=== PATIENT | female | born 1945 | race Caucasian/White ===

== ENCOUNTER 2020-02-24 09:44 | Outpatient (CLI) | payer OTHER, MEDICARE, SELFPAY ==
--- NOTE | ~2020-02-24 | MR_ITS ---
EXAMINATION: MR ankle RT wo con DATE: 02/24/2020 10:34 INDICATION: Right ankle pain. TECHNIQUE: Magnetic resonance imaging (MRI) of the right ankle was performed without intravenous cont rast. Sequences included sagittal, coronal, and axial proton-density weighted fast spin echo without and with fat saturation. COMPARISON: CT dated 10/16/2017 FINDINGS: Medial ankle ligaments: Deep and superficial deltoid ligaments as well as the spring ligament are normal. Lateral ankle ligaments: The anterior and posterior inferior tibiofibular ligaments are normal. The anterior talofibular, calc aneofibular and posterior talofibular ligaments are normal. Tendons: Achilles tendon is normal. The peroneus longus and brevis tendons are normal. The tibialis anterior a nd extensor hallucis longus and extensor digitorum longus tendons are normal. The tibialis posterior, flexor digitorum longus and flexor hallucis longus tendons are normal. Plantar fascia: Plantar aponeurosis is normal. Bones/other: Again seen is prominent pes cavus. Subtle shallow cleft along the articular surface of the tibial iain fond and the site of an old healed nondisplaced fracture of the tibial plafond as is seen on prior CT . Prominent marrow edema surrounding linear low signal intensity subarticular stress fracture lines a t the calcaneus underlying the posterior facet of the subtalar joint and in the talus underlying the anterior margin of the posterior facet of the subtalar joint. Marrow signal is otherwise normal with no other fracture or pathologic marrow replacing process. There is prominent fatty atrophy of the muc h of the musculature of the distal calf and intrinsic musculature of the foot. There is atrophy of th e plantar calcaneal fat pad. Fluid: Small likely reactive subtalar and tibiotalar joint effusions. Subcutaneous edema about the ankle and extending distally along the dorsum of the forefoot. IMPRESSION: 1. Subarticular stress fractures at either side of the posterior facet of the subtalar joint. 2. Prominent pes cavus which may be related to chronic neuromuscular disease given the extensive fatt y muscular atrophy in the forefoot and distal calf. Reviewed, dictated and finalized at location A. IMPRESSION: 1. Subarticular stress fractures at either side of the posterior facet of the s ubtalar joint. 2. Prominent pes cavus which may be related to chronic neuromuscular disease gi katie the extensive fatty muscular atrophy in the forefoot and distal calf.
== END 2020-02-24 09:45 ==
LOC: MICIMG 09:44
PROVIDERS: Visit Provider Orthopaedic Surgery
DX: M25.579 Pain in unspecified ankle and joints of unspecified foot (principal); M84.361D Stress fracture, right tibia, subsequent encounter for fracture with routine healing; M84.374A Stress fracture, right foot, initial encounter for fracture
CPT/HCPCS: 73721

== ENCOUNTER 2020-12-14 13:09 | Outpatient (CLI) | payer OTHER, MEDICARE, SELFPAY ==
--- NOTE | ~2020-12-14 | DEXA_ITS ---
Bone Density Report Name: Rashida Yap Age: 75 Sex: Female Ethnicity: White Date of : 1945 Indication: postmenopausal osteoporosis; monitoring treatment; height loss; prior fracture; hysterectomy; Referring Provider: Royal Jung Study: Bone densitometry was performed. Exam Date: December 14, 2020 Accession number: [id number] Bone Density: Region BMD T-score Z-score Classification AP Spine (L3, L4) 0.909 -1.7 0.8 Osteopenia Femoral Neck (Left) 0.515 -3.0 -0.9 Osteoporosis Total Hip (Left) 0.586 -2.9 -1.1 Osteoporosis Total Hip Bilateral Avg 0.578 -3.0 -1.2 Osteoporosis Femoral Neck (Right) 0.530 -2.9 -0.8 Osteoporosis Total Hip (Right) 0.569 -3.1 -1.2 Osteoporosis World Health Organization criteria for BMD impression classify patients as: Normal (T-score at or above -1.0), Osteopenia (T-score between -1.0 and -2.5), or Osteoporosis (T-score at or below -2.5). 10-year Fracture Risk: FRAX not reported because: Some T-score for Spine Total or Hip Total or Femoral Neck at or below -2.5 Treated for osteoporosis Previous Exams: Region Exam Age BMD T-score BMD Change BMD Change Date g/cm2 vs Baseline vs Previous AP Spine(L3, L4) 12/14/2020 75 0.909 -1.7 0.188(26.1%)# -0.010(-1.1%) 03/06/2018 72 0.918 -1.7 0.198(27.5%)# 0.055(6.4%)# 01/03/2011 65 0.863 -2.2 0.143(19.9%)* 0.143(19.9%)* 11/12/2008 63 0.720 -3.5 Total Hip(Left) 12/14/2020 75 0.586 -2.9 -0.100(-14.6%) -0.037(-5.9%)* 03/06/2018 72 0.623 -2.6 -0.063(-9.2%)# -0.069(-10.0%) 01/03/2011 65 0.692 -2.0 0.006(0.8%) 0.006(0.8%) 11/12/2008 63 0.687 -2.1 Total Hip(Right) 12/14/2020 75 0.569 -3.1 -0.077(-12.0%) 0.032(6.0%)* 03/06/2018 72 0.537 -3.3 -0.109(-16.9%) -0.093(-14.8%) 01/03/2011 65 0.630 -2.6 -0.016(-2.5%) -0.016(-2.5%) 11/12/2008 63 0.646 -2.4 *Denotes significance at 95% confidence level, LSC for AP Spine = 0.022 g/cm2, LSC for Total Hip = 0.027 g/cm2 Clinical Information Provided by Patient: Has had a low trauma fracture Is being treated for osteoporosis Has used the following medications: Fosamax (i.e. alendronate), Vitamin D, Calcium Has the following medical conditions: Hysterectomy Patient maximum height was 63 Menopause Age: 40 Does not regularly consume dairy products Drinks caffeinated beverages Onset of menses at age 12 Number of children 2 Impression: The patient has established osteoporosis,
--- NOTE | ~2020-12-14 | MM_ITS ---
EXAMINATION: MM screening letitia BI w khadijah HISTORY: Screening TECHNIQUE: Craniocaudal and mediolateral oblique 3-D tomosynthesis images were obtained and synthetic 2-D images were generated. CAD analysis was submitted and interpreted. COMPARISON: No prior mammogram is available for comparison at this institution. BREAST PARENCHYMAL COMPOSITION: There are scattered areas of fibroglandular density. FINDINGS: There is no evidence of suspicious mass, calcification, or architectural distortion to sugg est malignancy in either breast. There has been no suspicious interval change. IMPRESSION: 1. No mammographic evidence of malignancy. 2. Recommend routine screening mammography in one year. BI-RADS Category 1: Negative Reviewed, dictated and finalized at location A.
== END 2020-12-14 13:10 | disposition home or self-care (01) ==
LOC: ANHIMG 13:12
PROVIDERS: PCP Family Medicine; Visit Provider Family Medicine
DX: Z12.31 Encounter for screening mammogram for malignant neoplasm of breast (principal); M81.0 Age-related osteoporosis without current pathological fracture; M85.88 Other specified disorders of bone density and structure, other site
CPT/HCPCS: 77063; 77067; 77080

== ENCOUNTER 2021-05-30 12:22 | Outpatient (CLI) | payer OTHER, MEDICARE, SELFPAY ==
--- NOTE | ~2021-05-30 | US_ITS ---
EXAMINATION: US venous doppler [facility] DATE: 05/30/2021 13:06 INDICATION: Right lower limb pain. TECHNIQUE: Grayscale ultrasound images without and with compression and Doppler ultrasound images of the bilateral lower extremity veins were obtained. COMPARISON: Ultrasound 07/08/2017 FINDINGS: The visualized portions of right common femoral vein, profunda (deep) femoral vein, femoral vein, pop liteal vein, peroneal veins, posterior tibial veins, and greater saphenous vein outflow are patent. The visualized portions of left common femoral vein, profunda femoral vein, femoral vein, popliteal v ein, peroneal veins, posterior tibial veins, and greater saphenous vein outflow are patent. IMPRESSION: 1. No deep venous thrombosis. Reviewed, dictated and finalized at location A. F [employer]
== END 2021-05-30 12:23 | disposition home or self-care (01) ==
LOC: ANHIMG 12:27
PROVIDERS: PCP Family Medicine; Visit Provider Physician Assistant
DX: M79.661 Pain in right lower leg (principal); M79.89 Other specified soft tissue disorders
CPT/HCPCS: 93970

== ENCOUNTER 2021-07-04 08:09 | Outpatient (RCR) | payer OTHER, MEDICARE, SELFPAY ==
[2021-06-06 09:00] VITALS: BMI 23.1
--- NOTE | 2021-06-06 16:15 | PM.IMHP ---
H&P: HPI History of Present Illness Date/Time: 06/06/21 0900 Chief Complaint: Right heel ulcer Narrative: 76-year-old female presents [facility] wound clinic today for evaluation of right posterior heel ulcer. Patient has a history of polio and had complications with her brace which caused a ulcer and surrounding cellulitis. She was treated with oral antibiotics by Dr. Cain in the outpatient orthopedic clinic and scheduled to follow up in the [facility] for evaluation and treatment of her foot ulcer. She denies current fever chills, night sweats, nausea, vomiting or diarrhea. She has been in a raptor ankle brace and shoe for a holiday from her brace to prevent recurrent wounds. she also completed a course of oral antibiotics. Review of Systems Constitutional: Constitutional: Reports no additional constitutional complaints, Denies excessive sweating, Denies fever(s) and Denies weight gain Eyes: Eyes: Reports no additional eye complaints and Denies change in vision ENT: Reports system reviewed and no additional complaints, except as documented and Reports Normal hearing present Cardiovascular: Cardiovascular: Denies chest pain, Denies diaphoresis, Denies leg ulcers and Denies dyspnea on exertion Respiratory: Respiratory: Reports no additional respiratory complaints, Denies cough and Denies dyspnea on exertion Gastrointestinal: Gastrointestinal: Reports no additional gastrointestinal complaints, Denies abdominal pain, Denies constipation, Denies nausea and Denies vomiting Genitourinary: Genitourinary: Denies hematuria and Denies urinary frequency Musculoskeletal: Musculoskeletal: Reports no additional musculoskeletal complaints and Reports as per HPI Neurologic: Reports Normal hearing present Endocrine: Endocrine: Reports no additional endocrine complaints, Denies change in body appearance, Denies excessive sweating, Denies polyphagia, Denies polydipsia and Denies polyuria [facility] Past Medical History Medical History Arthritis Calcaneovalgus deformity of right foot Callus of heel Cellulitis of right leg Osteoporosis Post-polio syndrome Stress fracture of calcaneus Stress fracture of tibia Family History Family History Other Diabetes mellitus Family history of malignant neoplasm Hypertension Social History Social History Smoking status: Never smoker Second hand tobacco smoke exposure: No Alcohol intake: never Substance use: never Substance use type: does not use Gender identity (if verbalized by the patient): Female Sexual Orientation (if Verbalized by the Patient): Straight or Heterosexual Meds Home Medications and Allergies Home Medications Medication Instructions Recorded Confirmed Type calcium carbonate 500 mg-vitamin 1 tablet PO DAILY 03/09/20 06/06/21 History D3 5 mcg (200 unit) tablet clobetasol 0.05 % topical cream 1 applic TOPICAL DAILY #45 g 09/28/20 06/06/21 Rx levothyroxine 100 mcg tablet 100 mcg PO DAILY #30 tablet 05/05/21 06/06/21 Rx naproxen 500 mg tablet 500 mg PO .COMPLEX PRN #180 tablet 05/17/21 06/06/21 Rx doxycycline hyclate 100 mg capsule 100 mg PO BID #20 cap 05/18/21 06/06/21 Rx doxycycline hyclate 100 mg capsule 100 mg PO BID #8 cap 05/23/21 06/06/21 Rx silver nitrate 55 PPM topical gel 1 applic TOPICAL .qd #45 ml 05/23/21 06/06/21 Rx Allergies Allergy/AdvReac Type Severity Reaction Status Date / Time Sulfa (Sulfonamide Allergy Unknown Unknown Verified 05/23/21 13:14 Antibiotics) Exam Const: General: cooperative Nutritional Appearance: average body habitus Orientation/consciousness: patient oriented x3 Limitations: no limitations HENMT: Head: normal to inspection Ears: hearing grossly normal bilaterally General nose exam: Normal external nose present Face and sinus: normal facial exam Mo
--- NOTE | 2021-07-04 08:59 | PM.IMHP ---
H&P: HPI History of Present Illness Date/Time: 07/04/21 08:59 Chief Complaint: Right heel ulcer Narrative: 76-year-old female presents [facility] clinic today for evaluation of right posterior heel ulcer. She has had changes to her Ana brace which have helped. She reports no pain or rubbing. No new ulcers. Review of Systems Constitutional: Constitutional: Reports no additional constitutional complaints, Denies excessive sweating, Denies fever(s) and Denies weight gain Eyes: Eyes: Reports no additional eye complaints and Denies change in vision ENT: Reports system reviewed and no additional complaints, except as documented and Reports Normal hearing present Cardiovascular: Cardiovascular: Denies chest pain, Denies diaphoresis, Denies leg ulcers and Denies dyspnea on exertion Respiratory: Respiratory: Reports no additional respiratory complaints, Denies cough and Denies dyspnea on exertion Gastrointestinal: Gastrointestinal: Reports no additional gastrointestinal complaints, Denies abdominal pain, Denies constipation, Denies nausea and Denies vomiting Genitourinary: Genitourinary: Denies hematuria and Denies urinary frequency Musculoskeletal: Musculoskeletal: Reports no additional musculoskeletal complaints and Reports as per HPI Neurologic: Reports Normal hearing present Endocrine: Endocrine: Reports no additional endocrine complaints, Denies change in body appearance, Denies excessive sweating, Denies polyphagia, Denies polydipsia and Denies polyuria [facility] Past Medical History Medical History Arthritis Calcaneovalgus deformity of right foot Callus of heel Cellulitis of right leg Osteoporosis Post-polio syndrome Stress fracture of calcaneus Stress fracture of tibia Family History Family History Other Diabetes mellitus Family history of malignant neoplasm Hypertension Social History Social History Smoking status: Never smoker Second hand tobacco smoke exposure: No Alcohol intake: never Substance use: never Substance use type: does not use Gender identity (if verbalized by the patient): Female Sexual Orientation (if Verbalized by the Patient): Straight or Heterosexual Meds Home Medications and Allergies Home Medications Medication Instructions Recorded Confirmed Type calcium carbonate 500 mg-vitamin 1 tablet PO DAILY 03/09/20 06/06/21 History D3 5 mcg (200 unit) tablet clobetasol 0.05 % topical cream 1 applic TOPICAL DAILY #45 g 09/28/20 06/06/21 Rx levothyroxine 100 mcg tablet 100 mcg PO DAILY #30 tablet 05/05/21 06/06/21 Rx naproxen 500 mg tablet 500 mg PO .COMPLEX PRN #180 tablet 05/17/21 06/06/21 Rx doxycycline hyclate 100 mg capsule 100 mg PO BID #20 cap 05/18/21 06/06/21 Rx doxycycline hyclate 100 mg capsule 100 mg PO BID #8 cap 05/23/21 06/06/21 Rx silver nitrate 55 PPM topical gel 1 applic TOPICAL .qd #45 ml 05/23/21 06/06/21 Rx Allergies Allergy/AdvReac Type Severity Reaction Status Date / Time Sulfa (Sulfonamide Allergy Unknown Unknown Verified 05/23/21 13:14 Antibiotics) Exam Const: General: cooperative Nutritional Appearance: average body habitus Orientation/consciousness: patient oriented x3 Limitations: no limitations HENMT: Head: normal to inspection Ears: hearing grossly normal bilaterally General nose exam: Normal external nose present Face and sinus: normal facial exam Mouth: Yes moist mucous membranes Teeth and gingiva: dentition normal Eyes: General: appearance normal, both eyes and all related structures Pupils: Equal, round and reactive pupils present EOM: EOMs intact bilaterally Neck: Neck: normal visual inspection Chest: Chest palpation & inspection: normal inspection of the chest Resp: Effort & Inspection: normal respiratory effort and able to speak in complete sentenc
== END 2021-08-18 12:27 | disposition home or self-care (01) ==
LOC: ANHWOC 08:09
PROVIDERS: PCP Family Medicine; Visit Provider Nurse Practitioner Family
DX: L97.419 Non-pressure chronic ulcer of right heel and midfoot with unspecified severity (principal)
CPT/HCPCS: 99211; 99213; A9270; G0463

== ENCOUNTER 2021-12-15 14:58 | Inpatient (IN) | payer OTHER, MEDICARE, SELFPAY ==
--- NOTE | ~2021-12-15 | BM_ITS ---
EXAMINATION: CCL bone marrow biopsy diag DATE: 12/29/2021 10:59 INDICATION: Anemia. TECHNIQUE: A time-out was performed to verify the patient's name, date of , and procedure to b e performed. The procedure including the risks, benefits, and alternatives was discussed with the pat ient. Risks discussed included bleeding and infection. The patient understood the risks and agreed to proceed. The skin overlying the left ilium was prepped and draped in usual sterile fashion. Anesth etic was administered with 1% lidocaine subcutaneously. 50 mg fentanyl IV was given for pain control. An 11 gauge needle was inserted into the ilium with fluoroscopic guidance. Bone marrow was aspirate d. An 8 gauge needle was then inserted into the ilium with fluoroscopic guidance. A core bone marrow biopsy was obtained. There were no immediate complications. Fluoroscopy exposure time was 0.0 minutes . The total number of images was 62. FINDINGS: Real-time fluoroscopy demonstrates a marker overlying the left posterior superior iliac spi ne. IMPRESSION: 1. Fluoro-guided bone marrow aspiration. 2. Fluoro-guided bone marrow core biopsy. Reviewed, dictated and finalized at location A.
--- NOTE | ~2021-12-15 | CT_ITS ---
EXAMINATION: CT abdomen pelvis wo con DATE: 12/18/2021 08:12 INDICATION: Sepsis, transaminitis TECHNIQUE: Computed tomography (CT) of the abdomen and pelvis was performed without intravenous contr ast. The dose-length product (DLP) was 311.11 mGy-cm. Automated exposure control and iterative recons truction technique were employed. COMPARISON: 12/16/2021 FINDINGS: There are small pleural effusions. Minimal dependent atelectasis is present in the lung bas es. The heart size is normal. There is a trace pericardial effusion. Punctate calcifications in other salazar normal appearing liver and spleen likely represent healed granulomatous disease. The pancreas, g allbladder, and adrenal glands are normal. The kidneys are unremarkable. No pathologically enlarged a bdominal or pelvic lymph nodes are identified. There is calcified atherosclerosis of the aorta and ma ny of the other arteries. There is no free intraperitoneal gas or evidence of bowel obstruction. Chromo rene diverticulosis is present without evidence of diverticulitis. Hyperattenuating material in the ur inary bladder is consistent with contrast from recent CT. There is severe lumbar spondylosis. A small amount of gas in the anterior subcutaneous tissues in the right lower quadrant likely represents inj ection sites. IMPRESSION: 1. No CT correlate for the patient's symptoms. 2. Small pleural effusions. 3. Mild atelectasis of the lung bases. Reviewed, dictated and finalized at location B.
--- NOTE | ~2021-12-15 | XR_ITS ---
EXAM: XR abdomen/kub 1V DATE: 12/27/2021 13:40 HISTORY: constipation/abd pain . COMPARISON: CT abdomen and pelvis 12/18/2021. FINDINGS: Normal bowel gas pattern. No organomegaly. Scattered vascular calcifications. Lumbar scoli osis with severe multilevel degenerative disc disease. IMPRESSION: No radiographic evidence of obstruction or ileus. Reviewed, dictated and finalized at location K.
--- NOTE | ~2021-12-15 | XR_ITS ---
XR chest 2V 12/17/2021 08:09 Indication: Sepsis Procedure: AP and lateral views of the chest Comparison: No prior studies for comparison. Findings: Heart size normal. Posterior basilar airspace disease. Small pleural effusions. No pneumoth orax. No edema, focal pneumonia or pneumothorax. Impression: 1: Bibasilar atelectasis. 2: Small pleural effusions. Reviewed, dictated and finalized at location A. Impression: 1: Bibasilar atelectasis. 2: Small pleural effusions.
--- NOTE | ~2021-12-15 | MR_ITS ---
EXAMINATION: MR lower leg RT wo/w con DATE: 12/28/2021 15:13 INDICATION: Worsening vasculitic process of indeterminate etiology. Right leg cellulitis. TECHNIQUE: Magnetic resonance imaging (MRI) of the right lower leg without and with 12 mL Multihance was performed without intravenous contrast. Sequences included axial, sagittal and coronal T1-weighte d FSE and fluid sensitive FSE STIR, axial T1-weighted FS FSE and post contrast axial, sagittal and co gertrude T1-weighted FS FSE were also obtained. COMPARISON: Right lower extremity CT angiogram dated 12/16/2021 FINDINGS: Bone alignment is normal. Normal bone marrow signal with no reactive edema, fracture or pathologic ma rrow replacing process. There is severe fatty atrophy of the pelvis essentially complete conversion t o the fat of the musculature throughout the right calf relatively sparing small portions of the muscu lature in the proximal and distal thirds of the anterolateral compartment. As may be related to repor scotty history of childhood polio. There is diffuse subcutaneous edema throughout the right calf. There is a more discrete fluid collection along the superficial fascia overlying the proximal aspect of the anterolateral compartment which extends approximately 7 cm proximal to distal, 1.2 cm in maximal thi ckness and extends approximately 8 cm in maximal transaxial length along the superficial fascia. Ther e is peripheral enhancement with irregular margins suggesting possible phlegmonous change progressing towards abscess. Similar smaller fluid collection along the anterolateral aspect of the ankle measur ing 4.6 cm proximal to distal, 4.2 cm anteroposteriorly and 1.3 cm in maximal thickness. More irregul ar fluid collection with less organized-appearing peripheral enhancement along the superficial fascia of the posterior compartment at the proximal calf measuring approximately 13 cm proximal to distal, 9 cm in maximal transaxial length and up to maximal of 1 cm in thickness. There is increased edema in volving the musculature in the anterolateral compartment in the distal half of the calf without a dis crete fluid collection. There is enhancement along the distal right peroneus longus and brevis muscle s. IMPRESSION: 1. Extensive severe muscular atrophy throughout the calf relative early spurring small portions of th e musculature in the anterolateral compartment likely representing sequela of reported childhood olimpia o. 2. Edema in the distal aspect of the anterolateral compartment of the calf with enhancement along the distal right peroneus longus and brevis muscle bellies. Differential would include low-grade muscle strains or nonspecific myositis of indeterminate etiology which has a wide differential. 3. Extensive subcutaneous edema throughout the right calf consistent with provided history of celluli tis with irregular peripherally enhancing margins to fluid collections along the superficial fascia a t the anterolateral and posterior aspects of the proximal calf and at the anterolateral ankle suspici ous for phlegmonous change in varying degrees of transition towards more organized abscesses. Reviewed, dictated and finalized at location A. IMPRESSION: 1. Extensive severe muscular atrophy throughout the calf relative early spurrin g small portions of the musculature in the anterolateral compartment likely rep resenting sequela of reported childhood polio. 2. Edema in the distal aspect of the anterolateral compartment of the calf with enhancement along the distal right peroneus longus and brevis muscle bellies. Differential would include low-grade muscle strains or nonspecific myositis of indeterminate etiology which has a wide differential. 3. Extensive subcutaneous edema throughout the right calf consistent with provi ded
--- NOTE | ~2021-12-15 | US_ITS ---
EXAMINATION: US venous doppler LE RT DATE: 12/15/2021 16:34 INDICATION: Right lower limb swelling. TECHNIQUE: Grayscale ultrasound images without and with compression and Doppler ultrasound images of the right lower extremity veins were obtained. COMPARISON: Ultrasound 05/30/2021 FINDINGS: The visualized portions of right common femoral vein, profunda (deep) femoral vein, femoral vein, pop liteal vein, peroneal veins, posterior tibial veins, and greater saphenous vein outflow are patent. T here is subcutaneous edema in the calf. IMPRESSION: 1. No deep venous thrombosis. Reviewed, dictated and finalized at location A.
--- NOTE | ~2021-12-15 | US_ITS ---
US arterial ankle brachial ind INDICATION: Right leg redness and edema TECHNIQUE: Segmental pressures and plethysmographic and Doppler waveforms of the brachial and lower e xtremity arteries were obtained. COMPARISON: None. FINDINGS: Right and left brachial artery pressures of 160 mm Hg and 137 mm Hg, respectively, are concordant (no rmal difference <= 30 mmHg). The right ankle-brachial index (ESE) is 0.69 (normal >= 0.9-1.0). The right great toe-brachial index (TBI) is 0.35 (normal >= 0.60). The left ESE is 0.99. The left TBI is 0.40. IMPRESSION: 1. Diminished right ESE and bilateral toe brachial indices, consistent with mild-moderate peripheral arterial disease, right greater than left. Reviewed, dictated and finalized at location A. IMPRESSION: 1. Diminished right ESE and bilateral toe brachial indices, consistent with mil d-moderate peripheral arterial disease, right greater than left.
--- NOTE | ~2021-12-15 | CT_ITS ---
EXAMINATION: CTA LE RT DATE: 12/16/2021 13:53 INDICATION: Cellulitis. TECHNIQUE: Computed tomographic angiography (CTA) of the right lower extremity was performed with 150 mL Omnipaque-350 intravenous contrast. Automated exposure control and iterative reconstruction techn ique were employed. The dose-length product was 744.44 mGy-cm. COMPARISON: Right tib-fib x-rays, lower extremity venous Doppler same date. FINDINGS: PELVIC VASCULATURE: Scattered atherosclerotic calcifications. Moderate stenosis of the right internal iliac artery. RIGHT LOWER EXTREMITY VASCULATURE: Short segment moderate stenosis of the mid femoral artery. Scattered atherosclerotic calcifications. Diminished flow within the small caliber anterior tibial, posterior tibial, and peroneal arteries. Fl ow noted below the ankle in the posterior tibial artery. ADDITIONAL FINDINGS: Subcutaneous edema and fluid along the anterolateral thigh, circumferentially in the leg, extending i nto the foot. No abscess. No definite deep tissue involvement. Pelvic lymphadenopathy. Diverticulosis without diverticulitis. IMPRESSION: 1. No severe stenosis, aneurysm, dissection, or extravasation in the right lower extremity arteries. 2. Scattered atherosclerotic plaques with single vessel flow below the level of the ankle. 3. Large extremity cellulitis/edema, without focal abscess. 4. Right inguinal lymphadenopathy. Reviewed, dictated and finalized at location K. IMPRESSION: 1. No severe stenosis, aneurysm, dissection, or extravasation in the right low er extremity arteries. 2. Scattered atherosclerotic plaques with single vessel flow below the level of the ankle. 3. Large extremity cellulitis/edema, without focal abscess. 4. Right inguinal lymphadenopathy.
--- NOTE | ~2021-12-15 | XR_ITS ---
XR tibia fibula RT 2V DATE: 12/15/2021 16:18 INDICATION: Redness and swelling for 3 days TECHNIQUE: AP and lateral views COMPARISON: 05/23/2021 right ankle and foot FINDINGS: There is diffuse prominent osteopenia. No fracture or dislocation, periosteal reaction or bone destruction. Normal alignment at the knee an d ankle joints. Chronic foot deformity. IMPRESSION: Osteopenia Reviewed, dictated and finalized at location B. IMPRESSION: Osteopenia
--- NOTE | ~2021-12-15 | US_ITS ---
US abdomen limited INDICATION: Marked transaminitis PROCEDURE: Realtime right upper abdominal ultrasound. COMPARISON: No prior studies for comparison. FINDINGS: The pancreas is normal without focal mass or pancreatic ductal dilation. Liver echotexture is normal without focal mass or intrahepatic biliary dilatation. There is normal directional flow i n the portal vein. The gallbladder is normal without stones, gallbladder wall thickening or pericholecystic fluid. Comm on bile duct measures 2.3 mm. No sonographic Cason's sign. IMPRESSION: 1: Normal limited abdominal ultrasound. Reviewed, dictated and finalized at location A.
[2021-12-15 15:08] VITALS: BP 137/53; PULSE 88; RESP 16; TEMP 36.2; O2SAT 100
[2021-12-15 16:09] LABS: Hematocrit 35.5 % (37.0-47.0); Hemoglobin 11.8 g/dL (12.0-15.0); Mean Corpuscular HGB Conc 33.2 g/dl (32-36); Mean Corpuscular Hemoglobin 30.4 pg (26-34); Mean Corpuscular Volume 91.5 fl (80-100); Platelet Count Result 142 k/mm3 (150-375); Red Blood Count 3.88 M/mm3 (4.2-5.4); Red Cell Distribution Width 14.1 % (11.5-14.5); White Blood Count 17.8 K/mm3 (4.5-10.0)
[2021-12-15 16:21] LABS: Lactic Acid Reflex 1.2 mmol/L (0.7-2.0)
--- NOTE | 2021-12-15 16:21 | ED.EXTPRO ---
HPI - Extremity Problem General Chief complaint: Extremity Problem,Nontraumatic Stated complaint: Right leg redness/swollen Time Seen by Provider: 12/15/21 15:19 Source: patient Mode of arrival: ambulatory Limitations: no limitations History of Present Illness HPI Narrative: This is a 76 year old female who presents for evaluation of right leg redness and swelling. She noticed right lower leg redness and swelling Saturday night into Saturday. She was started on Doxycycline on Saturday. She has been taking her antibiotics as prescribed but she is having severe pain and no improvement in her symptoms. She denies fever, chills, chest pain or shortness of breath. She denies history of dVT. She reports being scratched by a cat a few days ago Related Data Home Medications Medication Instructions Recorded Confirmed calcium carbonate 500 mg-vitamin 1 tablet PO DAILY 03/09/20 12/13/21 D3 5 mcg (200 unit) tablet (Calcium 500 + D) Allergies Allergy/AdvReac Type Severity Reaction Status Date / Time Sulfa (Sulfonamide Allergy Unknown Unknown Verified 12/13/21 09:45 Antibiotics) Review of Systems Review of Systems: All systems reviewed & are unremarkable except as noted in HPI and below Constitutional: Constitutional: Reports chills, Denies fatigue and Denies fever(s) Cardiovascular: Cardiovascular: Denies chest pain and Denies rapid heart rate Respiratory: Respiratory: Denies chest congestion, Denies cough and Denies dyspnea Gastrointestinal: Gastrointestinal: Denies abdominal pain, Denies bloating, Denies nausea and Denies vomiting Integumentary/Breasts: Skin/Breast: Reports erythema Neurologic: Reports numbness PMFSH Past Medical History Medical History Arthritis Calcaneovalgus deformity of right foot Callus of heel Cellulitis of right leg Osteoporosis Post-polio syndrome Stress fracture of calcaneus Stress fracture of tibia Family History Family History Other Diabetes mellitus Family history of malignant neoplasm Hypertension Social History Social History Smoking status: Never smoker Second hand tobacco smoke exposure: No Alcohol intake: never Substance use: never Substance use type: does not use Gender identity (if verbalized by the patient): Female Sexual Orientation (if Verbalized by the Patient): Straight or Heterosexual Exam Const: General: no acute distress and alert Orientation/consciousness: patient oriented x3 Limitations: no limitations HENMT: Mouth: Yes Normal oral and palatal mucosa present Throat: posterior oropharynx normal Eyes: EOM: EOMs intact bilaterally Chest: Chest palpation & inspection: normal inspection of the chest Resp: Effort & Inspection: normal respiratory effort Auscultation: clear to auscultation bilaterally Cardio: Rate: regular rate Rhythm: regular rhythm Heart sounds: no murmurs Neuro: General: patient oriented x3, moves all extremities and CN's II-XI intact bilaterally Extrem: Other: right lower extremity0- swelling to right foot, right leg, there is circumferential erythema, induration entire right lower leg, TTP, increased warmth. Psych: Mental Status: mental status grossly normal Affect: normal affect Attitude: cooperative Course Reevaluation(s) Reevaluation #1: Patient will be admitted for right leg cellulitis. She has some cat scratches to her leg. Will start on unasyn. She has been accepted to hospitalist service. Date: 12/15/21 Time: 17:00 Vital Signs Vital signs: Vital Signs Temperature 97.2 F L 12/15/21 15:08 Pulse Rate 88 12/15/21 15:08 Respiratory Rate 16 12/15/21 15:08 Blood Pressure 137/53 L 12/15/21 15:08 Pulse Oximetry 100 12/15/21 15:08 Oxygen Delivery Room Air 12/15/21 15:08 Temp
[2021-12-15 16:24] LABS: Alanine Aminotransferase 152 U/L (6-35); Albumin Level 3.5 g/dL (3.5-5.1); Alkaline Phosphatase 198 U/L (38-126); Anion Gap 8 mmol/L (8-16); Aspartate Amino Transferase 189 U/L (14-36); Bilirubin,Total 2.9 mg/dL (0.2-1.3); Blood Urea Nitrogen 31 mg/dL (7-17); Calcium 9.1 mg/dL (8.4-10.2); Carbon Dioxide 26 mmol/L (22-30); Chloride 100 mmol/L (98-107); Estimated CRCL calculation 37 ml/min; Estimated Glomerular Filt Rate > 60; Glucose 105 mg/dL (65-110); Potassium 3.4 mmol/L (3.4-5.0); Sodium 134 mmol/L (137-145)
[2021-12-15 16:28] LABS: INR 1.2; Prothrombin Time 15.1 Seconds (11.1-14.7)
[2021-12-15 16:29] LABS: Partial Thromboplastin Time 38.2 SECONDS (22.3-36.8)
[2021-12-15 16:49] LABS: SARS-CoV-2 RNA PCR Negative
[2021-12-15 16:57] LABS: CRP 33.4 mg/dL (<1.0)
[2021-12-15 17:05] LABS: Band Neutrophils Percent 36 % (0-6); Lymphocytes Absolute Manual 0.17 K/mm3 (1.1-4.5); Monocytes Absolute Manual 0.35 K/mm3 (0.1-0.90); Monocytes Percent Manual 2 % (3-9); Neutrophils Absolute Manual 17.26 K/mm3 (1.7-7.2); Neutrophils Percent Manual 61 % (46-73); Platelet Estimate Adequate (Adequate); Total Cells Counted 100
[2021-12-15 17:06] LABS: Burr Cells 1+ (NORMAL)
[2021-12-15] MEDS: AMPICILLIN SULB 3 GM/NS 100 ML 3 GM/100 ML VIAL IVPB (17:06)
[2021-12-15 19:06] LABS: Hepatitis B Surface Antigen Negative (Negative)
[2021-12-15 19:11] LABS: HAV RESULT Negative (Negative); Hepatitis B Core IgM Result Negative (Negative)
--- NOTE | 2021-12-15 19:11 | PM.IMHP ---
H&P: HPI History of Present Illness Date/Time: 12/15/211744 Chief Complaint: Redness and swelling of the right lower extremity Narrative: this 76-year-old female patient with significant past medical history consisting only of polio as a child, hypothyroidism and arthritis presents to the emergency room with complaints of having redness and swelling of her right lower extremity. Patient endorses that a few days prior to her symptoms beginning she received a cat scratch to the anterior right crook. On Saturday she began feeling increased fatigue, tired, chilled noting that she had to sit outside of her dentist's office in the current extreme heat with a jacket on as she was chilling. She then noticed on Saturday morning that her right lower extremity with swelling, and she notes that it was very red and hot to the touch. She went to see her primary care physician and was placed on doxycycline 100 mg every 12 hours. She has noticed since then that the leg has continued to swell and become increasingly painful. She is unsure of when her last tetanus shot was. Upon arrival to the emergency room it was noted that the patient's leg was extremely edematous, erythematous, and tender to the touch with 2 small superficial appearing scratches to the front the right crook. Workup was started and her white blood cell count is 17.8 with 36% bands, absolute neutrophils are 17.26, total bilirubin is 2.9, AST is 189, ALT is 152, alk phos is 198, CRP is 33.4, and it should be noted that her bilirubin, AST, ALT, alk-phos were all normal on October 20, 2021. Hepatitis panel was performed in the ED and was negative. At the time of my assessment patient denies any chest pain, dyspnea, nausea, vomiting, diarrhea and no urinary burning, urgency, frequency, hematuria. Review of Systems Review of Systems: All systems reviewed & are unremarkable except as noted in HPI and below PMFSH Past Medical History Medical History Arthritis Calcaneovalgus deformity of right foot Callus of heel Cellulitis of right leg Osteoporosis Post-polio syndrome Stress fracture of calcaneus Stress fracture of tibia Family History Family History Other Diabetes mellitus Family history of malignant neoplasm Hypertension Social History Social History Smoking status: Never smoker Second hand tobacco smoke exposure: No Alcohol intake: never Substance use: never Substance use type: does not use Gender identity (if verbalized by the patient): Female Sexual Orientation (if Verbalized by the Patient): Straight or Heterosexual Meds Home Medications and Allergies Home Medications Medication Instructions Recorded Confirmed Type calcium carbonate 500 mg-vitamin 1 tablet PO DAILY 03/09/20 12/13/21 History D3 5 mcg (200 unit) tablet (Calcium 500 + D) clobetasol 0.05 % topical cream 1 applic topical DAILY #45 grams 09/28/20 12/13/21 Rx naproxen 500 mg tablet 500 mg PO .COMPLEX PRN pain #180 08/09/21 12/13/21 Rx tabs levothyroxine 88 mcg tablet 88 mcg PO DAILY #30 tabs 10/25/21 12/13/21 Rx doxycycline hyclate 100 mg capsule 100 mg PO BID #14 caps 12/13/21 12/13/21 Rx clindamycin HCl 300 mg capsule 300 mg PO Q8H 1 week #21 caps 12/15/21 Rx Allergies Allergy/AdvReac Type Severity Reaction Status Date / Time Sulfa (Sulfonamide Allergy Unknown Unknown Verified 12/13/21 09:45 Antibiotics) Vital Signs Vital Signs - 24 hr 12/15/21 15:08 Temperature 97.2 F L Pulse Rate 88 Respiratory Rate 16 Blood Pressure 137/53 L Pulse Oximetry 100 Oxygen Delivery Room Air Exam Const: General: uncomfortable ( Secondary to pain in the right lower extremity.) HENMT: General nose exam: Normal nares present Mouth: Yes moist mucous membranes Eyes: General: daniel
[2021-12-15 19:15] VITALS: BP 128/55; PULSE 98; RESP 16; O2SAT 100
[2021-12-15 19:23] LABS: Hepatitis C Virus Antibody Negative (Negative)
[2021-12-15 20:29] VITALS: BP 120/72; PULSE 72; RESP 16; O2SAT 98
[2021-12-15 20:31] VITALS: BMI 24.3
--- NOTE | 2021-12-15 20:34 | ADMGEN ---
This patient, Rashida Yap, was admitted to Medical Room 258-01. Patient/family oriented to hospital policies and general routines including ID bracelet, bed and alarms, visiting hours, pain management, procedures, bathroom and other care routines, personal items, smoking policy, room service/diet, and visiting hours. Information on how to activate the Rapid Response Team has been discussed. Patient/Family are encouraged to report perceived risks to care and to ask questions if they do not understand what they are told or what they should do.
[2021-12-15 22:47] VITALS: BP 139/46; PULSE 99; RESP 21; TEMP 36.7; O2SAT 100
[2021-12-15] MEDS: MORPHINE SULFATE (*CRX) 4 MG/ML INJ IV PUSH (23:29)
[2021-12-15 23:40] LABS: Appearance Urine Clear (Clear); Bilirubin Urine 1+ (Negative); Blood Urine Negative (Negative); Color Urine Yellow (Yellow); Glucose Urine UA Negative (Negative); Ketones Urine Trace mg/dL (Negative); Leukocyte Esterase Ur 1+ LEU/UL (Negative); Nitrate Urine Negative (Negative); Protein Urine 2+ mg/dL (Negative); Specific Grav Ur 1.015 (1.001-1.035)
[2021-12-15 23:47] LABS: Amorphous Sediment Urine Few; Bacteria Urine Trace /hpf; Mucus Urine Rare /lpf; Squamous Epithelial Cell Urine Few /hpf (Few); WBC Urine 16-20 /hpf
[2021-12-15 23:50] LABS: Add Urine Microscopic? YES
[2021-12-16] MEDS: AMPICILLIN SULB 3 GM/NS 100 ML 3 GM/100 ML VIAL IVPB ×4 (00:32→18:07)
[2021-12-16 06:00] VITALS: BP 100/45; PULSE 95; RESP 20; TEMP 36.6; O2SAT 99
--- NOTE | 2021-12-16 09:25 | PM.IMPN ---
Progress Note: A&P Assessment and Plan (1) Cellulitis of right leg: Code(s): L03.115 - Cellulitis of right lower limb Status: Acute Assessment and Plan: 12/15- White count is actually worse today after starting IV antibiotics. - Her cellulitis seems to be extending from below the knee up to the thigh. I have some concerns given reported spread. no crepitus on exam. I have marked the boundaries of the cellulitic area and asked hte nurses to continue monitoring and notify me of extension beyond the marked borders. - Stat CT and surgical consult placed. No abscess, and surgery is following if needed for further consultation. - vancomycin and Unasyn IV started in ER yesterday. - Blood cultures pending - Patient with left-shifted white count and bandemia. - Monitor vital signs. - P.r.n. pain meds - P.r.n. antiemetics - CRP of 33.4. (2) Cat scratch: Code(s): W55.03XA - Scratched by cat, initial encounter Status: Acute Assessment and Plan: - Tetanus shot updated - continue antibiotics of vancomycin and Unasyn dosed by pharmacy. - Bartonella culture ordered - Antibiotics cover for both pasteurella as well as Bartonella. (3) Transaminitis: Code(s): R74.01 - Elevation of levels of liver transaminase levels Status: Acute Assessment and Plan: - Ultrasound of rightshows normal limited abdominal ultrasound. Concern for visceral organ involvement from cat scratch. - AM labs show - Consider CT of the abdomen and pelvis. - Patient denies abdominal pain, vomiting, nausea, diarrhea, (4) Hyperbilirubinemia: Code(s): E80.6 - Other disorders of bilirubin metabolism Status: Acute Assessment and Plan: - Ultrasound of the right upper quadrant is pending. Concern for visceral organ involvement from the cat scratch. - AM labs show - Consider CT of the abdomen and pelvis. - Hepatitis panel negative. Subjective Date/time seen: 12/16/21 09:25 Patient is sitting and resting today. She states the pain medications have helped significantly. She denies any fevers, chills, shortness of breath, nausea, vomiting. She does not remember any specific puncture to her leg. Review of Systems Review of Systems: All systems reviewed & are unremarkable except as noted in HPI and below Exam Narrative: GENERAL APPEARANCE: Alert and oriented x 3, in no apparent distress. HEENT: PERRL, EOMI. Sclerae anicteric. Moist mucous membranes. NECK: Supple. No JVD or obvious carotid bruits. RESPIRATORY: Respirations are nonlabored. Breath sounds are equal and clear bilaterally. No wheezes, Rhonchi, or rales. CARDIOVASCULAR: Regular rate and rhythm with normal S1-S2. No murmurs, gallops, or rubs. GASTROINTESTINAL: Soft, flat, and benign. No mass, tenderness, guarding, or rebound. No organomegaly or hernia. Bowel sounds are present. SKIN: Clearly demarcated cellulitic area extending from the right foot just past the patella anteriorly and to the mid-thigh posteriorly. Significant edema, warmth, and tenderness over the cellulitic area. One punctate area on the lower crook noted with two small scratches above that. left leg is normal to exam. EXTREMITIES: No cyanosis, clubbing. Radial and pedal pulses intact. Normal capillary refill. NEUROLOGICAL: Alert. Cranial nerves 2-12 are grossly intact. No gross focal deficits to casual conversation. PSYCHIATRIC: Pleasant and cooperative with normal mood and affect. Objective Data Vital Signs Vital Signs: Vital Signs - 24 hr 12/15/21 15:08 12/15/21 19:15 12/15/21 20:29 Temperature 97.2 F L Pulse Rate 88 98 72 Respiratory Rate 16 16 16 Blood Pressure 137/53 L 128/55 L 120/72 Pulse Oximetry 100 100 98 Oxygen Delivery Room Air 12/15/21 22:47 12/16/21 06:00 12/16/21 07:43 Temperature 98.0 F 97.9 F Pulse Rate 99 95 Respiratory Rate 21 H 20 Blood Pressure 139/46 L 100/45 L Pulse
[2021-12-16 09:32] VITALS: O2SAT 94
[2021-12-16] MEDS: ENOXAPARIN 40 MG/0.4 ML SYRINGE SUB-Q (10:44)
[2021-12-16] MEDS: LEVOTHYROXINE SODIUM 88 MCG TABLET PO (10:44)
[2021-12-16 11:06] LABS: Hematocrit 31.5 % (37.0-47.0); Mean Corpuscular HGB Conc 34.9 g/dl (32-36); Mean Corpuscular Hemoglobin 31.3 pg (26-34); Mean Corpuscular Volume 89.5 fl (80-100); Mean Platelet Volume 12.9 fl (7.4-10.4); Platelet Count Result 152 k/mm3 (150-375); Red Blood Count 3.52 M/mm3 (4.2-5.4); Red Cell Distribution Width 14.5 % (11.5-14.5); White Blood Count 20.8 K/mm3 (4.5-10.0)
[2021-12-16 11:17] LABS: Alanine Aminotransferase 121 U/L (6-35); Albumin Level 2.9 g/dL (3.5-5.1); Alkaline Phosphatase 173 U/L (38-126); Anion Gap 7 mmol/L (8-16); Aspartate Amino Transferase 97 U/L (14-36); Bilirubin,Total 2.7 mg/dL (0.2-1.3); Blood Urea Nitrogen 28 mg/dL (7-17); Calcium 8.2 mg/dL (8.4-10.2); Carbon Dioxide 26 mmol/L (22-30); Chloride 100 mmol/L (98-107); Estimated CRCL calculation 41 ml/min; Estimated Glomerular Filt Rate > 60; Glucose 106 mg/dL (65-110); Potassium 3.5 mmol/L (3.4-5.0); Sodium 133 mmol/L (137-145)
[2021-12-16 12:10] LABS: Band Neutrophils Percent 51 % (0-6); Lymphocytes Absolute Manual 2.49 K/mm3 (1.1-4.5); Metamyelocytes Percent 3 %; Monocytes Absolute Manual 1.04 K/mm3 (0.1-0.90); Monocytes Percent Manual 5 % (3-9); Myelocytes Percent 2 %; Neutrophils Absolute Manual 16.22 K/mm3 (1.7-7.2); Neutrophils Percent Manual 27 % (46-73); Total Cells Counted 100
[2021-12-16 12:15] LABS: Burr Cells 1+ (NORMAL); Platelet Estimate Adequate (Adequate)
[2021-12-16 12:40] LABS: Thyroid Stimulating Hormone Reflex 0.447 uIU/mL (0.465-4.68)
[2021-12-16 14:20] VITALS: BP 129/78; PULSE 89; RESP 16; TEMP 36.3; O2SAT 98
--- NOTE | 2021-12-16 15:25 | PM.CNGS ---
Assessment and Plan Assessment and plan (1) Cellulitis of right leg: Code(s): L03.115 - Cellulitis of right lower limb Status: Acute Assessment and Plan: Patient has evidence of cellulitis of right lower extremity. I reviewed the CT and discussed the findings with the patient. There is no localized abscess to be drained at this time. Continue IV antibiotics and elevate right lower extremity. Will monitor for any development of abscess, but this should improve with adequate antibiotic therapy. (2) Cat scratch: Code(s): W55.03XA - Scratched by cat, initial encounter Status: Acute History of Present Illness Consult details Consult date: 12/16/21 Reason for consult: other (Cellulitis) Requesting physician: Charlee Singletary PA-C Narrative: This is a 76-year-old woman who I am asked to see for right lower extremity cellulitis. She presented to the emergency department yesterday with worsening swelling of her right leg. She states that about a week ago she had a couple scratches on her right lower leg from her cat. She noticed some redness and swelling in this location. She saw her PCP and was placed on doxycycline. Over the next several days this swelling and redness continued to worsen and extend upper leg. She was not showing any improvement overnight and therefore CT was performed today. CT did not show any evidence of a focal abscess. She has not been febrile since coming in. She is still complaining of pain and swelling in the right lower extremity. Review of Systems Review of Systems: All systems reviewed & are unremarkable except as noted in HPI and below Eyes: Eyes: Denies change in vision ENT: Denies hearing loss, Denies neck pain and Denies sore throat Cardiovascular: Cardiovascular: Denies chest pain and Denies dyspnea Respiratory: Respiratory: Denies cough, Denies dyspnea and Denies wheezing Gastrointestinal: Gastrointestinal: Denies abdominal pain and Denies change in bowel habits Genitourinary: Genitourinary: Denies hematuria and Denies dysuria Musculoskeletal: Musculoskeletal: Denies arthralgias, Denies joint swelling and Denies neck pain Integumentary/Breasts: Skin/Breast: Reports as per HPI Allergic/Immunologic: Allergic/Immunologic: Denies wheezing PMFSH Past Medical History Medical History Arthritis Calcaneovalgus deformity of right foot Callus of heel Cellulitis of right leg Osteoporosis Post-polio syndrome Stress fracture of calcaneus Stress fracture of tibia Family History Family History Mother Hypertension Father Hypertension Other Family history of malignant neoplasm Diabetes mellitus Sibling Diabetes mellitus Family history of malignant neoplasm Social History Social History Smoking status: Former smoker Second hand tobacco smoke exposure: No Alcohol intake: never Substance use: never Substance use type: does not use Gender identity (if verbalized by the patient): Female Sexual Orientation (if Verbalized by the Patient): Straight or Heterosexual Spiritual care concerns: No Meds Home Medications and Allergies Home Medications Medication Instructions Recorded Confirmed Type calcium carbonate 500 mg-vitamin 1 tablet PO DAILY 03/09/20 12/15/21 History D3 5 mcg (200 unit) tablet (Calcium 500 + D) naproxen 500 mg tablet 500 mg PO .COMPLEX PRN pain #180 08/09/21 12/15/21 Rx tabs levothyroxine 88 mcg tablet 88 mcg PO DAILY #30 tabs 10/25/21 12/15/21 Rx doxycycline hyclate 100 mg capsule 100 mg PO BID #14 caps 12/13/21 12/15/21 Rx Allergies Allergy/AdvReac Type Severity Reaction Status Date / Time Sulfa (Sulfonamide Allergy Unknown Unknown Verified 12/13/21 09:45 Antibiotics) Vital Signs Vital Signs - 24 hr 12/15/21 19:15
[2021-12-16 20:20] VITALS: BP 118/38; PULSE 109; RESP 16; TEMP 36.9; O2SAT 99
[2021-12-16] MEDS: MORPHINE SULFATE (*CRX) 4 MG/ML INJ IV PUSH (21:30)
[2021-12-17] MEDS: AMPICILLIN SULB 3 GM/NS 100 ML 3 GM/100 ML VIAL IVPB ×2 (01:21→05:45)
[2021-12-17 03:28] VITALS: BP 119/44; PULSE 101; RESP 16; TEMP 37.1; O2SAT 97
[2021-12-17 05:13] LABS: Hematocrit 29.1 % (37.0-47.0); Hemoglobin 10.2 g/dL (12.0-15.0); Mean Corpuscular HGB Conc 35.1 g/dl (32-36); Mean Corpuscular Hemoglobin 30.6 pg (26-34); Mean Corpuscular Volume 87.4 fl (80-100); Mean Platelet Volume 12.2 fl (7.4-10.4); Platelet Count Result 153 k/mm3 (150-375); Red Blood Count 3.33 M/mm3 (4.2-5.4); Red Cell Distribution Width 14.5 % (11.5-14.5); White Blood Count 23.1 K/mm3 (4.5-10.0)
[2021-12-17 05:20] LABS: Alanine Aminotransferase 103 U/L (6-35); Albumin Level 2.5 g/dL (3.5-5.1); Alkaline Phosphatase 197 U/L (38-126); Anion Gap 7 mmol/L (8-16); Aspartate Amino Transferase 63 U/L (14-36); Blood Urea Nitrogen 23 mg/dL (7-17); Calcium 7.7 mg/dL (8.4-10.2); Carbon Dioxide 26 mmol/L (22-30); Chloride 101 mmol/L (98-107); Estimated CRCL calculation 47 ml/min; Estimated Glomerular Filt Rate > 60; Glucose 82 mg/dL (65-110); Potassium 2.9 mmol/L (3.4-5.0); Sodium 134 mmol/L (137-145)
[2021-12-17 05:52] LABS: Total Cells Counted 100
[2021-12-17 05:53] LABS: Band Neutrophils Percent 29 % (0-6); Eosinophils Absolute Manual 0.23 K/mm3 (0.02-0.5); Eosinophils Percent Manual 1 % (0-4); Lymphocytes Absolute Manual 0.23 K/mm3 (1.1-4.5); Lymphocytes Percent Manual 1 % (18-44); Monocytes Absolute Manual 0.69 K/mm3 (0.1-0.90); Monocytes Percent Manual 3 % (3-9); Neutrophils Absolute Manual 21.94 K/mm3 (1.7-7.2); Neutrophils Percent Manual 66 % (46-73)
[2021-12-17] MEDS: LEVOTHYROXINE SODIUM 88 MCG TABLET PO (05:53)
[2021-12-17 05:54] LABS: Platelet Estimate Adequate (Adequate)
--- NOTE | 2021-12-17 07:42 | PM.IMPN ---
Progress Note: A&P Assessment and Plan (1) Cellulitis of right leg: Code(s): L03.115 - Cellulitis of right lower limb Status: Acute Assessment and Plan: 12/16- White count is actually worse today after starting IV antibiotics. - Her cellulitis seems to be extending from below the knee up to the thigh. I have some concerns given reported spread. no crepitus on exam. I have marked the boundaries of the cellulitic area and asked hte nurses to continue monitoring and notify me of extension beyond the marked borders. Patient did receive TDAP prophylaxis in the ER. - Stat CT and surgical consult placed. No abscess, free air, and surgery is following if needed for further consultation. - vancomycin and Unasyn IV started in ER yesterday. - Blood cultures pending - Patient with left-shifted white count and bandemia. - Monitor vital signs. - P.r.n. pain meds - P.r.n. antiemetics - CRP of 33.4. 12/17- White count continues to be uptrending. Transitioning patient from Unasyn to Cefepime. CXR. Continue to follow cellulitic margins. Blood cultures show no growth and Urine culture showed no growth. Additional plan as outlined below in Sepsis (2) Sepsis: Code(s): A41.9 - Sepsis, unspecified organism Status: Acute Assessment and Plan: SIRS criteria met. (Tachycardia, WBC 23, evident source of infection) Urine is reportedly quite dark today. Patient does remain afebrile. - CK - Lactic Acid - Repeat UA. Prior UA showed no bacterial infection. - Echo ordered to evaluate for vegetation. - CXR shows bibasilar atelectasis and small pleural effusions- Will start patient on IS. - Blood cultures show no growth to date. Additional plan as above. (3) Cat scratch: Code(s): W55.03XA - Scratched by cat, initial encounter Status: Acute Assessment and Plan: - Tetanus shot updated - continue antibiotics of vancomycin and Unasyn dosed by pharmacy. - Bartonella culture ordered - Antibiotics cover for both pasteurella as well as Bartonella. (4) Transaminitis: Code(s): R74.01 - Elevation of levels of liver transaminase levels Status: Acute Assessment and Plan: - Ultrasound of rightshows normal limited abdominal ultrasound. Concern for visceral organ involvement from cat scratch. - AM labs show - Consider CT of the abdomen and pelvis. - Patient denies abdominal pain, vomiting, nausea, diarrhea, (5) Hyperbilirubinemia: Code(s): E80.6 - Other disorders of bilirubin metabolism Status: Acute Assessment and Plan: - Ultrasound of abdomen was normal. Concern for visceral organ involvement from the cat scratch. - AM labs show improvement today. - Consider CT of the abdomen and pelvis. - Hepatitis panel negative. Plan Patient is euthyroid. Subjective Date/time seen: 12/17/21 07:42 Patient states she is feeling about the same today. She denies fever, chills, nausea, vomiting, abdominal pain, chest pain, shortness a breath. She has noticed the red area is spreading further which worries her. She denies being immune compromised or treatment with steroids or immune suppressing medications. Review of Systems Review of Systems: All systems reviewed & are unremarkable except as noted in HPI and below Exam Narrative: GENERAL APPEARANCE: Alert and oriented x 3, in no apparent distress. HEENT: PERRL, EOMI. Sclerae anicteric. Moist mucous membranes. NECK: Supple. No JVD or obvious carotid bruits. RESPIRATORY: Respirations are nonlabored. Breath sounds are equal and clear bilaterally. No wheezes, Rhonchi, or rales. CARDIOVASCULAR: Regular rate and rhythm with normal S1-S2. No murmurs, gallops, or rubs. GASTROINTESTINAL: Soft, flat, and benign. No mass, tenderness, guarding, or rebound. No organomegaly or hernia. Bowel sounds are present. SKIN: Rash has spread posteriorly 7-8 inches in 24 hrs more proximally
[2021-12-17] MEDS: ENOXAPARIN 40 MG/0.4 ML SYRINGE SUB-Q (08:57)
--- NOTE | 2021-12-17 10:14 | PM.PNGS ---
Progress Note: A&P Assessment and Plan (1) Cellulitis of right leg: Code(s): L03.115 - Cellulitis of right lower limb Status: Acute Assessment and Plan: Continue antibiotics per hospitalist. No evidence of open or necrotic wounds. No evidence of abscess. No indication for surgical intervention at this time. Will continue to follow. (2) Cat scratch: Code(s): W55.03XA - Scratched by cat, initial encounter Status: Acute Subjective Subjective Date/Time Seen: 12/17/21 10:14 Interval history: Essentially unchanged. Still experiencing pain and swelling in the right lower extremity. Normal sensation in toes. No fevers. Exam Extrem: Right lower extremity: lower leg (Erythema and edema unchanged) Other: No abscess or open wound to right lower extremity. Sensation and pulses intact. Objective Data Vital Signs Vital Signs: Vital Signs - 24 hr 12/16/21 14:20 12/16/21 20:20 12/17/21 03:28 Temperature 36.3 C L 36.9 C 37.1 C Pulse Rate 89 109 H 101 H Respiratory Rate 16 16 16 Blood Pressure 129/78 118/38 L 119/44 L Pulse Oximetry 98 99 97 Intake/Output Intake/Output: Intake & Output 12/14/21 12/15/21 12/16/21 12/17/21 23:59 23:59 23:59 23:59 Intake Total 100 1505 300 Output Total 1150 100 Balance 100 355 200 Meds/Results Medications: Active Medications Generic Name Dose Route Start Last Admin Trade Name Freq PRN Reason Stop Dose Admin Enoxaparin Sodium 40 mg 12/16/21 09:00 12/17/21 08:57 Enoxaparin 40 Mg/0.4 Ml Syringe SUB-Q 40 mg DAILY AMANDA Administration Cefepime HCl 2 gm in 50 mls @ 100 mls/hr 12/17/21 08:00 12/17/21 08:55 Maxipime 2 Gm/D5w 50 Ml IVPB 100 mls/hr Q12H AMANDA Administration Vancomycin HCl 1,000 mg in 250 mls @ 250 mls/hr 12/17/21 09:00 Vancomycin 1,000 Mg/D5w 250 Ml IVPB Q24H AMANDA Levothyroxine Sodium 88 mcg 12/16/21 09:25 12/17/21 05:53 Levothyroxine Sodium 88 Mcg Tablet PO 88 mcg DAILY@0630 AMANDA Administration Morphine Sulfate 4 mg 12/15/21 17:28 12/16/21 21:30 Morphine Sulfate (*Crx) 4 Mg/Ml Inj IV PUSH 4 mg Q2H PRN Administration Pain Rated 7-10 Ondansetron HCl 4 mg 12/15/21 17:28 Ondansetron Inj 4 Mg/2 Ml Vial IV PUSH Q4H PRN Nausea Radiology Results: ITS Impressions Tibia/Fibula X-Ray 12/15/21 16:20 IMPRESSION: Osteopenia Venous Doppler Study 12/15/21 16:41 IMPRESSION: 1. No deep venous thrombosis. Abdomen Ultrasound 12/16/21 09:30 IMPRESSION: 1: Normal limited abdominal ultrasound. Lower Extremity CTA 12/16/21 14:30 IMPRESSION: 1. No severe stenosis, aneurysm, dissection, or extravasation in the right lower extremity arteries. 2. Scattered atherosclerotic plaques with single vessel flow below the level of the ankle. 3. Large extremity cellulitis/edema, without focal abscess. 4. Right inguinal lymphadenopathy. Chest X-Ray 12/17/21 08:10 Impression: 1: Bibasilar atelectasis. 2: Small pleural effusions. Labs Labs: Laboratory Results - last 24 hr 12/16/21 12/16/21 12/16/21 10:48 10:48 10:48 WBC 20.8 H RBC 3.52 L Hgb 11.0 L Hct 31.5 L MCV 89.5 MCH 31.3 MCHC 34.9 RDW 14.5 Plt Count 152 MPV 12.9 H Immature Gran % (Auto) Not Reportable Neut % (Auto) Not Reportable Lymph % (Auto) Not Reportable Storey % (Auto) Not Reportable Eos % (Auto) Not Reportable Baso % (Auto) Not Reportable Lymph # (Auto) Not Reportable Storey # (Auto) Not Reportable Eos # (Auto) Not Reportable Baso # (Auto) Not Reportable Abs Immat Gran (auto) Not Reportable Absolute Neuts (auto) Not Reportable Absolute Nucleated RBC Not Reportable Total Counted 100 Neutrophils % (Manual) 27 L Band Neutrophils % 51 H Lymphocytes % (Manual) 12.0 L Monocytes % (Manual) 5 Eosinophils % (Manual) Metamyelocytes % 3 Myelocytes % 2 N
[2021-12-17 12:25] LABS: Creatine Kinase 28 U/L (30-135)
[2021-12-17 12:26] LABS: Lactic Acid Reflex 2.6 mmol/L (0.7-2.0)
[2021-12-17 14:13] LABS: Bacteria Urine Trace /hpf; Squamous Epithelial Cell Urine Rare /hpf (Few)
[2021-12-17 14:19] LABS: Appearance Urine Clear (Clear); Bilirubin Urine 1+ (Negative); Glucose Urine UA Negative (Negative); Ketones Urine Trace mg/dL (Negative); Leukocyte Esterase Ur Negative LEU/UL (Negative); Nitrate Urine Negative (Negative); Protein Urine 2+ mg/dL (Negative); Specific Grav Ur 1.015 (1.001-1.035)
[2021-12-17 14:21] LABS: Add Urine Microscopic? YES; Blood Urine Trace-Intact (Negative); Color Urine Dark Yellow (Yellow)
[2021-12-17 14:30] VITALS: BP 112/44; PULSE 99; RESP 24; TEMP 36.7; O2SAT 99
[2021-12-17 15:11] LABS: Reflex Lactic Acid Yes or No Add Lactic
[2021-12-17] MEDS: POTASSIUM CHLORIDE 20 MEQ TABLET 40 MEQ PO (16:26)
[2021-12-17 21:26] VITALS: BP 113/44; PULSE 100; RESP 14; TEMP 36.6; O2SAT 97
[2021-12-17] MEDS: MORPHINE SULFATE (*CRX) 4 MG/ML INJ IV PUSH (22:05)
--- NOTE | 2021-12-18 | ECHO_ITS ---
Patient Info Name: Rashida Yap Age: 76 years : 1945 Gender: Female Ht: 62 in Wt: 133 lbs BSA: 1.64 m2 HR: 99 bpm BP: 121 / 49 mmHg Technical Quality: Good Exam Date: 12/18/2021 3:09 PM Exam Location: [facility] Patient Status: Inpatient Admit Date: 12/16/2021 Staff Ordering Physician: Charlee Singletary PA-C Java Software Developer: Macey Alatorre RDCS Attending Provider: Charlee Singletary PA-C Referring Physician: Gemini TOMLINSON; Exam Type: CA echo doppler color flow Study Info Indications - SEPSIS Complete two-dimensional, color flow and Doppler transthoracic echocardiogram is performed. Summary 1. Complete two-dimensional, color flow and Doppler transthoracic echocardiogram is performed. 2. Left ventricular chamber dimension is normal. 3. Left ventricular systolic function is normal, estimated at 65-70%. 4. The left ventricular diastolic function is grade I diastolic dysfunction. 5. E/e' 15 is elevated. 6. Global longitudinal strain is normal at -18.0%. 7. Left atrial chamber dimension is mildly enlarged. 8. The mitral valve has moderately calcified annulus. 9. There is mild mitral valve regurgitation. 10. There is mild tricuspid valve regurgitation. 11. Mild pulmonary hypertension, estimated pulmonary arterial systolic pressure is 40 mmHg. 12. There is trivial pericardial effusion. Left Ventricle E/e' 15 is elevated. Global longitudinal strain is normal at -18.0%. Left ventricular chamber dimension is normal. Left ventricular systolic function is normal, estimated at 65-70%. The left ventricular diastolic function is grade I diastolic dysfunction. Right Ventricle Right ventricular systolic function is normal and with normal TAPSE 2.9 cm. Right ventricular chamber dimension is normal. Left Atria Left atrial chamber dimension is mildly enlarged. Right Atria Right atrial chamber dimension is normal. Aortic Valve The aortic valve is trileaflet. There is no aortic valve stenosis. There is no aortic valve regurgitation. Pulmonic Valve There is no pulmonic regurgitation. Mitral Valve The mitral valve has moderately calcified annulus. There is no mitral valve stenosis. There is mild mitral valve regurgitation. Tricuspid Valve There is mild tricuspid valve regurgitation. Mild pulmonary hypertension, estimated pulmonary arterial systolic pressure is 40 mmHg. Pericardium/Pleural There is trivial pericardial effusion. Inferior Vena Cava Normal inferior vena cava with >50% collapse upon inspiration consistent with normal right atrial pressure, 5 mmHg. Aorta The aortic root size at the sinus of Valsalva is normal. Left Ventricular Outflow Tract Name Value Normal LVOT 2D LVOT Diameter 1.9 cm LVOT Doppler LVOT Peak Gradient 5 mmHg LVOT Mean Gradient 3 mmHg LVOT VTI 22 cm LVOT VTI/AV VTI Ratio 0.9 LVOT Stroke Volume 65 ml LVOT CO 6.2 l/min LVOT CI
[2021-12-18 06:07] LABS: Hematocrit 29.2 % (37.0-47.0); Hemoglobin 9.9 g/dL (12.0-15.0); Mean Corpuscular HGB Conc 33.9 g/dl (32-36); Mean Corpuscular Hemoglobin 30.5 pg (26-34); Mean Corpuscular Volume 89.8 fl (80-100); Platelet Count Result 182 k/mm3 (150-375); Red Blood Count 3.25 M/mm3 (4.2-5.4); Red Cell Distribution Width 14.6 % (11.5-14.5); White Blood Count 28.3 K/mm3 (4.5-10.0)
[2021-12-18 06:20] LABS: Alanine Aminotransferase 86 U/L (6-35); Albumin Level 2.4 g/dL (3.5-5.1); Alkaline Phosphatase 322 U/L (38-126); Anion Gap 10 mmol/L (8-16); Aspartate Amino Transferase 52 U/L (14-36); Bilirubin,Total 2.5 mg/dL (0.2-1.3); Blood Urea Nitrogen 20 mg/dL (7-17); Calcium 8.1 mg/dL (8.4-10.2); Carbon Dioxide 23 mmol/L (22-30); Chloride 99 mmol/L (98-107); Estimated CRCL calculation 47 ml/min; Estimated Glomerular Filt Rate > 60; Glucose 88 mg/dL (65-110); Potassium 3.5 mmol/L (3.4-5.0); Sodium 132 mmol/L (137-145)
[2021-12-18 06:23] VITALS: BP 121/49; PULSE 91; RESP 20; TEMP 36.5; O2SAT 95
[2021-12-18 06:30] LABS: Band Neutrophils Percent 31 % (0-6); Eosinophils Absolute Manual 0.28 K/mm3 (0.02-0.5); Eosinophils Percent Manual 1 % (0-4); Lymphocytes Absolute Manual 1.13 K/mm3 (1.1-4.5); Monocytes Absolute Manual 0.56 K/mm3 (0.1-0.90); Monocytes Percent Manual 2 % (3-9); Neutrophils Absolute Manual 26.31 K/mm3 (1.7-7.2); Neutrophils Percent Manual 62 % (46-73); Platelet Estimate Adequate (Adequate); Total Cells Counted 100
[2021-12-18 06:31] LABS: Anisocytosis 1+ (NORMAL); Hypochromasia 1+ (NORMAL); Poikilocytosis 1+ (NORMAL)
[2021-12-18] MEDS: LEVOTHYROXINE SODIUM 88 MCG TABLET PO (07:17)
--- NOTE | 2021-12-18 07:40 | PM.IMPN ---
Progress Note: A&P Assessment and Plan (1) Cellulitis of right leg: Code(s): L03.115 - Cellulitis of right lower limb <Charlee Singletary PA-C - Last Filed: 12/18/21 10:58> Status: Acute <Charlee Singletary PA-C - Last Filed: 12/18/21 10:58> Assessment and Plan: 12/16- White count is actually worse today after starting IV antibiotics. - Her cellulitis seems to be extending from below the knee up to the thigh. I have some concerns given reported spread. no crepitus on exam. I have marked the boundaries of the cellulitic area and asked hte nurses to continue monitoring and notify me of extension beyond the marked borders. Patient did receive TDAP prophylaxis in the ER. - Stat CT and surgical consult placed. No abscess, free air, and surgery is following if needed for further consultation. - vancomycin and Unasyn IV started in ER yesterday. - Blood cultures pending - Patient with left-shifted white count and bandemia. - Monitor vital signs. - P.r.n. pain meds - P.r.n. antiemetics - CRP of 33.4. 12/17- White count continues to be uptrending. Transitioning patient from Unasyn to Cefepime. CXR. Continue to follow cellulitic margins. Blood cultures show no growth and Urine culture showed no growth. Additional plan as outlined below in Sepsis 12/18- WBC 28 ^^ from 23 after starting Cefepime and continuing vancomycin. Cellulitis appears worse today, new bullae and hemorrhagic petechiae over the posterior right calf. Alk phos and bilirubin uptrending again today. Stat CT abd/pelvis non con, GGT, repeat lactic acid ordered. Echo pending. ID Pharmacist has been consulted at this time, will transition to Vancomycin/ertapenem/clindamycin/azithromycin IV with transition to PO once resolving x 14 days. Wound has been consulted and recommend culture of the serous fluid from the bullae. Will accomplish this. Surgery is following and we do appreciate their recommendations. <Charlee Singletary PA-C - Last Filed: 12/18/21 10:58> (2) Sepsis: Code(s): A41.9 - Sepsis, unspecified organism <Charlee Singletary PA-C - Last Filed: 12/18/21 10:58> Status: Acute <Charlee Singletary PA-C - Last Filed: 12/18/21 10:58> Assessment and Plan: 12/17- Severe sepsis criteria met. (Tachycardia, WBC 23, evident source of infection, lactic acid 2.6) Urine is reportedly quite dark today. Patient does remain afebrile. - CK low - Lactic Acid 2.6, repeat 2.0 - Repeat UA was benign. Prior UA showed no bacterial infection. - Echo ordered to evaluate for vegetation. - CXR shows bibasilar atelectasis and small pleural effusions- Will start patient on IS. - Blood cultures show no growth to date. Additional plan as above in 'cellulitis' 12/18- Repeat lactic acid 0.9. CRP 33.4. Additional plan as above. Patient is not tachycardic today, normotensive, afebrile. Leukocytosis is uptrending. Patient denies any constitutionals. <Charlee Singletary PA-C - Last Filed: 12/18/21 10:58> (3) Cat scratch: Code(s): W55.03XA - Scratched by cat, initial encounter <Charlee Singletary PA-C - Last Filed: 12/18/21 10:58> Status: Acute <Charlee Singletary PA-C - Last Filed: 12/18/21 10:58> Assessment and Plan: - Tetanus shot updated - Bartonella culture ordered, pending. - Antibiotics coverage has been expanded as above in problem Cellulitis <Charlee Singletary PA-C - Last Filed: 12/18/21 10:58> (4) Transaminitis: Code(s): R74.01 - Elevation of levels of liver transaminase levels <Charlee Singletary PA-C - Last Filed: 12/18/21 10:58> Status: Acute <Charlee Singletary PA-C - Last Filed: 12/18/21 10:58> Assessment and Plan: - Normal limited abdominal ultrasound. Concern for visceral organ involvement from cat scratch. - Consider CT of the abdomen and pelvis. - Patient denies abdominal pain, vomiting, nausea, diarrhea - Hepatitis panel negative. 12/18- Bili ^ 2.5
[2021-12-18 08:36] LABS: Lactic Acid Reflex 0.9 mmol/L (0.7-2.0)
[2021-12-18 09:05] LABS: Bilirubin Direct 0.8 mg/dL (0-0.3); Bilirubin Indirect 1.1 mg/dL (0-1.1)
[2021-12-18] MEDS: ENOXAPARIN 40 MG/0.4 ML SYRINGE SUB-Q (09:45)
[2021-12-18] MEDS: SODIUM CHLORIDE 0.9% IV 1,000 ML 125 ML IV CONT ×2 (09:46→17:25)
[2021-12-18] MEDS: ERTAPENEM 1 GM/NS 50 ML 1 GM/50 ML BAG IVPB (10:55)
[2021-12-18] MEDS: CLINDAMYCIN 600 MG/D5W 50 ML 600 MG/50 ML PIGGYBACK 100 MG IVPB ×3 (12:32→23:20)
[2021-12-18 14:40] VITALS: BP 125/49; PULSE 103; RESP 16; TEMP 36.3; O2SAT 94
--- NOTE | 2021-12-18 16:10 | PM.PNGS ---
Progress Note: A&P Assessment and Plan (1) Cellulitis of right leg: Code(s): L03.115 - Cellulitis of right lower limb Status: Acute Assessment and Plan: Continue antibiotics per hospitalist. No evidence of open or necrotic wounds. No evidence of abscess. No indication for surgical intervention at this time. Will continue to follow. (2) Cat scratch: Code(s): W55.03XA - Scratched by cat, initial encounter Status: Acute Subjective Subjective Date/Time Seen: 12/18/21 16:10 Interval history: Some redness still extending proximally on thigh. She thinks swelling is slightly better this afternoon. No fevers. No pain/tingling in feet/toes. Exam Extrem: Other: RLE with persistent edema and erythema. Small bullae developing with serous drainage. Sensation and pulses intact. Objective Data Vital Signs Vital Signs: Vital Signs - 24 hr 12/17/21 21:26 12/18/21 06:23 12/18/21 08:00 Temperature 36.6 C 36.5 C Pulse Rate 100 91 Respiratory Rate 14 20 Blood Pressure 113/44 L 121/49 L Pulse Oximetry 97 95 Oxygen Delivery Room Air 12/18/21 14:40 Temperature 36.3 C L Pulse Rate 103 H Respiratory Rate 16 Blood Pressure 125/49 L Pulse Oximetry 94 Oxygen Delivery Intake/Output Intake/Output: Intake & Output 12/15/21 12/16/21 12/17/21 12/18/21 23:59 23:59 23:59 23:59 Intake Total 100 1505 1370 1080 Output Total 1150 300 400 Balance 465 926 2462 680 Meds/Results Medications: Active Medications Generic Name Dose Route Start Last Admin Trade Name Freq PRN Reason Stop Dose Admin Enoxaparin Sodium 40 mg 12/16/21 09:00 12/18/21 09:45 Enoxaparin 40 Mg/0.4 Ml Syringe SUB-Q 40 mg DAILY AMANDA Administration Vancomycin HCl 1,000 mg in 250 mls @ 250 mls/hr 12/17/21 09:00 12/18/21 10:55 Vancomycin 1,000 Mg/D5w 250 Ml IVPB Infused Q24H AMANDA Infusion Sodium Chloride 1,000 mls @ 125 mls/hr 12/18/21 07:50 12/18/21 09:46 Normal Saline Iv IV CONT 125 mls/hr .Q8H AMANDA Administration Azithromycin 500 mg in 250 mls @ 250 mls/hr 12/18/21 11:00 12/18/21 13:30 Zithromax IVPB 250 mls/hr Q24H AMANDA Administration Ertapenem 1 gm in 50 mls @ 100 mls/hr 12/18/21 10:00 12/18/21 11:25 Invanz 1 Gm/Ns 50 Ml IVPB Infused Q24H AMANDA Infusion Clindamycin Phosphate 600 mg in 50 mls @ 100 mls/hr 12/18/21 12:00 12/18/21 12:32 Clindamycin 600 Mg/D5w 50 Ml IVPB 100 mls/hr Q6H AMANDA Administration Levothyroxine Sodium 88 mcg 12/16/21 09:25 12/18/21 07:17 Levothyroxine Sodium 88 Mcg Tablet PO 88 mcg DAILY@0630 AMANDA Administration Morphine Sulfate 4 mg 12/15/21 17:28 12/17/21 22:05 Morphine Sulfate (*Crx) 4 Mg/Ml Inj IV PUSH 4 mg Q2H PRN Administration Pain Rated 7-10 Ondansetron HCl 4 mg 12/15/21 17:28 Ondansetron Inj 4 Mg/2 Ml Vial IV PUSH Q4H PRN Nausea Perflutren Lipid Microsphere 0 ml 12/17/21 11:55 Perflutren Lipid Microspheres 1.5 Ml Vial Diluted To 10 Ml Total Volume IV PUSH ONCE PRN adequate visualization Protocol Radiology Results: ITS Impressions Tibia/Fibula X-Ray 12/15/21 16:20 IMPRESSION: Osteopenia Venous Doppler Study 12/15/21 16:41 IMPRESSION: 1. No deep venous thrombosis. Abdomen Ultrasound 12/16/21 09:30 IMPRESSION: 1: Normal limited abdominal ultrasound. Lower Extremity CTA 12/16/21 14:30 IMPRESSION: 1. No severe stenosis, aneurysm, dissection, or extravasation in the right lower extremity arteries. 2. Scattered atherosclerotic plaques with single vessel flow below the level of the ankle. 3. Large extremity cellulitis/edema, without focal abscess. 4. Right inguinal lymphadenopathy. Chest X-Ray 12/17/21 08:10 Impression: 1: Bibasilar atelectasis. 2: Small pleural effusions. Abdomen/Pelvis CT 12/18/21 08:20 IMPRESSION: 1. No CT correlate for the patient's symptoms. 2. Small pleural e
[2021-12-18 20:10] VITALS: BP 131/49; PULSE 99; RESP 16; TEMP 37.4; O2SAT 98
[2021-12-18] MEDS: MORPHINE SULFATE (*CRX) 4 MG/ML INJ IV PUSH (22:07)
[2021-12-19] MEDS: SODIUM CHLORIDE 0.9% IV 1,000 ML 125 ML IV CONT ×2 (01:25→14:10)
[2021-12-19 04:16] VITALS: BP 122/49; PULSE 91; RESP 12; TEMP 37.1; O2SAT 94
[2021-12-19] MEDS: CLINDAMYCIN 600 MG/D5W 50 ML 600 MG/50 ML PIGGYBACK 100 MG IVPB ×2 (06:05→13:03)
[2021-12-19] MEDS: LEVOTHYROXINE SODIUM 88 MCG TABLET PO (06:52)
--- NOTE | 2021-12-19 07:17 | PM.IMPN ---
Progress Note: A&P Assessment and Plan (1) Cellulitis of right leg: Code(s): L03.115 - Cellulitis of right lower limb <Charlee Singletary PA-C - Last Filed: 12/19/21 15:09> Status: Acute <Charlee Singletary PA-C - Last Filed: 12/19/21 15:09> Assessment and Plan: Patient with reported history of lower extremity swelling since 12/13, incidentally was scratched by her kitten, admitted for failed OP antibiotics and worsening cellulitis on 12/15. 12/16- White count is actually worse today after starting IV antibiotics. - Her cellulitis seems to be extending from below the knee up to the thigh. I have some concerns given reported spread. no crepitus on exam. I have marked the boundaries of the cellulitic area and asked hte nurses to continue monitoring and notify me of extension beyond the marked borders. Patient did receive TDAP prophylaxis in the ER. - Stat CT and surgical consult placed. No abscess, free air, and surgery is following if needed for further consultation. - vancomycin and Unasyn IV started in ER yesterday. - Blood cultures pending - Patient with left-shifted white count and bandemia. - Monitor vital signs. - P.r.n. pain meds - P.r.n. antiemetics - CRP of 33.4. 12/17- White count continues to be uptrending. Transitioning patient from Unasyn to Cefepime. CXR. Continue to follow cellulitic margins. Blood cultures show no growth and Urine culture showed no growth. Additional plan as outlined below in Sepsis 12/18- WBC 28 ^^ from after starting Cefepime and continuing vancomycin. Cellulitis appears worse today, new bullae and hemorrhagic petechiae over the posterior right calf. Alk phos and bilirubin uptrending again today. Stat CT abd/pelvis non con, GGT, repeat lactic acid ordered. Echo pending. ID Pharmacist has been consulted at this time, will transition to Vancomycin/ertapenem/clindamycin/azithromycin IV with transition to PO once resolving x 14 days. Wound has been consulted and recommend culture of the serous fluid from the bullae. Will accomplish this. Surgery is following and we do appreciate their recommendations. 12/19- WBC ^^30. Abx adjusted to Vanc, Cefepime, Azithromycin in consultation with [facility]ist, Dr. Ng, who has accepted this patient for transfer. This expanded to cover pseudomonas and bartonella. Physical exam is slightly worsened. Patient's bilirubin (Direct)/alk phos ^^ 3.2/440, CT abdomen pelvis showed punctate calcifications in normal appearing liver and spleen likely represent healed granulomatous disease, small pleural effusions. Echo showed trivial pericardial effusion, preserved EF. ESE showed diminished right ESE at 0.69 and TBI 0.35. D-Dimer >2, however, LE venous duplex showed no DVTs. Peripheral Smear showed significant left shift with rare blasts, compatible with acute infection. Differential is expanded to include vasculitis, malignancy, other rheumatologic etiology. Hematology and GI have both been consulted. CRP/ ESR elevated. GGT pending IgG 561 (L) IgA 104 IgM 28 (L) LOUIE pending ANCA pending PR3 Ab pending C1q pending C4 31.4 Hepatitis panel negative Bartonella pending Covid (-) <Charlee Singletary PA-C - Last Filed: 12/19/21 15:09> (2) Sepsis: Code(s): A41.9 - Sepsis, unspecified organism <Charlee Singletary PA-C - Last Filed: 12/19/21 15:09> Status: Acute <Charlee Singletary PA-C - Last Filed: 12/19/21 15:09> Assessment and Plan: 12/17- Severe sepsis criteria met. (Tachycardia, WBC 23, evident source of infection, lactic acid 2.6) Urine is reportedly quite dark today. Patient does remain afebrile. - CK low - Lactic Acid 2.6, repeat 2.0 - Repeat UA was benign. Prior UA showed no bacterial infection. - Echo ordered to evaluate for vegetation. - CXR shows bibasilar atelectasis and small pleural effusions- Will start patient on IS. - Blood cultures show no growth to date. Additional plan as
[2021-12-19 08:27] LABS: Basophils Absolute Auto 0.1 K/mm3 (0.0-0.1); Basophils Percent Auto 0.2 % (0.2-1.2); Eosinophils Absolute Auto 0.3 K/mm3 (0-0.3); Hematocrit 29.4 % (37.0-47.0); Hemoglobin 9.8 g/dL (12.0-15.0); Immature Granulocyte Absolute 2.75 K/mm3 (0.00-0.031); Lymphocytes Absolute Auto 1.36 K/mm3 (0.9-3.2); Lymphocytes Percent Auto 4.5 % (18.3-44.2); Mean Corpuscular HGB Conc 33.3 g/dl (32-36); Mean Corpuscular Hemoglobin 30.1 pg (26-34); Mean Corpuscular Volume 90.2 fl (80-100); Mean Platelet Volume 11.4 fl (7.4-10.4); Monocytes Absolute Auto 1.1 K/mm3 (0.1-0.6); Monocytes Percent Auto 3.8 % (2.6-8.5); Neutrophils Absolute Auto 24.8 K/mm3 (1.3-6.7); Neutrophils Percent Auto 81.5 % (45.5-73.1); Platelet Count Result 211 k/mm3 (150-375); Red Blood Count 3.26 M/mm3 (4.2-5.4); Red Cell Distribution Width 14.6 % (11.5-14.5); White Blood Count 30.4 K/mm3 (4.5-10.0)
[2021-12-19 08:38] LABS: Alanine Aminotransferase 84 U/L (6-35); Albumin Level 2.5 g/dL (3.5-5.1); Alkaline Phosphatase 440 U/L (38-126); Anion Gap 10 mmol/L (8-16); Aspartate Amino Transferase 59 U/L (14-36); Bilirubin,Total 3.2 mg/dL (0.2-1.3); Blood Urea Nitrogen 17 mg/dL (7-17); Calcium 7.9 mg/dL (8.4-10.2); Carbon Dioxide 24 mmol/L (22-30); Chloride 101 mmol/L (98-107); Estimated CRCL calculation 41 ml/min; Estimated Glomerular Filt Rate > 60; Glucose 87 mg/dL (65-110); Potassium 3.2 mmol/L (3.4-5.0); Sodium 135 mmol/L (137-145)
--- NOTE | 2021-12-19 08:41 | PM.PNGS ---
Progress Note: A&P Assessment and Plan (1) Cellulitis of right leg: Code(s): L03.115 - Cellulitis of right lower limb Status: Acute Assessment and Plan: Continue antibiotics per hospitalist. No evidence of open or necrotic wounds. No evidence of abscess. No indication for surgical intervention at this time. Will continue to follow. AM CBC still pending. Cellulitis looks to be finally improving. (2) Cat scratch: Code(s): W55.03XA - Scratched by cat, initial encounter Status: Acute Subjective Subjective Date/Time Seen: 12/19/21 08:41 Interval history: Swelling slightly improved. No fevers. Redness improving as well. Exam Extrem: Other: Slight improvement in erythema, thigh region has minimal pink area compared to yesterday. Edema slightly improved as well. Distal sensation/pulses intact. Objective Data Vital Signs Vital Signs: Vital Signs - 24 hr 12/18/21 14:40 12/18/21 20:10 12/19/21 04:16 Temperature 36.3 C L 37.4 C 37.1 C Pulse Rate 103 H 99 91 Respiratory Rate 16 16 12 Blood Pressure 125/49 L 131/49 L 122/49 L Pulse Oximetry 94 98 94 Intake/Output Intake/Output: Intake & Output 12/16/21 12/17/21 12/18/21 12/19/21 23:59 23:59 23:59 23:59 Intake Total 1505 1370 2710 1450 Output Total 1150 300 950 200 Balance 355 1070 1760 1250 Meds/Results Medications: Active Medications Generic Name Dose Route Start Last Admin Trade Name Freq PRN Reason Stop Dose Admin Enoxaparin Sodium 40 mg 12/16/21 09:00 12/18/21 09:45 Enoxaparin 40 Mg/0.4 Ml Syringe SUB-Q 40 mg DAILY AMANDA Administration Vancomycin HCl 1,000 mg in 250 mls @ 250 mls/hr 12/17/21 09:00 12/18/21 10:55 Vancomycin 1,000 Mg/D5w 250 Ml IVPB Infused Q24H AMANDA Infusion Sodium Chloride 1,000 mls @ 125 mls/hr 12/18/21 07:50 12/19/21 01:25 Normal Saline Iv IV CONT 125 mls/hr .Q8H AMANDA Administration Azithromycin 500 mg in 250 mls @ 250 mls/hr 12/18/21 11:00 12/18/21 13:30 Zithromax IVPB 250 mls/hr Q24H AMANDA Administration Ertapenem 1 gm in 50 mls @ 100 mls/hr 12/18/21 10:00 12/18/21 11:25 Invanz 1 Gm/Ns 50 Ml IVPB Infused Q24H AMANDA Infusion Clindamycin Phosphate 600 mg in 50 mls @ 100 mls/hr 12/18/21 12:00 12/19/21 06:54 Clindamycin 600 Mg/D5w 50 Ml IVPB Infused Q6H AMANDA Infusion Levothyroxine Sodium 88 mcg 12/16/21 09:25 12/19/21 06:52 Levothyroxine Sodium 88 Mcg Tablet PO 88 mcg DAILY@0630 AMANDA Administration Morphine Sulfate 4 mg 12/15/21 17:28 12/18/21 22:07 Morphine Sulfate (*Crx) 4 Mg/Ml Inj IV PUSH 4 mg Q2H PRN Administration Pain Rated 7-10 Ondansetron HCl 4 mg 12/15/21 17:28 Ondansetron Inj 4 Mg/2 Ml Vial IV PUSH Q4H PRN Nausea Perflutren Lipid Microsphere 0 ml 12/17/21 11:55 Perflutren Lipid Microspheres 1.5 Ml Vial Diluted To 10 Ml Total Volume IV PUSH ONCE PRN adequate visualization Protocol Radiology Results: ITS Impressions Tibia/Fibula X-Ray 12/15/21 16:20 IMPRESSION: Osteopenia Venous Doppler Study 12/15/21 16:41 IMPRESSION: 1. No deep venous thrombosis. Abdomen Ultrasound 12/16/21 09:30 IMPRESSION: 1: Normal limited abdominal ultrasound. Lower Extremity CTA 12/16/21 14:30 IMPRESSION: 1. No severe stenosis, aneurysm, dissection, or extravasation in the right lower extremity arteries. 2. Scattered atherosclerotic plaques with single vessel flow below the level of the ankle. 3. Large extremity cellulitis/edema, without focal abscess. 4. Right inguinal lymphadenopathy. Chest X-Ray 12/17/21 08:10 Impression: 1: Bibasilar atelectasis. 2: Small pleural effusions. Abdomen/Pelvis CT 12/18/21 08:20 IMPRESSION: 1. No CT correlate for the patient's symptoms. 2. Small pleural effusions. 3. Mild atelectasis of the lung bases. Labs Labs: Laboratory Results - last 24 hr 12/18/2112/18
[2021-12-19 08:45] LABS: Vancomycin Trough 7.4 ug/mL (10.0-20.0)
[2021-12-19] MEDS: ENOXAPARIN 40 MG/0.4 ML SYRINGE SUB-Q (08:58)
[2021-12-19 09:01] LABS: Band Neutrophils Percent 35 % (0-6); Basophils Percent Manual 1 % (0-1); Eosinophils Percent Manual 1 % (0-4); Metamyelocytes Percent 1 %; Monocytes Absolute Manual 0.91 K/mm3 (0.1-0.90); Monocytes Percent Manual 3 % (3-9); Neutrophils Absolute Manual 27.96 K/mm3 (1.7-7.2); Neutrophils Percent Manual 57 % (46-73); Total Cells Counted 100
[2021-12-19 09:11] LABS: Platelet Estimate Adequate (Adequate)
[2021-12-19 09:13] LABS: Platelet Clumps Present
[2021-12-19 09:46] LABS: Iron 49 ug/dL (37-170)
[2021-12-19 09:49] LABS: Erythrocyte Sedimentation Rate 118 mm/hr (0-20)
[2021-12-19 09:56] LABS: Percent Iron Saturation 32 % (20-50)
[2021-12-19 09:57] LABS: Lactate Dehydrogenase 324 U/L (313-618)
[2021-12-19 09:58] LABS: Lactic Acid Reflex 1.2 mmol/L (0.7-2.0)
[2021-12-19 10:07] LABS: Immunoglobulin A 104 mg/dL (70-400); Immunoglobulin G 561 mg/dL (700-1600); Immunoglobulin M 28 mg/dL (40-230)
[2021-12-19 10:09] LABS: D Dimer 2.17 ug/mL (<0.48)
[2021-12-19 10:09] LABS: CRP 18.9 mg/dL (<1.0)
[2021-12-19] MEDS: ERTAPENEM 1 GM/NS 50 ML 1 GM/50 ML BAG IVPB (10:25)
[2021-12-19] MEDS: FUROSEMIDE INJ 40 MG/4 ML VIAL IV PUSH (10:26)
[2021-12-19] MEDS: POTASSIUM CHLORIDE 20 MEQ TABLET 40 MEQ PO (10:26)
[2021-12-19 11:20] LABS: Folic Acid 17.6 ng/mL (2.76->20); Vitamin B12 > 1000.0 pg/mL (239-931)
[2021-12-19 14:00] VITALS: BP 126/62; PULSE 92; RESP 14; TEMP 36.8; O2SAT 93
--- NOTE | 2021-12-19 17:08 | WPDGICN ---
Assessment and Plan Assessment and plan (1) Transaminitis: Code(s): R74.01 - Elevation of levels of liver transaminase levels Status: Acute Assessment and Plan: this is from ongoing sepsis and cat scratch that also caused cellulitis trend liver enzymes imaging negative otherwise recommend to repeat liver enzymes once infection is clear and then can see us as needed if still high denies abdominal pain (2) Sepsis: Code(s): A41.9 - Sepsis, unspecified organism Status: Acute Assessment and Plan: on treatment (3) Cat scratch: Code(s): W55.03XA - Scratched by cat, initial encounter Status: Acute Assessment and Plan: serology for Bartonella pending by primary (4) Cellulitis of right leg: Code(s): L03.115 - Cellulitis of right lower limb Status: Acute Assessment and Plan: on abx GI Consult Note Consult date/time: 12/19/21 17:08 Reason for consult: elevated liver enzymes, sepsis HPI: Rashida Yap is a 76 year old female with significant past medical?history of? polio as a child, hypothyroidism and arthritis. She came to ER after worsening redness and swelling of her right lower extremity, just few days prior she a kitten scratched her anterior right crook.?Eventually she got sicker with chills, fatigue and more leg pain. She went to see her primary care physician and was placed on doxycycline 100 mg every 12 hours but worsened, finally came to ER.? Diagnosed with sepsis, had elevated white blood cell count 17.8 up to 30k, bili 2.5, transaminases 180. Liver imaging reviewed and no major findings, hepatitis panel negative. Previous liver enzymes normal. CPR also high. Started on antibiotics, surgery on board. Denies abdominal pain.? Review of Systems Review of Systems: All systems reviewed & are unremarkable except as noted in HPI and below Eyes: Eyes: Denies change in vision ENT: Denies hearing loss, Denies neck pain and Denies sore throat Cardiovascular: Cardiovascular: Denies chest pain and Denies dyspnea Respiratory: Respiratory: Denies cough, Denies dyspnea and Denies wheezing Gastrointestinal: Gastrointestinal: Denies abdominal pain and Denies change in bowel habits Genitourinary: Genitourinary: Denies hematuria and Denies dysuria Musculoskeletal: Musculoskeletal: Denies arthralgias, Denies joint swelling and Denies neck pain Integumentary/Breasts: Skin/Breast: Reports as per HPI Allergic/Immunologic: Allergic/Immunologic: Denies wheezing PMFSH Past Medical History Medical History Arthritis Calcaneovalgus deformity of right foot Callus of heel Cellulitis of right leg Osteoporosis Post-polio syndrome Stress fracture of calcaneus Stress fracture of tibia Family History Family History Mother Hypertension Father Hypertension Other Family history of malignant neoplasm Diabetes mellitus Sibling Diabetes mellitus Family history of malignant neoplasm Social History Social History Smoking status: Former smoker Second hand tobacco smoke exposure: No Alcohol intake: never Substance use: never Substance use type: does not use Gender identity (if verbalized by the patient): Female Sexual Orientation (if Verbalized by the Patient): Straight or Heterosexual Spiritual care concerns: No Meds Home Medications and Allergies Home Medications Medication Instructions Recorded Confirmed Type calcium carbonate 500 mg-vitamin 1 tablet PO DAILY 03/09/20 12/15/21 History D3 5 mcg (200 unit) tablet (Calcium 500 + D) naproxen 500 mg tablet 500 mg PO .COMPLEX PRN pain #180 08/09/21 12/15/21 Rx tabs levothyroxine 88 mcg tablet 88 mcg PO DAILY #30 tabs 10/25/21 12/15/21 Rx doxycycline hyclate 100 mg capsule 100 mg PO BID #14 caps 12/13/21
--- NOTE | 2021-12-19 18:40 | PDONCCN ---
HPI - Date of Consult Date/Time: 12/19/21 18:40 Requesting Physician: Charlee Singletary PA-C Primary Care Provider: Royal Jung MD - Consult Narrative Reason for consult: Leukocytosis Narrative: Rashida Yap is a 76 year old female with history of childhood polio, hypothyroidism and arthritis came into the ER with complain of right lower extremity pain and swelling with some redness. According the patient she had cat scratch to the right crook few days prior to beginning of the symptoms. She was treated by the primary care physician with doxycycline but unfortunately continued to have progressive swelling and discomfort. Doppler study from December 15 showed no evidence of DVT. Liver enzymes are elevated and CT abdomen and pelvis was performed that showed no CT correlate for patient's symptom with no pathologically enlarged lymph node and normal spleen and liver. CBC showed elevated WBC count of 30.4 with normocytic anemia with hemoglobin of 9.8 and platelet count of 117478. Immunoglobulin level came back with low IgG of 561 and IgM of 28. C-reactive protein was elevated. Review of Systems - Review of Systems All systems reviewed & are unremarkable except as noted in HPI and bel - Neurologic Reports numbness PMFSH Medical History: Medical History (Last Reviewed 12/16/21 @ 15:29 by Ashok Norris DO) Arthritis Calcaneovalgus deformity of right foot Callus of heel Cellulitis of right leg Osteoporosis Post-polio syndrome Stress fracture of calcaneus Stress fracture of tibia Family History: Family History (Last Reviewed 12/16/21 @ 15:29 by Ashok Norris DO) Mother Hypertension Father Hypertension Other Family history of malignant neoplasm Diabetes mellitus Sibling Diabetes mellitus Family history of malignant neoplasm - Social History Social History: Social History (Last Reviewed 12/16/21 @ 15:29 by Ashok Norris DO) Gender Identity: Gender identity (if verbalized by the patient): Female Sexual Orientation: Sexual Orientation (if Verbalized by the Patient): Straight or Heterosexual Alcohol Use: Alcohol intake: never Substance Use: Substance use: never Substance use type: does not use Others: Spiritual care concerns: No Smoking Status: Smoking status: Former smoker Second hand tobacco smoke exposure: No Meds Home Medications Medication Instructions Recorded Confirmed Type calcium carbonate 500 mg-vitamin 1 tablet PO DAILY 03/09/20 12/15/21 History D3 5 mcg (200 unit) tablet (Calcium 500 + D) naproxen 500 mg tablet 500 mg PO .COMPLEX PRN pain #180 08/09/21 12/15/21 Rx tabs levothyroxine 88 mcg tablet 88 mcg PO DAILY #30 tabs 10/25/21 12/15/21 Rx doxycycline hyclate 100 mg capsule 100 mg PO BID #14 caps 12/13/21 12/15/21 Rx Allergies Allergy/AdvReac Type Severity Reaction Status Date / Time Sulfa (Sulfonamide Allergy Unknown Unknown Verified 12/13/21 09:45 Antibiotics) Results - Labs CBC & Chem 7: 12/19/21 08:06 12/19/21 08:06 Labs: Short CBC 12/19/21 Range/Units 08:06 WBC 30.4 H (4.5-10.0) K/mm3 Hgb 9.8 L (12.0-15.0) g/dL Hct 29.4 L (37.0-47.0) % Plt Count 211 (150-375) k/mm3 BMP 12/19/21 08:06 Sodium 135 L Potassium 3.2 L Chloride 101 Carbon Dioxide 24 BUN 17 Creatinine 0.80 Glucose 87 Calcium 7.9 L Liver Function 12/19/21 Range/Units 08:06 Total Bilirubin 3.2 H (0.2-1.3) mg/dL AST 59 H (14-36) U/L ALT 84 H (6-35) U/L Alkaline Phosphatase 440 H (38-126) U/L Albumin 2.5 L (3.5-5.1) g/dL Assessment and Plan - Additional Plan Reactive leukocytosis. Patient has right lower extremity cellulitis with marked erythema and swelling. She has a history of childhood polio involving the right lower extremity as well. Labs showed elevated C-reactive protein of 18.9. ESR was elevated at 118. Peripher
[2021-12-19 19:26] VITALS: BP 120/48; PULSE 102; RESP 18; TEMP 36.2; O2SAT 94
[2021-12-19] MEDS: MORPHINE SULFATE (*CRX) 4 MG/ML INJ IV PUSH (20:22)
[2021-12-19 22:29] VITALS: BP 114/44; PULSE 100; RESP 17; TEMP 36.8; O2SAT 92
--- NOTE | 2021-12-19 22:40 | PC.NURSE ---
No adverse reactions noted thus far. Immune Globulin infusion rated increased per protocol.
[2021-12-20 00:10] VITALS: BP 121/45; PULSE 91; RESP 16; TEMP 36.8; O2SAT 94
[2021-12-20] MEDS: SODIUM CHLORIDE 0.9% IV 1,000 ML 125 ML IV CONT (03:31)
[2021-12-20 04:31] VITALS: BP 130/51; PULSE 94; RESP 18; TEMP 36.4; O2SAT 92
[2021-12-20 05:06] LABS: Hematocrit 24.2 % (37.0-47.0); Hemoglobin 8.6 g/dL (12.0-15.0); Mean Corpuscular HGB Conc 35.5 g/dl (32-36); Mean Corpuscular Volume 87.4 fl (80-100); Mean Platelet Volume 11.2 fl (7.4-10.4); Platelet Count Result 225 k/mm3 (150-375); Red Blood Count 2.77 M/mm3 (4.2-5.4); Red Cell Distribution Width 14.4 % (11.5-14.5); White Blood Count 26.1 K/mm3 (4.5-10.0)
[2021-12-20 05:20] LABS: Alanine Aminotransferase 65 U/L (6-35); Albumin Level 2.2 g/dL (3.5-5.1); Alkaline Phosphatase 443 U/L (38-126); Anion Gap 8 mmol/L (8-16); Aspartate Amino Transferase 55 U/L (14-36); Bilirubin,Total 2.2 mg/dL (0.2-1.3); Blood Urea Nitrogen 17 mg/dL (7-17); Calcium 7.4 mg/dL (8.4-10.2); Carbon Dioxide 24 mmol/L (22-30); Chloride 100 mmol/L (98-107); Estimated CRCL calculation 33 ml/min; Estimated Glomerular Filt Rate 54; Glucose 114 mg/dL (65-110); Potassium 3.2 mmol/L (3.4-5.0); Sodium 132 mmol/L (137-145)
[2021-12-20 05:39] LABS: Band Neutrophils Percent 8 % (0-6); Eosinophils Absolute Manual 0.26 K/mm3 (0.02-0.5); Eosinophils Percent Manual 1 % (0-4); Lymphocytes Absolute Manual 0.52 K/mm3 (1.1-4.5); Monocytes Absolute Manual 1.04 K/mm3 (0.1-0.90); Monocytes Percent Manual 4 % (3-9); Neutrophils Absolute Manual 24.27 K/mm3 (1.7-7.2); Neutrophils Percent Manual 85 % (46-73); Platelet Estimate Adequate (Adequate); Total Cells Counted 100
--- NOTE | 2021-12-20 05:43 | PC.NURSE ---
Yovani GLOVER notified of her weight gain, increased weakness, urinary retention and foul smelling urine. New orders received.
[2021-12-20] MEDS: LEVOTHYROXINE SODIUM 88 MCG TABLET PO (06:13)
[2021-12-20 07:15] LABS: Appearance Urine Clear (Clear); Bilirubin Urine 1+ (Negative); Blood Urine Negative (Negative); Glucose Urine UA Negative (Negative); Ketones Urine Negative (Negative); Leukocyte Esterase Ur Negative LEU/UL (NEGATIVE); Nitrate Urine Negative (Negative); Protein Urine 1+ mg/dL (Negative); Specific Grav Ur 1.015 (1.001-1.035); Urobilinogen Urine 0.2 mg/dL (<2.0)
[2021-12-20 07:24] LABS: Mucus Urine Rare /lpf; RBC Urine 0-2 /hpf (0-2); Squamous Epithelial Cell Urine Rare /hpf (Few); WBC Urine 0-3 /hpf (0-3)
[2021-12-20 07:42] LABS: Add Urine Microscopic? YES; Color Urine Dark Yellow (Yellow)
--- NOTE | 2021-12-20 09:46 | PM.PNGS ---
Progress Note: A&P Assessment and Plan (1) Cellulitis of right leg: Code(s): L03.115 - Cellulitis of right lower limb Status: Acute Assessment and Plan: WBC with downward trend this morning. Cellulitis appears to be improving. Continue antibiotics per hospitalist. No evidence of open or necrotic wounds. No evidence of abscess. No indication for surgical intervention at this time. Will sign off at this time. Call with any future surgical questions or concerns. (2) Cat scratch: Code(s): W55.03XA - Scratched by cat, initial encounter Status: Acute Plan I have discussed the patient's case and plan of care with Dr. Norris. Subjective Subjective Date/Time Seen: 12/20/21 09:46 Patient reports: no new complaints, feels better and afebrile Interval history: The patient does feel the right lower extremity swelling and some of the redness has improved. Not currently having any pain. Review of Systems Review of Systems: All systems reviewed & are unremarkable except as noted in HPI and below Exam Const: General: alert; No acute distress Orientation/consciousness: patient oriented x3 Extrem: Other: Right lower extremity erythema and edema with slight improvement. Still serous drainage from weeping of the posterior aspect of the right lower leg. No areas of necrosis or fluctuance. RLE sensation intact. DP and PT pulses palpable. Objective Data Vital Signs Vital Signs: Vital Signs - 24 hr 12/19/21 14:00 12/19/21 19:26 12/19/21 22:29 Temperature 98.3 F 97.1 F L 98.2 F Pulse Rate 92 102 H 100 Respiratory Rate 14 18 17 Blood Pressure 126/62 120/48 L 114/44 L Pulse Oximetry 93 94 92 Oxygen Delivery 12/19/21 20:00 12/20/21 00:10 12/20/21 04:31 Temperature 98.2 F 97.5 F L Pulse Rate 91 94 Respiratory Rate 16 18 Blood Pressure 121/45 L 130/51 L Pulse Oximetry 94 92 Oxygen Delivery Room Air Intake/Output Intake/Output: Intake & Output 12/17/21 12/18/21 12/19/21 12/20/21 23:59 23:59 23:59 23:59 Intake Total 1370 2960 4160 2500 Output Total 797 494 9638 850 Balance 1070 2009 1360 1650 Meds/Results Medications: Active Medications Generic Name Dose Route Start Last Admin Trade Name Freq PRN Reason Stop Dose Admin Enoxaparin Sodium 40 mg 12/16/21 09:00 12/19/21 08:58 Enoxaparin 40 Mg/0.4 Ml Syringe SUB-Q 40 mg DAILY AMANDA Administration Sodium Chloride 1,000 mls @ 125 mls/hr 12/18/21 07:50 12/20/21 05:42 Normal Saline Iv IV CONT 0 mls/hr .Q8H AMANDA Infusion Vancomycin HCl 1,000 mg in 250 mls @ 250 mls/hr 12/20/21 03:00 12/20/21 05:42 Vancomycin 1,000 Mg/D5w 250 Ml IVPB Infused Q18H AMANDA Infusion Cefepime HCl 2 gm in 50 mls @ 100 mls/hr 12/19/21 16:00 12/20/21 04:20 Maxipime 2 Gm/D5w 50 Ml IVPB Infused Q12H AMANDA Infusion Azithromycin 500 mg in 250 mls @ 250 mls/hr 12/20/21 12:00 Zithromax IVPB Q24H AMANDA Immune Globulin 60 gm/ N/A 600 mls @ 18 mls/hr 12/19/21 18:47 12/20/21 01:44 IVPB 12/21/21 04:06 Infused ONCE ONE Infusion 0.5 MG/KG/MIN Levothyroxine Sodium 88 mcg 12/16/21 09:25 12/20/21 06:13 Levothyroxine Sodium 88 Mcg Tablet PO 88 mcg DAILY@0630 AMANDA Administration Morphine Sulfate 4 mg 12/15/21 17:28 12/19/21 20:22 Morphine Sulfate (*Crx) 4 Mg/Ml Inj IV PUSH 4 mg Q2H PRN Administration Pain Rated 7-10 Ondansetron HCl 4 mg 12/15/21 17:28 Ondansetron Inj 4 Mg/2 Ml Vial IV PUSH Q4H PRN Nausea Perflutren Lipid Microsphere 0 ml 12/17/21 11:55 Perflutren Lipid Microspheres 1.5 Ml Vial Diluted To 10 Ml Total Volume IV PUSH ONCE PRN adequate visualization Protocol Perflutren Lipid Microsphere 0 ml 12/19/21 09:31 Perflutren Lipid Microspheres 1.5 Ml Vial Diluted To 10 Ml Total Volume IV PUSH ONCE PRN adequate visualization Protocol Radiology Results: ITS Impressions Tibia/Fibula X-Ray 12/15/21
[2021-12-20] MEDS: ENOXAPARIN 40 MG/0.4 ML SYRINGE SUB-Q (10:13)
--- NOTE | 2021-12-20 10:17 | PC.NURSE ---
awaiting pharmacy to send me potassium, pyxis will not let me pull it out
[2021-12-20] MEDS: POTASSIUM CHLORIDE 20 MEQ TABLET 40 MEQ PO (13:07)
--- NOTE | 2021-12-20 13:16 | PM.IMPN ---
Progress Note: A&P Assessment and Plan (1) Cellulitis of right leg: Code(s): L03.115 - Cellulitis of right lower limb Status: Acute Assessment and Plan: Patient with reported history of lower extremity swelling since 12/13, incidentally was scratched by her kitten, admitted for failed OP antibiotics and worsening cellulitis on 12/15. 12/16- White count is actually worse today after starting IV antibiotics. - Her cellulitis seems to be extending from below the knee up to the thigh. I have some concerns given reported spread. no crepitus on exam. I have marked the boundaries of the cellulitic area and asked e nurses to continue monitoring and notify me of extension beyond the marked borders. Patient did receive TDAP prophylaxis in the ER. - Stat CT and surgical consult placed. No abscess, free air, and surgery is following if needed for further consultation. - vancomycin and Unasyn IV started in ER yesterday. - Blood cultures pending - Patient with left-shifted white count and bandemia. - Monitor vital signs. - P.r.n. pain meds - P.r.n. antiemetics - CRP of 33.4. 12/17- White count continues to be uptrending. Transitioning patient from Unasyn to Cefepime. CXR. Continue to follow cellulitic margins. Blood cultures show no growth and Urine culture showed no growth. Additional plan as outlined below in Sepsis 12/18- WBC 28 ^^ from after starting Cefepime and continuing vancomycin. Cellulitis appears worse today, new bullae and hemorrhagic petechiae over the posterior right calf. Alk phos and bilirubin uptrending again today. Stat CT abd/pelvis non con, GGT, repeat lactic acid ordered. Echo pending. ID Pharmacist has been consulted at this time, will transition to Vancomycin/ertapenem/clindamycin/azithromycin IV with transition to PO once resolving x 14 days. Wound has been consulted and recommend culture of the serous fluid from the bullae. Will accomplish this. Surgery is following and we do appreciate their recommendations. 12/19- WBC ^^30. Abx adjusted to Vanc, Cefepime, Azithromycin in consultation with [facility] Hospitalist, Dr. Ng, who has accepted this patient for transfer. This expanded to cover pseudomonas and bartonella. Physical exam is slightly worsened. Patient's bilirubin (Direct)/alk phos ^^ 3.2/440, CT abdomen pelvis showed punctate calcifications in normal appearing liver and spleen likely represent healed granulomatous disease, small pleural effusions. Echo showed trivial pericardial effusion, preserved EF. ESE showed diminished right ESE at 0.69 and TBI 0.35. D-Dimer >2, however, LE venous duplex showed no DVTs. Peripheral Smear showed significant left shift with rare blasts, compatible with acute infection. Differential is expanded to include vasculitis, malignancy, other rheumatologic etiology. Hematology and GI have both been consulted. CRP/ ESR elevated. GGT pending IgG 561 (L) IgA 104 IgM 28 (L) LOUIE pending ANCA pending PR3 Ab pending C1q pending C4 31.4 Hepatitis panel negative Bartonella pending Covid (-) 12/20 - WBC downtrending slightly, 26.1 today. Continue Vanc, Cefepime, and Azithromycin. Pending [facility] transfer. (2) Sepsis: Code(s): A41.9 - Sepsis, unspecified organism Status: Acute Assessment and Plan: 12/17- Severe sepsis criteria met. (Tachycardia, WBC 23, evident source of infection, lactic acid 2.6) Urine is reportedly quite dark today. Patient does remain afebrile. - CK low - Lactic Acid 2.6, repeat 2.0 - Repeat UA was benign. Prior UA showed no bacterial infection. - Echo ordered to evaluate for vegetation. - CXR shows bibasilar atelectasis and small pleural effusions- Will start patient on IS. - Blood cultures show no growth to date. Additional plan as above in 'cellulitis' 12/18- Repeat lactic acid 0.9. CRP 33.4. Additional plan as above. Patient is not tachycardic today, normotensive, afebrile. Leukocytosis is uptrendi
[2021-12-20 14:00] VITALS: BP 128/56; PULSE 88; RESP 18; TEMP 36.8; O2SAT 96
--- NOTE | 2021-12-20 17:07 | WPDGIPROGNO ---
Progress Note: A&P Assessment and Plan (1) Transaminitis: Code(s): R74.01 - Elevation of levels of liver transaminase levels Status: Acute Assessment and Plan: downtrending this is from sepsis and cellulitis will sign off repeat cmp in few more weeks after resolution of infection (2) Cellulitis of right leg: Code(s): L03.115 - Cellulitis of right lower limb Status: Acute Assessment and Plan: on treatment by primary team (3) Sepsis: Code(s): A41.9 - Sepsis, unspecified organism Status: Acute Assessment and Plan: on antibiotics, by primary team (4) Cat scratch: Code(s): W55.03XA - Scratched by cat, initial encounter Status: Acute Assessment and Plan: - Tetanus shot updated - Bartonella culture ordered, pending. Subjective Date/time seen: 12/20/21 17:07 Interval history: pain in leg better, no abdominal pain, she is eating Review of Systems Review of Systems: All systems reviewed & are unremarkable except as noted in HPI and below Exam Const: General: alert; No acute distress Orientation/consciousness: patient oriented x3 HENMT: Head: normocephalic and atraumatic Ears: hearing grossly normal bilaterally General nose exam: Normal nares present Mouth: Yes moist mucous membranes Eyes: General: appearance normal, both eyes and all related structures Pupils: Equal, round and reactive pupils present EOM: EOMs intact bilaterally Neck: Neck: normal visual inspection, full ROM, supple and no JVD Chest: Chest palpation & inspection: normal inspection of the chest Resp: Effort & Inspection: normal respiratory effort and able to speak in complete sentences Auscultation: clear to auscultation bilaterally Cardio: Jugular venous distension: no JVD Rate: regular rate Rhythm: regular rhythm GI: Inspection: normal to inspection GI Palp: No abdominal tenderness, Yes Soft to palpation, No Guarding due to palpation present (GI) and No Rebound tenderness present Percussion: Yes normal to percussion Auscultation: normal bowel sounds : General: Yes no CVA tenderness Back/Spine/Pelvis: Back: no CVA tenderness Skin: General skin exam: dry skin and erythema (Right lower extremity) Neuro: General: patient oriented x3, gait normal, moves all extremities, no focal motor deficits and CN's II-XI intact bilaterally Cranial nerves: Yes Equal, round and reactive pupils present Speech: normal speech Extrem: General: normal to inspection and capillary refill normal Right lower extremity: edema Details: 2+ and lower leg Details: erythema Location: of the distal lower leg Psych: Mental Status: mental status grossly normal Objective Data Vital Signs Vital Signs: Vital Signs - 24 hr 12/19/21 19:26 12/19/21 22:29 12/19/21 20:00 Temperature 97.1 F L 98.2 F Pulse Rate 102 H 100 Respiratory Rate 18 17 Blood Pressure 120/48 L 114/44 L Pulse Oximetry 94 92 Oxygen Delivery Room Air 12/20/21 00:10 12/20/21 04:31 12/20/21 10:15 Temperature 98.2 F 97.5 F L Pulse Rate 91 94 Respiratory Rate 16 18 Blood Pressure 121/45 L 130/51 L Pulse Oximetry 94 92 Oxygen Delivery Room Air 12/20/21 14:00 Temperature 98.2 F Pulse Rate 88 Respiratory Rate 18 Blood Pressure 128/56 L Pulse Oximetry 96 Oxygen Delivery Intake/Output Intake/Output: Intake & Output 12/17/21 12/18/21 12/19/21 12/20/21 23:59 23:59 23:59 23:59 Intake Total 1370 2960 4160 3230 Output Total 492 062 3321 850 Balance 1070 2010 1360 2380 Meds/Results Medications: Active Medications Generic Name Dose Route Start Last Admin Trade Name Freq PRN Reason Stop Dose Admin Enoxaparin Sodium 40 mg 12/16/21 09:00 12/20/21 10:13 Enoxaparin 40 Mg/0.4 Ml Syringe SUB-Q 40 mg DAILY AMANDA Administration Sodium Chloride 1,000 mls @ 125 mls/hr 12/18/21 07:50 12/20/21 05:42 Normal Saline Iv IV CONT 0 mls/hr .Q8H AMANDA Infusion Vancomyc
[2021-12-20] MEDS: MORPHINE SULFATE (*CRX) 4 MG/ML INJ IV PUSH ×2 (17:15→21:44)
[2021-12-20 19:29] VITALS: BP 129/51; PULSE 92; RESP 17; TEMP 36.4; O2SAT 98
[2021-12-21 03:44] VITALS: BP 129/55; PULSE 91; RESP 17; TEMP 36.6; O2SAT 96
[2021-12-21 05:45] LABS: Hematocrit 24.2 % (37.0-47.0); Hemoglobin 8.3 g/dL (12.0-15.0); Mean Corpuscular HGB Conc 34.3 g/dl (32-36); Mean Corpuscular Hemoglobin 30.3 pg (26-34); Mean Corpuscular Volume 88.3 fl (80-100); Mean Platelet Volume 11.3 fl (7.4-10.4); Platelet Count Result 257 k/mm3 (150-375); Red Blood Count 2.74 M/mm3 (4.2-5.4); Red Cell Distribution Width 14.2 % (11.5-14.5); White Blood Count 25.1 K/mm3 (4.5-10.0)
[2021-12-21 06:11] LABS: Alanine Aminotransferase 58 U/L (6-35); Albumin Level 2.3 g/dL (3.5-5.1); Alkaline Phosphatase 455 U/L (38-126); Anion Gap 6 mmol/L (8-16); Aspartate Amino Transferase 49 U/L (14-36); Bilirubin,Total 1.6 mg/dL (0.2-1.3); Blood Urea Nitrogen 13 mg/dL (7-17); Calcium 7.7 mg/dL (8.4-10.2); Carbon Dioxide 24 mmol/L (22-30); Chloride 102 mmol/L (98-107); Estimated CRCL calculation 54 ml/min; Estimated Glomerular Filt Rate > 60; Glucose 89 mg/dL (65-110); Potassium 3.7 mmol/L (3.4-5.0); Sodium 132 mmol/L (137-145)
[2021-12-21 06:22] LABS: GGT 123 U/L (3-65)
[2021-12-21 07:18] LABS: Band Neutrophils Percent 20 % (0-6); Eosinophils Percent Manual 2 % (0-4); Lymphocytes Absolute Manual 1.75 K/mm3 (1.1-4.5); Metamyelocytes Percent 6 %; Monocytes Absolute Manual 0.75 K/mm3 (0.1-0.90); Monocytes Percent Manual 3 % (3-9); Myelocytes Percent 5 %; Neutrophils Absolute Manual 19.32 K/mm3 (1.7-7.2); Neutrophils Percent Manual 57 % (46-73); Total Cells Counted 100
[2021-12-21 07:19] LABS: Anisocytosis 1+ (NORMAL); Hypochromasia 1+ (NORMAL); Macrocytosis 1+ (NORMAL); Spherocytes 1+ (NORMAL)
[2021-12-21 07:20] LABS: Atypical Lymphocytes Present
[2021-12-21] MEDS: LEVOTHYROXINE SODIUM 88 MCG TABLET PO (07:20)
--- NOTE | 2021-12-21 08:06 | PM.IMPN ---
Progress Note: A&P Assessment and Plan (1) Cellulitis of right leg: Code(s): L03.115 - Cellulitis of right lower limb Status: Acute Assessment and Plan: Patient with reported history of lower extremity swelling since 12/13, incidentally was scratched by her kitten, admitted for failed OP antibiotics and worsening cellulitis on 12/15. 12/16- White count is actually worse today after starting IV antibiotics. - Her cellulitis seems to be extending from below the knee up to the thigh. I have some concerns given reported spread. no crepitus on exam. I have marked the boundaries of the cellulitic area and asked e nurses to continue monitoring and notify me of extension beyond the marked borders. Patient did receive TDAP prophylaxis in the ER. - Stat CT and surgical consult placed. No abscess, free air, and surgery is following if needed for further consultation. - vancomycin and Unasyn IV started in ER yesterday. - Blood cultures pending - Patient with left-shifted white count and bandemia. - Monitor vital signs. - P.r.n. pain meds - P.r.n. antiemetics - CRP of 33.4. 12/17- White count continues to be uptrending. Transitioning patient from Unasyn to Cefepime. CXR. Continue to follow cellulitic margins. Blood cultures show no growth and Urine culture showed no growth. Additional plan as outlined below in Sepsis 12/18- WBC 28 ^^ from after starting Cefepime and continuing vancomycin. Cellulitis appears worse today, new bullae and hemorrhagic petechiae over the posterior right calf. Alk phos and bilirubin uptrending again today. Stat CT abd/pelvis non con, GGT, repeat lactic acid ordered. Echo pending. ID Pharmacist has been consulted at this time, will transition to Vancomycin/ertapenem/clindamycin/azithromycin IV with transition to PO once resolving x 14 days. Wound has been consulted and recommend culture of the serous fluid from the bullae. Will accomplish this. Surgery is following and we do appreciate their recommendations. 12/19- WBC ^^30. Abx adjusted to Vanc, Cefepime, Azithromycin in consultation with [facility] Hospitalist, Dr. Ng, who has accepted this patient for transfer. This expanded to cover pseudomonas and bartonella. Physical exam is slightly worsened. Patient's bilirubin (Direct)/alk phos ^^ 3.2/440, CT abdomen pelvis showed punctate calcifications in normal appearing liver and spleen likely represent healed granulomatous disease, small pleural effusions. Echo showed trivial pericardial effusion, preserved EF. ESE showed diminished right ESE at 0.69 and TBI 0.35. D-Dimer >2, however, LE venous duplex showed no DVTs. Peripheral Smear showed significant left shift with rare blasts, compatible with acute infection. Differential is expanded to include vasculitis, malignancy, other rheumatologic etiology. Hematology and GI have both been consulted. CRP/ ESR elevated. GGT pending IgG 561 (L) IgA 104 IgM 28 (L) LOUIE pending ANCA pending PR3 Ab pending C1q pending C4 31.4 Hepatitis panel negative Bartonella pending Covid (-) 12/20 - WBC downtrending slightly, 26.1 today. Continue Vanc, Cefepime, and Azithromycin. Pending [facility] transfer. 12/21-WBC continues to down trend slightly. Continue vanc, cefepime and azithromycin. There was a pending transferred to [facility] however the patient has significantly improved and there was regression of the cellulitic appearance to the right leg. Patient prefers to stay near home. If patient continues to clinically improve may consider not transferring the patient. GI, General surgery, Hematology has signed off the case (2) Sepsis: Code(s): A41.9 - Sepsis, unspecified organism Status: Acute Assessment and Plan: as above (3) Cat scratch: Code(s): W55.03XA - Scratched by cat, initial encounter Status: Acute Assessment and Plan: - Tetanus shot updated - Bartonella culture ordered, pending. -
[2021-12-21] MEDS: ENOXAPARIN 40 MG/0.4 ML SYRINGE SUB-Q (08:26)
[2021-12-21 10:03] LABS: Platelet Estimate Adequate (Adequate)
[2021-12-21] MEDS: DOCUSATE SODIUM 100 MG CAPSULE PO (11:17)
[2021-12-21 14:00] VITALS: BP 131/42; PULSE 97; TEMP 36.7; O2SAT 96
[2021-12-21 14:36] LABS: Vancomycin Trough 10.8 ug/mL (10.0-20.0)
[2021-12-21 17:23] VITALS: O2SAT 96
[2021-12-21 19:44] VITALS: BP 147/60; PULSE 94; RESP 16; TEMP 36.3; O2SAT 98
[2021-12-21] MEDS: HYDROcodone/acetaminophen (*CRX) 5-325 MG TABLET 1 TAB PO (21:14)
[2021-12-22] MEDS: MORPHINE SULFATE (*CRX) 2 MG/ML INJ IV PUSH ×2 (00:03→22:55)
[2021-12-22 04:45] VITALS: BP 137/54; PULSE 84; RESP 20; TEMP 36.6; O2SAT 93
[2021-12-22] MEDS: LEVOTHYROXINE SODIUM 88 MCG TABLET PO (06:05)
[2021-12-22 06:20] LABS: Hematocrit 25.8 % (37.0-47.0); Hemoglobin 8.7 g/dL (12.0-15.0); Mean Corpuscular HGB Conc 33.7 g/dl (32-36); Mean Corpuscular Hemoglobin 30.3 pg (26-34); Mean Corpuscular Volume 89.9 fl (80-100); Mean Platelet Volume 11.4 fl (7.4-10.4); Platelet Count Result 316 k/mm3 (150-375); Red Blood Count 2.87 M/mm3 (4.2-5.4); Red Cell Distribution Width 14.5 % (11.5-14.5); White Blood Count 23.3 K/mm3 (4.5-10.0)
--- NOTE | 2021-12-22 06:35 | PM.IMPN ---
Progress Note: A&P Assessment and Plan (1) Cellulitis of right leg: Code(s): L03.115 - Cellulitis of right lower limb Status: Acute Assessment and Plan: 12/16- White count is actually worse today after starting IV antibiotics. - Her cellulitis seems to be extending from below the knee up to the thigh. I have some concerns given reported spread. no crepitus on exam. I have marked the boundaries of the cellulitic area and asked hte nurses to continue monitoring and notify me of extension beyond the marked borders. Patient did receive TDAP prophylaxis in the ER. - Stat CT and surgical consult placed. No abscess, free air, and surgery is following if needed for further consultation. - vancomycin and Unasyn IV started in ER yesterday. - Blood cultures pending - Patient with left-shifted white count and bandemia. - Monitor vital signs. - P.r.n. pain meds - P.r.n. antiemetics - CRP of 33.4. 12/17- White count continues to be uptrending. Transitioning patient from Unasyn to Cefepime. CXR. Continue to follow cellulitic margins. Blood cultures show no growth and Urine culture showed no growth. Additional plan as outlined below in Sepsis 12/18- WBC 28 ^^ from 23 after starting Cefepime and continuing vancomycin. Cellulitis appears worse today, new bullae and hemorrhagic petechiae over the posterior right calf. Alk phos and bilirubin uptrending again today. Stat CT abd/pelvis non con, GGT, repeat lactic acid ordered. Echo pending. ID Pharmacist has been consulted at this time, will transition to Vancomycin/ertapenem/clindamycin/azithromycin IV with transition to PO once resolving x 14 days. Wound has been consulted and recommend culture of the serous fluid from the bullae. Will accomplish this. Surgery signed off 12/22/21--Surgery has signed off. Patient continues current treatment regimen of vancomycin, cefepime and azithromycin-pending further cultures (2) Sepsis: Code(s): A41.9 - Sepsis, unspecified organism Status: Acute Assessment and Plan: Two/to above (3) Cat scratch: Code(s): W55.03XA - Scratched by cat, initial encounter Status: Acute Assessment and Plan: - Tetanus shot updated - Bartonella culture ordered, pending. - Antibiotics coverage has been expanded as above in problem Cellulitis (4) Transaminitis: Code(s): R74.01 - Elevation of levels of liver transaminase levels Status: Acute Assessment and Plan: Her LFTs have relatively remained unchanged for approximately 3 days., they remain elevated. Plan Patient is euthyroid. Additional Plan Patient has been accepted for transfer at [facility] via . Subjective Date/time seen: 12/22/21 06:35 Patient appears to slowly improve. Continues to regress from markings on the skin. Patient's pain has improved. She will work with physical therapy and occupational therapy she has been lying in bed for the past 6 days with minimal movement. Continue to monitor progression. Review of Systems Review of Systems: All systems reviewed & are unremarkable except as noted in HPI and below Exam Narrative: General: No acute distress. Mental Status: Awake, alert and oriented to person, place, and time with clear speech. Skin: Skin in warm, dry and intact without rashes or lesions.Weeping bullae over the posterior aspect of the calf.? moderate edema, warmth, and tenderness over the cellulitic area, specifically in the posterior aspect.?lower crook noted with two small scratches above that.? No crepitus, fluctuance. Capillary refill is intact and patient endorses normal sensation. significant regression from initial skin markings. Left leg is normal to exam. Head: Normocephalic and atraumatic. Eyes: Conjunctivae are clear without exudates or hemorrhage. Sclera is non-icteric. EOM are intact, PERRLA. Ears: The external ear and canal are non-tender and without swelling or
[2021-12-22 06:36] LABS: Lactic Acid Reflex 0.8 mmol/L (0.7-2.0)
[2021-12-22 06:56] LABS: Alanine Aminotransferase 55 U/L (6-35); Albumin Level 2.5 g/dL (3.5-5.1); Alkaline Phosphatase 470 U/L (38-126); Anion Gap 6 mmol/L (8-16); Aspartate Amino Transferase 51 U/L (14-36); Bilirubin,Total 1.2 mg/dL (0.2-1.3); Blood Urea Nitrogen 13 mg/dL (7-17); CRP 12.3 mg/dL (<1.0); Calcium 7.7 mg/dL (8.4-10.2); Carbon Dioxide 25 mmol/L (22-30); Chloride 102 mmol/L (98-107); Creatine Kinase < 20 U/L (30-135); Estimated CRCL calculation 54 ml/min; Estimated Glomerular Filt Rate > 60; Glucose 92 mg/dL (65-110); Potassium 3.9 mmol/L (3.4-5.0); Sodium 133 mmol/L (137-145)
[2021-12-22 07:48] LABS: Band Neutrophils Percent 10 % (0-6); Eosinophils Absolute Manual 0.46 K/mm3 (0.02-0.5); Eosinophils Percent Manual 2 % (0-4); Lymphocytes Absolute Manual 0.46 K/mm3 (1.1-4.5); Monocytes Absolute Manual 1.16 K/mm3 (0.1-0.90); Monocytes Percent Manual 5 % (3-9); Neutrophils Percent Manual 81 % (46-73); Total Cells Counted 100
[2021-12-22 07:49] LABS: Hypochromasia 1+ (NORMAL); Platelet Estimate Adequate (Adequate)
[2021-12-22 07:50] LABS: Anisocytosis 1+ (NORMAL)
[2021-12-22] MEDS: ENOXAPARIN 40 MG/0.4 ML SYRINGE SUB-Q (09:14)
[2021-12-22] MEDS: polyethylene glycoL 3350 17 GM POWD.PACK PO (09:17)
--- NOTE | 2021-12-22 10:33 | PCNWS ---
Weekly nutritional screen. Patient is tolerating current diet with adequate intake. No weight loss reported. No nutritional needs at this time.
[2021-12-22 13:45] VITALS: BP 136/48; PULSE 93; RESP 16; TEMP 36.3; O2SAT 95
[2021-12-22 19:37] VITALS: BP 156/52; PULSE 90; RESP 28; TEMP 36.4; O2SAT 96
[2021-12-23 03:27] VITALS: BP 136/54; PULSE 88; RESP 20; TEMP 36.7; O2SAT 93
[2021-12-23] MEDS: HYDROcodone/acetaminophen (*CRX) 5-325 MG TABLET 1 TAB PO ×3 (03:34→18:40)
[2021-12-23 05:23] LABS: Basophils Absolute Auto 0.2 K/mm3 (0.0-0.1); Basophils Percent Auto 0.8 % (0.2-1.2); Eosinophils Absolute Auto 0.2 K/mm3 (0-0.3); Eosinophils Percent Auto 0.9 % (0-4.4); Hematocrit 24.8 % (37.0-47.0); Hemoglobin 8.2 g/dL (12.0-15.0); Immature Granulocyte Absolute 3.35 K/mm3 (0.00-0.031); Immature Granulocyte Percent A 15.5 % (0-0.5); Lymphocytes Absolute Auto 1.47 K/mm3 (0.9-3.2); Lymphocytes Percent Auto 6.8 % (18.3-44.2); Mean Corpuscular HGB Conc 33.1 g/dl (32-36); Mean Corpuscular Hemoglobin 29.8 pg (26-34); Mean Corpuscular Volume 90.2 fl (80-100); Mean Platelet Volume 11.3 fl (7.4-10.4); Monocytes Absolute Auto 1.2 K/mm3 (0.1-0.6); Monocytes Percent Auto 5.4 % (2.6-8.5); Neutrophils Absolute Auto 15.3 K/mm3 (1.3-6.7); Neutrophils Percent Auto 70.6 % (45.5-73.1); Nucleated Red Blood Cells Perc 0.1 % (0.0-0.2); Platelet Count Result 356 k/mm3 (150-375); Red Blood Count 2.75 M/mm3 (4.2-5.4); Red Cell Distribution Width 14.1 % (11.5-14.5); White Blood Count 21.6 K/mm3 (4.5-10.0)
[2021-12-23 05:38] LABS: Alanine Aminotransferase 45 U/L (6-35); Albumin Level 2.5 g/dL (3.5-5.1); Alkaline Phosphatase 420 U/L (38-126); Anion Gap 7 mmol/L (8-16); Aspartate Amino Transferase 42 U/L (14-36); Bilirubin,Total 1.1 mg/dL (0.2-1.3); Blood Urea Nitrogen 10 mg/dL (7-17); Calcium 7.9 mg/dL (8.4-10.2); Carbon Dioxide 24 mmol/L (22-30); Chloride 100 mmol/L (98-107); Estimated CRCL calculation 63 ml/min; Estimated Glomerular Filt Rate > 60; Glucose 117 mg/dL (65-110); Potassium 3.8 mmol/L (3.4-5.0); Sodium 131 mmol/L (137-145)
[2021-12-23] MEDS: LEVOTHYROXINE SODIUM 88 MCG TABLET PO (05:59)
--- NOTE | 2021-12-23 06:45 | PM.IMPN ---
Progress Note: A&P Assessment and Plan (1) Cellulitis of right leg: Code(s): L03.115 - Cellulitis of right lower limb Status: Acute Assessment and Plan: 12/16- White count is actually worse today after starting IV antibiotics. - Her cellulitis seems to be extending from below the knee up to the thigh. I have some concerns given reported spread. no crepitus on exam. I have marked the boundaries of the cellulitic area and asked hte nurses to continue monitoring and notify me of extension beyond the marked borders. Patient did receive TDAP prophylaxis in the ER. - Stat CT and surgical consult placed. No abscess, free air, and surgery is following if needed for further consultation. - vancomycin and Unasyn IV started in ER yesterday. - Blood cultures pending - Patient with left-shifted white count and bandemia. - Monitor vital signs. - P.r.n. pain meds - P.r.n. antiemetics - CRP of 33.4. 12/17- White count continues to be uptrending. Transitioning patient from Unasyn to Cefepime. CXR. Continue to follow cellulitic margins. Blood cultures show no growth and Urine culture showed no growth. Additional plan as outlined below in Sepsis 12/18- WBC 28 ^^ from 23 after starting Cefepime and continuing vancomycin. Cellulitis appears worse today, new bullae and hemorrhagic petechiae over the posterior right calf. Alk phos and bilirubin uptrending again today. Stat CT abd/pelvis non con, GGT, repeat lactic acid ordered. Echo pending. ID Pharmacist has been consulted at this time, will transition to Vancomycin/ertapenem/clindamycin/azithromycin IV with transition to PO once resolving x 14 days. Wound has been consulted and recommend culture of the serous fluid from the bullae. Will accomplish this. Surgery signed off 12/22/21--Surgery has signed off. Patient continues current treatment regimen of vancomycin, cefepime and azithromycin-pending further cultures (2) Sepsis: Code(s): A41.9 - Sepsis, unspecified organism Status: Acute Assessment and Plan: Two/to above (3) Cat scratch: Code(s): W55.03XA - Scratched by cat, initial encounter Status: Acute Assessment and Plan: - Tetanus shot updated - Bartonella culture ordered, pending. - Antibiotics coverage has been expanded as above in problem Cellulitis (4) Transaminitis: Code(s): R74.01 - Elevation of levels of liver transaminase levels Status: Acute Assessment and Plan: Her LFTs have relatively remained unchanged for approximately 3 days., they remain elevated. Plan Patient is euthyroid. Additional Plan Patient has been accepted for transfer at [facility] via . Subjective Date/time seen: 12/23/21 06:45 Exam Narrative: General: No acute distress. Mental Status: Awake, alert and oriented to person, place, and time with clear speech. Skin: Skin in warm, dry and intact without rashes or lesions.Weeping bullae over the posterior aspect of the calf.? moderate edema, warmth, and tenderness over the cellulitic area, specifically in the posterior aspect.?lower crook noted with two small scratches above that.? No crepitus, fluctuance. Capillary refill is intact and patient endorses normal sensation. significant regression from initial skin markings. Left leg is normal to exam. Head: Normocephalic and atraumatic. Eyes: Conjunctivae are clear without exudates or hemorrhage. Sclera is non-icteric. EOM are intact, PERRLA. Ears: The external ear and canal are non-tender and without swelling or discharge. Nose: Nasal mucosa is pink and moist. Septum midline. Nares patent bilaterally. Throat: Oral mucosa pink and moist with good dentition. Tongue midline. Neck: The neck supple without adenopathy. Trachea midline. No JVD. Cardiac: S1 and S2 regular rate and rhythm. No murmurs, gallops, or rubs auscultated. Respiratory: Chest wall symmetric, nontender and without deformity or trau
[2021-12-23 08:52] LABS: Band Neutrophils Percent 5 % (0-6); Eosinophils Absolute Manual 0.21 K/mm3 (0.02-0.5); Eosinophils Percent Manual 1 % (0-4); Lymphocytes Absolute Manual 1.08 K/mm3 (1.1-4.5); Monocytes Absolute Manual 0.86 K/mm3 (0.1-0.90); Monocytes Percent Manual 4 % (3-9); Neutrophils Absolute Manual 19.44 K/mm3 (1.7-7.2); Neutrophils Percent Manual 85 % (46-73); Platelet Estimate Adequate (Adequate); Total Cells Counted 100
[2021-12-23] MEDS: ENOXAPARIN 40 MG/0.4 ML SYRINGE SUB-Q (08:53)
--- NOTE | 2021-12-23 09:40 | PCOTNOTE ---
OT evaluation started, pt. in too much pain while seated EOB to continue. Nursing delivering pain medication. Pt. returned to bed.
--- NOTE | 2021-12-23 09:54 | PM.IMPN ---
Progress Note: A&P Assessment and Plan (1) Cellulitis of right leg: Code(s): L03.115 - Cellulitis of right lower limb Status: Acute Assessment and Plan: 12/16-? White count is actually worse today after starting IV antibiotics.? - Her cellulitis seems to be extending from below the knee up to the thigh. I have some concerns given reported spread. no crepitus on exam.? I have marked the boundaries of the cellulitic area and asked hte nurses to continue monitoring and notify me of extension beyond the marked borders. Patient did receive TDAP prophylaxis in the ER. - Stat CT and surgical consult placed. No abscess, free air, and surgery is following if needed for further consultation.? - vancomycin and Unasyn IV started in ER yesterday. -? Blood cultures pending -? Patient with left-shifted white count and bandemia. -? Monitor vital signs. -? P.r.n. pain meds -? P.r.n. antiemetics -? CRP of 33.4. 12/17- White count continues to be uptrending. Transitioning patient from Unasyn to Cefepime. CXR. Continue to follow cellulitic margins. Blood cultures show no growth and Urine culture showed no growth.? Additional plan as outlined below in Sepsis 12/18- WBC 28 ^^ from after starting Cefepime and continuing vancomycin. Cellulitis appears worse today, new bullae and hemorrhagic petechiae over the posterior right calf.? Alk phos and bilirubin uptrending again today. Stat CT abd/pelvis non con, GGT, repeat lactic acid ordered. Echo pending.? ID Pharmacist has been consulted at this time, will?transition to Vancomycin/ertapenem/clindamycin/azithromycin IV?with transition to PO once resolving x 14 days.? Wound has been consulted and recommend culture of the serous fluid from the bullae. Will accomplish this. Surgery signed off 12/22/21--Surgery has signed off.? Patient continues current treatment regimen of vancomycin, cefepime and azithromycin-pending further cultures (2) Sepsis: Code(s): A41.9 - Sepsis, unspecified organism Status: Acute Assessment and Plan: / above (3) Cat scratch: Code(s): W55.03XA - Scratched by cat, initial encounter Status: Acute Assessment and Plan: - ? Tetanus shot updated - ? Bartonella culture ordered, pending. - ? Antibiotics coverage has been expanded as above in problem Cellulitis (4) Transaminitis: Code(s): R74.01 - Elevation of levels of liver transaminase levels Status: Acute Assessment and Plan: Her LFTs have relatively remained unchanged for approximately 3 days., they remain elevated Subjective Date/time seen: 12/23/21 09:54 Patient continues to be stable. Right lower extremity appears the same as the previous day. Wbc's improving. Continue to monitor. Provide supportive treatment. No acute events reported by RN during the night. Patient denied any chest pain, nausea, vomiting and Upset stomach or diarrhea. Review of Systems Review of Systems: All systems reviewed & are unremarkable except as noted in HPI and below Exam Narrative: General: No acute distress. Mental Status: Awake, alert and oriented to person, place, and time with clear speech. Skin: Skin in warm, dry and intact without rashes or lesions.Weeping bullae over the posterior aspect of the calf.? ? moderate edema, warmth, and tenderness over the cellulitic area, specifically in the posterior aspect.?lower crook noted with two small scratches above that.? No crepitus, fluctuance. Capillary refill is intact and patient endorses normal sensation.? significant regression from initial skin markings.? Left leg is normal to exam. Head: Normocephalic and atraumatic. Eyes: Conjunctivae are clear without exudates or hemorrhage. Sclera is non-icteric. EOM are intact, PERRLA. Ears: The external ear and canal are non-tender and without swelling or discharge. Nose: Nasal mucosa is pink and moist. Septum midline. Nares patent bilaterally. Throat: Oral mucosa pink and moist with good d
[2021-12-23 14:09] VITALS: BP 120/54; PULSE 80; RESP 16; TEMP 36.6; O2SAT 98
[2021-12-23 20:52] LABS: Vancomycin Trough 11.1 ug/mL (10.0-20.0)
[2021-12-23 21:50] VITALS: BP 135/49; PULSE 92; RESP 16; TEMP 36.6; O2SAT 94
[2021-12-24] MEDS: HYDROcodone/acetaminophen (*CRX) 5-325 MG TABLET 1 TAB PO ×3 (01:18→20:53)
[2021-12-24 05:32] LABS: Basophils Absolute Auto 0.2 K/mm3 (0.0-0.1); Basophils Percent Auto 0.9 % (0.2-1.2); Eosinophils Absolute Auto 0.2 K/mm3 (0-0.3); Eosinophils Percent Auto 1.2 % (0-4.4); Hematocrit 27.2 % (37.0-47.0); Hemoglobin 8.8 g/dL (12.0-15.0); Immature Granulocyte Absolute 1.95 K/mm3 (0.00-0.031); Immature Granulocyte Percent A 9.9 % (0-0.5); Lymphocytes Percent Auto 7.6 % (18.3-44.2); Mean Corpuscular HGB Conc 32.4 g/dl (32-36); Mean Corpuscular Hemoglobin 30.3 pg (26-34); Mean Corpuscular Volume 93.8 fl (80-100); Mean Platelet Volume 11.4 fl (7.4-10.4); Monocytes Absolute Auto 1.1 K/mm3 (0.1-0.6); Monocytes Percent Auto 5.4 % (2.6-8.5); Neutrophils Absolute Auto 14.8 K/mm3 (1.3-6.7); Nucleated Red Blood Cells Perc 0.1 % (0.0-0.2); Platelet Count Result 364 k/mm3 (150-375); Red Cell Distribution Width 14.8 % (11.5-14.5); White Blood Count 19.7 K/mm3 (4.5-10.0)
[2021-12-24 05:46] LABS: Alanine Aminotransferase 46 U/L (6-35); Albumin Level 2.6 g/dL (3.5-5.1); Alkaline Phosphatase 365 U/L (38-126); Anion Gap 6 mmol/L (8-16); Aspartate Amino Transferase 49 U/L (14-36); Blood Urea Nitrogen 13 mg/dL (7-17); Carbon Dioxide 24 mmol/L (22-30); Chloride 100 mmol/L (98-107); Estimated CRCL calculation 63 ml/min; Estimated Glomerular Filt Rate > 60; Glucose 93 mg/dL (65-110); Potassium 4.4 mmol/L (3.4-5.0); Sodium 130 mmol/L (137-145)
[2021-12-24 05:47] VITALS: BP 112/43; PULSE 81; RESP 16; TEMP 36.2; O2SAT 94
[2021-12-24] MEDS: LEVOTHYROXINE SODIUM 88 MCG TABLET PO (05:56)
--- NOTE | 2021-12-24 07:03 | PM.IMPN ---
Progress Note: A&P Assessment and Plan (1) Cellulitis of right leg: Code(s): L03.115 - Cellulitis of right lower limb Status: Acute Assessment and Plan: Surgery has signed off.? Patient continues current treatment regimen of vancomycin, cefepime and azithromycin-pending further cultures Monitor vital signs, I and O's, neuro status and patient fall risk (2) Sepsis: Code(s): A41.9 - Sepsis, unspecified organism Status: Acute Assessment and Plan: 2/ above (3) Cat scratch: Code(s): W55.03XA - Scratched by cat, initial encounter Status: Acute Assessment and Plan: - ? Tetanus shot updated - ? Bartonella culture ordered, pending. - ? Antibiotics coverage has been expanded as above in problem Cellulitis (4) Transaminitis: Code(s): R74.01 - Elevation of levels of liver transaminase levels Status: Acute Assessment and Plan: LFTs have shown slight improve, need to monitor Subjective Date/time seen: 12/24/21 07:03 Patient is making slow improvement. His on the Work Physical therapy yesterday due to significant pain to the right lower extremity. She has tree encouraged to perform ADLs with physical therapy this morning. Patient's WBC is slightly improving. Continue current antibiotics. Continued and on labs. Patient does to be imaging with current antibiotic treatment. No acute events reported by RN denied. Patient did endorse she has not had a bowel movement for several days other [facility] and [facility] was administered to her this morning. Review of Systems Review of Systems: All systems reviewed & are unremarkable except as noted in HPI and below Exam Narrative: General: No acute distress. Mental Status: Awake, alert and oriented to person, place, and time with clear speech. Skin: Skin in warm, dry and intact without rashes or lesions. dry bullae over the posterior aspect of the calf.? ? moderate edema, warmth, and tenderness over the cellulitic area, specifically in the posterior aspect.?lower crook noted with two small scratches above that.? No crepitus, fluctuance. Capillary refill is intact and patient endorses normal sensation.? significant regression from initial skin markings.? Left leg is normal to exam. Head: Normocephalic and atraumatic. Eyes: Conjunctivae are clear without exudates or hemorrhage. Sclera is non-icteric. EOM are intact, PERRLA. Ears: The external ear and canal are non-tender and without swelling or discharge. Nose: Nasal mucosa is pink and moist. Septum midline. Nares patent bilaterally. Throat: Oral mucosa pink and moist with good dentition. Tongue midline. Neck: The neck supple without adenopathy. Trachea midline. No JVD. Cardiac: S1 and S2 regular rate and rhythm. No murmurs, gallops, or rubs auscultated. Respiratory: Chest wall symmetric, nontender and without deformity or trauma. Respirations even and unlabored. Lung sounds are clear to auscultation in all lobes bilaterally without wheezes, rhonchi, or rales. Abdominal: Abdomen soft, round and non-tender to palpation.? Bowel sounds present and normoactive in all 4 quadrants. Spine: Neck and back with grossly normal curvature, no deformity in appearance or signs of trauma. Extremities: Upper and lower extremities atraumatic without tenderness or deformity. Full range of motion and muscle strength 5/5 to all extremities bilaterally. Neurological: Full and symmetric motor and light touch sensation bilaterally. Cranial nerves II-XII grossly intact. Objective Data Vital Signs Vital Signs: Vital Signs - 24 hr 12/23/21 14:09 12/23/21 21:50 12/24/21 05:47 Temperature 97.8 F 97.9 F 97.2 F L Pulse Rate 80 92 81 Respiratory Rate 16 16 16 Blood Pressure 120/54 L 135/49 L 112/43 L Pulse Oximetry 98 94 94 Intake/Output Intake/Output: Intake & Output 12/21/21 12/22/21 12/23/21 12/24/21 23:59 23:59 23:59 23:59 Intake Total 1820 1590 1930 650 Output Total 1700 7648 578 4187 Aroldo
[2021-12-24] MEDS: ENOXAPARIN 40 MG/0.4 ML SYRINGE SUB-Q (08:35)
[2021-12-24] MEDS: polyethylene glycoL 3350 17 GM POWD.PACK PO (08:41)
[2021-12-24] MEDS: DOCUSATE SODIUM 100 MG CAPSULE PO ×2 (08:41→20:53)
[2021-12-24 14:15] VITALS: BP 121/45; PULSE 79; RESP 12; TEMP 36.8; O2SAT 98
[2021-12-24 20:00] VITALS: PULSE 87; RESP 20; O2SAT 99
[2021-12-24 20:47] VITALS: BP 136/49; PULSE 87; RESP 20; TEMP 36.1; O2SAT 99
[2021-12-25] MEDS: MORPHINE SULFATE (*CRX) 2 MG/ML INJ IV PUSH (01:35)
[2021-12-25 03:22] VITALS: BP 139/48; PULSE 77; RESP 20; TEMP 36; O2SAT 98
[2021-12-25 05:42] LABS: Basophils Absolute Auto 0.1 K/mm3 (0.0-0.1); Basophils Percent Auto 0.9 % (0.2-1.2); Eosinophils Absolute Auto 0.2 K/mm3 (0-0.3); Eosinophils Percent Auto 1.1 % (0-4.4); Hematocrit 28.2 % (37.0-47.0); Immature Granulocyte Percent A 6.8 % (0-0.5); Lymphocytes Absolute Auto 1.44 K/mm3 (0.9-3.2); Lymphocytes Percent Auto 8.9 % (18.3-44.2); Mean Corpuscular HGB Conc 31.9 g/dl (32-36); Mean Corpuscular Hemoglobin 29.9 pg (26-34); Mean Corpuscular Volume 93.7 fl (80-100); Mean Platelet Volume 11.5 fl (7.4-10.4); Monocytes Absolute Auto 0.8 K/mm3 (0.1-0.6); Monocytes Percent Auto 5.1 % (2.6-8.5); Neutrophils Absolute Auto 12.5 K/mm3 (1.3-6.7); Neutrophils Percent Auto 77.2 % (45.5-73.1); Platelet Count Result 483 k/mm3 (150-375); Red Blood Count 3.01 M/mm3 (4.2-5.4); Red Cell Distribution Width 14.8 % (11.5-14.5); White Blood Count 16.2 K/mm3 (4.5-10.0)
[2021-12-25] MEDS: LEVOTHYROXINE SODIUM 88 MCG TABLET PO (05:55)
[2021-12-25 06:03] LABS: Alanine Aminotransferase 39 U/L (6-35); Albumin Level 2.8 g/dL (3.5-5.1); Alkaline Phosphatase 344 U/L (38-126); Anion Gap 7 mmol/L (8-16); Aspartate Amino Transferase 42 U/L (14-36); Bilirubin,Total 1.1 mg/dL (0.2-1.3); Blood Urea Nitrogen 12 mg/dL (7-17); Calcium 8.5 mg/dL (8.4-10.2); Carbon Dioxide 29 mmol/L (22-30); Chloride 95 mmol/L (98-107); Estimated CRCL calculation 63 ml/min; Estimated Glomerular Filt Rate > 60; Glucose 93 mg/dL (65-110); Potassium 4.3 mmol/L (3.4-5.0); Sodium 131 mmol/L (137-145)
--- NOTE | 2021-12-25 07:43 | PM.IMPN ---
Progress Note: A&P Assessment and Plan (1) Cellulitis of right leg: Code(s): L03.115 - Cellulitis of right lower limb Status: Acute Assessment and Plan: Surgery has signed off.? Patient continues current treatment regimen of vancomycin, cefepime and azithromycin-pending further cultures! Monitor vital signs, I and O's, neuro status and patient fall risk (2) Sepsis: Code(s): A41.9 - Sepsis, unspecified organism Status: Acute Assessment and Plan: / above (3) Cat scratch: Code(s): W55.03XA - Scratched by cat, initial encounter Status: Acute Assessment and Plan: - ? Tetanus shot updated - ? Bartonella culture ordered, still pending. - ? Antibiotics coverage has been expanded as above in problem Cellulitis (4) Transaminitis: Code(s): R74.01 - Elevation of levels of liver transaminase levels Status: Acute Assessment and Plan: LFTs have shown slight improve, need to monitor --remain the same, no abd. pain Subjective Date/time seen: 12/25/21 07:43 patient was drowsy this morning when she woke up. She was able to answer all questions appropriately. She denies any significant pain to her lower extremity. She was unable to work with physical therapy or occupational therapy yesterday. Patient has not been out of bed for over a week. She refuses to sit up in the chair. Discussed possible muscle wasting and atrophy while laying in bed. Right lower extremity appears to be improving, although slow. Review of Systems Review of Systems: All systems reviewed & are unremarkable except as noted in HPI and below Exam Narrative: General: No acute distress. Mental Status: Awake, alert and oriented to person, place, and time with clear speech. Skin: Skin in warm, dry and intact without rashes or lesions. brusing over the posterior aspect of the calf.? ? moderate edema, warmth, and minimal tenderness over the cellulitic area, specifically in the posterior aspect.? No crepitus, fluctuance. Capillary refill is intact and patient endorses normal sensation.?continued regression from initial skin markings.? Left leg is normal to exam. Head: Normocephalic and atraumatic. Eyes: Conjunctivae are clear without exudates or hemorrhage. Sclera is non-icteric. EOM are intact, PERRLA. Ears: The external ear and canal are non-tender and without swelling or discharge. Nose: Nasal mucosa is pink and moist. Septum midline. Nares patent bilaterally. Throat: Oral mucosa pink and moist with good dentition. Tongue midline. Neck: The neck supple without adenopathy. Trachea midline. No JVD. Cardiac: S1 and S2 regular rate and rhythm. No murmurs, gallops, or rubs auscultated. Respiratory: Chest wall symmetric, nontender and without deformity or trauma. Respirations even and unlabored. Lung sounds are clear to auscultation in all lobes bilaterally without wheezes, rhonchi, or rales. Abdominal: Abdomen soft, round and non-tender to palpation.? Bowel sounds present and normoactive in all 4 quadrants. Spine: Neck and back with grossly normal curvature, no deformity in appearance or signs of trauma. Extremities: Upper and lower extremities atraumatic without tenderness or deformity. Full range of motion and muscle strength 5/5 to all extremities bilaterally.--see skin assessment of extremity Neurological: Full and symmetric motor and light touch sensation bilaterally. Cranial nerves II-XII grossly intact. Objective Data Vital Signs Vital Signs: Vital Signs - 24 hr 12/24/21 14:15 12/24/21 20:47 12/24/21 20:00 Temperature 98.2 F 97 F L Pulse Rate 79 87 87 Respiratory Rate 12 20 20 Blood Pressure 121/45 L 136/49 L Pulse Oximetry 98 99 99 Oxygen Delivery Room Air 12/25/21 03:22 Temperature 96.8 F L Pulse Rate 77 Respiratory Rate 20 Blood Pressure 139/48 L Pulse Oximetry 98 Oxygen Delivery Intake/Output Intake/Output: Intake & Output 12/22/21 12/23/21 12/24/21 12/25/21 23:59
[2021-12-25] MEDS: HYDROcodone/acetaminophen (*CRX) 5-325 MG TABLET 1 TAB PO ×2 (08:48→20:54)
[2021-12-25] MEDS: ENOXAPARIN 40 MG/0.4 ML SYRINGE SUB-Q (08:49)
--- NOTE | 2021-12-25 09:05 | PCOTNOTE ---
Attempted to see patient at 9:01 am this date. Pt. currently eating breakfast.
[2021-12-25 13:30] VITALS: BP 114/46; PULSE 84; RESP 20; TEMP 36.3; O2SAT 100
[2021-12-25 20:37] VITALS: BP 133/46; PULSE 88; RESP 16; TEMP 35.6; O2SAT 98
[2021-12-25] MEDS: DOCUSATE SODIUM 100 MG CAPSULE PO (20:54)
[2021-12-26 03:14] VITALS: BP 134/49; PULSE 80; RESP 18; TEMP 36.1; O2SAT 100
[2021-12-26] MEDS: HYDROcodone/acetaminophen (*CRX) 5-325 MG TABLET 1 TAB PO ×3 (03:53→23:44)
[2021-12-26 05:56] LABS: Basophils Absolute Auto 0.1 K/mm3 (0.0-0.1); Basophils Percent Auto 0.5 % (0.2-1.2); Eosinophils Absolute Auto 0.2 K/mm3 (0-0.3); Eosinophils Percent Auto 1.3 % (0-4.4); Hematocrit 27.6 % (37.0-47.0); Hemoglobin 8.8 g/dL (12.0-15.0); Immature Granulocyte Absolute 0.51 K/mm3 (0.00-0.031); Immature Granulocyte Percent A 3.5 % (0-0.5); Lymphocytes Absolute Auto 1.29 K/mm3 (0.9-3.2); Lymphocytes Percent Auto 8.9 % (18.3-44.2); Mean Corpuscular HGB Conc 31.9 g/dl (32-36); Mean Corpuscular Hemoglobin 29.9 pg (26-34); Mean Corpuscular Volume 93.9 fl (80-100); Mean Platelet Volume 11.3 fl (7.4-10.4); Monocytes Absolute Auto 0.8 K/mm3 (0.1-0.6); Monocytes Percent Auto 5.6 % (2.6-8.5); Neutrophils Absolute Auto 11.7 K/mm3 (1.3-6.7); Neutrophils Percent Auto 80.2 % (45.5-73.1); Platelet Count Result 556 k/mm3 (150-375); Red Blood Count 2.94 M/mm3 (4.2-5.4); Red Cell Distribution Width 15.1 % (11.5-14.5); White Blood Count 14.6 K/mm3 (4.5-10.0)
[2021-12-26 06:16] LABS: Alanine Aminotransferase 34 U/L (6-35); Albumin Level 2.9 g/dL (3.5-5.1); Alkaline Phosphatase 302 U/L (38-126); Anion Gap 7 mmol/L (8-16); Aspartate Amino Transferase 41 U/L (14-36); Bilirubin,Total 0.9 mg/dL (0.2-1.3); Blood Urea Nitrogen 13 mg/dL (7-17); Carbon Dioxide 29 mmol/L (22-30); Chloride 97 mmol/L (98-107); Estimated CRCL calculation 54 ml/min; Estimated Glomerular Filt Rate > 60; Glucose 101 mg/dL (65-110); Potassium 4.2 mmol/L (3.4-5.0); Sodium 133 mmol/L (137-145)
[2021-12-26] MEDS: LEVOTHYROXINE SODIUM 88 MCG TABLET PO (06:32)
[2021-12-26] MEDS: polyethylene glycoL 3350 17 GM POWD.PACK PO (08:03)
[2021-12-26] MEDS: ENOXAPARIN 40 MG/0.4 ML SYRINGE SUB-Q (08:04)
[2021-12-26] MEDS: DOCUSATE SODIUM 100 MG CAPSULE PO (08:04)
[2021-12-26 09:49] VITALS: PULSE 88; O2SAT 98
[2021-12-26 10:22] LABS: ANCA Screen Negative (Negative)
--- NOTE | 2021-12-26 11:40 | PM.IMPN ---
Progress Note: A&P Assessment and Plan (1) Cellulitis of right leg: Code(s): L03.115 - Cellulitis of right lower limb Status: Acute Assessment and Plan: Surgery has signed off.? Patient continues current treatment regimen of vancomycin, cefepime and azithromycin-pending further cultures! much improve room -can likely transition to oral antibiotics in the next day or 2. (2) Sepsis: Code(s): A41.9 - Sepsis, unspecified organism Status: Acute Assessment and Plan: 2/ above, (3) Cat scratch: Code(s): W55.03XA - Scratched by cat, initial encounter Status: Acute Assessment and Plan: - ? Tetanus shot updated - ? Bartonella culture ordered, still pending. - ? Antibiotics coverage has been expanded as above in problem Cellulitis (4) Transaminitis: Code(s): R74.01 - Elevation of levels of liver transaminase levels Status: Acute Assessment and Plan: Improving. No symptoms. Workup unrevealing Subjective Date/time seen: 12/26/21 11:40 Redness and swelling in her right lower extremity is improved. Pain is also improved. No additional complaints noted today Exam Narrative: General: No acute distress. Mental Status: Awake, alert and oriented to person, place, and time with clear speech. Skin: Skin in warm, dry and intact without rashes or lesions. brusing over the posterior aspect of the calf.? ? moderate edema, warmth, and minimal tenderness over the cellulitic area, specifically in the posterior aspect.? No crepitus, fluctuance. Capillary refill is intact and patient endorses normal sensation.?continued regression from initial skin markings.? Left leg is normal to exam. Head: Normocephalic and atraumatic. Eyes: Conjunctivae are clear without exudates or hemorrhage. Sclera is non-icteric. EOM are intact, PERRLA. Ears: The external ear and canal are non-tender and without swelling or discharge. Nose: Nasal mucosa is pink and moist. Septum midline. Nares patent bilaterally. Throat: Oral mucosa pink and moist with good dentition. Tongue midline. Neck: The neck supple without adenopathy. Trachea midline. No JVD. Cardiac: S1 and S2 regular rate and rhythm. No murmurs, gallops, or rubs auscultated. Respiratory: Chest wall symmetric, nontender and without deformity or trauma. Respirations even and unlabored. Lung sounds are clear to auscultation in all lobes bilaterally without wheezes, rhonchi, or rales. Abdominal: Abdomen soft, round and non-tender to palpation.? Bowel sounds present and normoactive in all 4 quadrants. Spine: Neck and back with grossly normal curvature, no deformity in appearance or signs of trauma. Extremities: Upper and lower extremities atraumatic without tenderness or deformity. Full range of motion and muscle strength 5/5 to all extremities bilaterally.--see skin assessment of extremity Neurological: Full and symmetric motor and light touch sensation bilaterally. Cranial nerves II-XII grossly intact. Objective Data Vital Signs Vital Signs: Vital Signs - 24 hr 12/25/21 13:30 12/25/21 20:37 12/25/21 20:00 Temperature 97.4 F L 96.1 F L Pulse Rate 84 88 Respiratory Rate 20 16 Blood Pressure 114/46 L 133/46 L Pulse Oximetry 100 98 Oxygen Delivery Room Air 12/26/21 03:14 12/26/21 09:49 Temperature 97 F L Pulse Rate 80 88 Respiratory Rate 18 Blood Pressure 134/49 L Pulse Oximetry 100 98 Oxygen Delivery Room Air Intake/Output Intake/Output: Intake & Output 12/23/21 12/24/21 12/25/21 12/26/21 23:59 23:59 23:59 23:59 Intake Total 1930 1940 1500 730 Output Total 200 2250 1200 700 Balance 1730 -310 300 30 Meds/Results Medications: Active Medications Generic Name Dose Route Start Last Admin Trade Name Dmitriyq PRN Reason Stop Dose Admin Acetaminophen 650 mg 12/21/21 20:41 Acetaminophen 325 Mg Tablet PO Q6H PRN Mild Pain (1-3) or Fever Hydrocodone Bitart/Acetaminophen 1 tab 12/21/21 20:41
--- NOTE | 2021-12-26 13:21 | PCOTNOTE ---
Attempted to see patient, patient declined. Patient just finished with PT prior to OT attempting. Will continue plan of care tomorrow 12/27/21.
[2021-12-26 14:00] VITALS: BP 122/64; PULSE 78; RESP 18; TEMP 36.9; O2SAT 98
[2021-12-26 17:55] LABS: Proteinase 3 PR3 Antibodies <1.0 AI (<1.0)
[2021-12-26 18:30] LABS: Bartonella henselae IgG Negative; Bartonella henselae IgM Negative; Bartonella quintana IgG Negative; Bartonella quintana IgM Negative
[2021-12-26 20:20] VITALS: BP 117/48; PULSE 86; RESP 18; TEMP 36; O2SAT 97
[2021-12-27 05:17] VITALS: BP 116/53; PULSE 78; RESP 18; TEMP 36.1; O2SAT 99
[2021-12-27 05:39] LABS: Basophils Absolute Auto 0.1 K/mm3 (0.0-0.1); Basophils Percent Auto 0.6 % (0.2-1.2); Eosinophils Absolute Auto 0.2 K/mm3 (0-0.3); Eosinophils Percent Auto 1.5 % (0-4.4); Hematocrit 27.7 % (37.0-47.0); Hemoglobin 8.8 g/dL (12.0-15.0); Immature Granulocyte Absolute 0.27 K/mm3 (0.00-0.031); Immature Granulocyte Percent A 2.1 % (0-0.5); Lymphocytes Absolute Auto 1.46 K/mm3 (0.9-3.2); Lymphocytes Percent Auto 11.2 % (18.3-44.2); Mean Corpuscular HGB Conc 31.8 g/dl (32-36); Mean Corpuscular Hemoglobin 30.2 pg (26-34); Mean Corpuscular Volume 95.2 fl (80-100); Mean Platelet Volume 11.2 fl (7.4-10.4); Monocytes Absolute Auto 0.8 K/mm3 (0.1-0.6); Monocytes Percent Auto 6.4 % (2.6-8.5); Neutrophils Absolute Auto 10.2 K/mm3 (1.3-6.7); Neutrophils Percent Auto 78.2 % (45.5-73.1); Platelet Count Result 637 k/mm3 (150-375); Red Blood Count 2.91 M/mm3 (4.2-5.4); Red Cell Distribution Width 15.1 % (11.5-14.5); White Blood Count 13.1 K/mm3 (4.5-10.0)
[2021-12-27] MEDS: LEVOTHYROXINE SODIUM 88 MCG TABLET PO (05:47)
[2021-12-27 06:07] LABS: Alanine Aminotransferase 33 U/L (6-35); Alkaline Phosphatase 273 U/L (38-126); Anion Gap 6 mmol/L (8-16); Aspartate Amino Transferase 35 U/L (14-36); Bilirubin,Total 0.8 mg/dL (0.2-1.3); Blood Urea Nitrogen 13 mg/dL (7-17); Calcium 8.2 mg/dL (8.4-10.2); Carbon Dioxide 28 mmol/L (22-30); Chloride 98 mmol/L (98-107); Estimated CRCL calculation 54 ml/min; Estimated Glomerular Filt Rate > 60; Glucose 96 mg/dL (65-110); Potassium 4.2 mmol/L (3.4-5.0); Sodium 132 mmol/L (137-145)
[2021-12-27] MEDS: polyethylene glycoL 3350 17 GM POWD.PACK PO (07:54)
[2021-12-27] MEDS: HYDROcodone/acetaminophen (*CRX) 5-325 MG TABLET 1 TAB PO (07:54)
[2021-12-27] MEDS: DOCUSATE SODIUM 100 MG CAPSULE PO (07:54)
[2021-12-27] MEDS: ENOXAPARIN 40 MG/0.4 ML SYRINGE SUB-Q (07:55)
--- NOTE | 2021-12-27 12:31 | PM.IMPN ---
Progress Note: A&P Assessment and Plan (1) Cellulitis of right leg: Code(s): L03.115 - Cellulitis of right lower limb Status: Acute Assessment and Plan: Surgery has signed off.? Patient continues current treatment regimen of vancomycin, cefepime and azithromycin-pending further cultures (2) Sepsis: Code(s): A41.9 - Sepsis, unspecified organism Status: Acute Assessment and Plan: 2/2 above, (3) Cat scratch: Code(s): W55.03XA - Scratched by cat, initial encounter Status: Acute Assessment and Plan: - ? Tetanus shot updated - ? Bartonella culture ordered, still pending. - ? Antibiotics coverage has been expanded as above in problem Cellulitis (4) Transaminitis: Code(s): R74.01 - Elevation of levels of liver transaminase levels Status: Acute Assessment and Plan: Improving. No symptoms. Workup unrevealing Subjective Date/time seen: 12/27/21 12:31 Interval history: Patient states she feels a little better than yesterday, states the rash looks better. No overnight events noted. No chest pain or shortness of breath. No nausea, vomiting or diarrhea. No fevers or chills. Review of Systems Review of Systems: All systems reviewed & are unremarkable except as noted in HPI and below Exam Narrative: General: No acute distress, alert and oriented per baseline HEENT: Atraumatic, normocephalic, mucous membranes moist CV: Regular rate and rhythm, S1, S2 Lungs: Clear to auscultation bilaterally, no rales or crackles noted, no wheezes, good air entry Abdomen: Soft, nontender, nondistended Extremities: Significant erythematous, purpuric and necrotic lesions on posterior right calf, improving per report Psych: Euthymic, normal affect Objective Data Vital Signs Vital Signs: Vital Signs - 24 hr 12/26/21 14:00 12/26/21 20:20 12/26/21 20:00 Temperature 98.4 F 96.8 F L Pulse Rate 78 86 Respiratory Rate 18 18 Blood Pressure 122/64 117/48 L Pulse Oximetry 98 97 Oxygen Delivery Room Air 12/27/21 05:17 Temperature 97.0 F L Pulse Rate 78 Respiratory Rate 18 Blood Pressure 116/53 L Pulse Oximetry 99 Oxygen Delivery Intake/Output Intake/Output: Intake & Output 12/24/21 12/25/21 12/26/21 12/27/21 23:59 23:59 23:59 23:59 Intake Total 1940 1500 2260 930 Output Total 2250 1200 1500 500 Balance -310 300 760 430 Meds/Results Medications: Active Medications Generic Name Dose Route Start Last Admin Trade Name Freq PRN Reason Stop Dose Admin Acetaminophen 650 mg 12/21/21 20:41 Acetaminophen 325 Mg Tablet PO Q6H PRN Mild Pain (1-3) or Fever Hydrocodone Bitart/Acetaminophen 1 tab 12/21/21 20:41 12/27/21 07:54 Hydrocodone/Acetaminophen (*Crx) 5-325 Mg Tablet PO 1 tab Q6H PRN Administration Pain Rated 4-6 Docusate Sodium 100 mg 12/21/21 10:18 12/27/21 07:54 Docusate Sodium 100 Mg Capsule PO 100 mg Q12H PRN Administration Constipation Enoxaparin Sodium 40 mg 12/16/21 09:00 12/27/21 07:55 Enoxaparin 40 Mg/0.4 Ml Syringe SUB-Q 40 mg DAILY AMANDA Administration Sodium Chloride 1,000 mls @ 125 mls/hr 12/18/21 07:50 12/20/21 05:42 Normal Saline Iv IV CONT 0 mls/hr .Q8H AMANDA Infusion Vancomycin HCl 1,000 mg in 250 mls @ 250 mls/hr 12/20/21 03:00 12/27/21 05:48 Vancomycin 1,000 Mg/D5w 250 Ml IVPB Infused Q18H AMANDA Infusion Cefepime HCl 2 gm in 50 mls @ 100 mls/hr 12/19/21 16:00 12/27/21 05:48 Maxipime 2 Gm/D5w 50 Ml IVPB Infused Q12H AMANDA Infusion Azithromycin 500 mg in 250 mls @ 250 mls/hr 12/20/21 12:00 12/26/21 12:40 Zithromax IVPB Infused Q24H AMANDA Infusion Levothyroxine Sodium 88 mcg 12/16/21 09:25 12/27/21 05:47 Levothyroxine Sodium 88 Mcg Tablet PO 88 mcg DAILY@0630 AMANDA Administration Morphine Sulfate 2 mg 12/21/21 23:55 12/25/21 01:35 Morphine Sulfate (*Crx) 2 Mg/Ml Inj IV PUSH 2 mg Q4H PRN Admin
[2021-12-27 14:00] VITALS: BP 116/41; PULSE 80; RESP 16; TEMP 36.1; O2SAT 100
[2021-12-27 14:32] LABS: Vancomycin Trough 12.5 ug/mL (10.0-20.0)
[2021-12-27 19:56] VITALS: BP 121/49; PULSE 84; RESP 16; TEMP 36.3; O2SAT 98
[2021-12-28] MEDS: HYDROcodone/acetaminophen (*CRX) 5-325 MG TABLET 1 TAB PO (00:34)
[2021-12-28 05:17] VITALS: BP 109/43; PULSE 72; RESP 16; TEMP 36.4; O2SAT 97
[2021-12-28] MEDS: LEVOTHYROXINE SODIUM 88 MCG TABLET PO (06:04)
[2021-12-28 06:57] LABS: Estimated CRCL calculation 54 ml/min; Estimated Glomerular Filt Rate > 60
[2021-12-28] MEDS: ENOXAPARIN 40 MG/0.4 ML SYRINGE SUB-Q (08:38)
[2021-12-28 09:23] LABS: CRP 4.6 mg/dL (<1.0)
[2021-12-28 10:42] LABS: Procalcitonin 0.1 ng/mL
--- NOTE | 2021-12-28 12:42 | PCOTNOTE ---
Attempted to see patient this pm, however patient declined. Pt stated, Well, normally I would but now is not a good time. I'm going to have another enema.
--- NOTE | 2021-12-28 14:35 | PM.IMPN ---
Progress Note: A&P Assessment and Plan (1) Cellulitis of right leg: Code(s): L03.115 - Cellulitis of right lower limb Status: Acute Assessment and Plan: Surgery has signed off.? 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 No chest pain or shortness of breath. No nausea, vomiting or diarrhea. No fevers or chills. Patient states she feels very weak from laying in bed, but that her rash and pain are much improved from yesterday. Review of Systems Review of Systems: All systems reviewed & are unremarkable except as noted in HPI and below Exam Narrative: General: No acute distress, alert and oriented per baseline HEENT: Atraumatic, normocephalic, mucous membranes moist CV: Regular rate and rhythm, S1, S2 Lungs: Clear to auscultation bilaterally, no rales or crackles noted, no wheezes, good air entry Abdomen: Soft, nontender, nondistended Extremities: Stable purpuric lesions with superificial capillary necrosis and stable erythema Psych: Euthymic, normal affect Objective Data Vital Signs Vital Signs: Vital Signs - 24 hr 12/27/21 19:56 12/27/21 20:00 12/28/21 05:17 Temperature 97.3 F L 97.6 F Pulse Rate 84 72 Respiratory Rate 16 16 Blood Pressure 121/49 L 109/43 L Pulse Oximetry 98 97 Oxygen Delivery Room Air 12/28/21 08:00 Temperature Pulse Rate Respiratory Rate Blood Pressure Pulse Oximetry Oxygen Delivery Room Air Intake/Output Intake/Output: Intake & Output 12/25/21 12/26/21 12/27/21 12/28/21 23:59 23:59 23:59 23:59 Intake Total 1500 2260 1910 440 Output Total 1200 6336 810 6384 Balance 662 306 5769 -660 Meds/Results Medications: Active Medications Generic Name Dose Route Start Last Admin Trade Name Freq PRN Reason Stop Dose Admin Acetaminophen 650 mg 12/21/21 20:41 Acetaminophen 325 Mg Tablet PO Q6H PRN Mild Pain (1-3) or Fever Hydrocodone Bitart/Acetaminophen 1 tab 12/27/21 12:34 12/28/21 00:34 Hydrocodone/Acetaminophen (*Crx) 5-325 Mg Tablet PO 1 tab Q12H PRN Administration Pain Rated 4-6 Docusate Sodium 100 mg 12/21/21 10:18 12/27/21 07:54 Docusate Sodium 100 Mg Capsule PO 100 mg Q12H PRN Administration Constipation Enoxaparin Sodium 40 mg 12/16/21 09:00 12/28/21 08:38 Enoxaparin 40 Mg/0.4 Ml Syringe SUB-Q 40 mg DAILY AMANDA Administration Sodium Chloride 1,000 mls @ 125 mls/hr 12/18/21 07:50 12/20/21 05:42 Normal Saline Iv IV CONT 0 mls/hr .Q8H AMANDA Infusion Levofloxacin 750 mg 12/29/21 09:00 Levofloxacin 750 Mg Tablet PO DAILY AMANDA Levothyroxine Sodium 88 mcg 12/16/21 09:25 12/28/21 06:04 Levothyroxine Sodium 88 Mcg Tablet PO 88 mcg DAILY@0630 AMANDA Administration Perflutren Lipid Microsphere 0 ml 12/17/21 11:55 Perflutren Lipid Microspheres 1.5 Ml Vial Diluted To 10 Ml Total Volume IV PUSH ONCE PRN adequate visualization Protocol Perflutren Lipid Microsphere 0 ml 12/19/21 09:31 Perflutren Lipid Microspheres 1.5 Ml Vial Diluted To 10 Ml Total Volume IV PUSH ONCE PRN adequate visualization Protocol Polyethylene Glycol 17 gm 12/21/21 10:18 12/27/21 07:54 Polyethylene Glycol 3350 17 Gm Powd.Pack PO 17 gm QAM PRN Administration Constipation Radiology Results: ITS Impressions Tibia/Fibula X-Ray 12/15/21 16:20 IMPRESSION: Osteopenia Venous Doppler Study 12/15/21 16:41 IMPRESSION: 1. No deep venous thrombos
[2021-12-28 15:49] VITALS: BP 136/50; PULSE 86; RESP 16; TEMP 36.9; O2SAT 100
--- NOTE | 2021-12-28 19:11 | WPDONCPN ---
Progress Note: A/P - Additional Plan Normocytic anemia. Previous labs showed normal kidney function, normal iron level and elevated vitamin B12. Differential showed elevated monocyte and present of immature granulocyte likely reactive. I am also concerned about underlying bone marrow disorders. Flow cytometric analysis was ordered but not performed. We will proceed with bone marrow aspiration and biopsy. Leukocytosis. Likely reactive. We will proceed with bone marrow biopsy. Hypogammaglobinemia. Status post IV IgG treatment. Right lower extremity cellulitis. Clinically it is improving. She is also feeling better. Possibility of autoimmune vasculitis. MRI finding noted. Patient can follow up with Rheumatology as an outpatient if needed. - Time Spent With Patient Total time spent is greater than 50% in coordination of care (as documented) at patient's floor/unit and/or counseling patient: 15 - 25 minutes Subjective Interval history: Normocytic anemia Reactive leukocytosis Right lower extremity cellulitis Review of Systems - Review of Systems Patient complain of tiredness and fatigue. There was some improvement in the right lower extremity cellulitis. Denies any fevers and chills. Denies any bleeding including melena and hematochezia. - Neurologic Reports numbness Exam Vital signs: Temp Pulse Resp BP Pulse Ox O2 Del Method 36.9 C 86 16 136/50 L 100 Room Air 12/28/21 15:49 12/28/21 15:49 12/28/21 15:49 12/28/21 15:49 12/28/21 15:49 12/28/21 08:00 Lungs are clear to auscultation bilaterally Cardiovascular regular rate rhythm no murmurs Abdomen soft nontender nondistended bowel sounds are positive Extremities improvement in right lower extremity cellulitis PN: Objective Data - Labs CBC & Chem 7: 12/27/21 04:53 12/28/21 06:14 Labs: Laboratory Results - last 24 hr 12/15/21 12/28/21 12/28/21 16:34 06:12 06:14 Creatinine 0.60 L Estim Creat Clear Calc 54 Estimated GFR > 60 C-Reactive Protein 4.6 H Procalcitonin B. henselae IgG Ttr Com Not Reportable 12/28/21 09:22 Creatinine Estim Creat Clear Calc Estimated GFR C-Reactive Protein Procalcitonin 0.1 B. henselae IgG Ttr Com
[2021-12-28 20:28] VITALS: BP 120/53; PULSE 89; RESP 18; TEMP 35.9; O2SAT 100
[2021-12-29 04:28] VITALS: BP 128/52; PULSE 78; RESP 20; TEMP 36; O2SAT 98
--- NOTE | 2021-12-29 08:01 | WPDMODSED ---
Moderate Sedation Note-Pt Data Patient Data Diagnosis: Anemia. Present Complaint: Anemia. Procedure to be performed/Plan: Fluoro-guided bone marrow biopsy of ilium. Allergies Allergy/AdvReac Type Severity Reaction Status Date / Time Sulfa (Sulfonamide Allergy Unknown Unknown Verified 12/13/21 09:45 Antibiotics) Home Medications Medication Instructions Recorded Confirmed Type calcium carbonate 500 mg-vitamin 1 tablet PO DAILY 03/09/20 12/15/21 History D3 5 mcg (200 unit) tablet (Calcium 500 + D) naproxen 500 mg tablet 500 mg PO .COMPLEX PRN pain #180 08/09/21 12/15/21 Rx tabs levothyroxine 88 mcg tablet 88 mcg PO DAILY #30 tabs 10/25/21 12/15/21 Rx doxycycline hyclate 100 mg capsule 100 mg PO BID #14 caps 12/13/21 12/15/21 Rx Current Medications: Active Medications Acetaminophen (Acetaminophen 325 Mg Tablet) 650 mg PO Q6H PRN PRN Reason: Mild Pain (1-3) or Fever Hydrocodone Bitart/Acetaminophen (Hydrocodone/Acetaminophen (*Crx) 5-325 Mg Tablet) 1 tab PO Q12H PRN PRN Reason: Pain Rated 4-6 Last Admin: 12/28/21 00:34 Dose: 1 tab Docusate Sodium (Docusate Sodium 100 Mg Capsule) 100 mg PO Q12H PRN PRN Reason: Constipation Last Admin: 12/27/21 07:54 Dose: 100 mg Enoxaparin Sodium (Enoxaparin 40 Mg/0.4 Ml Syringe) 40 mg SUB-Q DAILY REPLACED BY [facility] Last Admin: 12/29/21 07:44 Dose: Not Given Sodium Chloride (Normal Saline Iv) 1,000 mls @ 125 mls/hr IV CONT .Q8H REPLACED BY [facility] Last Infusion: 12/20/21 05:42 Dose: 0 mls/hr Levofloxacin (Levofloxacin 750 Mg Tablet) 750 mg PO DAILY REPLACED BY [facility] Levothyroxine Sodium (Levothyroxine Sodium 88 Mcg Tablet) 88 mcg PO DAILY@0630 REPLACED BY [facility] Last Admin: 12/29/21 05:49 Dose: Not Given Neomycin/Polymyxin/Bacitracin (Neomycin/Polymyxin/Bacitracin Ointment 15 Gm Tube) 1 applic TOPICAL PRN PRN PRN Reason: with dressing changes Perflutren Lipid Microsphere (Perflutren Lipid Microspheres 1.5 Ml Vial Diluted To 10 Ml Total Volume) 0 ml IV PUSH ONCE PRN; Protocol PRN Reason: adequate visualization Perflutren Lipid Microsphere (Perflutren Lipid Microspheres 1.5 Ml Vial Diluted To 10 Ml Total Volume) 0 ml IV PUSH ONCE PRN; Protocol PRN Reason: adequate visualization Polyethylene Glycol (Polyethylene Glycol 3350 17 Gm Powd.Pack) 17 gm PO QAM PRN PRN Reason: Constipation Last Admin: 12/27/21 07:54 Dose: 17 gm Sedation/Anesthesia: No previous sedation/anesthesia problems (including family history). PMFSH Past Medical History Medical History Arthritis Calcaneovalgus deformity of right foot Callus of heel Cellulitis of right leg Osteoporosis Post-polio syndrome Stress fracture of calcaneus Stress fracture of tibia Family History Family History Mother Hypertension Father Hypertension Other Family history of malignant neoplasm Diabetes mellitus Sibling Diabetes mellitus Family history of malignant neoplasm Social History Social History Smoking status: Former smoker Second hand tobacco smoke exposure: No Alcohol intake: never Substance use: never Substance use type: does not use Gender identity (if verbalized by the patient): Female Sexual Orientation (if Verbalized by the Patient): Straight or Heterosexual Spiritual care concerns: No Mod Sed Physical Exam Physical Exam Pre Procedural Exam: Normal: Appearance, Lungs, Heart Rate, Heart Rhythm and Abdomen Hours since solid foods: 12 Hours since liquid intake: 12 Mallampati Classification: class II Internal Medicine - PN: Obj Da Vital Signs Vital Signs: Vital Signs - 24 hr 12/28/21 15:49 12/28/21 20:28 12/28/21 20:00 Temperature 36.9 C 35.9 C L Pulse Rate 86 89 Respiratory Rate 16 18 Blood Pressure 136/50 L 120/53 L Pulse Oximetry 100 100 Oxygen Delivery Room Air 12/29/21 04:28 Temperature 36.0 C L Pu
[2021-12-29 09:00] LABS: Basophils Absolute Auto 0.1 K/mm3 (0.0-0.1); Basophils Percent Auto 0.7 % (0.2-1.2); Eosinophils Absolute Auto 0.1 K/mm3 (0-0.3); Eosinophils Percent Auto 1.2 % (0-4.4); Hematocrit 28.2 % (37.0-47.0); Hemoglobin 8.9 g/dL (12.0-15.0); Immature Granulocyte Absolute 0.07 K/mm3 (0.00-0.031); Immature Granulocyte Percent A 0.7 % (0-0.5); Lymphocytes Absolute Auto 0.69 K/mm3 (0.9-3.2); Lymphocytes Percent Auto 7.4 % (18.3-44.2); Mean Corpuscular HGB Conc 31.6 g/dl (32-36); Mean Corpuscular Hemoglobin 30.4 pg (26-34); Mean Corpuscular Volume 96.2 fl (80-100); Mean Platelet Volume 10.7 fl (7.4-10.4); Monocytes Absolute Auto 0.4 K/mm3 (0.1-0.6); Monocytes Percent Auto 4.1 % (2.6-8.5); Neutrophils Absolute Auto 8.1 K/mm3 (1.3-6.7); Neutrophils Percent Auto 85.9 % (45.5-73.1); Platelet Count Result 749 k/mm3 (150-375); Red Blood Count 2.93 M/mm3 (4.2-5.4); Red Cell Distribution Width 15.3 % (11.5-14.5); White Blood Count 9.4 K/mm3 (4.5-10.0)
[2021-12-29 09:20] LABS: Alanine Aminotransferase 28 U/L (6-35); Albumin Level 3.3 g/dL (3.5-5.1); Alkaline Phosphatase 237 U/L (38-126); Anion Gap 10 mmol/L (8-16); Aspartate Amino Transferase 32 U/L (14-36); Bilirubin,Total 0.9 mg/dL (0.2-1.3); Blood Urea Nitrogen 14 mg/dL (7-17); Calcium 8.9 mg/dL (8.4-10.2); Carbon Dioxide 26 mmol/L (22-30); Chloride 98 mmol/L (98-107); Estimated CRCL calculation 54 ml/min; Estimated Glomerular Filt Rate > 60; Glucose 100 mg/dL (65-110); Sodium 134 mmol/L (137-145)
--- NOTE | 2021-12-29 09:38 | PCPTNOTE ---
The patient treatment was not able to be completed at this time due to patient on bedrest following bone marrow biopsy procedure. RN reports bedrest is for 1 hour following the procedure. Will plan to continue treatment per plan of care.
[2021-12-29] MEDS: levoFLOXacin 750 MG TABLET PO (10:01)
[2021-12-29] MEDS: SILVERGEL (ELTA) 45 ML 1 APPLIC TOPICAL (11:45)
[2021-12-29 14:00] VITALS: BP 115/67; PULSE 88; RESP 18; TEMP 36.7; O2SAT 100
--- NOTE | 2021-12-29 14:42 | PM.PNGS ---
Progress Note: A&P Assessment and Plan (1) Cellulitis of right leg: Code(s): L03.115 - Cellulitis of right lower limb Status: Acute Assessment and Plan: I reviewed the MRI. Potential fluid collections are deep near the muscle and do not appear to be clinically evident on exam. With normalized WBC and overall improvement of erythema and tenderness, this is likely just residual fluid from the overall edema to the RLE. Would not recommend I&D unless clearly evident fluctuance develops or WBC starts to climb again. Continue current treatment to skin ulceration with Silver gel and Miconazole cream. Will continue to follow. (2) Cat scratch: Code(s): W55.03XA - Scratched by cat, initial encounter Status: Acute (3) Post-polio syndrome: Code(s): G14 - Postpolio syndrome Status: Acute Subjective Subjective Date/Time Seen: 12/29/21 14:42 Interval history: Patient re-evaluated for RLE cellulitis possible abscess. She reports feeling a lot better. Pain is minimal at this point. She denies fevers. She has some edema related open wound to the posterior calf skin, but no other open wounds or purulent drainage. Exam Extrem: Other: RLE cellulitis improved. No fluctuance appreciated on exam. Minimal residual edema and tenderness. Superficial skin ulceration to posterior calf without any purulent drainage or fluctuance. Objective Data Vital Signs Vital Signs: Vital Signs - 24 hr 12/28/21 15:49 12/28/21 20:28 12/28/21 20:00 Temperature 36.9 C 35.9 C L Pulse Rate 86 89 Respiratory Rate 16 18 Blood Pressure 136/50 L 120/53 L Pulse Oximetry 100 100 Oxygen Delivery Room Air 12/29/21 04:28 12/29/21 08:00 12/29/21 14:00 Temperature 36.0 C L 36.7 C Pulse Rate 78 88 Respiratory Rate 20 18 Blood Pressure 128/52 L 115/67 Pulse Oximetry 98 100 Oxygen Delivery Room Air Intake/Output Intake/Output: Intake & Output 12/26/21 12/27/21 12/28/21 12/29/21 23:59 23:59 23:59 23:59 Intake Total 2260 1910 580 630 Output Total 8625 520 7713 Balance 760 1410 -1320 630 Meds/Results Medications: Active Medications Generic Name Dose Route Start Last Admin Trade Name Freq PRN Reason Stop Dose Admin Acetaminophen 650 mg 12/21/21 20:41 Acetaminophen 325 Mg Tablet PO Q6H PRN Mild Pain (1-3) or Fever Hydrocodone Bitart/Acetaminophen 1 tab 12/27/21 12:34 12/28/21 00:34 Hydrocodone/Acetaminophen (*Crx) 5-325 Mg Tablet PO 1 tab Q12H PRN Administration Pain Rated 4-6 Docusate Sodium 100 mg 12/21/21 10:18 12/27/21 07:54 Docusate Sodium 100 Mg Capsule PO 100 mg Q12H PRN Administration Constipation Enoxaparin Sodium 40 mg 12/16/21 09:00 12/29/21 07:44 Enoxaparin 40 Mg/0.4 Ml Syringe SUB-Q Not Given DAILY AMANDA Sodium Chloride 1,000 mls @ 125 mls/hr 12/18/21 07:50 12/20/21 05:42 Normal Saline Iv IV CONT 0 mls/hr .Q8H AMANDA Infusion Levofloxacin 750 mg 12/29/21 09:00 12/29/21 10:01 Levofloxacin 750 Mg Tablet PO 750 mg DAILY AMANDA Administration Levothyroxine Sodium 88 mcg 12/16/21 09:25 12/29/21 05:49 Levothyroxine Sodium 88 Mcg Tablet PO Not Given DAILY@0630 AMANDA Miconazole Nitrate 1 applic 12/29/21 09:00 12/29/21 11:45 Miconazole 2% Antifungal Ointment 56 Gm TOPICAL 1 applic DAILY AMANDA Administration Neomycin/Polymyxin/Bacitracin 1 applic 12/28/21 17:00 Neomycin/Polymyxin/Bacitracin Ointment 15 Gm Tube TOPICAL PRN PRN with dressing changes Perflutren Lipid Microsphere 0 ml 12/17/21 11:55 Perflutren Lipid Microspheres 1.5 Ml Vial Diluted To 10 Ml Total Volume IV PUSH ONCE PRN adequate visualization Protocol Perflutren Lipid Microsphere 0 ml 12/19/21 09:31 Perflutren Lipid Microspheres 1.5 Ml Vial Diluted To 10 Ml Total Volume IV PUSH ONCE PRN adequate visualization Protocol Polyethylene Glycol 17 gm 12/21/21 10:18
--- NOTE | 2021-12-29 17:20 | PM.IMPN ---
Progress Note: A&P Assessment and Plan (1) Cellulitis of right leg: Code(s): L03.115 - Cellulitis of right lower limb Status: Acute Assessment and Plan: Surgery has signed off.? 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 Her brother of leukemia. No overnight events noted. No chest pain or shortness of breath. No nausea, vomiting or diarrhea. No fevers or chills. Review of Systems Review of Systems: All systems reviewed & are unremarkable except as noted in HPI and below Exam Narrative: General: No acute distress, alert and oriented per baseline HEENT: Atraumatic, normocephalic, mucous membranes moist CV: Regular rate and rhythm, S1, S2 Lungs: Clear to auscultation bilaterally, no rales or crackles noted, no wheezes, good air entry Abdomen: Soft, nontender, nondistended Extremities: Erythema continues to recede, purpuric lesions remain, capillary necrosis continues, swelling appears somewhat improved Psych: Euthymic, normal affect Objective Data Vital Signs Vital Signs: Vital Signs - 24 hr 12/28/21 20:28 12/28/21 20:00 12/29/21 04:28 Temperature 96.6 F L 96.8 F L Pulse Rate 89 78 Respiratory Rate 18 20 Blood Pressure 120/53 L 128/52 L Pulse Oximetry 100 98 Oxygen Delivery Room Air 12/29/21 08:00 12/29/21 14:00 Temperature 98.1 F Pulse Rate 88 Respiratory Rate 18 Blood Pressure 115/67 Pulse Oximetry 100 Oxygen Delivery Room Air Intake/Output Intake/Output: Intake & Output 12/26/21 12/27/21 12/28/21 12/29/21 23:59 23:59 23:59 23:59 Intake Total 2260 1910 580 630 Output Total 1531 389 3394 Balance 760 1410 -1320 630 Meds/Results Medications: Active Medications Generic Name Dose Route Start Last Admin Trade Name Freq PRN Reason Stop Dose Admin Acetaminophen 650 mg 12/21/21 20:41 Acetaminophen 325 Mg Tablet PO Q6H PRN Mild Pain (1-3) or Fever Hydrocodone Bitart/Acetaminophen 1 tab 12/27/21 12:34 12/28/21 00:34 Hydrocodone/Acetaminophen (*Crx) 5-325 Mg Tablet PO 1 tab Q12H PRN Administration Pain Rated 4-6 Docusate Sodium 100 mg 12/21/21 10:18 12/27/21 07:54 Docusate Sodium 100 Mg Capsule PO 100 mg Q12H PRN Administration Constipation Enoxaparin Sodium 40 mg 12/16/21 09:00 12/29/21 07:44 Enoxaparin 40 Mg/0.4 Ml Syringe SUB-Q Not Given DAILY AMANDA Sodium Chloride 1,000 mls @ 125 mls/hr 12/18/21 07:50 12/20/21 05:42 Normal Saline Iv IV CONT 0 mls/hr .Q8H AMANDA Infusion Levofloxacin 750 mg 12/29/21 09:00 12/29/21 10:01 Levofloxacin 750 Mg Tablet PO 750 mg DAILY AMANDA Administration Levothyroxine Sodium 88 mcg 12/16/21 09:25 12/29/21 05:49 Levothyroxine Sodium 88 Mcg Tablet PO Not Given DAILY@0630 AMANDA Miconazole Nitrate 1 applic 12/29/21 09:00 12/29/21 11:45 Miconazole 2% Antifungal Ointment 56 Gm TOPICAL 1 applic DAILY AMANDA Administration Neomycin/Polymyxin/Bacitracin 1 applic 12/28/21 17:00 Neomycin/Polymyxin/Bacitracin Ointment 15 Gm Tube TOPICAL PRN PRN with dressing changes Perflutren Lipid Microsphere 0 ml 12/17/21 11:55 Perflutren Lipid Microspheres 1.5 Ml Vial Diluted To 10 Ml Total Volume IV PUSH ONCE PRN adequate visualization Protocol Perflutr
[2021-12-29 21:09] VITALS: BP 114/53; PULSE 77; RESP 20; TEMP 36.6; O2SAT 100
[2021-12-29 22:50] VITALS: O2SAT 99
[2021-12-30 04:19] VITALS: BP 118/54; PULSE 75; RESP 16; TEMP 36.6; O2SAT 98
[2021-12-30] MEDS: LEVOTHYROXINE SODIUM 88 MCG TABLET PO (06:27)
[2021-12-30 06:38] LABS: Basophils Absolute Auto 0.1 K/mm3 (0.0-0.1); Basophils Percent Auto 1.3 % (0.2-1.2); Eosinophils Absolute Auto 0.1 K/mm3 (0-0.3); Eosinophils Percent Auto 1.8 % (0-4.4); Hematocrit 28.3 % (37.0-47.0); Immature Granulocyte Absolute 0.05 K/mm3 (0.00-0.031); Immature Granulocyte Percent A 0.7 % (0-0.5); Lymphocytes Percent Auto 13.1 % (18.3-44.2); Mean Corpuscular HGB Conc 31.8 g/dl (32-36); Mean Corpuscular Hemoglobin 30.3 pg (26-34); Mean Corpuscular Volume 95.3 fl (80-100); Mean Platelet Volume 11.2 fl (7.4-10.4); Monocytes Absolute Auto 0.6 K/mm3 (0.1-0.6); Monocytes Percent Auto 7.7 % (2.6-8.5); Neutrophils Absolute Auto 5.8 K/mm3 (1.3-6.7); Neutrophils Percent Auto 75.4 % (45.5-73.1); Platelet Count Result 753 k/mm3 (150-375); Red Blood Count 2.97 M/mm3 (4.2-5.4); Red Cell Distribution Width 15.3 % (11.5-14.5); White Blood Count 7.7 K/mm3 (4.5-10.0)
[2021-12-30 07:09] LABS: Alanine Aminotransferase 24 U/L (6-35); Albumin Level 3.3 g/dL (3.5-5.1); Alkaline Phosphatase 215 U/L (38-126); Anion Gap 7 mmol/L (8-16); Aspartate Amino Transferase 39 U/L (14-36); Bilirubin,Total 0.9 mg/dL (0.2-1.3); Blood Urea Nitrogen 17 mg/dL (7-17); Calcium 8.5 mg/dL (8.4-10.2); Carbon Dioxide 27 mmol/L (22-30); Chloride 99 mmol/L (98-107); Estimated CRCL calculation 54 ml/min; Estimated Glomerular Filt Rate > 60; Glucose 89 mg/dL (65-110); Potassium 3.9 mmol/L (3.4-5.0); Sodium 133 mmol/L (137-145)
[2021-12-30] MEDS: levoFLOXacin 750 MG TABLET PO (09:43)
[2021-12-30] MEDS: NEOMYCIN/POLYMYXIN/BACITRACIN OINTMENT 15 GM TUBE 1 APPLIC TOPICAL (09:43)
[2021-12-30] MEDS: ENOXAPARIN 40 MG/0.4 ML SYRINGE SUB-Q (09:43)
[2021-12-30] MEDS: SILVERGEL (ELTA) 45 ML 1 APPLIC TOPICAL (09:44)
--- NOTE | 2021-12-30 13:05 | PM.PNGS ---
Progress Note: A&P Assessment and Plan (1) Cellulitis of right leg: Code(s): L03.115 - Cellulitis of right lower limb Status: Acute Assessment and Plan: WBC remains normal today. Continue current treatment to skin ulceration with Silver gel and Miconazole cream. Ok to discharge from surgical standpoint. Follow up prn. 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 No complaints. Hoping to go home today. Exam Extrem: Other: RLE cellulitis improved. No fluctuance appreciated on exam. Minimal residual edema and tenderness. Superficial skin ulceration to posterior calf without any purulent drainage or fluctuance. Objective Data Vital Signs Vital Signs: Vital Signs - 24 hr 12/29/21 14:00 12/29/21 21:09 12/29/21 20:00 Temperature 36.7 C 36.6 C Pulse Rate 88 77 Respiratory Rate 18 20 Blood Pressure 115/67 114/53 L Pulse Oximetry 100 100 Oxygen Delivery Room Air 12/30/21 04:19 12/29/21 22:50 Temperature 36.6 C Pulse Rate 75 Respiratory Rate 16 Blood Pressure 118/54 L Pulse Oximetry 98 99 Oxygen Delivery Room Air Intake/Output Intake/Output: Intake & Output 12/27/21 12/28/21 12/29/21 12/30/21 23:59 23:59 23:59 23:59 Intake Total 7714 991 8440 240 Output Total 500 1900 800 200 Balance 1410 -1320 400 40 Meds/Results Medications: Active Medications Generic Name Dose Route Start Last Admin Trade Name Freq PRN Reason Stop Dose Admin Acetaminophen 650 mg 12/21/21 20:41 Acetaminophen 325 Mg Tablet PO Q6H PRN Mild Pain (1-3) or Fever Hydrocodone Bitart/Acetaminophen 1 tab 12/27/21 12:34 12/28/21 00:34 Hydrocodone/Acetaminophen (*Crx) 5-325 Mg Tablet PO 1 tab Q12H PRN Administration Pain Rated 4-6 Docusate Sodium 100 mg 12/21/21 10:18 12/27/21 07:54 Docusate Sodium 100 Mg Capsule PO 100 mg Q12H PRN Administration Constipation Enoxaparin Sodium 40 mg 12/16/21 09:00 12/30/21 09:43 Enoxaparin 40 Mg/0.4 Ml Syringe SUB-Q 40 mg DAILY AMANDA Administration Sodium Chloride 1,000 mls @ 125 mls/hr 12/18/21 07:50 12/20/21 05:42 Normal Saline Iv IV CONT 0 mls/hr .Q8H AMANDA Infusion Levofloxacin 750 mg 12/29/21 09:00 12/30/21 09:43 Levofloxacin 750 Mg Tablet PO 750 mg DAILY AMANDA Administration Levothyroxine Sodium 88 mcg 12/16/21 09:25 12/30/21 06:27 Levothyroxine Sodium 88 Mcg Tablet PO 88 mcg DAILY@0630 AMANDA Administration Miconazole Nitrate 1 applic 12/29/21 09:00 12/30/21 09:45 Miconazole 2% Antifungal Ointment 56 Gm TOPICAL 1 applic DAILY AMANDA Administration Neomycin/Polymyxin/Bacitracin 1 applic 12/28/21 17:00 12/30/21 09:43 Neomycin/Polymyxin/Bacitracin Ointment 15 Gm Tube TOPICAL 1 applic PRN PRN Administration with dressing changes Perflutren Lipid Microsphere 0 ml 12/17/21 11:55 Perflutren Lipid Microspheres 1.5 Ml Vial Diluted To 10 Ml Total Volume IV PUSH ONCE PRN adequate visualization Protocol Perflutren Lipid Microsphere 0 ml 12/19/21 09:31 Perflutren Lipid Microspheres 1.5 Ml Vial Diluted To 10 Ml Total Volume IV PUSH ONCE PRN adequate visualization Protocol Polyethylene Glycol 17 gm 12/21/21 10:18 12/27/21 07:54 Polyethylene Glycol 3350 17 Gm Powd.Pack PO 17 gm QAM PRN Administration Constipation Silver Nitrate 1 applic 12/29/21 09:00 12/30/21 09:44 Silvergel (Elta) 45 Ml TOPICAL 1 applic DAILY AMANDA Administration Radiology Results: ITS Impressions Tibia/Fibula X-Ray 12/15/21 16:20 IMPRESSION: Osteopenia Venous Doppler Study 12/15/21 16:41 IMPRESSION: 1. No deep venous thrombosis. Abdomen Ultra
[2021-12-30 14:00] VITALS: BP 131/51; PULSE 87; RESP 15; TEMP 36.3; O2SAT 100
--- NOTE | 2022-01-02 07:25 | PM.DS ---
DS: Admitting Diagnosis Discharge Date 12/30/21 Admitting Diagnosis Right lower extremity cellulitis DS: Discharge Diagnosis Discharge Diagnosis (1) Cellulitis of right leg: Code(s): L03.115 - Cellulitis of right lower limb Status: Acute Assessment and Plan: Surgery has signed off.? All cultures have come back negative Will de-escalate antibiotics to levaquin alone for 5 more days (2) Vasculitic leg ulcer: Code(s): L97.909 - Non-pressure chronic ulcer of unspecified part of unspecified lower leg with unspecified severity Status: Acute Assessment and Plan: Concern for underlying vasculitic component, labs pending, consults to [facility] for rheum and vascular pending Check MR RLE with contrast 12/29: MRI reviewed with surgery, no need for I&D at this point, continue to monitor on Levaquin, anticipate discharge soon DS: Summary Hospital Course Hospital Course: 76-year-old female patient with significant past medical? history consisting only of? polio as a child, hypothyroidism and arthritis presents to the emergency room with complaints of having redness and swelling of her right lower extremity.? Patient endorses that a few days prior to her symptoms beginning she received a cat scratch to the anterior right crook.? On Saturday she began feeling increased fatigue, tired, chilled noting that she had to sit outside of her dentist's office in the current extreme heat with a jacket on as she was chilling. ? She then noticed on Saturday morning that her right lower extremity with swelling, and she notes that it was very red and hot to the touch.? She went to see her primary care physician and was placed on doxycycline 100 mg every 12 hours.? She has noticed since then that the leg has continued to swell and become increasingly painful. ? She is unsure of when her last tetanus shot was. ? Upon arrival to the emergency room it was noted that the patient's leg was extremely edematous, erythematous, and tender to the touch with 2 small superficial appearing scratches to the front the right crook.? Workup was started and her white blood cell count is 17.8 with 36% bands,? absolute neutrophils are 17.26, total bilirubin is 2.9, AST is 189, ALT is 152, alk phos is 198, CRP is 33.4, and it should be noted that her bilirubin, AST, ALT, alk-phos were all normal on October 20, 2021.? Hepatitis panel was performed in the ED and was negative. Patient was started on IV vancomycin and Unasyn to cover Bartonella due to cat scratch and transaminitis. Blood cultures were taken. Patient's rash and leukocytosis continued to worsen. Lactic acid worsened as well. Surgery was consulted for possible necrotizing fasciitis versus compartment syndrome versus abscess. CTA of the right lower extremity was ordered and was negative for any of these concerns. Surgery recommended continuing IV antibiotics. Due to worsening white count, Unasyn was discontinued in favor of cefepime, vancomycin was still continued. Patient continued to worsen, she was transitioned to vancomycin with ertapenem and azithromycin to cover atypicals as well as clindamycin. Patient was septic but stable. Gastroenterology was ordered for elevated LFTs, right upper quadrant ultrasound ordered and was negative for any concern. Hepatitis panel also negative. Due to CRP also being high, thought was this was secondary to the sepsis and infection. Oncology was consulted and found that patient had hypogammaglobulinemia and started infusions of IVIG. She also was found to be anemic and bone marrow biopsy was ordered. Patient finally began to improve, antibiotics were de-escalated to Levaquin and she continued to improve. She was discharged in good condition on Levaquin with close outpatient follow-up by Oncology for her hypogammaglobulinemia as well as Rheumatology for possible autoimmune vasculitis. Time Spent with Patient Time attestation: Total time spent providing and/or coordinating disc
== END 2021-12-30 16:46 | disposition home health service (06) | DRG 872 ==
LOC: ANHED 17:40 → ANH2MED 19:38
PROVIDERS: Internal Medicine; Nurse Practitioner Adult Health; Nurse Practitioner Family; Radiology Diagnostic Radiology; Student in an Organized Health Care Education/Training Program; Admitting Provider Student in an Organized Health Care Education/Training Program; Emergency Provider General Practice; PCP Family Medicine; Visit Provider Student in an Organized Health Care Education/Training Program
PROC: 07DR3ZX Extraction of Iliac Bone Marrow, Percutaneous Approach, Diagnostic (ICD-10-PCS; principal; 2021-12-29 08:00)
DX: A41.9 Sepsis, unspecified organism (principal); L03.115 Cellulitis of right lower limb; D80.1 Nonfamilial hypogammaglobulinemia; L97.219 Non-pressure chronic ulcer of right calf with unspecified severity; R65.20 Severe sepsis without septic shock; S80.811A Abrasion, right lower leg, initial encounter; W55.03XA Scratched by cat, initial encounter; Z23 Encounter for immunization; D64.9 Anemia, unspecified; R74.01 Elevation of levels of liver transaminase levels; E80.6 Other disorders of bilirubin metabolism; G14 Postpolio syndrome; E03.9 Hypothyroidism, unspecified; M19.90 Unspecified osteoarthritis, unspecified site; M81.0 Age-related osteoporosis without current pathological fracture; Z20.822 Contact with and (suspected) exposure to COVID-19; Z79.899 Other long term (current) drug therapy; Z88.2 Allergy status to sulfonamides
CPT/HCPCS: 36415; 38222; 71046; 73590; 73706; 73720; 74018; 74176; 76705; 80053; 80074; 80202; 81001; 82247; 82248; 82550; 82565; 82607; 82746; 82784; 82977; 83540; 83550; 83605; 83615; 84145; 84439; 84443; 84480; 85025; 85380; 85610; 85652; 85730; 86036; 86038; 86140; 86160; 86611; 86615; 87040; 87070; 87081; 87086; 87205; 88184; 88185; 88305; 88311; 88313; 93306; 93922; 93971; 96365; 96366; 96367; 96372; 96375; 97110; 97116; 97161; 97166; 97530; 97535; 99285; A9270; A9577; C9803; G0378; J0295; J0456; J0692; J1335; J1459; J1642; J1650; J1940; J2250; J2270; J3010; J3370; J7030; J7040; Q9967; U0003; U0005

== ENCOUNTER 2022-01-10 16:32 | Outpatient (CLI) | payer OTHER, MEDICARE, SELFPAY ==
--- NOTE | ~2022-01-10 | US_ITS ---
EXAMINATION: US venous doppler LE RT DATE: 01/10/2022 17:17 INDICATION: Right lower limb pain and swelling. Other specified soft tissue disorders. TECHNIQUE: Grayscale ultrasound images without and with compression and Doppler ultrasound images of the right lower extremity veins were obtained. COMPARISON: None. FINDINGS: The visualized portions of right common femoral vein, profunda (deep) femoral vein, femoral vein, pop liteal vein, peroneal veins, posterior tibial veins, and greater saphenous vein outflow are patent. T here is subcutaneous edema in the calf. IMPRESSION: 1. No deep venous thrombosis. Reviewed, dictated and finalized at location A.
[2022-01-10 17:49] LABS: Basophils Absolute Auto 0.1 K/mm3 (0.0-0.1); Basophils Percent Auto 0.9 % (0.2-1.2); Eosinophils Absolute Auto 0.3 K/mm3 (0-0.3); Eosinophils Percent Auto 3.4 % (0-4.4); Hematocrit 30.9 % (37.0-47.0); Hemoglobin 9.9 g/dL (12.0-15.0); Immature Granulocyte Absolute 0.02 K/mm3 (0.00-0.031); Immature Granulocyte Percent A 0.2 % (0-0.5); Lymphocytes Absolute Auto 1.23 K/mm3 (0.9-3.2); Lymphocytes Percent Auto 13.7 % (18.3-44.2); Mean Corpuscular Hemoglobin 31.3 pg (26-34); Mean Corpuscular Volume 97.8 fl (80-100); Mean Platelet Volume 11.2 fl (7.4-10.4); Monocytes Absolute Auto 0.6 K/mm3 (0.1-0.6); Monocytes Percent Auto 7.1 % (2.6-8.5); Neutrophils Absolute Auto 6.7 K/mm3 (1.3-6.7); Neutrophils Percent Auto 74.7 % (45.5-73.1); Platelet Count Result 279 k/mm3 (150-375); Red Blood Count 3.16 M/mm3 (4.2-5.4)
[2022-01-10 17:58] LABS: Alanine Aminotransferase 11 U/L (6-35); Albumin Level 3.9 g/dL (3.5-5.1); Alkaline Phosphatase 112 U/L (38-126); Anion Gap 8 mmol/L (8-16); Aspartate Amino Transferase 22 U/L (14-36); Bilirubin,Total 0.6 mg/dL (0.2-1.3); Blood Urea Nitrogen 15 mg/dL (7-17); Carbon Dioxide 29 mmol/L (22-30); Chloride 101 mmol/L (98-107); Estimated Glomerular Filt Rate > 60; Glucose 98 mg/dL (65-110); Potassium 3.7 mmol/L (3.4-5.0); Sodium 138 mmol/L (137-145)
== END 2022-01-10 16:33 | disposition home or self-care (01) ==
PROVIDERS: PCP Family Medicine; Visit Provider Physician Assistant
DX: L03.115 Cellulitis of right lower limb (principal); R74.01 Elevation of levels of liver transaminase levels; M79.89 Other specified soft tissue disorders
CPT/HCPCS: 36415; 80053; 85025; 93971

== ENCOUNTER 2022-01-16 13:10 | Outpatient (CLI) | payer OTHER, MEDICARE, SELFPAY ==
--- NOTE | ~2022-01-16 | CT_ITS ---
EXAMINATION: CT LE RT w con DATE: 01/16/2022 13:49 INDICATION: Right lower extremity erythema, pain and edema. TECHNIQUE: High resolution computed tomography (CT) of the right lower leg from the distal thigh thro ugh the ankle was performed with 100 mL Omnipaque-350 intravenous contrast. Additional sagittal and c oronal reconstructions were performed. Automated exposure control and iterative reconstruction techni que were employed. The dose-length product was 164.12 mGy-cm. COMPARISON: MRI dated 12/28/2021 FINDINGS: No discernible contrast evident on the provided images which may be related to poor timing of the con trast bolus or extravasation. Diffuse osteopenia. Patella pedrito. Bone alignment is otherwise normal. N o fracture. Moderate to severe osteoarthritis at the patellofemoral articulation. No knee or ankle harjinder int effusions. There is severe fatty atrophy of the musculature of the calf sparing a small portion o f the proximal musculature in the anterolateral compartment which could be consistent with reported h istory of childhood polio. There is subcutaneous edema beginning in the distal thigh just above the l evel of the knee and extending to the ankle where there is also skin thickening. No loculated fluid c ollections to suggest abscess. IMPRESSION: 1. Persistent nonspecific subcutaneous edema throughout the right calf is prominent at the right ankl e where there is associated skin thickening which could be seen with cellulitis. No evident abscess. 2. Extensive severe muscular atrophy throughout the majority of the right calf consistent with histor y of childhood polio. Reviewed, dictated and finalized at location A. IMPRESSION: 1. Persistent nonspecific subcutaneous edema throughout the right calf is promi nent at the right ankle where there is associated skin thickening which could b e seen with cellulitis. No evident abscess. 2. Extensive severe muscular atrophy throughout the majority of the right calf consistent with history of childhood polio.
== END 2022-01-16 13:11 | disposition home or self-care (01) ==
PROVIDERS: PCP Family Medicine; Visit Provider Physician Assistant
DX: L97.909 Non-pressure chronic ulcer of unspecified part of unspecified lower leg with unspecified severity (principal); A41.9 Sepsis, unspecified organism; L03.115 Cellulitis of right lower limb; M62.561 Muscle wasting and atrophy, not elsewhere classified, right lower leg
CPT/HCPCS: 73701; Q9967

== ENCOUNTER 2022-05-28 09:50 | Inpatient (IN) | payer OTHER, MEDICARE, SELFPAY ==
--- NOTE | ~2022-05-28 | MR_ITS ---
EXAMINATION: MR lower leg RT wo/w con DATE: 06/04/2022 13:29 INDICATION: Erythema and possible abscess anterior to the right tibia. TECHNIQUE: Magnetic resonance imaging (MRI) of the right lower leg was performed without and with 10 mL Multihance intravenous contrast. Sequences included axial T1-weighted FS FSE and axial, sagittal a nd coronal T1-weighted FSE, fluid sensitive FSE STIR and postcontrast T1-weighted FS FSE. COMPARISON: Right ankle MRI dated 05/30/2022 FINDINGS: Loculated fluid collection with peripheral enhancing wall consistent with abscess along the anteromed ial margin of the distal metadiaphyseal region of the right tibia which measures 5.3 cm craniocaudall y,, 3.7 cm AP and 0.7 cm medial to lateral thickness. This is centered approximately 9 cm proximal to the tibiotalar joint line. The fluid collection tracks superficial to the periosteum and the superfi cial fascia of the flexor hallux longus muscle belly and deep to the distal left greater saphenous ve in. There is prominent overlying subcutaneous edema. Asymmetric relative diffuse severe fatty muscula r atrophy throughout the right calf relative to the contralateral left calf which is included on the [id number] on the coronal images. There is mild likely reactive edema in the underlying muscular c ompartments without significant enhancement or additional abscess. No evident cortical erosion or leeanne graphic loss of marrow fat signal in the underlying tibia to suggest osteomyelitis. Linear increased fluid signal and decreased T1 signal extending across a calcaneal stress fracture underlying the sarthak cular cortex of the posterior facet of the subtalar joint. Again noted is prominent pes planus with e xaggeration of the longitudinal arch. IMPRESSION: 1. 5.3 x 3.7 x 0.7 cm likely fluid collection consistent with abscess overlying the medial aspect of the distal right tibia. No evident extension to the muscular compartment or evident osteomyelitis. 2. Right calcaneal stress fracture underlying the posterior facet of the subtalar joint. Reviewed, dictated and finalized at location A. [employer] G[employer] WORKER IMPRESSION: 1. 5.3 x 3.7 x 0.7 cm likely fluid collection consistent with abscess overlying the medial aspect of the distal right tibia. No evident extension to the muscu lar compartment or evident osteomyelitis. 2. Right calcaneal stress fracture underlying the posterior facet of the subtal ar joint.
--- NOTE | ~2022-05-28 | XR_ITS ---
EXAM: XR ankle RT 2V, XR foot RT 2V DATE: 05/28/2022 14:44 HISTORY: ankle pain and swelling, NKI . COMPARISON: None available. FINDINGS: Severely decreased mineralization. No fracture or dislocation. No lytic or blastic lesion. Joint spaces are maintained. No erosion or periosteal change. Diffuse subcutaneous edema and soft ti ssue swelling in the foot. Muscle atrophy. IMPRESSION: No acute osseous finding in the right ankle or right foot. Diffuse subcutaneous edema and soft tissue swelling. Reviewed, dictated and finalized at location K. ERCIAL LEASING MANAGER IMPRESSION: No acute osseous finding in the right ankle or right foot. Diffuse subcutaneous edema and soft tissue swelling.
--- NOTE | ~2022-05-28 | US_ITS ---
EXAMINATION: US venous doppler LE RT DATE: 05/28/2022 14:54 INDICATION: eval for DVT, SWELLING, REDNESS . TECHNIQUE: Grayscale images without and with compression and Doppler images of the right lower extrem ity veins were obtained. COMPARISON: None FINDINGS: The right common femoral vein, profunda (deep) femoral vein, femoral vein, popliteal vein, peroneal v ein, posterior tibial veins, gastrocnemius vein, and greater saphenous vein are patent. IMPRESSION: 1. Patent right lower extremity veins. No evidence of deep venous thrombosis. Reviewed, dictated and finalized at location K. ATTORNEY
--- NOTE | ~2022-05-28 | MR_ITS ---
MRI of the right ankle CLINICAL HISTORY: Osteomyelitis TECHNIQUE: Axial T1-weighted, T1-weighted fat-sat, proton density, and proton-density fat-sat images, sagittal proton-density and proton-density fat-sat images, and coronal proton-density and proton-den sity fat-sat images were performed. Following intravenous administration of 12 cc MultiHance gadolini um, T1-weighted fat-sat imaging was performed in the axial and coronal planes. COMPARISON: 02/24/2020 FINDINGS: Syndesmotic ligaments are intact. Anterior and posterior talofibular ligaments, and calcane ofibular ligament appear intact. Deltoid ligament is intact. Medial flexor tendons, peroneal tendons, anterior extensor tendons, and Achilles tendon are intact. There is apparent pes cavus deformity of the foot. There is bandlike marrow edema in the posterior ca lcaneus with subtle corresponding linear T1 hypointensity, most compatible with calcaneal stress frac ture. Remaining bone marrow signals are unremarkable. No distinct evidence for osteomyelitis. Plantar fascia is intact. Normal signal preserved at the sinus Tarsi. No significant joint effusion i dentified. There is diffuse subcutaneous soft tissue edema about the foot and ankle. There is a soft tissue ulcer the medial aspect of the foot at the level of the navicular with associated sinus tract or small abscess (series 11 images 18-22). IMPRESSION: Findings most consistent with calcaneal stress fracture in the posterior calcaneus, as detailed above . No distinct evidence for osteomyelitis. Soft tissue ulcer at the medial aspect of the midfoot with associated sinus tract and/or small absces s. Underlying diffuse subcutaneous soft tissue edema about the foot and ankle, consistent with cellul itis versus possibly bland edema. Correlate clinically. Probable pes cavus deformity of the foot. Reviewed, dictated and finalized at location . [employer] IMPRESSION: Findings most consistent with calcaneal stress fracture in the posterior calcan eus, as detailed above. No distinct evidence for osteomyelitis. Soft tissue ulcer at the medial aspect of the midfoot with associated sinus tra ct and/or small abscess. Underlying diffuse subcutaneous soft tissue edema abou t the foot and ankle, consistent with cellulitis versus possibly bland edema. C orrelate clinically. Probable pes cavus deformity of the foot.
[2022-05-28 10:27] VITALS: BP 162/61; PULSE 78; RESP 16; TEMP 36.2; O2SAT 99
[2022-05-28 13:40] VITALS: BP 155/75; PULSE 80; RESP 18; O2SAT 100
--- NOTE | 2022-05-28 14:33 | ED.GENADULT ---
HPI - General Adult General Chief complaint: Extremity Injury, Lower Stated complaint: right foot redness/pain Time Seen by Provider: 05/28/22 13:42 History of Present Illness HPI narrative: 77-year-old female presented to the emergency department for evaluation of right lower extremity pain and swelling. Patient does have a history of polio and a calcaneovalgus deformity of the right foot. Patient does normally follow with Dr. Gates. Patient has had prior issues with cellulitis of this lower extremity and has had issues with her brace. Patient started wearing a new brace on the right lower extremity approximately 1 month ago. Patient states that she feels that the new brace feels tighter than her older brace and she has not been fully tightening the straps. Patient states over the last day or so she noticed she began having increased lower extremity swelling. Last night she noticed a wound on the medial aspect of the foot that is now draining serosanguineous fluid. Related Data Home Medications Medication Instructions Recorded Confirmed Centrum Silver Women 1 tablet PO DAILY 05/28/22 05/28/22 naproxen 500 mg tablet 500 mg PO ONCE 05/28/22 05/28/22 Allergies Allergy/AdvReac Type Severity Reaction Status Date / Time Sulfa (Sulfonamide Allergy Unknown Unknown Verified 05/28/22 13:37 Antibiotics) Review of Systems Review of Systems: CONSTITUTIONAL: Denies fever, chills, or sweats. EYES: Denies visual changes, redness, or discharge. ENT: Denies rhinorrhea, congestion, sore throat, or otalgia. CARDIOVASCULAR: Denies chest pain, palpitations, or edema. RESPIRATORY: Denies cough or dyspnea. GASTROINTESTINAL: Denies abdominal pain, nausea, vomiting, or diarrhea. GENITOURINARY: Denies dysuria or hematuria. SKIN: See HPI MUSCULOSKELETAL: See HPI NEUROLOGIC: Denies headache, numbness, or weakness. [facility] Past Medical History Medical History Arthritis Calcaneovalgus deformity of right foot Callus of heel Cellulitis of right leg Lymphedema of right lower extremity Osteoporosis Post-polio syndrome Stress fracture of calcaneus Stress fracture of tibia Family History Family History Mother Hypertension Father Hypertension Other Family history of malignant neoplasm Diabetes mellitus Sibling Diabetes mellitus Family history of malignant neoplasm Social History Social History Smoking status: Former smoker Second hand tobacco smoke exposure: No Alcohol intake: never Substance use: never Substance use type: does not use Lack of Transportation: No Lack of Food: Sometimes True Current Housing: I Have Housing Concerned About Future Housing: No Difficulty Paying Gas/Electric Bills: No Difficulty Paying for Meds: No Currently Unemployed: No Education: High School Diploma/GED Difficulty w/ Childcare or Family Care: No Gender identity (if verbalized by the patient): Female Sexual Orientation (if Verbalized by the Patient): Straight or Heterosexual Spiritual care concerns: No Exam Narrative: APPEARANCE: Well appearing, no pain, no distress, well-nourished. HEAD: normocephalic, atraumatic. EYES: PERRLA/EOMI, conjunctivae clear. NOSE: Normal no drainage NECK: Supple. No adenopathy, no masses. RESPIRATORY: Airway patent, respirations nonlabored. Clear to auscultation bilaterally, no rales, rhonchi, wheezing. CARDIOVASCULAR: Regular rate and rhythm without murmurs rubs or gallops. ABDOMINAL: Soft, nontender, nondistended, normal bowel sounds MUSCULOSKELETAL: Right lower extremity erythema and edema. 1 cm wound to medial surface of right foot draining serosanguineous fluid. NEURO: Alert. Cranial nerves II through XII intact. Grossly intact SKIN: Warm, dry. Normal Color Course Course Emergency Course: Patient [facility] e
[2022-05-28 15:23] LABS: Basophils Absolute Auto 0.1 K/mm3 (0.0-0.1); Basophils Percent Auto 0.5 % (0.2-1.2); Eosinophils Absolute Auto 0.2 K/mm3 (0-0.3); Eosinophils Percent Auto 1.9 % (0-4.4); Hematocrit 35.5 % (37.0-47.0); Hemoglobin 11.3 g/dL (12.0-15.0); Immature Granulocyte Absolute 0.03 K/mm3 (0.00-0.031); Immature Granulocyte Percent A 0.3 % (0-0.5); Lymphocytes Absolute Auto 0.91 K/mm3 (0.9-3.2); Lymphocytes Percent Auto 7.8 % (18.3-44.2); Mean Corpuscular HGB Conc 31.8 g/dl (32-36); Mean Corpuscular Volume 94.2 fl (80-100); Mean Platelet Volume 12.1 fl (7.4-10.4); Monocytes Absolute Auto 0.9 K/mm3 (0.1-0.6); Monocytes Percent Auto 7.8 % (2.6-8.5); Neutrophils Absolute Auto 9.5 K/mm3 (1.3-6.7); Neutrophils Percent Auto 81.7 % (45.5-73.1); Platelet Count Result 258 k/mm3 (150-375); Red Blood Count 3.77 M/mm3 (4.2-5.4); Red Cell Distribution Width 13.9 % (11.5-14.5); White Blood Count 11.6 K/mm3 (4.5-10.0)
[2022-05-28 15:32] LABS: Lactic Acid Reflex 0.9 mmol/L (0.7-2.0)
[2022-05-28 15:33] LABS: Alanine Aminotransferase 27 U/L (6-35); Albumin Level 4.3 g/dL (3.5-5.1); Alkaline Phosphatase 115 U/L (38-126); Anion Gap 9 mmol/L (8-16); Aspartate Amino Transferase 27 U/L (14-36); Blood Urea Nitrogen 17 mg/dL (7-17); Carbon Dioxide 27 mmol/L (22-30); Chloride 104 mmol/L (98-107); Estimated CRCL calculation 62 ml/min; Estimated Glomerular Filt Rate > 60; Glucose 95 mg/dL (65-110); Potassium 3.9 mmol/L (3.4-5.0); Sodium 140 mmol/L (137-145)
[2022-05-28 16:39] LABS: Influenza A QL RT-PCR Negative (Negative); Influenza B QL RT-PCR Negative (Negative); SARS-CoV-2 RNA PCR Negative
--- NOTE | 2022-05-28 16:57 | PC.NURSE ---
regular dinner diet tray ordered
--- NOTE | 2022-05-28 17:00 | PM.IMHP ---
H&P: HPI History of Present Illness Date/Time: 05/28/22 17:00 Chief Complaint: Right foot pain and redness. Narrative: This is a very pleasant 77-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 Within the last month or so she got a new brace for her right leg and she developed a small sore on the right medial foot a week or so ago. She reports that the brace feels a bit tighter than her older 1 however it has not been uncomfortable for her. Last night the wound seemed to grow in size before breaking open and is now draining serosanguineous fluid. She has also developed increasing swelling and redness around the area which is now tracking up to the calf. Last night she did not sleep well due to throbbing discomfort in the area though it was manageable with acetaminophen and naproxen. She has not had fever, chills, or sweats. Overall she does not feel too bad and appetite has been good. Of note she was admitted with cellulitis a couple of years ago and she apparently had to be started on broader spectrum antibiotics to properly treat infection. She has no known history of MRSA or Pseudomonas. Review of Systems Review of Systems: Twelve systems were reviewed and are negative except for as per HPI. [facility] Past Medical History Medical History (Updated 05/28/22 @ 23:38 by Mabel Sargent PA-C) Arthritis Calcaneovalgus deformity of right foot Chronic anemia Hypothyroidism Lymphedema of right lower extremity Osteoporosis Post-polio syndrome Surgical History Surgical History (Updated 05/28/22 @ 23:38 by Mabel Sargent PA-C) History of hemorrhoidectomy History of open reduction and internal fixation (ORIF) procedure History of partial hysterectomy Family History Family History Mother Hypertension Father Hypertension Other Family history of malignant neoplasm Diabetes mellitus Sibling Diabetes mellitus Family history of malignant neoplasm Social History Social History (Updated 05/28/22 @ 23:40 by Mabel Sargent PA-C) Social History: Surrogate medical decision maker: Danilo Peres, child. Code status: Full code. Smoking status: Former smoker Second hand tobacco smoke exposure: No Alcohol intake: never Substance use: never Substance use type: does not use Lack of Transportation: No Lack of Food: Sometimes True Current Housing: I Have Housing Concerned About Future Housing: No Difficulty Paying Gas/Electric Bills: No Difficulty Paying for Meds: No Currently Unemployed: No Education: High School Diploma/GED Difficulty w/ Childcare or Family Care: No Additional living arrangements comments: Lives in [place]. Additional occupation/education comments: Continues to work 60 hours a week. Spiritual care concerns: No Meds Home Medications and Allergies Home Medications Medication Instructions Recorded Confirmed Type levothyroxine 88 mcg tablet 88 mcg PO DAILY #30 tabs 10/25/21 05/28/22 Rx Centrum Silver Women 1 tablet PO DAILY 05/28/22 05/28/22 History naproxen 500 mg tablet 500 mg PO ONCE 05/28/22 05/28/22 History Allergies Allergy/AdvReac Type Severity Reaction Status Date / Time Sulfa (Sulfonamide Allergy Unknown Unknown Verified 05/28/22 13:37 Antibiotics) Vital Signs Vital Signs - 24 hr 05/28/22 10:27 05/28/22 13:40 05/28/22 17:22 Temperature 97.2 F L 98.5 F Pulse Rate 78 80 84 Respiratory Rate 16 18 16 Blood Pressure 162/61 H 155/75 H 140/61 Pulse Oximetry 99 100 100 Oxygen Delivery Room Air 05/28/22 17:30 05/28/22 20:09 Temperature 97.2 F L Pulse Rate 88 Respiratory Rate 20 Blood Pressure 126/48 L Pulse Oximetry 99 Oxygen Delivery Room Air Exam Narrative: General: Well-developed, nontoxic-appearing fema
[2022-05-28 17:22] VITALS: BP 140/61; PULSE 84; RESP 16; TEMP 36.9; O2SAT 100; BMI 24.5
--- NOTE | 2022-05-28 17:30 | PC.NURSE ---
This patient, Rashida Yap, was admitted to Medical Room 242-01. Patient/family oriented to hospital policies and general routines including ID bracelet, bed and alarms, visiting hours, pain management, procedures, bathroom and other care routines, personal items, smoking policy, room service/diet, and visiting hours. Information on how to activate the Rapid Response Team has been discussed. Patient/Family are encouraged to report perceived risks to care and to ask questions if they do not understand what they are told or what they should do.
[2022-05-28 20:09] VITALS: BP 126/48; PULSE 88; RESP 20; TEMP 36.2; O2SAT 99
[2022-05-29] MEDS: metroNIDAZOLE 500 MG/ISO 100ML 500 MG/100 ML BAG 100 MG IVPB ×3 (00:09→16:37)
[2022-05-29 04:34] VITALS: BP 128/52; PULSE 83; RESP 18; TEMP 36.2; O2SAT 98
[2022-05-29] MEDS: LEVOTHYROXINE SODIUM 88 MCG TABLET PO (05:33)
[2022-05-29] MEDS: MULTIVITAMINS THERAPEUTIC TAB (*BKC) 1 TABLET PO (08:11)
[2022-05-29] MEDS: ENOXAPARIN 40 MG/0.4 ML SYRINGE SUB-Q (08:11)
--- NOTE | 2022-05-29 11:30 | PM.IMPN ---
Progress Note: A&P Assessment and Plan (1) Cellulitis of right foot: Code(s): L03.115 - Cellulitis of right lower limb Status: Acute Assessment and Plan: She has been started on cefepime and vancomycin, pending culture. If no improvement consider MRI. (2) Wound of right foot: Code(s): S91.301A - Unspecified open wound, right foot, initial encounter Status: Acute Assessment and Plan: Wound nurse consulted. (3) Chronic anemia: Code(s): D64.9 - Anemia, unspecified Status: Acute Assessment and Plan: Stable on review of previous labs. (4) Hypothyroidism: Code(s): E03.9 - Hypothyroidism, unspecified Status: Acute Assessment and Plan: Continue levothyroxine and check TSH. Subjective Date/time seen: 05/29/22 11:30 Lower extremity swelling and redness has improved some. Tolerating antibiotics okay. Eating well Exam Narrative: General: Well-developed, nontoxic-appearing female sitting up in bed. Weight: 61 kilograms. BMI: 24.6. HEENT: PERRL, EOMI. Sclera anicteric. Oral mucosa moist. Neck: Supple. Respiratory: Lungs are clear to auscultation bilaterally. Cardiovascular: Regular rate and rhythm with S1-S2. No murmur, rub, or gallop. Gastrointestinal: Abdomen is soft, nontender, and nondistended with positive bowel sounds. Skin: Warm and dry. There is approximately quarter-sized blistered area on the right medial foot draining serosanguineous fluid. The surrounding skin is tight, edematous, erythematous, and warm, extending to the toes and up to just below the right knee. Extremities: No cyanosis or clubbing. Right lower extremity edema as detailed above. Radial and pedal pulses intact. Neurological: Alert. Cranial nerves 2-12 are grossly intact. No gross focal deficits to casual conversation. Psychiatric: Pleasant and cooperative with normal mood and affect. Judgment and insight intact. Objective Data Vital Signs Vital Signs: Vital Signs - 24 hr 05/28/22 13:40 05/28/22 17:22 05/28/22 17:30 Temperature 98.5 F Pulse Rate 80 84 Respiratory Rate 18 16 Blood Pressure 155/75 H 140/61 Pulse Oximetry 100 100 Oxygen Delivery Room Air 05/28/22 20:09 05/29/22 04:34 05/29/22 08:10 Temperature 97.2 F L 97.2 F L Pulse Rate 88 83 Respiratory Rate 20 18 Blood Pressure 126/48 L 128/52 L Pulse Oximetry 99 98 Oxygen Delivery Room Air Intake/Output Intake/Output: Intake & Output 05/26/22 05/27/22 05/28/22 05/29/22 23:59 23:59 23:59 23:59 Intake Total 540 970 Output Total 1000 Balance 540 -30 Meds/Results Medications: Active Medications Generic Name Dose Route Start Last Admin Trade Name Freq PRN Reason Stop Dose Admin Acetaminophen 650 mg 05/28/22 23:44 Acetaminophen 325 Mg Tablet PO Q6H PRN Mild Pain (1-3) or Fever Enoxaparin Sodium 40 mg 05/29/22 09:00 05/29/22 08:11 Enoxaparin 40 Mg/0.4 Ml Syringe SUB-Q 40 mg DAILY AMANDA Administration Vancomycin HCl 1,000 mg in 250 mls @ 250 mls/hr 05/29/22 10:00 05/29/22 10:29 Vancomycin 1,000 Mg/D5w 250 Ml IVPB 250 mls/hr Q18H AMANDA Administration Cefepime HCl 2 gm in 50 mls @ 100 mls/hr 05/29/22 06:00 05/29/22 07:00 Maxipime 2 Gm/D5w 50 Ml IVPB Infused Q12H AMANDA Infusion Metronidazole 500 mg in 100 mls @ 100 mls/hr 05/29/22 00:00 05/29/22 09:10 Flagyl 500 Mg/Iso Soln 100 Ml IVPB Infused Q8H AMADNA Infusion Levothyroxine Sodium 88 mcg 05/29/22 06:30 05/29/22 05:33 Levothyroxine Sodium 88 Mcg Tablet PO 88 mcg DAILY@0630 AMANDA Administration Multivitamins Therapeutic 1 tablet 05/29/22 09:00 05/29/22 08:11 Multivitamins Therapeutic Tab (*Bkc) PO 1 tablet QAM AMANDA Administration Radiology Results: ITS Impressions Ankle X-Ray 05/28/22 14:52 IMPRESSION: No acute osseous finding in the right ankle or right foot. Diffuse subcutaneous edema and soft tissue swelling
[2022-05-29 13:40] VITALS: BP 121/45; PULSE 90; RESP 18; TEMP 36.8; O2SAT 98
[2022-05-29] MEDS: SILVERGEL (ELTA) 45 ML 1 APPLIC TOPICAL (14:40)
[2022-05-29 19:13] VITALS: BP 121/45; PULSE 91; RESP 17; TEMP 37.1; O2SAT 99
[2022-05-29] MEDS: ACETAMINOPHEN 325 MG TABLET 650 MG PO (21:26)
[2022-05-30] MEDS: metroNIDAZOLE 500 MG/ISO 100ML 500 MG/100 ML BAG 100 MG IVPB ×3 (00:01→16:55)
[2022-05-30 03:03] VITALS: BP 128/45; PULSE 76; RESP 18; TEMP 36.6; O2SAT 99
[2022-05-30] MEDS: LEVOTHYROXINE SODIUM 88 MCG TABLET PO (05:26)
[2022-05-30] MEDS: MULTIVITAMINS THERAPEUTIC TAB (*BKC) 1 TABLET PO (08:10)
[2022-05-30] MEDS: ENOXAPARIN 40 MG/0.4 ML SYRINGE SUB-Q (08:11)
[2022-05-30 14:00] VITALS: BP 125/55; PULSE 65; RESP 18; TEMP 36.2; O2SAT 95
--- NOTE | 2022-05-30 15:50 | PM.IMPN ---
Progress Note: A&P Assessment and Plan (1) Cellulitis of right foot: Code(s): L03.115 - Cellulitis of right lower limb Status: Acute Assessment and Plan: She has been started on cefepime and vancomycin, Patient's activity purulent discharge from rectum: Wound culture grows Staph aureus, susceptibility pending Consult wound surgeon for evaluation Order MRI of right ankle to rule out osteomyelitis (2) Wound of right foot: Code(s): S91.301A - Unspecified open wound, right foot, initial encounter Status: Acute Assessment and Plan: Wound nurse consulted. (3) Chronic anemia: Code(s): D64.9 - Anemia, unspecified Status: Acute Assessment and Plan: Stable on review of previous labs. (4) Hypothyroidism: Code(s): E03.9 - Hypothyroidism, unspecified Status: Acute Assessment and Plan: Continue levothyroxine and check TSH. Subjective Date/time seen: 05/30/22 15:50 Review of Systems Review of Systems: I saw and examined patient today, patient does not have new issues or events overnight Patient still has purulent discharge from right ankle, and right lower extremity is painful, swelling, redness Patient is afebrile, wound culture grows Staph aureus. Patient is afebrile, hemodynamically stable ROS unobtainable: Yes other Constitutional: Constitutional: Reports no additional constitutional complaints Exam Narrative: General: Well-developed, nontoxic-appearing female sitting up in bed. Weight: 61 kilograms. BMI: 24.6. HEENT: PERRL, EOMI. Sclera anicteric. Oral mucosa moist. Neck: Supple. Respiratory: Lungs are clear to auscultation bilaterally. Cardiovascular: Regular rate and rhythm with S1-S2. No murmur, rub, or gallop. Gastrointestinal: Abdomen is soft, nontender, and nondistended with positive bowel sounds. Skin: Warm and dry. There is approximately quarter-sized blistered area on the right medial foot draining purulent drainage. The surrounding skin is tight, edematous, erythematous, and warm, extending to the toes and up to just below the right knee. Extremities: No cyanosis or clubbing. Right lower extremity edema as detailed above. Radial and pedal pulses intact. Neurological: Alert. Cranial nerves 2-12 are grossly intact. No gross focal deficits to casual conversation. Psychiatric: Pleasant and cooperative with normal mood and affect. Judgment and insight intact. Objective Data Vital Signs Vital Signs: Vital Signs - 24 hr 05/29/22 19:13 05/30/22 03:03 05/30/22 08:00 Temperature 98.8 F 97.9 F Pulse Rate 91 76 Respiratory Rate 17 18 Blood Pressure 121/45 L 128/45 L Pulse Oximetry 99 99 Oxygen Delivery Room Air 05/30/22 14:00 Temperature 97.1 F L Pulse Rate 65 Respiratory Rate 18 Blood Pressure 125/55 L Pulse Oximetry 95 Oxygen Delivery Intake/Output Intake/Output: Intake & Output 05/27/22 05/28/22 05/29/22 05/30/22 23:59 23:59 23:59 23:59 Intake Total 540 2090 940 Output Total 2000 600 Balance 540 90 340 Meds/Results Medications: Active Medications Generic Name Dose Route Start Last Admin Trade Name Freq PRN Reason Stop Dose Admin Acetaminophen 650 mg 05/28/22 23:44 05/29/22 21:26 Acetaminophen 325 Mg Tablet PO 650 mg Q6H PRN Administration Mild Pain (1-3) or Fever Enoxaparin Sodium 40 mg 05/29/22 09:00 05/30/22 08:11 Enoxaparin 40 Mg/0.4 Ml Syringe SUB-Q 40 mg DAILY AMANDA Administration Vancomycin HCl 1,000 mg in 250 mls @ 250 mls/hr 05/29/22 10:00 05/30/22 04:11 Vancomycin 1,000 Mg/D5w 250 Ml IVPB Infused Q18H AMANDA Infusion Cefepime HCl 2 gm in 50 mls @ 100 mls/hr 05/29/22 06:00 05/30/22 05:54 Maxipime 2 Gm/D5w 50 Ml IVPB Infused Q12H AMANDA Infusion Metronidazole 500 mg in 100 mls @ 100 mls/hr 05/29/22 00:00 05/30/22 09:09 Flagyl 500 Mg/Iso Soln 100 Ml IVPB Infused Q8H AMANDA Infusion Levothyroxine Sodiu
--- NOTE | 2022-05-30 16:16 | PM.CNGS ---
Assessment and Plan Assessment and plan (1) Wound of right foot: Code(s): S91.301A - Unspecified open wound, right foot, initial encounter Status: Acute Assessment and Plan: Small open wound of the right medial ankle that originated from pressure from her custom brace. There is no evidence of an abscess or indication for any surgical intervention at this time. We would recommend to continue with local wound care. Continue broad spectrum IV antibiotics. No evidence of osteomyelitis on plain films. MRI of the right ankle was ordered today, will await these results to rule out osteomyelitis. Will make her non-weight bearing on the right lower extremity for now. We would also recommend Orthopedic consultation to re-evaluate the patient as her wound originated from fitting issues with her brace and she was evaluated by Dr. Cain for this issue in February. Thank you for allowing us to see the patient in consultation and we will continue to follow along with you. 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 Barraza. History of Present Illness Consult details Consult date: 05/30/22 Reason for consult: wound care (Right foot wound) Requesting physician: Jose Alberto Platt MD Narrative: This is a 77-year-old woman with a history of polio and calcaneovalgus deformity of the right foot, who presented to the emergency department 2 days ago with complaints of right foot wound and right lower extremity redness and swelling. She has had issues with recurrent cellulitis in the right lower extremity in the past. She was actually evaluated by Dr. Cain in February of 2022 due to right lower extremity cellulitis and a poor fitting brace. She reports having her last custom brace for about 2 years and she was referred to P&O for a new brace, which she received about 1 month ago. She feels that this brace has been slightly tight on her medial right ankle. About 3 days ago, she had notice some soreness on the medial ankle and saw a very small blister. She also noticed redness and swelling in the right lower extremity. Since her PCP was not open due to the holiday weekend, she decided to come into the ER for further evaluation. Labs showed a white blood cell count [id number]. She had x-rays of the right ankle and foot, which showed no acute osseous abnormality or signs of osteomyelitis. Right lower extremity venous Doppler was negative for DVT. She was admitted to the hospitalist service. She has been started on IV metronidazole, vancomycin, and cefepime. Wound care was consulted. Preliminary results of the wound culture show growth of staphylococcus aureus. She currently has orders for silver gel dressing changes with iodoform packing. We have been asked to see the patient in consultation regarding a right foot wound. She is now seen on the medical floor. She feels that her redness and swelling of her right lower extremity has improved since admission. No other complaints at this time. Review of Systems Review of Systems: All systems reviewed & are unremarkable except as noted in HPI and below PMFSH Past Medical History Medical History Arthritis Calcaneovalgus deformity of right foot Chronic anemia Hypothyroidism Lymphedema of right lower extremity Osteoporosis Post-polio syndrome Surgical History Surgical History (Reviewed 05/30/22 @ 16:23 by Junie Dooley
[2022-05-30] MEDS: SILVERGEL (ELTA) 45 ML 1 APPLIC TOPICAL (16:55)
[2022-05-30 22:04] VITALS: BP 143/54; PULSE 89; RESP 21; TEMP 36.8; O2SAT 100
[2022-05-30 22:29] LABS: Vancomycin Trough 10.2 ug/mL (10.0-20.0)
[2022-05-30] MEDS: ACETAMINOPHEN 325 MG TABLET 650 MG PO (23:52)
[2022-05-31] MEDS: metroNIDAZOLE 500 MG/ISO 100ML 500 MG/100 ML BAG 100 MG IVPB ×4 (00:23→23:38)
[2022-05-31 05:47] LABS: Hematocrit 32.8 % (37.0-47.0); Hemoglobin 10.6 g/dL (12.0-15.0); Mean Corpuscular HGB Conc 32.3 g/dl (32-36); Mean Corpuscular Hemoglobin 30.2 pg (26-34); Mean Corpuscular Volume 93.4 fl (80-100); Mean Platelet Volume 11.3 fl (7.4-10.4); Platelet Count Result 309 k/mm3 (150-375); Red Blood Count 3.51 M/mm3 (4.2-5.4); Red Cell Distribution Width 13.9 % (11.5-14.5); White Blood Count 10.3 K/mm3 (4.5-10.0)
[2022-05-31 05:59] LABS: Estimated CRCL calculation 46 ml/min; Estimated Glomerular Filt Rate > 60
[2022-05-31 06:00] VITALS: BP 138/53; PULSE 73; RESP 20; TEMP 36.4; O2SAT 98
[2022-05-31] MEDS: LEVOTHYROXINE SODIUM 88 MCG TABLET PO (06:04)
[2022-05-31] MEDS: MULTIVITAMINS THERAPEUTIC TAB (*BKC) 1 TABLET PO (08:07)
[2022-05-31] MEDS: ENOXAPARIN 40 MG/0.4 ML SYRINGE SUB-Q (08:07)
[2022-05-31] MEDS: SILVERGEL (ELTA) 45 ML 1 APPLIC TOPICAL (08:08)
--- NOTE | 2022-05-31 09:37 | PM.CNOR ---
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 MRI of the right ankle reveals soft tissue ulcer at the medial aspect of the midfoot with associated sinus tract or small abscess. Surrounding subcutaneous soft tissue edema noted consistent with cellulitis. There is also noted to be a calcaneal stress fracture in the posterior calcaneus which without new trauma, unsure if this is chronic given severe deformity of the foot. Patient has been undergoing daily dressing changes with silver gel and packing with rope. Unable to probe beneath the wound surface more than 0.5 cm. Unable to probe to bone. No palpable abscess or fluctuance. No purulence. No malodor. Wound bed is covered with 100% slough like tissue. Patient would benefit from continued daily dressing changes with silver gel and covered dry. Continue IV antibiotics under the direction of the medicine team for cellulitis. No acute surgical indication at this time however if failure to improve with continue antibiotics and local wound care or worsening of the wound bed, patient may require return to the operating room for I&D. No obvious evidence of osteomyelitis on radiographs or MRI at this time. Patient instructed to have her new custom brace brought to the hospital by her family for evaluation by the orthopedic team. She will likely require return to the prosthetic company for evaluation and proper padding in the area of pressure. Patient will transition to a fracture boot. She does have 1 at home which she will have her family bring to the hospital. She can be weight-bearing as tolerated with the fracture boot. We will continue to follow. <PRAVIN Jorge - Last Filed: 05/31/22 13:10> (2) Cellulitis of right foot: Code(s): L03.115 - Cellulitis of right lower limb <PRAVIN Jorge - Last Filed: 05/31/22 13:10> Status: Acute <PRAVIN Jorge - Last Filed: 05/31/22 13:10> Assessment and Plan: Improvement noted in comparison to demarcated lines. Continue IV antibiotics under the direction of the medicine team. 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 Orthopedic consult reviewed and agree with findings. <Lazaro Cain MD - Last Filed: 06/01/22 09:34> History of Present Illness HPI Consult date: 05/31/22 <PRAVIN Jorge - Last Filed: 05/31/22 13:10> 06/01/22 <Lazaro Cain MD - Last Filed: 06/01/22 09:34> Chief complaint: Cellulitis right lower extremity <PRAVIN Jorge - Last Filed: 05/31/22 13:10> Narrative: 77-year-old female admitted due to right lower extremity cellulitis and a new wound on the right medial ankle. Patient is known to the Orthopedic Service and previously was evaluated by Dr. Cain in February. Patient states that she received a new brace for her right ankle approximately 5 weeks ago. She began wearing this without issue for the last several weeks. She did feel that this brace was somewhat tighter than the previous 1 and had been wearing it without the straps fully tightened. She endorses noticing increased erythema after working earlier this week. Thi
--- NOTE | 2022-05-31 10:31 | PM.PNGS ---
Progress Note: A&P Assessment and Plan (1) Wound of right foot: Code(s): S91.301A - Unspecified open wound, right foot, initial encounter Status: Acute Assessment and Plan: Right foot wound continues to improve with local wound care and antibiotics. No indication for surgery at this time. Spoke with Ortho, who is evaluating her orthotics and will continue to follow the wound. Will sign off at this time. Please call with any future surgical issues or concerns. (2) Cellulitis of right foot: Code(s): L03.115 - Cellulitis of right lower limb Status: Acute Assessment and Plan: Cellulitis improving, continue antibiotics per primary service. Elevate right lower extremity. 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 Barraza. Subjective Subjective Date/Time Seen: 05/31/22 10:31 Patient reports: no new complaints, feels better and afebrile Interval history: No acute events or changes overnight. Reports swelling and redness in right lower extremity seems to continue to improve daily. Review of Systems Review of Systems: All systems reviewed & are unremarkable except as noted in HPI and below Exam Const: General: comfortable and no acute distress Orientation/consciousness: patient oriented x3 Extrem: Other: Right medial foot wound with minimal slough and some granulation tissue noted in the wound bed today, no purulent drainage or significant necrotic tissue. Redness and swelling in the right lower leg continues to improve. Objective Data Vital Signs Vital Signs: Vital Signs - 24 hr 05/30/22 14:00 05/30/22 22:04 05/31/22 06:00 Temperature 97.1 F L 98.2 F 97.6 F Pulse Rate 65 89 73 Respiratory Rate 18 21 H 20 Blood Pressure 125/55 L 143/54 H 138/53 L Pulse Oximetry 95 100 98 Intake/Output Intake/Output: Intake & Output 05/28/22 05/29/22 05/30/22 05/31/22 23:59 23:59 23:59 23:59 Intake Total 540 2090 3691 400 Output Total 1999 2400 400 Balance 877 33 8593 0 Meds/Results Medications: Active Medications Generic Name Dose Route Start Last Admin Trade Name Leo PRN Reason Stop Dose Admin Acetaminophen 650 mg 05/28/22 23:44 05/30/22 23:52 Acetaminophen 325 Mg Tablet PO 650 mg Q6H PRN Administration Mild Pain (1-3) or Fever Enoxaparin Sodium 40 mg 05/29/22 09:00 05/31/22 08:07 Enoxaparin 40 Mg/0.4 Ml Syringe SUB-Q 40 mg DAILY AMANDA Administration Vancomycin HCl 1,000 mg in 250 mls @ 250 mls/hr 05/29/22 10:00 05/31/22 00:26 Vancomycin 1,000 Mg/D5w 250 Ml IVPB Infused Q18H AMANDA Infusion Cefepime HCl 2 gm in 50 mls @ 100 mls/hr 05/29/22 06:00 05/31/22 06:42 Maxipime 2 Gm/D5w 50 Ml IVPB Infused Q12H AMANDA Infusion Metronidazole 500 mg in 100 mls @ 100 mls/hr 05/29/22 00:00 05/31/22 08:06 Flagyl 500 Mg/Iso Soln 100 Ml IVPB 100 mls/hr Q8H AMANDA Administration Levothyroxine Sodium 88 mcg 05/29/22 06:30 05/31/22 06:04 Levothyroxine Sodium 88 Mcg Tablet PO 88 mcg DAILY@0630 AMANDA Administration Multivitamins Therapeutic 1 tablet 05/29/22 09:00 05/31/22 08:07 Multivitamins Therapeutic Tab (*Bkc) PO 1 tablet QAM AMANDA Administration Silver Nitrate 1 applic 05/29/22 09:00 05/31/22 08:08 Silvergel (Elta) 45 Ml TOPICAL 1 applic DAILY AMANDA Administration Radiology Results: ITS Impressions Ankle X-Ray 05/28/22 14:52 IMPRESSION: No acute osseous finding in the right ankle or right foot. Diffuse subcutaneous edema and soft tissue swelling. Foot X-Ray 05/28/22 14:52 IMPRESSION: No acute osseous finding in the right ankle or right foot. Diffuse subcutaneous edema and soft tissue swelling. Venous Doppler Study 05/28/22 14:57 IMPRESSION:
[2022-05-31 14:00] VITALS: BP 132/70; PULSE 86; RESP 20; TEMP 36.4; O2SAT 100
--- NOTE | 2022-05-31 15:45 | PM.IMPN ---
Progress Note: A&P Assessment and Plan (1) Cellulitis of right foot: Code(s): L03.115 - Cellulitis of right lower limb Status: Acute Assessment and Plan: on cefepime and vancomycin, Patient's activity purulent discharge from rectum: Wound culture grows Staph aureus, susceptibility to penicillin Consult orthopedic surgeon for evaluation, no surgical treatment indicated Order MRI of right ankle , has ruled out osteomyelitis (2) Wound of right foot: Code(s): S91.301A - Unspecified open wound, right foot, initial encounter Status: Acute Assessment and Plan: Wound nurse consulted. (3) Chronic anemia: Code(s): D64.9 - Anemia, unspecified Status: Acute Assessment and Plan: Stable on review of previous labs. (4) Hypothyroidism: Code(s): E03.9 - Hypothyroidism, unspecified Status: Acute Assessment and Plan: Continue levothyroxine and check TSH. Subjective Date/time seen: 05/31/22 15:45 Saw and examined patient, patient feels comfortable, denies chest pain 1 from breast, abdominal pain, nausea vomiting diarrhea Review of Systems Review of Systems: ROS unobtainable: Yes other Constitutional: Constitutional: Reports no additional constitutional complaints Exam Narrative: General: Well-developed, nontoxic-appearing female sitting up in bed. Weight: 61 kilograms. BMI: 24.6. HEENT: PERRL, EOMI. Sclera anicteric. Oral mucosa moist. Neck: Supple. Respiratory: Lungs are clear to auscultation bilaterally. Cardiovascular: Regular rate and rhythm with S1-S2. No murmur, rub, or gallop. Gastrointestinal: Abdomen is soft, nontender, and nondistended with positive bowel sounds. Skin: Warm and dry. There is approximately quarter-sized blistered area on the right medial foot w/ drainage. The surrounding skin is tight, edematous, erythematous, and warm, extending to the toes and up to just below the right knee. Extremities: No cyanosis or clubbing. Right lower extremity edema as detailed above. Radial and pedal pulses intact. Neurological: Alert. Cranial nerves 2-12 are grossly intact. No gross focal deficits to casual conversation. Psychiatric: Pleasant and cooperative with normal mood and affect. Judgment and insight intact. Objective Data Vital Signs Vital Signs: Vital Signs - 24 hr 05/30/22 22:04 05/31/22 06:00 05/31/22 08:05 Temperature 98.2 F 97.6 F Pulse Rate 89 73 Respiratory Rate 21 H 20 Blood Pressure 143/54 H 138/53 L Pulse Oximetry 100 98 Oxygen Delivery Room Air 05/31/22 14:00 Temperature 97.5 F L Pulse Rate 86 Respiratory Rate 20 Blood Pressure 132/70 Pulse Oximetry 100 Oxygen Delivery Intake/Output Intake/Output: Intake & Output 05/28/22 05/29/22 05/30/22 05/31/22 23:59 23:59 23:59 23:59 Intake Total 540 2090 3691 980 Output Total 1999 2400 400 Balance 166 37 4690 580 Meds/Results Medications: Active Medications Generic Name Dose Route Start Last Admin Trade Name Freq PRN Reason Stop Dose Admin Acetaminophen 650 mg 05/28/22 23:44 05/30/22 23:52 Acetaminophen 325 Mg Tablet PO 650 mg Q6H PRN Administration Mild Pain (1-3) or Fever Enoxaparin Sodium 40 mg 05/29/22 09:00 05/31/22 08:07 Enoxaparin 40 Mg/0.4 Ml Syringe SUB-Q 40 mg DAILY AMANDA Administration Vancomycin HCl 1,000 mg in 250 mls @ 250 mls/hr 05/29/22 10:00 05/31/22 15:20 Vancomycin 1,000 Mg/D5w 250 Ml IVPB 250 mls/hr Q18H AMANDA Administration Cefepime HCl 2 gm in 50 mls @ 100 mls/hr 05/29/22 06:00 05/31/22 06:42 Maxipime 2 Gm/D5w 50 Ml IVPB Infused Q12H AMANDA Infusion Metronidazole 500 mg in 100 mls @ 100 mls/hr 05/29/22 00:00 05/31/22 15:20 Flagyl 500 Mg/Iso Soln 100 Ml IVPB 100 mls/hr Q8H AMANDA Administration Levothyroxine Sodium 88 mcg 05/29/22 06:30 05/31/22 06:04 Levothyroxine Sodium 88 Mcg Tablet PO 88 mcg DAILY@0630 AMANDA Administration [employer]
[2022-05-31 22:04] VITALS: BP 137/58; PULSE 86; RESP 14; TEMP 36.7; O2SAT 100
[2022-05-31] MEDS: ACETAMINOPHEN 325 MG TABLET 650 MG PO (22:06)
[2022-06-01 05:05] VITALS: BP 125/56; PULSE 70; RESP 16; TEMP 36.6; O2SAT 97
[2022-06-01 06:12] LABS: Anion Gap 5 mmol/L (8-16); Blood Urea Nitrogen 16 mg/dL (7-17); Calcium 8.6 mg/dL (8.4-10.2); Carbon Dioxide 28 mmol/L (22-30); Chloride 105 mmol/L (98-107); Estimated CRCL calculation 53 ml/min; Estimated Glomerular Filt Rate > 60; Glucose 99 mg/dL (65-110); Potassium 3.9 mmol/L (3.4-5.0); Sodium 138 mmol/L (137-145)
[2022-06-01] MEDS: LEVOTHYROXINE SODIUM 88 MCG TABLET PO (06:13)
[2022-06-01 06:42] LABS: Procalcitonin 0.1 ng/mL
[2022-06-01] MEDS: metroNIDAZOLE 500 MG/ISO 100ML 500 MG/100 ML BAG 100 MG IVPB (08:31)
[2022-06-01] MEDS: MULTIVITAMINS THERAPEUTIC TAB (*BKC) 1 TABLET PO (08:31)
[2022-06-01] MEDS: ENOXAPARIN 40 MG/0.4 ML SYRINGE SUB-Q (08:31)
[2022-06-01] MEDS: SILVERGEL (ELTA) 45 ML 1 APPLIC TOPICAL (08:31)
--- NOTE | 2022-06-01 09:35 | PM.PNORT ---
Progress Note: A&P Assessment and Plan (1) Wound of right foot: Code(s): S91.301A - Unspecified open wound, right foot, initial encounter Status: Acute Assessment and Plan: Overall wound slightly improved. Good bleeding tissue noted at base. Continue with twice daily dressing change with iodoform packing and silver gel. Continue antibiotics. Continue with current care as long as wound continues to improve. Discussed surgical indications with patient if wound worsens. Also discussed chance for amputation and loss of foot. Patient unwilling to proceed with amputation at this time. (2) Cellulitis of right leg: Code(s): L03.115 - Cellulitis of right lower limb Status: Acute Assessment and Plan: Overall improved except for 1 area over the anteromedial distal tibia. Continue with IV antibiotic care and activity modification. continue to monitor for the next 2 days for improvement. Patient unable to wear brace due to ankle ulcer. Patient does not tolerate fracture boot. Deformity of foot and ankle. We will try postoperative shoe. Plan Continue to monitor and follow-up patient. Subjective Subjective Date/Time Seen: 06/01/22 09:05 Principal diagnosis: Right leg cellulitis and open wound Interval history: patient awake and alert. Complains of pain around the open wound right ankle. No new complaints or problems overnight. Exam Const: General: comfortable, no acute distress and awake Nutritional Appearance: average body habitus Orientation/consciousness: patient oriented x3 HENMT: Head: normocephalic and atraumatic Ears: hearing grossly normal bilaterally Eyes: General: appearance normal, both eyes and all related structures Neck: Neck: normal visual inspection Resp: Effort & Inspection: no respiratory distress Cardio: Rate: regular rate Rhythm: regular rhythm Peripheral pulses: Peripheral pulses 2+ throughout Extrem: Right upper extremity: normal to inspection Left upper extremity: normal to inspection Right lower extremity: full ROM, normal capillary refill, edema Details: pitting and 3+ and foot ( Calcaneovalgus deformity of the right foot, history of polio.) Details: normal capillary refill and vascular exam Details: dorsalis pedis pulse present and posterior tibial pulse present Left lower extremity: normal to inspection Ankle/foot/toe images: 1. 1cm diameter wound, no drainage. Probes 0.5cm 2. Area of erythema and tenderness Other: Right lower extremity with erythema overall improved. Wound on the medial aspect of the right ankle which measures 1.2 x 1.2 cm with 0.5 cm in depth at 11o'clock. Unable to probe to bone. No purulence drainage. 100% slough tissue covering wound bed. No odor. No purulence. Overall, the cellulitis appears to be improving in comparison to the marked lines on her lower leg which was just below the knee, Except for 6 cm area of erythema anteromedial tibia approximately 10 cm above the ankle joint. Skin intact. Psych: Mental Status: mental status grossly normal Attitude: cooperative Objective Data Vital Signs Vital Signs: Vital Signs - 24 hr 05/31/22 14:00 05/31/22 22:04 06/01/22 05:05 Temperature 97.5 F L 98.1 F 97.8 F Pulse Rate 86 86 70 Respiratory Rate 20 14 16 Blood Pressure 132/70 137/58 L 125/56 L Pulse Oximetry 100 100 97 Intake/Output Intake/Output: Intake & Output 05/29/22 05/30/22 05/31/22 06/01/22 23:59 23:59 23:59 23:59 Intake Total 2090 3691 1780 550 Output Total 1999 2400 1300 800 Balance 90 1291 480 -250 Meds/Results Medications: Active Medications Generic Name Dose Route Start Last Admin Trade Name Freq PRN Reason Stop Dose Admin Acetaminophen 650 mg 05/28/22 23:44 05/31/22 22:06 Acetaminophen 325 Mg Tablet PO 650 mg Q6H PRN Administration Mild Pain (1-3) or Fever Enoxaparin Sodium 40 mg 05/29/22 09:00 06/01/22 08:31 Enoxaparin 40 Mg/0.4 Ml Syringe HARRELL
--- NOTE | 2022-06-01 09:50 | PM.PNORT ---
Progress Note: A&P Assessment and Plan (1) Wound of right foot: Code(s): S91.301A - Unspecified open wound, right foot, initial encounter Status: Acute Assessment and Plan: Overall wound slightly improved.? Good bleeding tissue noted at base.? Continue with twice daily dressing change with iodoform packing and silver gel.? Continue antibiotics.? Continue with current care as long as wound continues to improve.? Discussed surgical indications with patient if wound worsens.? Also discussed chance for amputation and loss of foot.? Patient unwilling to proceed with amputation at this time. (2) Cellulitis of right leg: ?Code(s): L03.115 - Cellulitis of right lower limb ?Status:?Acute ?Assessment and Plan: ? Overall improved except for 1 area over the anteromedial distal tibia.? Continue with? IV antibiotic care and activity modification. continue to monitor for the next 2 days for improvement. Plan Continue with previous plan as per progress note. Subjective Subjective Date/Time Seen: 06/01/22 09:50 Objective Data Vital Signs Vital Signs: Vital Signs - 24 hr 05/31/22 14:00 05/31/22 22:04 06/01/22 05:05 Temperature 97.5 F L 98.1 F 97.8 F Pulse Rate 86 86 70 Respiratory Rate 20 14 16 Blood Pressure 132/70 137/58 L 125/56 L Pulse Oximetry 100 100 97 Intake/Output Intake/Output: Intake & Output 05/29/22 05/30/22 05/31/22 06/01/22 23:59 23:59 23:59 23:59 Intake Total 2090 3691 1780 550 Output Total 1999 2400 1300 800 Balance 90 1291 480 -250 Meds/Results Medications: Active Medications Generic Name Dose Route Start Last Admin Trade Name Freq PRN Reason Stop Dose Admin Acetaminophen 650 mg 05/28/22 23:44 05/31/22 22:06 Acetaminophen 325 Mg Tablet PO 650 mg Q6H PRN Administration Mild Pain (1-3) or Fever Enoxaparin Sodium 40 mg 05/29/22 09:00 06/01/22 08:31 Enoxaparin 40 Mg/0.4 Ml Syringe SUB-Q 40 mg DAILY AMANDA Administration Vancomycin HCl 1,000 mg in 250 mls @ 250 mls/hr 05/29/22 10:00 05/31/22 16:34 Vancomycin 1,000 Mg/D5w 250 Ml IVPB Infused Q18H AMANDA Infusion Cefepime HCl 2 gm in 50 mls @ 100 mls/hr 05/29/22 06:00 06/01/22 06:14 Maxipime 2 Gm/D5w 50 Ml IVPB Infused Q12H AMANDA Infusion Metronidazole 500 mg in 100 mls @ 100 mls/hr 05/29/22 00:00 06/01/22 08:31 Flagyl 500 Mg/Iso Soln 100 Ml IVPB 100 mls/hr Q8H AMANDA Administration Levothyroxine Sodium 88 mcg 05/29/22 06:30 06/01/22 06:13 Levothyroxine Sodium 88 Mcg Tablet PO 88 mcg DAILY@0630 AMANDA Administration Multivitamins Therapeutic 1 tablet 05/29/22 09:00 06/01/22 08:31 Multivitamins Therapeutic Tab (*Bkc) PO 1 tablet QAM AMANDA Administration Silver Nitrate 1 applic 05/29/22 09:00 06/01/22 08:31 Silvergel (Elta) 45 Ml TOPICAL 1 applic DAILY AMANDA Administration Radiology Results: ITS Impressions Ankle X-Ray 05/28/22 14:52 IMPRESSION: No acute osseous finding in the right ankle or right foot. Diffuse subcutaneous edema and soft tissue swelling. Foot X-Ray 05/28/22 14:52 IMPRESSION: No acute osseous finding in the right ankle or right foot. Diffuse subcutaneous edema and soft tissue swelling. Venous Doppler Study 05/28/22 14:57 IMPRESSION: 1. Patent right lower extremity veins. No evidence of deep venous thrombosis. Ankle MRI 05/31/22 07:16 IMPRESSION: Findings most consistent with calcaneal stress fracture in the posterior calcaneus, as detailed above. No distinct evidence for osteomyelitis. Soft tissue ulcer at the medial aspect of the midfoot with associated sinus tract and/or small abscess. Underlying diffuse subcutaneous soft tissue edema about the foot and ankle, consistent with cellulitis versus possibly bland edema. Correlate clinically. Probable pes cavus deformity of the foot. Labs Labs: Laboratory Results - last 24 hr 06/01/22 06/01/22 05:17 05:17 Sodium 138 Pot
[2022-06-01 14:00] VITALS: BP 130/58; PULSE 85; RESP 16; TEMP 36.7; O2SAT 98
--- NOTE | 2022-06-01 16:13 | PM.IMPN ---
Progress Note: A&P Assessment and Plan (1) Cellulitis of right foot: Code(s): L03.115 - Cellulitis of right lower limb Status: Acute Assessment and Plan: on cefepime and vancomycin, Patient's activity purulent discharge from rectum: Wound culture grows Staph aureus, susceptibility to penicillin Consult orthopedic surgeon for evaluation, no surgical treatment indicated Order MRI of right ankle , has ruled out osteomyelitis De-escalated to Ancef IV, discontinue vancomycin Zosyn Continue IV antibiotics through the weekend orthopedic surgeon recommendation (2) Wound of right foot: Code(s): S91.301A - Unspecified open wound, right foot, initial encounter Status: Acute Assessment and Plan: Wound nurse consulted. (3) Chronic anemia: Code(s): D64.9 - Anemia, unspecified Status: Acute Assessment and Plan: Stable on review of previous labs. (4) Hypothyroidism: Code(s): E03.9 - Hypothyroidism, unspecified Status: Acute Assessment and Plan: Continue levothyroxine and check TSH. Subjective Date/time seen: 06/01/22 16:13 Interval history: Saw and examined patient, patient awake and alert. Complains of pain around the open wound right ankle. No new issues or events overnight. Exam Narrative: General: Well-developed, nontoxic-appearing female sitting up in bed. Weight: 61 kilograms. BMI: 24.6. HEENT: PERRL, EOMI. Sclera anicteric. Oral mucosa moist. Neck: Supple. Respiratory: Lungs are clear to auscultation bilaterally. Cardiovascular: Regular rate and rhythm with S1-S2. No murmur, rub, or gallop. Gastrointestinal: Abdomen is soft, nontender, and nondistended with positive bowel sounds. Skin: Warm and dry. There is approximately quarter-sized blistered area on the right medial foot w/ drainage. The surrounding skin is tight, edematous, erythematous, and warm, extending to the toes and up to just below the right knee. Extremities: No cyanosis or clubbing. Right lower extremity edema as detailed above. Radial and pedal pulses intact. Neurological: Alert. Cranial nerves 2-12 are grossly intact. No gross focal deficits to casual conversation. Psychiatric: Pleasant and cooperative with normal mood and affect. Judgment and insight intact. Objective Data Vital Signs Vital Signs: Vital Signs - 24 hr 05/31/22 22:04 06/01/22 05:05 06/01/22 10:27 Temperature 98.1 F 97.8 F Pulse Rate 86 70 Respiratory Rate 14 16 Blood Pressure 137/58 L 125/56 L Pulse Oximetry 100 97 Oxygen Delivery Room Air 06/01/22 08:38 06/01/22 14:00 Temperature 98.0 F Pulse Rate 85 Respiratory Rate 16 Blood Pressure 130/58 L Pulse Oximetry 98 Oxygen Delivery Room Air Intake/Output Intake/Output: Intake & Output 05/29/22 05/30/22 05/31/22 06/01/22 23:59 23:59 23:59 23:59 Intake Total 209 3691 1780 1260 Output Total 1999 2400 1300 800 Balance 90 1291 480 460 Meds/Results Medications: Active Medications Generic Name Dose Route Start Last Admin Trade Name Freq PRN Reason Stop Dose Admin Acetaminophen 650 mg 05/28/22 23:44 05/31/22 22:06 Acetaminophen 325 Mg Tablet PO 650 mg Q6H PRN Administration Mild Pain (1-3) or Fever Enoxaparin Sodium 40 mg 05/29/22 09:00 06/01/22 08:31 Enoxaparin 40 Mg/0.4 Ml Syringe SUB-Q 40 mg DAILY AMANDA Administration Cefazolin Sodium 2 gm in 50 mls @ 100 mls/hr 06/01/22 22:00 Ancef 2 Gm/D5w 50 Ml IVPB Q8H AMANDA Levothyroxine Sodium 88 mcg 05/29/22 06:30 06/01/22 06:13 Levothyroxine Sodium 88 Mcg Tablet PO 88 mcg DAILY@0630 AMANDA Administration Multivitamins Therapeutic 1 tablet 05/29/22 09:00 06/01/22 08:31 Multivitamins Therapeutic Tab (*Bkc) PO 1 tablet QAM AMANDA Administration Silver Nitrate 1 applic 05/29/22 09:00 06/01/22 08:31 Silvergel (Elta) 45 Ml TOPICAL 1 applic DAILY AMANDA Administration Radiology Results: ITS
[2022-06-01] MEDS: ceFAZolin 2 GM/D5W 50 ML 2 GM/50 ML BAG IVPB (20:28)
[2022-06-01 20:46] VITALS: BP 119/51; PULSE 79; RESP 16; TEMP 36.8; O2SAT 97
[2022-06-02 05:13] VITALS: BP 110/50; PULSE 73; RESP 16; TEMP 37.2; O2SAT 99
[2022-06-02] MEDS: ceFAZolin 2 GM/D5W 50 ML 2 GM/50 ML BAG IVPB ×3 (05:46→21:15)
[2022-06-02] MEDS: LEVOTHYROXINE SODIUM 88 MCG TABLET PO (05:47)
[2022-06-02 06:19] LABS: Anion Gap 7 mmol/L (8-16); Blood Urea Nitrogen 17 mg/dL (7-17); Calcium 8.8 mg/dL (8.4-10.2); Carbon Dioxide 31 mmol/L (22-30); Chloride 102 mmol/L (98-107); Estimated CRCL calculation 46 ml/min; Estimated Glomerular Filt Rate > 60; Glucose 100 mg/dL (65-110); Potassium 4.1 mmol/L (3.4-5.0); Sodium 140 mmol/L (137-145)
[2022-06-02] MEDS: MULTIVITAMINS THERAPEUTIC TAB (*BKC) 1 TABLET PO (09:07)
[2022-06-02] MEDS: ENOXAPARIN 40 MG/0.4 ML SYRINGE SUB-Q (09:07)
[2022-06-02] MEDS: SILVERGEL (ELTA) 45 ML 1 APPLIC TOPICAL (09:09)
--- NOTE | 2022-06-02 11:59 | PM.IMPN ---
Progress Note: A&P Assessment and Plan (1) Cellulitis of right foot: Code(s): L03.115 - Cellulitis of right lower limb Status: Acute Assessment and Plan: on cefepime and vancomycin, Patient's activity purulent discharge from rectum: Wound culture grows Staph aureus, susceptibility to penicillin Consult orthopedic surgeon for evaluation, no surgical treatment indicated Order MRI of right ankle , has ruled out osteomyelitis De-escalated to Ancef IV, discontinue vancomycin Zosyn Continue IV antibiotics through the weekend orthopedic surgeon recommendation, plans to finish iv abx till Saturday (2) Wound of right foot: Code(s): S91.301A - Unspecified open wound, right foot, initial encounter Status: Acute Assessment and Plan: Wound nurse consulted. (3) Chronic anemia: Code(s): D64.9 - Anemia, unspecified Status: Acute Assessment and Plan: Stable on review of previous labs. (4) Hypothyroidism: Code(s): E03.9 - Hypothyroidism, unspecified Status: Acute Assessment and Plan: Continue levothyroxine and check TSH. Subjective Date/time seen: 06/02/22 11:59 Interval history: Saw and examined patient, patient awake and alert. no pain of legs today, afeb vss. No new issues or events overnight. Review of Systems Review of Systems: ROS unobtainable: Yes other Constitutional: Constitutional: Reports no additional constitutional complaints Exam Narrative: General: Well-developed, nontoxic-appearing female sitting up in bed. Weight: 61 kilograms. BMI: 24.6. HEENT: PERRL, EOMI. Sclera anicteric. Oral mucosa moist. Neck: Supple. Respiratory: Lungs are clear to auscultation bilaterally. Cardiovascular: Regular rate and rhythm with S1-S2. No murmur, rub, or gallop. Gastrointestinal: Abdomen is soft, nontender, and nondistended with positive bowel sounds. Skin: Warm and dry. There is approximately quarter-sized blistered area on the right medial foot w/ drainage. The surrounding skin is tight, edematous, erythematous, and warm, extending to the toes and up to just below the right knee. Extremities: No cyanosis or clubbing. Right lower extremity edema as detailed above. Radial and pedal pulses intact. Neurological: Alert. Cranial nerves 2-12 are grossly intact. No gross focal deficits to casual conversation. Psychiatric: Pleasant and cooperative with normal mood and affect. Judgment and insight intact. Objective Data Vital Signs Vital Signs: Vital Signs - 24 hr 06/01/22 14:00 06/01/22 20:46 06/01/22 20:00 Temperature 98.0 F 98.3 F Pulse Rate 85 79 Respiratory Rate 16 16 Blood Pressure 130/58 L 119/51 L Pulse Oximetry 98 97 Oxygen Delivery Room Air 06/02/22 05:13 06/02/22 09:28 Temperature 98.9 F Pulse Rate 73 Respiratory Rate 16 Blood Pressure 110/50 L Pulse Oximetry 99 Oxygen Delivery Room Air Intake/Output Intake/Output: Intake & Output 05/30/22 05/31/22 06/01/22 06/02/22 23:59 23:59 23:59 23:59 Intake Total 3691 1780 2080 890 Output Total 2400 1300 1800 675 Balance 1291 480 280 215 Meds/Results Medications: Active Medications Generic Name Dose Route Start Last Admin Trade Name Freq PRN Reason Stop Dose Admin Acetaminophen 650 mg 05/28/22 23:44 05/31/22 22:06 Acetaminophen 325 Mg Tablet PO 650 mg Q6H PRN Administration Mild Pain (1-3) or Fever Enoxaparin Sodium 40 mg 05/29/22 09:00 06/02/22 09:07 Enoxaparin 40 Mg/0.4 Ml Syringe SUB-Q 40 mg DAILY AMANDA Administration Cefazolin Sodium 2 gm in 50 mls @ 100 mls/hr 06/01/22 22:00 06/02/22 06:16 Ancef 2 Gm/D5w 50 Ml IVPB Infused Q8H AMANDA Infusion Levothyroxine Sodium 88 mcg 05/29/22 06:30 06/02/22 05:47 Levothyroxine Sodium 88 Mcg Tablet PO 88 mcg DAILY@0630 AMANDA Administration Multivitamins Therapeutic 1 tablet 05/29/22 09:00 06/02/22 09:07 Multivitamins Therapeutic Tab (*Bkc) PO
[2022-06-02 13:47] VITALS: BP 125/58; PULSE 74; RESP 16; TEMP 36.5; O2SAT 100
[2022-06-02 19:16] VITALS: BP 118/44; PULSE 85; RESP 17; TEMP 36.9; O2SAT 98
[2022-06-03 03:40] VITALS: BP 120/46; PULSE 70; RESP 18; TEMP 36.2; O2SAT 99
[2022-06-03] MEDS: LEVOTHYROXINE SODIUM 88 MCG TABLET PO (05:19)
[2022-06-03] MEDS: ceFAZolin 2 GM/D5W 50 ML 2 GM/50 ML BAG IVPB ×3 (05:19→21:59)
[2022-06-03 08:57] LABS: Hemoglobin 11.1 g/dL (12.0-15.0); Mean Corpuscular HGB Conc 31.7 g/dl (32-36); Mean Corpuscular Hemoglobin 29.7 pg (26-34); Mean Corpuscular Volume 93.6 fl (80-100); Mean Platelet Volume 11.2 fl (7.4-10.4); Platelet Count Result 357 k/mm3 (150-375); Red Blood Count 3.74 M/mm3 (4.2-5.4); Red Cell Distribution Width 13.9 % (11.5-14.5); White Blood Count 9.9 K/mm3 (4.5-10.0)
[2022-06-03 09:09] LABS: Anion Gap 6 mmol/L (8-16); Blood Urea Nitrogen 18 mg/dL (7-17); Calcium 8.9 mg/dL (8.4-10.2); Carbon Dioxide 30 mmol/L (22-30); Chloride 99 mmol/L (98-107); Estimated CRCL calculation 62 ml/min; Estimated Glomerular Filt Rate > 60; Glucose 101 mg/dL (65-110); Potassium 4.3 mmol/L (3.4-5.0); Sodium 135 mmol/L (137-145)
[2022-06-03] MEDS: ENOXAPARIN 40 MG/0.4 ML SYRINGE SUB-Q (09:51)
[2022-06-03] MEDS: MULTIVITAMINS THERAPEUTIC TAB (*BKC) 1 TABLET PO (09:51)
[2022-06-03] MEDS: SILVERGEL (ELTA) 45 ML 1 APPLIC TOPICAL (09:53)
[2022-06-03 14:00] VITALS: BP 127/49; PULSE 80; RESP 16; TEMP 36.4; O2SAT 99
--- NOTE | 2022-06-03 16:24 | PM.IMPN ---
Progress Note: A&P Assessment and Plan (1) Cellulitis of right foot: Code(s): L03.115 - Cellulitis of right lower limb Status: Acute Assessment and Plan: was on Zosyn and vancomycin, Wound culture grows Staph aureus, susceptibility to penicillin Consult orthopedic surgeon for evaluation, no surgical treatment indicated Order MRI of right ankle , has ruled out osteomyelitis De-escalated to Ancef IV, discontinue vancomycin Zosyn Continue IV antibiotics through the weekend orthopedic surgeon recommendation, , may consider PIC line for long-term IV antibiotics (2) Wound of right foot: Code(s): S91.301A - Unspecified open wound, right foot, initial encounter Status: Acute Assessment and Plan: Wound nurse consulted. (3) Chronic anemia: Code(s): D64.9 - Anemia, unspecified Status: Acute Assessment and Plan: Stable on review of previous labs. (4) Hypothyroidism: Code(s): E03.9 - Hypothyroidism, unspecified Status: Acute Assessment and Plan: Continue levothyroxine and check TSH. Subjective Date/time seen: 06/03/22 16:24 Interval history: Saw and examined patient, patient patient has no complains, denies chest pain, shortness of breath, abdomen pain, nausea vomiting diarrhea, no pain of legs today, afeb vss. No new issues or events overnight. Afebrile, blood pressure stable Review of Systems Review of Systems: ROS unobtainable: Yes other Constitutional: Constitutional: Reports no additional constitutional complaints Exam Narrative: General: Well-developed, nontoxic-appearing female sitting up in bed. Weight: 61 kilograms. BMI: 24.6. HEENT: PERRL, EOMI. Sclera anicteric. Oral mucosa moist. Neck: Supple. Respiratory: Lungs are clear to auscultation bilaterally. Cardiovascular: Regular rate and rhythm with S1-S2. No murmur, rub, or gallop. Gastrointestinal: Abdomen is soft, nontender, and nondistended with positive bowel sounds. Skin: Warm and dry. There is approximately quarter-sized blistered area on the right medial foot w/ drainage. The surrounding skin is tight, edematous, erythematous, and warm, extending to the toes and up to just below the right knee. Extremities: No cyanosis or clubbing. Right lower extremity edema as detailed above. Radial and pedal pulses intact. Neurological: Alert. Cranial nerves 2-12 are grossly intact. No gross focal deficits to casual conversation. Psychiatric: Pleasant and cooperative with normal mood and affect. Judgment and insight intact. Objective Data Vital Signs Vital Signs: Vital Signs - 24 hr 06/02/22 19:16 06/02/22 20:00 06/03/22 03:40 Temperature 98.5 F 97.1 F L Pulse Rate 85 70 Respiratory Rate 17 18 Blood Pressure 118/44 L 120/46 L Pulse Oximetry 98 99 Oxygen Delivery Room Air 06/03/22 08:00 06/03/22 14:00 Temperature 97.6 F Pulse Rate 80 Respiratory Rate 16 Blood Pressure 127/49 L Pulse Oximetry 99 Oxygen Delivery Room Air Intake/Output Intake/Output: Intake & Output 05/31/22 06/01/22 06/02/22 06/03/22 23:59 23:59 23:59 23:59 Intake Total 1780 2080 1700 1090 Output Total 1300 1800 875 600 Balance 480 280 825 490 Meds/Results Medications: Active Medications Generic Name Dose Route Start Last Admin Trade Name Freq PRN Reason Stop Dose Admin Acetaminophen 650 mg 05/28/22 23:44 05/31/22 22:06 Acetaminophen 325 Mg Tablet PO 650 mg Q6H PRN Administration Mild Pain (1-3) or Fever Enoxaparin Sodium 40 mg 05/29/22 09:00 06/03/22 09:51 Enoxaparin 40 Mg/0.4 Ml Syringe SUB-Q 40 mg DAILY AMANDA Administration Cefazolin Sodium 2 gm in 50 mls @ 100 mls/hr 06/01/22 22:00 06/03/22 14:54 Ancef 2 Gm/D5w 50 Ml IVPB 100 mls/hr Q8H AMANDA Administration Levothyroxine Sodium 88 mcg 05/29/22 06:30 06/03/22 05:19 Levothyroxine Sodium 88 Mcg Tablet PO 88 mcg DAILY@0630 AMANDA Administration Multivitam
[2022-06-03 20:56] VITALS: BP 116/61; PULSE 86; RESP 20; TEMP 37; O2SAT 98
[2022-06-04 06:00] VITALS: BP 125/57; PULSE 74; RESP 20; TEMP 36.6; O2SAT 100
[2022-06-04] MEDS: ceFAZolin 2 GM/D5W 50 ML 2 GM/50 ML BAG IVPB ×3 (06:30→23:19)
[2022-06-04] MEDS: LEVOTHYROXINE SODIUM 88 MCG TABLET PO (06:30)
[2022-06-04] MEDS: ENOXAPARIN 40 MG/0.4 ML SYRINGE SUB-Q (09:06)
[2022-06-04] MEDS: MULTIVITAMINS THERAPEUTIC TAB (*BKC) 1 TABLET PO (09:06)
[2022-06-04] MEDS: SILVERGEL (ELTA) 45 ML 1 APPLIC TOPICAL (09:06)
--- NOTE | 2022-06-04 09:28 | PM.PNORT ---
Progress Note: A&P Assessment and Plan (1) Wound of right foot: Code(s): S91.301A - Unspecified open wound, right foot, initial encounter Status: Acute Assessment and Plan: Overall wound improved.? Good bleeding tissue noted at base.? Continue with daily dressing change with silver gel.? Continue antibiotics.? Continue with current care as long as wound continues to improve.? Discussed surgical indications with patient if wound worsens.? Patient previously discussed amputation with Dr. Cain but patient declines. (2) Cellulitis of right foot: Code(s): L03.115 - Cellulitis of right lower limb Status: Acute Assessment and Plan: Patient continues to have an area above the above at the anteromedial tibia which remains red with swelling and possible fluctuance. Concern for abscess. Area not seen on previous ankle MRI. Would recommend MRI of the lower leg with contrast for further evaluation. Continue IV antibiotics in the interim. Subjective Subjective Date/Time Seen: 06/04/22 09:28 Interval history: Awake. Alert. Doing well but complaining of pain at the anterior medial distal tibia. Otherwise no new concerns. Review of Systems Review of Systems: All systems reviewed & are unremarkable except as noted in HPI and below Exam Const: General: comfortable, no acute distress and awake Nutritional Appearance: average body habitus Orientation/consciousness: patient oriented x3 HENMT: Head: normocephalic and atraumatic Ears: hearing grossly normal bilaterally Eyes: General: appearance normal, both eyes and all related structures Neck: Neck: normal visual inspection Resp: Effort & Inspection: no respiratory distress Cardio: Rate: regular rate Rhythm: regular rhythm Peripheral pulses: Peripheral pulses 2+ throughout Extrem: Right upper extremity: normal to inspection Left upper extremity: normal to inspection Right lower extremity: full ROM, normal capillary refill, edema Details: pitting and 3+ and foot ( Calcaneovalgus deformity of the right foot, history of polio.) Details: normal capillary refill and vascular exam Details: dorsalis pedis pulse present and posterior tibial pulse present Left lower extremity: normal to inspection Other: Right lower extremity with erythema overall improved. Wound on the medial aspect of the right ankle which measures 1x1 cm with 0.3 cm in depth at 11o'clock. Unable to probe to bone. No purulence drainage. 100% slough tissue covering wound bed. No odor. No purulence. Overall, the cellulitis appears to be improving in comparison to the marked lines on her lower leg which was just below the knee, Except for 6 cm area of erythema anteromedial tibia approximately 10 cm above the ankle joint. Skin intact. Psych: Mental Status: mental status grossly normal Attitude: cooperative Objective Data Vital Signs Vital Signs: Vital Signs - 24 hr 06/03/22 14:00 06/03/22 20:56 06/04/22 06:00 Temperature 36.4 C 37.0 C 36.6 C Pulse Rate 80 86 74 Respiratory Rate 16 20 20 Blood Pressure 127/49 L 116/61 125/57 L Pulse Oximetry 99 98 100 Intake/Output Intake/Output: Intake & Output 06/01/22 06/02/22 06/03/22 06/04/22 23:59 23:59 23:59 23:59 Intake Total 2080 1700 1780 150 Output Total 1294 057 1000 300 Balance 280 825 730 -150 Meds/Results Medications: Active Medications Generic Name Dose Route Start Last Admin Trade Name Freq PRN Reason Stop Dose Admin Acetaminophen 650 mg 05/28/22 23:44 05/31/22 22:06 Acetaminophen 325 Mg Tablet PO 650 mg Q6H PRN Administration Mild Pain (1-3) or Fever Enoxaparin Sodium 40 mg 05/29/22 09:00 06/04/22 09:06 Enoxaparin 40 Mg/0.4 Ml Syringe SUB-Q 40 mg DAILY AMANDA Administration Cefazolin Sodium 2 gm in 50 mls @ 100 mls/hr 06/01/22 22:00 06/04/22 07:16 Ancef 2 Gm/D5w 50 Ml IVPB Infused Q8H AMANDA Infusion Levothyroxine Sodium 88 mcg 05/29/22 06:30 06/04/22 06:30
--- NOTE | 2022-06-04 12:38 | PM.IMPN ---
Progress Note: A&P Assessment and Plan (1) Cellulitis of right foot: Code(s): L03.115 - Cellulitis of right lower limb Status: Acute Assessment and Plan: MRI shows abscess, will defer to orthopedic surgery for further intervention (2) Wound of right foot: Code(s): S91.301A - Unspecified open wound, right foot, initial encounter Status: Acute Assessment and Plan: continue IV antibiotics and wound care currently on Ancef based on wound culture, all blood cultures negative, will continue this for now (3) Chronic anemia: Code(s): D64.9 - Anemia, unspecified Status: Acute Assessment and Plan: stable, monitor (4) Hypothyroidism: Code(s): E03.9 - Hypothyroidism, unspecified Status: Acute Assessment and Plan: continue levothyroxine, stable Plan DVT prophylaxis with SCDs GI prophylaxis not indicated Code status full code Subjective Date/time seen: 06/04/22 12:38 Interval history: No overnight events noted. No chest pain or shortness of breath. No nausea, vomiting or diarrhea. No fevers or chills. Patient states the redness of her right lower extremity appears to be much improved from when she came in. Review of Systems Review of Systems: 12 point review of systems was assessed and was negative except as noted in the HPI Exam Narrative: General: No acute distress, alert and oriented per baseline HEENT: Atraumatic, normocephalic, mucous membranes moist CV: Regular rate and rhythm, S1, S2 Lungs: Clear to auscultation bilaterally, no rales or crackles noted, no wheezes, good air entry Abdomen: Soft, nontender, nondistended Extremities: Erythematous area with edema noted over small area in the distal anterior tibial area, exquisitely tender to palpation, good pedal pulses bilaterally Skin: No rashes noted, no lesions or wounds seen Psych: Euthymic, normal affect Objective Data Vital Signs Vital Signs: Vital Signs - 24 hr 06/03/22 14:00 06/03/22 20:56 06/04/22 06:00 Temperature 97.6 F 98.6 F 97.9 F Pulse Rate 80 86 74 Respiratory Rate 16 20 20 Blood Pressure 127/49 L 116/61 125/57 L Pulse Oximetry 99 98 100 Intake/Output Intake/Output: Intake & Output 06/01/22 06/02/22 06/03/2209/23 23:59 23:59 23:59 23:59 Intake Total 2080 1700 1780 390 Output Total 7945 569 3099 650 Balance 280 825 730 -260 Meds/Results Medications: Active Medications Generic Name Dose Route Start Last Admin Trade Name Freq PRN Reason Stop Dose Admin Acetaminophen 650 mg 05/28/22 23:44 05/31/22 22:06 Acetaminophen 325 Mg Tablet PO 650 mg Q6H PRN Administration Mild Pain (1-3) or Fever Enoxaparin Sodium 40 mg 05/29/22 09:00 06/04/22 09:06 Enoxaparin 40 Mg/0.4 Ml Syringe SUB-Q 40 mg DAILY AMANDA Administration Cefazolin Sodium 2 gm in 50 mls @ 100 mls/hr 06/01/22 22:00 06/04/22 07:16 Ancef 2 Gm/D5w 50 Ml IVPB Infused Q8H AMANDA Infusion Levothyroxine Sodium 88 mcg 05/29/22 06:30 06/04/22 06:30 Levothyroxine Sodium 88 Mcg Tablet PO 88 mcg DAILY@0630 AMANDA Administration Multivitamins Therapeutic 1 tablet 05/29/22 09:00 06/04/22 09:06 Multivitamins Therapeutic Tab (*Bkc) PO 1 tablet QAM AMANDA Administration Silver Nitrate 1 applic 05/29/22 09:00 06/04/22 09:06 Silvergel (Elta) 45 Ml TOPICAL 1 applic DAILY AMANDA Administration Radiology Results: ITS Impressions Ankle X-Ray 05/28/22 14:52 IMPRESSION: No acute osseous finding in the right ankle or right foot. Diffuse subcutaneous edema and soft tissue swelling. Foot X-Ray 05/28/22 14:52 IMPRESSION: No acute osseous finding in the right ankle or right foot. Diffuse subcutaneous edema and soft tissue swelling. Venous Doppler Study 05/28/22 14:57 IMPRESSION: 1. Patent right lower extremity veins. No evidence of deep venous thrombosis. Ankle MRI 05/31/22 07:16 IMPRESSION: Findings mo
[2022-06-04 14:37] VITALS: BP 142/57; PULSE 79; RESP 100; TEMP 36.4; O2SAT 98
[2022-06-04 15:38] LABS: Basophils Absolute Auto 0.1 K/mm3 (0.0-0.1); Basophils Percent Auto 0.8 % (0.2-1.2); Eosinophils Absolute Auto 0.4 K/mm3 (0-0.3); Eosinophils Percent Auto 4.3 % (0-4.4); Hematocrit 35.7 % (37.0-47.0); Hemoglobin 11.3 g/dL (12.0-15.0); Immature Granulocyte Absolute 0.04 K/mm3 (0.00-0.031); Immature Granulocyte Percent A 0.4 % (0-0.5); Lymphocytes Absolute Auto 1.49 K/mm3 (0.9-3.2); Lymphocytes Percent Auto 16.2 % (18.3-44.2); Mean Corpuscular HGB Conc 31.7 g/dl (32-36); Mean Corpuscular Hemoglobin 29.9 pg (26-34); Mean Corpuscular Volume 94.4 fl (80-100); Mean Platelet Volume 11.2 fl (7.4-10.4); Monocytes Absolute Auto 0.7 K/mm3 (0.1-0.6); Monocytes Percent Auto 7.2 % (2.6-8.5); Neutrophils Absolute Auto 6.6 K/mm3 (1.3-6.7); Neutrophils Percent Auto 71.1 % (45.5-73.1); Platelet Count Result 365 k/mm3 (150-375); Red Blood Count 3.78 M/mm3 (4.2-5.4); Red Cell Distribution Width 13.7 % (11.5-14.5); White Blood Count 9.2 K/mm3 (4.5-10.0)
[2022-06-04 15:50] LABS: Alanine Aminotransferase 11 U/L (6-35); Albumin Level 3.9 g/dL (3.5-5.1); Alkaline Phosphatase 71 U/L (38-126); Anion Gap 6 mmol/L (8-16); Aspartate Amino Transferase 24 U/L (14-36); Bilirubin,Total 0.3 mg/dL (0.2-1.3); Blood Urea Nitrogen 20 mg/dL (7-17); Calcium 8.7 mg/dL (8.4-10.2); Carbon Dioxide 30 mmol/L (22-30); Chloride 100 mmol/L (98-107); Estimated CRCL calculation 53 ml/min; Estimated Glomerular Filt Rate > 60; Glucose 110 mg/dL (65-110); Potassium 4.4 mmol/L (3.4-5.0); Sodium 136 mmol/L (137-145)
[2022-06-04 20:00] VITALS: PULSE 79; RESP 14; O2SAT 98
[2022-06-04 20:08] VITALS: BP 126/57; PULSE 79; RESP 14; TEMP 36.8; O2SAT 98
[2022-06-05] VITALS (13 sets, daily range): BP systolic 100–154; BP diastolic 47–68; PULSE 61–87; RESP 12–18; TEMP 36.2–37.2; O2SAT 95–100
[2022-06-05] MEDS: ceFAZolin 2 GM/D5W 50 ML 2 GM/50 ML BAG IVPB ×3 (05:47→21:00)
[2022-06-05] MEDS: LEVOTHYROXINE SODIUM 88 MCG TABLET PO (05:48)
[2022-06-05 06:18] LABS: Basophils Absolute Auto 0.1 K/mm3 (0.0-0.1); Basophils Percent Auto 0.8 % (0.2-1.2); Eosinophils Absolute Auto 0.5 K/mm3 (0-0.3); Eosinophils Percent Auto 4.7 % (0-4.4); Hematocrit 34.3 % (37.0-47.0); Immature Granulocyte Absolute 0.05 K/mm3 (0.00-0.031); Immature Granulocyte Percent A 0.5 % (0-0.5); Lymphocytes Absolute Auto 1.53 K/mm3 (0.9-3.2); Lymphocytes Percent Auto 15.3 % (18.3-44.2); Mean Corpuscular HGB Conc 32.1 g/dl (32-36); Mean Corpuscular Hemoglobin 29.6 pg (26-34); Mean Corpuscular Volume 92.2 fl (80-100); Mean Platelet Volume 11.8 fl (7.4-10.4); Monocytes Absolute Auto 0.7 K/mm3 (0.1-0.6); Monocytes Percent Auto 7.3 % (2.6-8.5); Neutrophils Absolute Auto 7.1 K/mm3 (1.3-6.7); Neutrophils Percent Auto 71.4 % (45.5-73.1); Platelet Count Result 355 k/mm3 (150-375); Red Blood Count 3.72 M/mm3 (4.2-5.4); Red Cell Distribution Width 13.8 % (11.5-14.5)
[2022-06-05 06:20] LABS: Alanine Aminotransferase 11 U/L (6-35); Albumin Level 3.9 g/dL (3.5-5.1); Alkaline Phosphatase 68 U/L (38-126); Anion Gap 7 mmol/L (8-16); Aspartate Amino Transferase 25 U/L (14-36); Bilirubin,Total 0.3 mg/dL (0.2-1.3); Blood Urea Nitrogen 23 mg/dL (7-17); Calcium 9.1 mg/dL (8.4-10.2); Carbon Dioxide 29 mmol/L (22-30); Chloride 101 mmol/L (98-107); Estimated CRCL calculation 62 ml/min; Estimated Glomerular Filt Rate > 60; Glucose 97 mg/dL (65-110); Potassium 4.5 mmol/L (3.4-5.0); Sodium 137 mmol/L (137-145)
[2022-06-05] MEDS: SILVERGEL (ELTA) 45 ML 1 APPLIC TOPICAL (08:52)
--- NOTE | 2022-06-05 12:48 | PM.IMPN ---
Progress Note: A&P Assessment and Plan (1) Cellulitis of right foot: Code(s): L03.115 - Cellulitis of right lower limb Status: Acute Assessment and Plan: MRI shows abscess, will defer to orthopedic surgery taking pt fo I and D today (2) Wound of right foot: Code(s): S91.301A - Unspecified open wound, right foot, initial encounter Status: Acute Assessment and Plan: continue IV antibiotics and wound care currently on Ancef (3) Chronic anemia: Code(s): D64.9 - Anemia, unspecified Status: Acute Assessment and Plan: stable, monitor (4) Hypothyroidism: Code(s): E03.9 - Hypothyroidism, unspecified Status: Acute Assessment and Plan: continue levothyroxine, stable Plan DVT prophylaxis with SCDs GI prophylaxis not indicated Code status full code Subjective Date/time seen: 06/05/22 12:48 Interval history: 77-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 Within the last month or so she got a new brace for her right leg and she developed a small sore on the right medial foot a week or so ago. She reports that the brace feels a bit tighter than her older 1 however it has not been uncomfortable for her. Pt going today for incision and drainage or her R leg under orthopedics. Pt admitted earlier in the week for small sore in her R medial foot secondary to a tight brace on hr foot . Review of Systems Review of Systems: R foot pain and leg Exam Narrative: General: No acute distress CV: Regular rate and rhythm, S1, S2 Lungs: Clear to auscultation bilaterally, no rales or crackles noted, no wheezes, good air entry Abdomen: Soft, nontender, nondistended Extremities: Erythematous area with edema noted over small area in the distal anterior tibial area, exquisitely tender to palpation, good pedal pulses bilaterally Skin: Rfoot sore with plaster, no drainage, R leg red with induration Psych: Euthymic, normal affect Objective Data Vital Signs Vital Signs: Vital Signs - 24 hr 06/04/22 14:37 06/04/22 20:08 06/04/22 20:00 Temperature 36.4 C 36.8 C Pulse Rate 79 79 79 Respiratory Rate 100 H 14 14 Blood Pressure 142/57 H 126/57 L Pulse Oximetry 98 98 98 Oxygen Delivery Room Air 06/05/22 05:17 Temperature 37.2 C Pulse Rate 75 Respiratory Rate 16 Blood Pressure 104/53 L Pulse Oximetry 98 Oxygen Delivery Intake/Output Intake/Output: Intake & Output 06/02/22 06/03/22 06/04/22 06/05/22 23:59 23:59 23:59 23:59 Intake Total 1700 1780 850 350 Output Total 875 1050 1100 800 Balance 825 730 -250 -450 Meds/Results Medications: Active Medications Generic Name Dose Route Start Last Admin Trade Name Freq PRN Reason Stop Dose Admin Acetaminophen 650 mg 05/28/22 23:44 05/31/22 22:06 Acetaminophen 325 Mg Tablet PO 650 mg Q6H PRN Administration Mild Pain (1-3) or Fever Enoxaparin Sodium 40 mg 05/29/22 09:00 06/05/22 09:00 Enoxaparin 40 Mg/0.4 Ml Syringe SUB-Q Not Given DAILY [facility] Cefazolin Sodium 2 gm in 50 mls @ 100 mls/hr 06/01/22 22:00 06/05/22 06:20 Ancef 2 Gm/D5w 50 Ml IVPB Infused Q8H [facility] Infusion Levothyroxine Sodium 88 mcg 05/29/22 06:30 06/05/22 05:48 Levothyroxine Sodium 88 Mcg Tablet PO 88 mcg DAILY@0630 [facility] Administration Multivitamins Therapeutic 1 tablet 05/29/22 09:00 06/04/22 09:06 Multivitamins Therapeutic Tab (*Bkc) PO 1 tablet QAM [facility] Administration Silver Nitrate 1 applic 05/29/22 09:00 06/05/22 08:52 Silvergel (Elta) 45 Ml TOPICAL 1 applic DAILY [facility] Administration Radiology Results: ITS Impressions Ankle X-Ray 05/28/22 14:52 IMPRESSION: No acute osseous finding in the right ankle or right foot. Diffuse subcutaneous edema and soft tissue swelling. Foot X-Ray
--- NOTE | 2022-06-05 13:03 | PM.PNORT ---
Progress Note: A&P Assessment and Plan (1) Abscess of right lower leg: Code(s): L02.415 - Cutaneous abscess of right lower limb Status: Acute Assessment and Plan: MRI shows abscess, discussed with pt. Plan debridement Discussed nonoperative and operative treatment options with the patient. Risks and benefits of each as well as alternatives were reviewed. All of the patient's questions were answered. The risks of surgery reviewed including but not limited to: Neurovascular damage, wound complication, infection, blood clot, pulmonary embolus, stroke, myocardial infarction, and anesthetic risks up to and including . Continued pain and possible dysfunction were explained. Specific risks of the procedure including later recurrence of deformity. No guarantees were offered. If hardware used, discussed risk of failure/ breakage and possible need for removal. If complications occur, the patient understands the need for further treatment, possible further surgery. Patient verbalizes understanding and wishes to proceed. PLAN:Right leg debridement abscess Subjective Subjective Date/Time Seen: 06/05/22 13:03 Exam Const: General: comfortable, no acute distress and awake Nutritional Appearance: average body habitus Orientation/consciousness: patient oriented x3 HENMT: Head: normocephalic and atraumatic Ears: hearing grossly normal bilaterally Eyes: General: appearance normal, both eyes and all related structures Neck: Neck: normal visual inspection Resp: Effort & Inspection: no respiratory distress Cardio: Rate: regular rate Rhythm: regular rhythm Peripheral pulses: Peripheral pulses 2+ throughout Extrem: Right upper extremity: normal to inspection Left upper extremity: normal to inspection Right lower extremity: full ROM, normal capillary refill, edema Details: pitting and 3+ and foot ( Calcaneovalgus deformity of the right foot, history of polio.) Details: normal capillary refill and vascular exam Details: dorsalis pedis pulse present and posterior tibial pulse present Left lower extremity: normal to inspection Other: Right lower extremity with erythema overall improved. Wound on the medial aspect of the right ankle which measures 1x1 cm with 0.3 cm in depth at 11o'clock. Unable to probe to bone. No purulence drainage. 100% slough tissue covering wound bed. No odor. No purulence. Overall, the cellulitis appears to be improving in comparison to the marked lines on her lower leg which was just below the knee, Except for 6 cm area of erythema anteromedial tibia approximately 10 cm above the ankle joint. Skin intact. Psych: Mental Status: mental status grossly normal Attitude: cooperative Objective Data Vital Signs Vital Signs: Vital Signs - 24 hr 06/04/22 14:37 06/04/22 20:08 06/04/22 20:00 Temperature 97.6 F 98.2 F Pulse Rate 79 79 79 Respiratory Rate 100 H 14 14 Blood Pressure 142/57 H 126/57 L Pulse Oximetry 98 98 98 Oxygen Delivery Room Air 06/05/22 05:17 Temperature 99.0 F Pulse Rate 75 Respiratory Rate 16 Blood Pressure 104/53 L Pulse Oximetry 98 Oxygen Delivery Intake/Output Intake/Output: Intake & Output 06/02/22 06/03/22 06/04/22 06/05/22 23:59 23:59 23:59 23:59 Intake Total 1700 1780 850 350 Output Total 875 1050 1100 800 Balance 825 730 -250 -450 Meds/Results Medications: Active Medications Generic Name Dose Route Start Last Admin Trade Name Freq PRN Reason Stop Dose Admin Acetaminophen 650 mg 05/28/22 23:44 05/31/22 22:06 Acetaminophen 325 Mg Tablet PO 650 mg Q6H PRN Administration Mild Pain (1-3) or Fever Enoxaparin Sodium 40 mg 05/29/22 09:00 06/05/22 09:00 Enoxaparin 40 Mg/0.4 Ml Syringe SUB-Q Not Given DAILY AMANDA Cefazolin Sodium 2 gm in 50 mls @ 100 mls/hr 06/01/22 22:00 06/05/22 06:20 Ancef 2 Gm/D5w 50 Ml IVPB Infused Q8H AMANDA Infusion Levothyroxine Sodium 88 mcg 05/29/22 06:30 06/05/22 05
--- NOTE | 2022-06-05 13:04 | WPDHPUPDATE1 ---
History and Physical Update Update Date/Time: 06/05/22 13:04 History and Physical has been reviewed, including an updated exam of the patient. There are NO changes in the patient's condition. Risks, benefits, and alternatives have been discussed and questions answered. Patient agrees to proceed with procedure.
--- NOTE | 2022-06-05 13:16 | WPDANESEPPF ---
Anes - Initial Pre Proc Eval Procedure: Operation Date: 06/05/22 13:30 Proposed Procedures p Incision And Drainage Right Lower Leg - Lazaro Cain MD Date/Time: 06/05/22 13:16 Surgeon: Eulalio Stroud MD Pre Op Diagnosis: Cellulitis right lower extremity Patient Data Age: 77 Gender: F Height: 1.57 m Weight: 59.2 kg Last Vital Signs Temp 99.0 F 06/05/22 05:17 Pulse 75 06/05/22 05:17 Resp 16 06/05/22 05:17 BP 104/53 L 06/05/22 05:17 Pulse Ox 98 06/05/22 05:17 O2 Del Method Room Air 06/04/22 20:00 Allergies Allergy/AdvReac Type Severity Reaction Status Date / Time Sulfa (Sulfonamide Allergy Unknown Unknown Verified 05/29/22 11:19 Antibiotics) Home Medications Medication Instructions Recorded Confirmed Type levothyroxine 88 mcg tablet 88 mcg PO DAILY #30 tabs 10/25/21 05/28/22 Rx Centrum Silver Women 1 tablet PO DAILY 05/28/22 05/28/22 History naproxen 500 mg tablet 500 mg PO ONCE 05/28/22 05/28/22 History Laboratory Tests 06/04/22 06/04/22 06/05/22 15:32 15:32 05:35 WBC 9.2 K/mm3 K/mm3 10.0 K/mm3 K/mm3 (4.5-10.0) (4.5-10.0) RBC 3.78 M/mm3 L M/mm3 3.72 M/mm3 L M/mm3 (4.2-5.4) (4.2-5.4) Hgb 11.3 g/dL L g/dL 11.0 g/dL L g/dL (12.0-15.0) (12.0-15.0) Hct 35.7 % L % 34.3 % L % (37.0-47.0) (37.0-47.0) MCV 94.4 fl fl 92.2 fl fl (80-100) (80-100) MCH 29.9 pg pg 29.6 pg pg (26-34) (26-34) MCHC 31.7 g/dl L g/dl 32.1 g/dl g/dl (32-36) (32-36) RDW 13.7 % % 13.8 % % (11.5-14.5) (11.5-14.5) Plt Count 365 k/mm3 k/mm3 355 k/mm3 k/mm3 (150-375) (150-375) MPV 11.2 fl H fl 11.8 fl H fl (7.4-10.4) (7.4-10.4) Immature Gran % (Auto) 0.4 % % 0.5 % % (0-0.5) (0-0.5) Neut % (Auto) 71.1 % % 71.4 % % (45.5-73.1) (45.5-73.1) Lymph % (Auto) 16.2 % L % 15.3 % L % (18.3-44.2) (18.3-44.2) [place] % (Auto) 7.2 % % 7.3 % % (2.6-8.5) (2.6-8.5) Eos % (Auto) 4.3 % % 4.7 % H % (0-4.4) (0-4.4) Baso % (Auto) 0.8 % % 0.8 % % (0.2-1.2) (0.2-1.2) Lymph # (Auto) 1.49 K/mm3 K/mm3 1.53 K/mm3 K/mm3 (0.9-3.2) (0.9-3.2) [place] # (Auto) 0.7 K/mm3 H K/mm3 0.7 K/mm3 H K/mm3 (0.1-0.6) (0.1-0.6) Eos # (Auto) 0.4 K/mm3 H K/mm3 0.5 K/mm3 H K/mm3 (0-0.3) (0-0.3) Baso # (Auto) 0.1 K/mm3 K/mm3 0.1 K/mm3 K/mm3 (0.0-0.1) (0.0-0.1) Abs Immat Gran (auto) 0.04 K/mm3 H K/mm3 0.05 K/mm3 H K/mm3 (0.00-0.031) (0.00-0.031) Absolute Neuts (auto) 6.6 K/mm3 K/mm3 7.1 K/mm3 H K/mm3 (1.3-6.7) (1.3-6.7) Absolute Nucleated RBC 0.0 K/mm3 K/mm3 0.0 K/mm3 K/mm3 (0.0-0.012) (0.0-0.012) Nucleated RBC % 0.0 % % 0.0 % % (0.0-0.2) (0.0-0.2) Sodium 136 mmol/L L mmol/L (137-145) Potassium 4.4 mmol/L mmol/L (3.4-5.0) Chloride 100 mmol/L mmol/L (98-107) Carbon Dioxide 30 mmol/L mmol/L (22-30) Anion Gap 6 mmol/L L mmol/L (8-16) BUN 20 mg/dL H mg/dL (7-17) Creatinine 0.60 mg/dL L mg/dL (0.7-1.0) Estim Creat Clear Calc 53 ml/min ml/min Estimated GFR > 60 (59 - ) Glucose 110 mg/dL mg/dL (65-110) Calcium 8.7 mg/dL mg/dL (8.4-10.2) Total Bilirubin 0.3 mg/dL mg/dL (0.2-1.3) AST 24 U/L U/L (14-36) ALT 11 U/L U/L (6-35) Alkaline Phosphatase 71 U/L U/L (38-126) Total Protein 7.0 g/dL g/dL (6.3-8.2) Albumin 3.9 g/dL g/dL (3.5-5.1) 06/05/22 05:35 WBC RBC Hgb Hct MCV MCH MCHC RDW Plt Count MPV Immature Gran % (Auto) Neut % (Auto) Lymph % (Auto) [place] % (Auto) Eos % (Auto) Baso % (Auto) Lymph # (Auto) [place] # (Auto) Eos # (Auto) Baso # (Auto) Abs Immat Gran (auto
[2022-06-05] MEDS: BUPIVACAINE HCL 0.5% PF 30 ML VIAL INFILTRATE (13:56)
[2022-06-05] MEDS: VANCOMYCIN HCL 1,000 MG VIAL 1000 MG TOPICAL (13:57)
[2022-06-05] MEDS: LACTATED RINGERS 1,000 ML 30 ML IV CONT (14:10)
--- NOTE | 2022-06-05 14:17 | W.PM.PROC2 ---
Procedure Note - Detailed Date of Procedure 06/05/22 Pre-op Diagnosis Cellulitis right lower extremity Abscess, foot ulcer Post-op Diagnosis Same Procedure Performed Debridement right leg abscess, excisional debridement of right foot ulcer to muscle layer. Surgeon Lazaro Cain MD Er Tech assistant maintenance manager Anesthesia General Indications 77-year-old woman with a right foot ulcer that developed cellulitis of the right leg. Subsequently developed area of fluctuance over the lower leg. MRI demonstrates abscess with fluid. Presents for operative treatment. Findings Distal tibia medial lower leg abscess with purulence. Medial foot ulcer 1 x 1.9 cm cm depth. No exposure bone or tendon. Description of Procedure Patient identified in the preoperative holding. Informed consent given. Operative extremity marked. Patient received intravenous antibiotics. Patient brought to the operating room where underwent general anesthetic by anesthesia team. Positioned supine on operating room table. Time-out performed confirming the patient, site of the surgery and the plan. right leg and foot prepped draped usual sterile surgical fashion using a Betadine prep solution. The abscess was addressed 1st. There was area of fluctuance over the distal anteromedial lower leg approximately 10 cm above the ankle joint. Local anesthetic with 0.5% Marcaine. Fifteen blade knife used to make a longitudinal incision medial to the anterior border of the of the tibia but lateral to the fluctuance. This was deepened through the fascia and immediately purulent material was encountered. Cultures and Gram stain were taken and sent purulent material suctioned. Debrided with a curette and thoroughly irrigated with antibiotic solution. Wound was then packed open with iodoform gauze and a sterile dressing. The ulcer over the medial foot was then addressed. This was measured and noted to be 1 x 1.1 cm. There is exposed muscle. Fifteen blade knife, rongeur and curette used to sharply excised and passed off devitalized nonviable tissue. Wound then thoroughly irrigated antibiotic solution. Sterile dressing applied. The patient was then woken from anesthesia, extubated and taken to the recovery room in stable condition. All sponge, needle, instrument counts were correct at the end of the case. Implants None Estimated Blood Loss 20 Tourniquet Time 0 Urine Output 300 Drains No Packing Yes Pathology Yes ( g stain and cultures) Complications None Condition Stable Disposition PACU
--- NOTE | 2022-06-05 15:30 | PC.NURSE ---
Patient returned from OR per bed 06/05/22 [id number].
[2022-06-05] MEDS: MULTIVITAMINS THERAPEUTIC TAB (*BKC) 1 TABLET PO (17:11)
[2022-06-05] MEDS: SENNA/DOCUSATE SODIUM TABLET 2 TAB PO (17:12)
[2022-06-06 00:05] VITALS: BP 107/57; PULSE 74; RESP 18; TEMP 36.9; O2SAT 99
[2022-06-06] MEDS: ceFAZolin 2 GM/D5W 50 ML 2 GM/50 ML BAG IVPB ×3 (05:20→21:49)
[2022-06-06] MEDS: LEVOTHYROXINE SODIUM 88 MCG TABLET PO (05:24)
[2022-06-06 05:34] LABS: Basophils Absolute Auto 0.1 K/mm3 (0.0-0.1); Basophils Percent Auto 0.6 % (0.2-1.2); Eosinophils Absolute Auto 0.2 K/mm3 (0-0.3); Eosinophils Percent Auto 1.7 % (0-4.4); Hematocrit 30.7 % (37.0-47.0); Hemoglobin 10.2 g/dL (12.0-15.0); Immature Granulocyte Absolute 0.04 K/mm3 (0.00-0.031); Immature Granulocyte Percent A 0.4 % (0-0.5); Lymphocytes Absolute Auto 1.38 K/mm3 (0.9-3.2); Lymphocytes Percent Auto 15.4 % (18.3-44.2); Mean Corpuscular HGB Conc 33.2 g/dl (32-36); Mean Corpuscular Hemoglobin 30.2 pg (26-34); Mean Corpuscular Volume 90.8 fl (80-100); Mean Platelet Volume 11.4 fl (7.4-10.4); Monocytes Absolute Auto 0.7 K/mm3 (0.1-0.6); Monocytes Percent Auto 7.6 % (2.6-8.5); Neutrophils Absolute Auto 6.7 K/mm3 (1.3-6.7); Neutrophils Percent Auto 74.3 % (45.5-73.1); Platelet Count Result 333 k/mm3 (150-375); Red Blood Count 3.38 M/mm3 (4.2-5.4); Red Cell Distribution Width 13.7 % (11.5-14.5)
[2022-06-06 05:44] LABS: Alanine Aminotransferase 10 U/L (6-35); Albumin Level 3.5 g/dL (3.5-5.1); Alkaline Phosphatase 70 U/L (38-126); Anion Gap 4 mmol/L (8-16); Aspartate Amino Transferase 21 U/L (14-36); Bilirubin,Total 0.3 mg/dL (0.2-1.3); Blood Urea Nitrogen 19 mg/dL (7-17); Calcium 8.6 mg/dL (8.4-10.2); Carbon Dioxide 31 mmol/L (22-30); Chloride 101 mmol/L (98-107); Estimated CRCL calculation 53 ml/min; Estimated Glomerular Filt Rate > 60; Glucose 89 mg/dL (65-110); Potassium 4.1 mmol/L (3.4-5.0); Sodium 136 mmol/L (137-145)
[2022-06-06 05:50] VITALS: BP 112/49; PULSE 78; RESP 16; TEMP 36.9; O2SAT 100
--- NOTE | 2022-06-06 08:17 | PM.PNORT ---
Progress Note: A&P Assessment and Plan (1) Abscess of right lower leg: Code(s): L02.415 - Cutaneous abscess of right lower limb Status: Acute Assessment and Plan: Postoperative day 1 I and D right leg abscess. Overall improved. Cultures pending. Dressing changes with gauze iodoform packing. Postoperative shoe when up. Sent order to [facility] for adjustment of brace. (2) Wound of right foot: Code(s): S91.301A - Unspecified open wound, right foot, initial encounter Status: Acute Assessment and Plan: Overall improved. Continue dressing changes and antibiotics. Subjective Subjective Date/Time Seen: 06/06/22 08:17 Post Op day: 1 Principal diagnosis: Right leg abscess, right foot ulcer Interval history: patient awake and alert. No complaints overnight. Details of surgery reviewed with patient. Exam Const: General: comfortable, no acute distress and awake Orientation/consciousness: patient oriented x3 Resp: Effort & Inspection: no respiratory distress Extrem: Right upper extremity: normal to inspection Left upper extremity: normal to inspection Right lower extremity: full ROM, normal capillary refill, edema Details: pitting and 3+ and foot ( Calcaneovalgus deformity of the right foot, history of polio.) Details: normal capillary refill and vascular exam Details: dorsalis pedis pulse present and posterior tibial pulse present Left lower extremity: normal to inspection Other: Right lower extremity Dressing changed. Erythema improved. Swelling improved. Open wound from abscess gauze packing removed and reapplied. Foot ulcer improved. Psych: Mental Status: mental status grossly normal Attitude: cooperative Objective Data Vital Signs Vital Signs: Vital Signs - 24 hr 06/05/22 12:40 06/05/22 14:10 06/05/22 14:25 Temperature 97.7 F 97.1 F L Pulse Rate 79 64 61 Respiratory Rate 16 14 12 Blood Pressure 143/55 H 134/64 114/52 L Pulse Oximetry 100 100 100 Oxygen Delivery Room Air Simple Face Mask Simple Face Mask Oxygen Flow Rate 8 8 06/05/22 14:40 06/05/22 14:55 06/05/22 15:10 Temperature Pulse Rate 69 73 73 Respiratory Rate 14 16 14 Blood Pressure 142/59 H 151/68 H 137/56 L Pulse Oximetry 100 100 100 Oxygen Delivery Simple Face Mask Room Air Room Air Oxygen Flow Rate 8 06/05/22 15:25 06/05/22 15:40 06/05/22 16:15 Temperature 97.4 F L 97.5 F L 98.0 F Pulse Rate 72 76 72 Respiratory Rate 14 14 16 Blood Pressure 154/65 H 149/62 H 136/59 L Pulse Oximetry 97 99 100 Oxygen Delivery Oxygen Flow Rate 06/05/22 18:41 06/05/22 20:13 06/05/22 20:00 Temperature 97.8 F 98.2 F Pulse Rate 87 81 82 Respiratory Rate 16 16 18 Blood Pressure 119/47 L 100/57 L Pulse Oximetry 100 95 96 Oxygen Delivery Room Air Oxygen Flow Rate 06/06/22 00:05 06/06/22 05:50 Temperature 98.4 F 98.4 F Pulse Rate 74 78 Respiratory Rate 18 16 Blood Pressure 107/57 L 112/49 L Pulse Oximetry 99 100 Oxygen Delivery Oxygen Flow Rate Intake/Output Intake/Output: Intake & Output 06/03/22 06/04/22 06/05/22 06/06/22 23:59 23:59 23:59 23:59 Intake Total 3196 905 8285 400 Output Total 1050 1100 1350 650 Balance 730 -250 -300 -250 Meds/Results Medications: Active Medications Generic Name Dose Route Start Last Admin Trade Name Freq PRN Reason Stop Dose Admin Acetaminophen 650 mg 05/28/22 23:44 05/31/22 22:06 Acetaminophen 325 Mg Tablet PO 650 mg Q6H PRN Administration Mild Pain (1-3) or Fever Hydrocodone Bitart/Acetaminophen 1 tab 06/05/22 15:12 Hydrocodone/Acetaminophen (*Crx) 5-325 Mg Tablet PO Q3H PRN Pain Rated 4-6 Cefazolin Sodium 2 gm in 50 mls @ 100 mls/hr 06/01/22 22:00 06/06/22 05:50 Ancef 2 Gm/D5w 50 Ml IVPB Infused Q8H AMANDA Infusion Levothyroxine Sodium 88 mcg 05/29/22 06:30 06/06/22 05:24 Levothyroxine Sodium 88 Mcg Tablet PO 88 mcg DAILY@0630 [facility] Administration M
--- NOTE | 2022-06-06 08:51 | PCNWS ---
Weekly nutritional screen. Patient is tolerating current diet with adequate intake. No weight loss reported. No nutritional needs at this time.
[2022-06-06] MEDS: SENNA/DOCUSATE SODIUM TABLET 2 TAB PO ×2 (08:52→16:39)
[2022-06-06] MEDS: polyethylene glycoL 3350 17 GM POWD.PACK PO (08:52)
[2022-06-06] MEDS: MULTIVITAMINS THERAPEUTIC TAB (*BKC) 1 TABLET PO (08:52)
--- NOTE | 2022-06-06 09:20 | PCOTNOTE ---
Attempted to see pt. for occupational therapy evaluation. OT ordered pt. post-op shoe and contacted with wound care regarding coverage of remaining ankle and heal wound, nursing aware. Awaiting arrival of post-op shoe and follow regarding wound coverage prior to re-evaluation of patient. Nursing aware. Following.
--- NOTE | 2022-06-06 10:43 | PM.IMPN ---
Progress Note: A&P Assessment and Plan (1) Cellulitis of right foot: Code(s): L03.115 - Cellulitis of right lower limb Status: Acute Assessment and Plan: MRI showed abscess, Postop day 1 from debridement of right leg abscess with excisional debridement of right foot ulcer to muscle air (2) Wound of right foot: Code(s): S91.301A - Unspecified open wound, right foot, initial encounter Status: Acute Assessment and Plan: continue IV antibiotics and wound care currently on Ancef based on wound culture, all blood cultures negative, will continue this for now (3) Chronic anemia: Code(s): D64.9 - Anemia, unspecified Status: Acute Assessment and Plan: stable, monitor (4) Hypothyroidism: Code(s): E03.9 - Hypothyroidism, unspecified Status: Acute Assessment and Plan: continue levothyroxine, stable Plan DVT prophylaxis with Lovenox GI prophylaxis not indicated Code status full code Subjective Date/time seen: 06/06/22 10:43 Interval history: No overnight events noted. No chest pain or shortness of breath. No nausea, vomiting or diarrhea. No fevers or chills. Pain controlled, no complaints. Review of Systems Review of Systems: 12 point review of systems was assessed and was negative except as noted in the HPI Exam Narrative: General: No acute distress, alert and oriented per baseline HEENT: Atraumatic, normocephalic, mucous membranes moist CV: Regular rate and rhythm, S1, S2 Lungs: Clear to auscultation bilaterally, no rales or crackles noted, no wheezes, good air entry Abdomen: Soft, nontender, nondistended Extremities: Erythematous area with edema noted over small area in the distal anterior tibial area, exquisitely tender to palpation, good pedal pulses bilaterally, bandages with serosanguineous drainage noted Skin: No rashes noted, no lesions or wounds seen Psych: Euthymic, normal affect Objective Data Vital Signs Vital Signs: Vital Signs - 24 hr 06/05/22 12:40 06/05/22 14:10 06/05/22 14:25 Temperature 97.7 F 97.1 F L Pulse Rate 79 64 61 Respiratory Rate 16 14 12 Blood Pressure 143/55 H 134/64 114/52 L Pulse Oximetry 100 100 100 Oxygen Delivery Room Air Simple Face Mask Simple Face Mask Oxygen Flow Rate 8 8 06/05/22 14:40 06/05/22 14:55 06/05/22 15:10 Temperature Pulse Rate 69 73 73 Respiratory Rate 14 16 14 Blood Pressure 142/59 H 151/68 H 137/56 L Pulse Oximetry 100 100 100 Oxygen Delivery Simple Face Mask Room Air Room Air Oxygen Flow Rate 8 06/05/22 15:25 06/05/22 15:40 06/05/22 16:15 Temperature 97.4 F L 97.5 F L 98.0 F Pulse Rate 72 76 72 Respiratory Rate 14 14 16 Blood Pressure 154/65 H 149/62 H 136/59 L Pulse Oximetry 97 99 100 Oxygen Delivery Oxygen Flow Rate 06/05/22 18:41 06/05/22 20:13 06/05/22 20:00 Temperature 97.8 F 98.2 F Pulse Rate 87 81 82 Respiratory Rate 16 16 18 Blood Pressure 119/47 L 100/57 L Pulse Oximetry 100 95 96 Oxygen Delivery Room Air Oxygen Flow Rate 06/06/22 00:05 06/06/22 05:50 06/06/22 08:56 Temperature 98.4 F 98.4 F Pulse Rate 74 78 Respiratory Rate 18 16 Blood Pressure 107/57 L 112/49 L Pulse Oximetry 99 100 Oxygen Delivery Room Air Oxygen Flow Rate Intake/Output Intake/Output: Intake & Output 06/03/22 06/04/22 06/05/22 06/06/22 23:59 23:59 23:59 23:59 Intake Total 6930 618 1789 760 Output Total 1050 1100 1350 650 Balance 730 -250 -300 110 Meds/Results Medications: Active Medications Generic Name Dose Route Start Last Admin Trade Name Freq PRN Reason Stop Dose Admin Acetaminophen 650 mg 05/28/22 23:44 05/31/22 22:06 Acetaminophen 325 Mg Tablet PO 650 mg Q6H PRN Administration Mild Pain (1-3) or Fever Hydrocodone Bitart/Acetaminophen 1 tab 06/05/22 15:12 Hydrocodone/Acetaminophen (*Crx) 5-325 Mg Tablet PO Q3H PRN Pain Rated 4-6 Cefazolin Sodium 2 gm in 50 mls
[2022-06-06 14:26] VITALS: BP 127/48; PULSE 80; RESP 14; O2SAT 100
--- NOTE | 2022-06-06 14:37 | WPDANESPN ---
Anes - Prog Note Post-Op Date/Time: 06/06/22 14:37 Vital Signs: Last Vital Signs Temp 36.9 C 06/06/22 05:50 Pulse 78 06/06/22 05:50 Resp 16 06/06/22 05:50 BP 112/49 L 06/06/22 05:50 Pulse Ox 100 06/06/22 05:50 O2 Del Method Room Air 06/06/22 08:56 O2 Flow Rate 8 06/05/22 14:40 Pain Score (VAS): 0 I/O: Intake & Output 06/05/22 06/06/22 06/06/22 23:59 07:59 15:59 Intake Total 350 400 360 Output Total 250 650 Balance 100 -250 360 Laboratory Tests 06/06/22 04:51 06/06/22 04:51 06/06/22 06/06/22 04:51 04:51 WBC 9.0 RBC 3.38 L Hgb 10.2 L Hct 30.7 L MCV 90.8 MCH 30.2 MCHC 33.2 RDW 13.7 Plt Count 333 MPV 11.4 H Immature Gran % (Auto) 0.4 Neut % (Auto) 74.3 H Lymph % (Auto) 15.4 L [place] % (Auto) 7.6 Eos % (Auto) 1.7 Baso % (Auto) 0.6 Lymph # (Auto) 1.38 [place] # (Auto) 0.7 H Eos # (Auto) 0.2 Baso # (Auto) 0.1 Abs Immat Gran (auto) 0.04 H Absolute Neuts (auto) 6.7 Absolute Nucleated RBC 0.0 Nucleated RBC % 0.0 Sodium 136 L Potassium 4.1 Chloride 101 Carbon Dioxide 31 H Anion Gap 4 L BUN 19 H Creatinine 0.60 L Estim Creat Clear Calc 53 Estimated GFR > 60 Glucose 89 Calcium 8.6 Total Bilirubin 0.3 AST 21 ALT 10 Alkaline Phosphatase 70 Total Protein 7.0 Albumin 3.5 Microbiology 06/05/22 14:00 Ankle Right Anaerobic Culture - Preliminary 06/05/22 14:00 Ankle Right Gram Stain - Final Patient Feedback: Patient satisfied with anesthetic care.
[2022-06-06 22:00] VITALS: BP 93/68; PULSE 78; RESP 16; TEMP 36.6; O2SAT 98
[2022-06-07 01:51] VITALS: BP 125/52; PULSE 78; RESP 16; TEMP 36.4; O2SAT 98
[2022-06-07 05:39] LABS: Basophils Absolute Auto 0.1 K/mm3 (0.0-0.1); Basophils Percent Auto 1.1 % (0.2-1.2); Eosinophils Absolute Auto 0.3 K/mm3 (0-0.3); Eosinophils Percent Auto 3.9 % (0-4.4); Hematocrit 30.6 % (37.0-47.0); Immature Granulocyte Absolute 0.03 K/mm3 (0.00-0.031); Immature Granulocyte Percent A 0.4 % (0-0.5); Lymphocytes Absolute Auto 1.44 K/mm3 (0.9-3.2); Mean Corpuscular HGB Conc 32.7 g/dl (32-36); Mean Corpuscular Hemoglobin 29.7 pg (26-34); Mean Corpuscular Volume 90.8 fl (80-100); Mean Platelet Volume 11.5 fl (7.4-10.4); Monocytes Absolute Auto 0.7 K/mm3 (0.1-0.6); Neutrophils Absolute Auto 5.9 K/mm3 (1.3-6.7); Neutrophils Percent Auto 69.6 % (45.5-73.1); Platelet Count Result 316 k/mm3 (150-375); Red Blood Count 3.37 M/mm3 (4.2-5.4); Red Cell Distribution Width 13.9 % (11.5-14.5); White Blood Count 8.5 K/mm3 (4.5-10.0)
[2022-06-07 06:00] VITALS: BP 130/58; PULSE 76; RESP 14; TEMP 36.4; O2SAT 100
[2022-06-07 06:02] LABS: Alanine Aminotransferase 10 U/L (6-35); Albumin Level 3.5 g/dL (3.5-5.1); Alkaline Phosphatase 61 U/L (38-126); Anion Gap 3 mmol/L (8-16); Aspartate Amino Transferase 26 U/L (14-36); Bilirubin,Total 0.3 mg/dL (0.2-1.3); Blood Urea Nitrogen 19 mg/dL (7-17); Calcium 8.7 mg/dL (8.4-10.2); Carbon Dioxide 31 mmol/L (22-30); Chloride 101 mmol/L (98-107); Estimated CRCL calculation 46 ml/min; Estimated Glomerular Filt Rate > 60; Glucose 95 mg/dL (65-110); Potassium 4.1 mmol/L (3.4-5.0); Sodium 135 mmol/L (137-145)
[2022-06-07] MEDS: LEVOTHYROXINE SODIUM 88 MCG TABLET PO (06:21)
[2022-06-07] MEDS: CEPHALEXIN 500 MG CAPSULE PO ×2 (06:21→12:27)
[2022-06-07 08:00] VITALS: O2SAT 98
[2022-06-07] MEDS: MULTIVITAMINS THERAPEUTIC TAB (*BKC) 1 TABLET PO (08:17)
[2022-06-07] MEDS: SENNA/DOCUSATE SODIUM TABLET 2 TAB PO (08:17)
[2022-06-07] MEDS: polyethylene glycoL 3350 17 GM POWD.PACK PO (08:18)
--- NOTE | 2022-06-07 08:36 | PM.DS ---
DS: Admitting Diagnosis Discharge Date 06/07/2022 Admitting Diagnosis Rash on leg DS: Discharge Diagnosis Discharge Diagnosis (1) Cellulitis of right foot: Code(s): L03.115 - Cellulitis of right lower limb Status: Acute Assessment and Plan: MRI showed abscess, Postop day 1 from debridement of right leg abscess with excisional debridement of right foot ulcer to muscle air (2) Wound of right foot: Code(s): S91.301A - Unspecified open wound, right foot, initial encounter Status: Acute Assessment and Plan: continue IV antibiotics and wound care currently on Ancef based on wound culture, all blood cultures negative, will continue this for now (3) Chronic anemia: Code(s): D64.9 - Anemia, unspecified Status: Acute Assessment and Plan: stable, monitor (4) Hypothyroidism: Code(s): E03.9 - Hypothyroidism, unspecified Status: Acute Assessment and Plan: continue levothyroxine, stable Plan DVT prophylaxis with Lovenox GI prophylaxis not indicated Code status full code DS: Summary Hospital Course Hospital Course: 77-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 Within the last month or so she got a new brace for her right leg and she developed a small sore on the right medial foot a week or so ago. She has also developed increasing swelling and redness around the area which is now tracking up to the calf. Of note she was admitted with cellulitis a couple of months ago in the same location. At that time, she was thought to be Immunocompromised and given an infusion of IgG, bone marrow biopsy and referred to Oncology outpatient, which she still follows with. She has no known history of MRSA or Pseudomonas. She was started on vancomycin and cefepime, cultures taken. Symptoms appear to worsen and so an MRI was done. MRI showed abscess and orthopedic surgery was consulted. She was taken to the OR for drainage. Cultures came back positive for MSSA. She was de-escalated from vancomycin and cefepime to Ancef alone. At discharge, this was transitioned to Keflex to complete a 10-14 day course based on symptoms. Home health care as well as wound care was arranged at discharge. She was discharged in good condition with close outpatient follow-up by Orthopedic surgery, family Practice, oncology and wound care. Time Spent with Patient Time attestation: Total time spent providing and/or coordinating discharge services: Exam Narrative: General: No acute distress, alert and oriented per baseline HEENT: Atraumatic, normocephalic, mucous membranes moist CV: Regular rate and rhythm, S1, S2 Lungs: Clear to auscultation bilaterally, no rales or crackles noted, no wheezes, good air entry Abdomen: Soft, nontender, nondistended Extremities: Erythematous area with edema noted over small area in the distal anterior tibial area, exquisitely tender to palpation, good pedal pulses bilaterally, bandages with serosanguineous drainage noted Skin: No rashes noted, no lesions or wounds seen Psych: Euthymic, normal affect DS: Data Data Completed and Pending Labs on day of discharge: Labs from last 24 hours 06/07/22 06/07/22 05:10 05:10 WBC 8.5 RBC 3.37 L Hgb 10.0 L Hct 30.6 L MCV 90.8 MCH 29.7 MCHC 32.7 RDW 13.9 Plt Count 316 MPV 11.5 H Immature Gran % (Auto) 0.4 Neut % (Auto) 69.6 Lymph % (Auto) 17.0 L [place] % (Auto) 8.0 Eos % (Auto) 3.9 Baso % (Auto) 1.1 Lymph # (Auto) 1.44 [place] # (Auto) 0.7 H Eos # (Auto) 0.3 Baso # (Auto) 0.1 Abs Immat Gran (auto) 0.03 Absolute Neuts (auto) 5.9 Absolute Nucleated RBC 0.0 Nucleated RBC % 0.0 Sodium 135 L Potassium 4.1 Chloride 101 Carbon Dioxide 31 H Anion Gap 3 L BUN 19 H Creatinine 0.70 Estim Creat C
[2022-06-07] MEDS: ACETAMINOPHEN 325 MG TABLET 650 MG PO (11:17)
--- NOTE | 2022-06-07 12:57 | PM.PNORT ---
Progress Note: A&P Assessment and Plan (1) Abscess of right lower leg: Code(s): L02.415 - Cutaneous abscess of right lower limb Status: Acute Assessment and Plan: POD #2: I and D right leg abscess. Overall improved. Cultures showing Staph. Oral antibiotics ordered. Dressing changes with gauze iodoform packing x7 days. Follow up in [facility] wound clinic on 06/12. Postoperative shoe when up. Order previously sent to [facility] for adjustment of brace. (2) Wound of right foot: Code(s): S91.301A - Unspecified open wound, right foot, initial encounter Status: Acute Assessment and Plan: Overall improved. Continue dressing changes and antibiotics. Subjective Subjective Date/Time Seen: 06/07/22 12:57 Post Op day: 1 Principal diagnosis: Right leg abscess, right foot ulcer Interval history: Patient awake and alert. Tolerated dressing change with RN this AM well. No new concerns. Review of Systems Review of Systems: All systems reviewed & are unremarkable except as noted in HPI and below Exam Const: General: comfortable, no acute distress and awake Orientation/consciousness: patient oriented x3 Resp: Effort & Inspection: no respiratory distress Extrem: Right upper extremity: normal to inspection Left upper extremity: normal to inspection Right lower extremity: full ROM, normal capillary refill, edema Details: pitting and 3+ and foot ( Calcaneovalgus deformity of the right foot, history of polio.) Details: normal capillary refill and vascular exam Details: dorsalis pedis pulse present and posterior tibial pulse present Left lower extremity: normal to inspection Other: Right lower extremity Dressing changed. Erythema improved. Swelling improved. Open wound from abscess gauze packing removed and reapplied. Foot ulcer improved. Psych: Mental Status: mental status grossly normal Attitude: cooperative Objective Data Vital Signs Vital Signs: Vital Signs - 24 hr 06/06/22 14:32 06/06/22 14:26 06/06/22 22:00 Temperature 36.6 C Pulse Rate 80 78 Respiratory Rate 14 16 Blood Pressure 127/48 L 93/68 L Pulse Oximetry 100 98 Oxygen Delivery Room Air 06/07/22 01:51 06/07/22 06:00 06/07/22 08:00 Temperature 36.4 C 36.4 C Pulse Rate 78 76 Respiratory Rate 16 14 Blood Pressure 125/52 L 130/58 L Pulse Oximetry 98 100 98 Oxygen Delivery Room Air Intake/Output Intake/Output: Intake & Output 06/04/22 06/05/22 06/06/22 06/07/22 23:59 23:59 23:59 23:59 Intake Total 850 1050 1470 490 Output Total 1100 1350 650 700 Balance -250 -300 820 -210 Meds/Results Medications: Active Medications Generic Name Dose Route Start Last Admin Trade Name Freq PRN Reason Stop Dose Admin Acetaminophen 650 mg 05/28/22 23:44 06/07/22 11:17 Acetaminophen 325 Mg Tablet PO 650 mg Q6H PRN Administration Mild Pain (1-3) or Fever Hydrocodone Bitart/Acetaminophen 1 tab 06/05/22 15:12 Hydrocodone/Acetaminophen (*Crx) 5-325 Mg Tablet PO Q3H PRN Pain Rated 4-6 Cephalexin HCl 500 mg 06/07/22 06:00 06/07/22 12:27 Cephalexin 500 Mg Capsule PO 06/15/22 23:59 500 mg Q6HR AMANDA Administration Levothyroxine Sodium 88 mcg 05/29/22 06:30 06/07/22 06:21 Levothyroxine Sodium 88 Mcg Tablet PO 88 mcg DAILY@0630 AMANDA Administration Multivitamins Therapeutic 1 tablet 05/29/22 09:00 06/07/22 08:17 Multivitamins Therapeutic Tab (*Bkc) PO 1 tablet QAM AMANDA Administration Polyethylene Glycol 17 gm 06/06/22 09:00 06/07/22 08:18 Polyethylene Glycol 3350 17 Gm Powd.Pack PO 17 gm QAM AMANDA Administration Senna/Docusate Sodium 2 tab 06/05/22 17:00 06/07/22 08:17 Senna/Docusate Sodium Tablet PO 2 tab BID AMANDA Administration Radiology Results: ITS Impressions Ankle X-Ray 05/28/22 14:52 IMPRESSION: No acute osseous finding in the right ankle or right foot. Diffuse subcutaneous edema and soft tissue swellin
[2022-06-07 14:09] VITALS: BP 142/60; PULSE 86; RESP 18; TEMP 36.6; O2SAT 99
== END 2022-06-07 15:33 | disposition home health service (06) | DRG 572 ==
LOC: ANHED 15:53 → ANH2MED 16:50
PROVIDERS: Hospitalist; Nurse Practitioner Family; Orthopaedic Surgery; Admitting Provider Internal Medicine; Emergency Provider Emergency Medicine; PCP Family Medicine; Visit Provider Student in an Organized Health Care Education/Training Program
PROC: 0JBN0ZZ Excision of Right Lower Leg Subcutaneous Tissue and Fascia, Open Approach (ICD-10-PCS; principal; 2022-06-05 13:30)
DX: L02.415 Cutaneous abscess of right lower limb (principal); L03.115 Cellulitis of right lower limb; A49.01 Methicillin susceptible Staphylococcus aureus infection, unspecified site; L89.899 Pressure ulcer of other site, unspecified stage; Y65.8 Other specified misadventures during surgical and medical care; Y79.1 Therapeutic (nonsurgical) and rehabilitative orthopedic devices associated with adverse incidents; D64.9 Anemia, unspecified; E03.9 Hypothyroidism, unspecified; Z20.822 Contact with and (suspected) exposure to COVID-19; M81.0 Age-related osteoporosis without current pathological fracture; G14 Postpolio syndrome; M19.90 Unspecified osteoarthritis, unspecified site; M21.071 Valgus deformity, not elsewhere classified, right ankle
CPT/HCPCS: 36415; 73600; 73620; 73720; 73723; 80048; 80053; 80202; 82565; 83605; 84145; 85025; 85027; 87040; 87070; 87075; 87147; 87186; 87205; 87636; 93971; 96365; 96366; 96367; 96368; 96372; 97110; 97116; 97161; 97165; 97530; 97535; 99285; A9270; A9577; G0378; J0690; J0692; J1100; J1650; J2250; J2405; J2704; J3010; J3370; J7120

== ENCOUNTER 2022-08-01 14:31 | Outpatient (CLI) | payer OTHER, MEDICARE, SELFPAY ==
[2022-08-01 15:18] LABS: Basophils Absolute Auto 0.1 K/mm3 (0.0-0.1); Basophils Percent Auto 0.8 % (0.2-1.2); Eosinophils Absolute Auto 0.2 K/mm3 (0-0.3); Eosinophils Percent Auto 1.8 % (0-4.4); Hematocrit 38.3 % (37.0-47.0); Hemoglobin 12.5 g/dL (12.0-15.0); Immature Granulocyte Absolute 0.01 K/mm3 (0.00-0.031); Immature Granulocyte Percent A 0.1 % (0-0.5); Lymphocytes Absolute Auto 1.46 K/mm3 (0.9-3.2); Lymphocytes Percent Auto 16.3 % (18.3-44.2); Mean Corpuscular HGB Conc 32.6 g/dl (32-36); Mean Corpuscular Hemoglobin 30.9 pg (26-34); Mean Corpuscular Volume 94.8 fl (80-100); Monocytes Absolute Auto 0.6 K/mm3 (0.1-0.6); Monocytes Percent Auto 6.4 % (2.6-8.5); Neutrophils Absolute Auto 6.7 K/mm3 (1.3-6.7); Neutrophils Percent Auto 74.6 % (45.5-73.1); Platelet Count Result 243 k/mm3 (150-375); Red Blood Count 4.04 M/mm3 (4.2-5.4); Red Cell Distribution Width 13.9 % (11.5-14.5)
[2022-08-01 15:24] LABS: Blood Urea Nitrogen 23 mg/dL (8-26); Carbon Dioxide 32 mmol/L (22-30); Chloride 98 mmol/L (98-109); Estimated Glomerular Filt Rate > 60; Glucose 103 mg/dL (70-105); Ionized Calcium (POC) 1.22 mmol/L (1.11-1.31); Potassium 4.2 mmol/L (3.5-4.9); Sodium 137 mmol/L (138-146)
[2022-08-01 16:45] LABS: Alanine Aminotransferase 16 U/L (6-35); Albumin Level 4.7 g/dL (3.5-5.1); Alkaline Phosphatase 97 U/L (38-126); Anion Gap 8 mmol/L (8-16); Aspartate Amino Transferase 23 U/L (14-36); Blood Urea Nitrogen 23 mg/dL (7-17); Calcium 9.8 mg/dL (8.4-10.2); Carbon Dioxide 30 mmol/L (22-30); Chloride 97 mmol/L (98-107); Estimated Glomerular Filt Rate > 60; Glucose 104 mg/dL (65-110); Potassium 4.3 mmol/L (3.4-5.0); Sodium 135 mmol/L (137-145)
== END 2022-08-01 14:32 | disposition home or self-care (01) ==
LOC: ANHLAB 14:33
PROVIDERS: PCP Family Medicine; Visit Provider Internal Medicine Hematology & Oncology
DX: D80.9 Immunodeficiency with predominantly antibody defects, unspecified (principal)
CPT/HCPCS: 36415; 80047; 80053; 85025

== ENCOUNTER 2022-08-28 08:07 | Outpatient (RCR) | payer OTHER, MEDICARE, SELFPAY ==
--- NOTE | 2022-06-12 08:27 | PM.PNORT ---
Progress Note: A&P Assessment and Plan (1) Abscess of right lower leg: Code(s): L02.415 - Cutaneous abscess of right lower limb Status: Acute Assessment and Plan: Seventeen days status post I and D of right leg abscess. Overall dimensions improving. No signs of infection. Continue with daily wound packing with iodoform gauze and gauze wrap. May start to wash. Continue with edema control. Light gauze covering for the foot ulcer. Plan to return to work June 18 with light activity. Follow-up in wound clinic in 2 weeks. Needs to make appointment for brace modification. (2) Wound of right foot: Code(s): S91.301A - Unspecified open wound, right foot, initial encounter Status: Acute Subjective Subjective Date/Time Seen: 06/12/22 08:27 Post Op day: 17 Principal diagnosis: Right leg abscess, right foot ulcer Interval history: follow-up [facility] for right leg. Patient is doing wound packing and dressing changes daily. No new complaints. Exam Const: General: comfortable, no acute distress and awake Orientation/consciousness: patient oriented x3 Resp: Effort & Inspection: no respiratory distress Extrem: Right upper extremity: normal to inspection Left upper extremity: normal to inspection Right lower extremity: full ROM, normal capillary refill, edema Details: pitting and 3+ and foot ( Calcaneovalgus deformity of the right foot, history of polio.) Details: normal capillary refill and vascular exam Details: dorsalis pedis pulse present and posterior tibial pulse present Left lower extremity: normal to inspection Other: Right lower extremity dressing changed. Erythema improved. Swelling improved. Open wound from abscess gauze packing removed and reapplied. Foot ulcer improved. Right leg abscess 1.5 X 0.6 cm with 1.3 cm depth. No drainage. The undermining has improved. Right foot ulcer 0.5 x 0.5 cm with no depth or drainage. Psych: Mental Status: mental status grossly normal Attitude: cooperative [facility] Follow-up Hospital Follow-up: [id number] Post-op Follow Up
[2022-06-12 09:56] VITALS: BMI 22.6
--- NOTE | 2022-06-26 09:37 | PM.PNORT ---
Progress Note: A&P Assessment and Plan (1) Abscess of right lower leg: Code(s): L02.415 - Cutaneous abscess of right lower limb Status: Acute Assessment and Plan: 3 weeks s/p I and D of right leg abscess. Overall dimensions improving. No signs of infection. Continue with daily wound packing with iodoform gauze and gauze wrap. Continue with edema control. Light gauze covering for the foot ulcer. Brace modifications made. Await transition back to brace until wound fully closed. Follow up in 2 weeks. (2) Wound of right foot: Code(s): S91.301A - Unspecified open wound, right foot, initial encounter Status: Acute Subjective Subjective Date/Time Seen: 06/26/22 09:37 Principal diagnosis: Right leg abscess, right foot ulcer Interval history: 3 weeks s/p debridement right leg abscess by Dr. Cain. Patient is doing wound packing and dressing changes daily. No new complaints. Review of Systems Review of Systems: All systems reviewed & are unremarkable except as noted in HPI and below Exam Const: General: comfortable, no acute distress and awake Orientation/consciousness: patient oriented x3 Resp: Effort & Inspection: no respiratory distress Extrem: Right upper extremity: normal to inspection Left upper extremity: normal to inspection Right lower extremity: full ROM, normal capillary refill, edema Details: pitting and 3+ and foot ( Calcaneovalgus deformity of the right foot, history of polio.) Details: normal capillary refill and vascular exam Details: dorsalis pedis pulse present and posterior tibial pulse present Left lower extremity: normal to inspection Other: Right lower extremity dressing changed. Erythema resolved. Swelling resolved. Open wound from abscess gauze packing removed and reapplied. Foot ulcer improved. Right leg abscess 0.8x0.4x0.7cm depth. No drainage. The undermining has improved. Right foot ulcer closed. Psych: Mental Status: mental status grossly normal Attitude: cooperative
--- NOTE | 2022-07-10 09:04 | PM.PNORT ---
Progress Note: A&P Assessment and Plan (1) Abscess of right lower leg: Code(s): L02.415 - Cutaneous abscess of right lower limb Status: Acute Assessment and Plan: 5 weeks s/p I and D of right leg abscess. Overall dimensions with stalled improvement. No signs of infection. Recommended transitioning to daily dressing changes with kalli, silver gel and cover dry. Patient would likely benefit from Amnioexcel graft application to expedite wound healing. Brace modifications made. Await transition back to brace until wound fully closed. Follow up in 2 weeks. (2) Wound of right foot: Code(s): S91.301A - Unspecified open wound, right foot, initial encounter Status: Acute Subjective Subjective Date/Time Seen: 07/10/22 09:04 Principal diagnosis: Right leg abscess, right foot ulcer Interval history: 5 weeks s/p debridement right leg abscess by Dr. Cain. Patient is doing wound packing and dressing changes daily. No new complaints. Review of Systems Review of Systems: All systems reviewed & are unremarkable except as noted in HPI and below Exam Const: General: comfortable, no acute distress and awake Orientation/consciousness: patient oriented x3 Resp: Effort & Inspection: no respiratory distress Extrem: Right upper extremity: normal to inspection Left upper extremity: normal to inspection Right lower extremity: full ROM, normal capillary refill, edema Details: pitting and 3+ and foot ( Calcaneovalgus deformity of the right foot, history of polio.) Details: normal capillary refill and vascular exam Details: dorsalis pedis pulse present and posterior tibial pulse present Left lower extremity: normal to inspection Other: Right lower extremity dressing changed. Erythema resolved. Swelling resolved. Open wound from abscess gauze packing removed and reapplied. Foot ulcer improved. Right leg abscess 1.4x0.4x0.6 cm depth. No drainage. The undermining has improved. Right foot ulcer closed. Psych: Mental Status: mental status grossly normal Attitude: cooperative
--- NOTE | 2022-07-17 08:35 | PM.PNORT ---
Progress Note: A&P Assessment and Plan (1) Abscess of right lower leg: Code(s): L02.415 - Cutaneous abscess of right lower limb Status: Acute Assessment and Plan: 6 weeks s/p I and D of right leg abscess. Overall dimensions with mild improvement. No signs of infection. Continue daily dressing changes with kalli, silver gel and cover dry. Patient would benefit from Amnioexcel graft application to expedite wound healing, awaiting insurance authorization at this time. Brace modifications made. Await transition back to brace until wound fully closed. Follow up in 2 weeks. (2) Wound of right foot: Code(s): S91.301A - Unspecified open wound, right foot, initial encounter Status: Acute Subjective Subjective Date/Time Seen: 07/17/22 08:35 Principal diagnosis: Right leg abscess, right foot ulcer Interval history: 6 weeks s/p debridement right leg abscess by Dr. Cain. Patient is doing dressing changes daily. No new complaints. Review of Systems Review of Systems: All systems reviewed & are unremarkable except as noted in HPI and below Exam Const: General: comfortable, no acute distress and awake Orientation/consciousness: patient oriented x3 Resp: Effort & Inspection: no respiratory distress Extrem: Right upper extremity: normal to inspection Left upper extremity: normal to inspection Right lower extremity: full ROM, normal capillary refill, edema Details: pitting and 3+ and foot ( Calcaneovalgus deformity of the right foot, history of polio.) Details: normal capillary refill and vascular exam Details: dorsalis pedis pulse present and posterior tibial pulse present Left lower extremity: normal to inspection Other: Right lower extremity dressing changed. Erythema resolved. Swelling- mild today. Open wound from abscess measures 1.3x0.6x0.5cm, 100% red/pink wound bed. No signs of active infection. Right foot ulcer closed. Psych: Mental Status: mental status grossly normal Attitude: cooperative Objective Data Meds/Results Medications: Active Medications Generic Name Dose Route Start Last Admin Trade Name Freq PRN Reason Stop Dose Admin Silver Nitrate 1 applic 07/10/22 10:24 Silvergel (Elta) 45 Ml TOPICAL 10/07/22 23:55 PRN PRN Wound Care
--- NOTE | 2022-07-31 08:36 | PM.PNORT ---
Progress Note: A&P Assessment and Plan (1) Abscess of right lower leg: Code(s): L02.415 - Cutaneous abscess of right lower limb Status: Acute Assessment and Plan: 8 weeks s/p I and D of right leg abscess. Overall dimensions with continued improvement. No signs of infection. Continue daily dressing changes with kalli, silver gel and cover dry. Brace modifications made. Await transition back to brace until wound fully closed. Follow up in 2 weeks. (2) Wound of right foot: Code(s): S91.301A - Unspecified open wound, right foot, initial encounter Status: Acute Subjective Subjective Date/Time Seen: 07/31/22 08:36 Principal diagnosis: Right leg abscess, right foot ulcer Interval history: 8 weeks s/p debridement right leg abscess by Dr. Cain. Patient is doing dressing changes daily. No new complaints. Review of Systems Review of Systems: All systems reviewed & are unremarkable except as noted in HPI and below Exam Const: General: comfortable, no acute distress and awake Orientation/consciousness: patient oriented x3 Resp: Effort & Inspection: no respiratory distress Extrem: Right upper extremity: normal to inspection Left upper extremity: normal to inspection Right lower extremity: full ROM, normal capillary refill, edema Details: pitting and 3+ and foot ( Calcaneovalgus deformity of the right foot, history of polio.) Details: normal capillary refill and vascular exam Details: dorsalis pedis pulse present and posterior tibial pulse present Left lower extremity: normal to inspection Other: Right lower extremity dressing changed. Erythema resolved. Swelling, mild today. Open wound from abscess measures 0.7x0.3x0.3 cm, 100% red/pink wound bed. No signs of active infection. Right foot ulcer closed. Psych: Mental Status: mental status grossly normal Attitude: cooperative Objective Data Meds/Results Medications: Active Medications Generic Name Dose Route Start Last Admin Trade Name Freq PRN Reason Stop Dose Admin Silver Nitrate 1 applic 07/10/22 10:24 Silvergel (Elta) 45 Ml TOPICAL 10/07/22 23:55 PRN PRN Wound Care
--- NOTE | 2022-08-14 08:28 | PM.PNORT ---
Progress Note: A&P Assessment and Plan (1) Abscess of right lower leg: Code(s): L02.415 - Cutaneous abscess of right lower limb Status: Acute Assessment and Plan: 10 weeks s/p I and D of right leg abscess. Overall dimensions with continued improvement. No signs of infection. Continue daily dressing changes with kalli, silver gel and cover dry. Brace modifications made. Await transition back to brace until wound fully closed. Follow up in 2 weeks. (2) Wound of right foot: Code(s): S91.301A - Unspecified open wound, right foot, initial encounter Status: Acute (3) Left knee DJD: Qualifiers: Osteoarthritis type: primary Qualified Code(s): M17.12 - Unilateral primary osteoarthritis, left knee Code(s): M17.12 - Unilateral primary osteoarthritis, left knee Status: Acute Assessment and Plan: Improved with cortisone injection. Patient notes about 80% improvement. Continue with activity modifications. Subjective Subjective Date/Time Seen: 08/14/22 08:28 Post Op day: 10 weeks Principal diagnosis: Right leg abscess, right foot ulcer Interval history: 10 weeks s/p debridement right leg abscess. Patient is doing dressing changes daily. No new complaints. left knee pain improved after injection 12 days ago. Exam Const: General: comfortable, no acute distress and awake Orientation/consciousness: patient oriented x3 Resp: Effort & Inspection: no respiratory distress Neuro: General: patient oriented x3 Extrem: Right upper extremity: normal to inspection Left upper extremity: normal to inspection Right lower extremity: full ROM, normal capillary refill, edema Details: pitting and 3+ and foot ( Calcaneovalgus deformity of the right foot, history of polio.) Details: normal capillary refill and vascular exam Details: dorsalis pedis pulse present and posterior tibial pulse present Left lower extremity: normal to inspection, normal capillary refill, hip/thigh Details: normal ROM; no tenderness, knee Details: tenderness Location: of the patella, of the medial joint line and of the infrapatellar area, swelling Location: of the infrapatellar area (mild), abnormal ROM (active extension -10, flexion 110), knee ligament exam normal Details: anterior drawer test normal, posterior drawer test normal, valgus stress test normal, varus stress test normal and Deandre's test normal, Brit's Test Details: negative laterally and positive medially and crepitus Location: at the patella (mild) and foot Details: toes with normal ROM, vascular exam Details: dorsalis pedis pulse present and normal capillary refill and motor-sensory exam light-touch normal; no tenderness Other: Right lower extremity dressing changed. Erythema resolved. Swelling, mild. Open wound from abscess measures 0.3x0.3x0.2 cm, 100% red/pink wound bed. No signs of active infection. Right foot ulcer closed. Psych: Mental Status: mental status grossly normal Affect: normal affect Attitude: cooperative Objective Data Meds/Results Medications: Active Medications Generic Name Dose Route Start Last Admin Trade Name Freq PRN Reason Stop Dose Admin Silver Nitrate 1 applic 07/10/22 10:24 Silvergel (Elta) 45 Ml TOPICAL 10/07/22 23:55 PRN PRN Wound Care [facility] Follow-up Hospital Follow-up: [id number] Post-op Follow Up
--- NOTE | 2022-08-28 08:30 | PM.PNORT ---
Progress Note: A&P Assessment and Plan (1) Abscess of right lower leg: Code(s): L02.415 - Cutaneous abscess of right lower limb Status: Acute Assessment and Plan: 12 weeks s/p I and D of right leg abscess. Overall dimensions with continued improvement. No signs of infection. Continue daily dressing changes with kalli, silver gel and cover dry. Brace modifications made. Patient with concerns regarding pressure on the medial malleolus. Recommended Mepilex boarder dressing over the medial malleolus while in brace. Needs to return for more modifications. Patient to make appt with cashier ticket selling. Follow up in 3 weeks. (2) Wound of right foot: Code(s): S91.301A - Unspecified open wound, right foot, initial encounter Status: Acute (3) Left knee DJD: Qualifiers: Osteoarthritis type: primary Qualified Code(s): M17.12 - Unilateral primary osteoarthritis, left knee Code(s): M17.12 - Unilateral primary osteoarthritis, left knee Status: Acute Assessment and Plan: Improved with cortisone injection. Patient notes about 80% improvement. Continue with activity modifications. Subjective Subjective Date/Time Seen: 08/28/22 08:30 Post Op day: 12 weeks Principal diagnosis: Right leg abscess, right foot ulcer Interval history: 12 weeks s/p debridement right leg abscess. Patient is doing dressing changes daily. No new complaints. Review of Systems Review of Systems: All systems reviewed & are unremarkable except as noted in HPI and below Exam Const: General: comfortable, no acute distress and awake Orientation/consciousness: patient oriented x3 Resp: Effort & Inspection: no respiratory distress Neuro: General: patient oriented x3 Extrem: Right upper extremity: normal to inspection Left upper extremity: normal to inspection Right lower extremity: full ROM, normal capillary refill, edema Details: pitting and 3+ and foot ( Calcaneovalgus deformity of the right foot, history of polio.) Details: normal capillary refill and vascular exam Details: dorsalis pedis pulse present and posterior tibial pulse present Left lower extremity: normal to inspection, normal capillary refill, hip/thigh Details: normal ROM; no tenderness, knee Details: tenderness Location: of the patella, of the medial joint line and of the infrapatellar area, swelling Location: of the infrapatellar area (mild), abnormal ROM (active extension -10, flexion 110), knee ligament exam normal Details: anterior drawer test normal, posterior drawer test normal, valgus stress test normal, varus stress test normal and Deandre's test normal, Brit's Test Details: negative laterally and positive medially and crepitus Location: at the patella (mild) and foot Details: toes with normal ROM, vascular exam Details: dorsalis pedis pulse present and normal capillary refill and motor-sensory exam light-touch normal; no tenderness Other: Right lower extremity dressing changed. Swelling, mild. No erythema. Open wound from abscess measures 0.2x0.1x0.1 cm, 100% red/pink wound bed. No signs of active infection. Right foot ulcer closed. Psych: Mental Status: mental status grossly normal Affect: normal affect Attitude: cooperative Objective Data Meds/Results Medications: Active Medications Generic Name Dose Route Start Last Admin Trade Name Freq PRN Reason Stop Dose Admin Silver Nitrate 1 applic 07/10/22 10:24 Silvergel (Elta) 45 Ml TOPICAL 10/07/22 23:55 PRN PRN Wound Care
== END 2022-09-10 23:59 | disposition home or self-care (01) ==
LOC: ANHWOC 08:07
PROVIDERS: PCP Family Medicine; Visit Provider Nurse Practitioner Family
DX: S81.801D Unspecified open wound, right lower leg, subsequent encounter (principal)
CPT/HCPCS: 99213; G0463

== ENCOUNTER 2022-09-18 07:50 | Outpatient (RCR) | payer OTHER, MEDICARE, SELFPAY ==
[2022-09-11 00:03] VITALS: BMI 22.6
--- NOTE | 2022-09-18 09:18 | PM.IMHP ---
H&P: HPI History of Present Illness Date/Time: 09/18/22 09:18 Chief Complaint: Right Ankle Wound Narrative: 77-year-old female presents to the [facility] today for follow-up. She is 15 weeks status post debridement right leg abscess. She has been performing daily dressing changes for the last several weeks. She has noted continued improvement. She denies fever, chills, night sweats, nausea, vomiting or diarrhea. She did have modifications to her right ankle area zone a brace which she feels gave her more pressure points. She is going to contact the orthopedist for modifications to be made. Eating her old areas on a brace which seems to be providing her with more comfort. No new wounds today. Review of Systems Review of Systems: All systems reviewed & are unremarkable except as noted in HPI and below PMFSH Past Medical History Medical History Abscess of right lower leg Arthritis Calcaneovalgus deformity of right foot Chronic anemia Hypothyroidism Left knee DJD Left knee pain Lymphedema of right lower extremity Osteoporosis Post-polio syndrome Surgical History Surgical History History of hemorrhoidectomy History of open reduction and internal fixation (ORIF) procedure History of partial hysterectomy Family History Family History Mother Hypertension Father Hypertension Other Family history of malignant neoplasm Diabetes mellitus Sibling Diabetes mellitus Family history of malignant neoplasm Social History Social History Social History: Surrogate medical decision maker: Danilo Peres, child. Code status: Full code. Smoking status: Former smoker Second hand tobacco smoke exposure: No Alcohol intake: never Substance use: never Substance use type: does not use Lack of Transportation: No Lack of Food: Sometimes True Current Housing: I Have Housing Concerned About Future Housing: No Difficulty Paying Gas/Electric Bills: No Difficulty Paying for Meds: No Currently Unemployed: No Education: High School Diploma/GED Difficulty w/ Childcare or Family Care: No Living arrangements: with family Additional living arrangements comments: Lives in [place]. Occupation/Education: retired Additional occupation/education comments: Continues to work 60 hours a week. Spiritual care concerns: No Meds Home Medications and Allergies Home Medications Medication Instructions Recorded Confirmed Type Centrum Silver Women 1 tablet PO DAILY 05/28/22 06/12/22 History cephalexin 500 mg capsule 500 mg PO Q6HR 8 days #32 caps 06/07/22 06/12/22 Rx hydrocodone 5 mg-acetaminophen 325 1 tablet PO Q8H PRN Pain #20 tabs 06/07/22 06/12/22 Rx mg tablet levothyroxine 88 mcg tablet 88 mcg PO DAILY #30 tabs 06/22/22 Rx naproxen 500 mg tablet 500 mg PO .COMPLEX PRN pain #180 08/20/22 Rx tabs Allergies Allergy/AdvReac Type Severity Reaction Status Date / Time Sulfa (Sulfonamide Allergy Unknown Unknown Verified 07/26/22 11:26 Antibiotics) Exam Const: General: comfortable, no acute distress and awake Orientation/consciousness: patient oriented x3 Resp: Effort & Inspection: no respiratory distress Neuro: General: patient oriented x3 Extrem: Right upper extremity: normal to inspection Left upper extremity: normal to inspection Right lower extremity: full ROM, normal capillary refill, edema Details: pitting and 3+ and foot ( Calcaneovalgus deformity of the right foot, history of polio.) Details: normal capillary refill and vascular exam Details: dorsalis pedis pulse present and posterior tibial pulse present Left lower extremity: normal to inspection, normal capillary refill, hip/thigh Details: normal ROM; no tenderness, knee Details: tenderness Loca
== END 2022-12-03 08:19 | disposition home or self-care (01) ==
LOC: ANHWOC 07:50
PROVIDERS: PCP Family Medicine; Visit Provider Nurse Practitioner Family
DX: S81.801D Unspecified open wound, right lower leg, subsequent encounter (principal)
CPT/HCPCS: 99212; G0463

== ENCOUNTER 2023-01-09 14:48 | Outpatient (CLI) | payer OTHER, MEDICARE, SELFPAY ==
--- NOTE | ~2023-01-09 | MM_ITS ---
EXAMINATION: MM screening letitia BI w khadijah HISTORY: Screening TECHNIQUE: Craniocaudal and mediolateral oblique 3-D tomosynthesis images were obtained and synthetic 2-D images were generated. CAD analysis was submitted and interpreted. COMPARISON: Comparison to multiple prior studies sequentially, with oldest reviewed study dated 01/03. BREAST PARENCHYMAL COMPOSITION: Breast composed of scattered areas of fibroglandular density FINDINGS: There is no evidence of suspicious mass, calcification, or architectural distortion to sugg est malignancy in either breast. There has been no suspicious interval change. IMPRESSION: 1. No mammographic evidence of malignancy. 2. Recommend routine screening mammography in one year. BI-RADS Category 1: Negative Reviewed, dictated and finalized at location A.
== END 2023-01-09 14:49 | disposition home or self-care (01) ==
LOC: ANHIMG 14:49
PROVIDERS: PCP Family Medicine; Visit Provider Family Medicine
DX: Z12.31 Encounter for screening mammogram for malignant neoplasm of breast (principal)
CPT/HCPCS: 77063; 77067

== ENCOUNTER 2023-02-06 14:44 | Outpatient (CLI) | payer OTHER, MEDICARE, SELFPAY ==
[2023-02-06 14:57] LABS: Basophils Absolute Auto 0.1 K/mm3 (0.0-0.1); Basophils Percent Auto 1.2 % (0.2-1.2); Eosinophils Absolute Auto 0.4 K/mm3 (0-0.3); Eosinophils Percent Auto 5.8 % (0-4.4); Hematocrit 35.3 % (37.0-47.0); Hemoglobin 11.7 g/dL (12.0-15.0); Immature Granulocyte Absolute 0.02 K/mm3 (0.00-0.031); Immature Granulocyte Percent A 0.3 % (0-0.5); Lymphocytes Absolute Auto 1.36 K/mm3 (0.9-3.2); Lymphocytes Percent Auto 18.7 % (18.3-44.2); Mean Corpuscular HGB Conc 33.1 g/dl (32-36); Mean Corpuscular Hemoglobin 30.8 pg (26-34); Mean Corpuscular Volume 92.9 fl (80-100); Mean Platelet Volume 12.2 fl (7.4-10.4); Monocytes Absolute Auto 0.6 K/mm3 (0.1-0.6); Monocytes Percent Auto 7.7 % (2.6-8.5); Neutrophils Absolute Auto 4.8 K/mm3 (1.3-6.7); Neutrophils Percent Auto 66.3 % (45.5-73.1); Platelet Count Result 200 k/mm3 (150-375); Red Cell Distribution Width 13.8 % (11.5-14.5); White Blood Count 7.3 K/mm3 (4.5-10.0)
[2023-02-06 15:05] LABS: Atypical Lymphocytes Present; Platelet Estimate Adequate (Adequate); Schistocytes None Seen (NORMAL)
[2023-02-06 16:36] LABS: Alanine Aminotransferase 20 U/L (6-35); Albumin Level 4.4 g/dL (3.5-5.1); Alkaline Phosphatase 60 U/L (38-126); Anion Gap 8 mmol/L (8-16); Aspartate Amino Transferase 33 U/L (14-36); Bilirubin,Total 0.8 mg/dL (0.2-1.3); Blood Urea Nitrogen 21 mg/dL (7-17); Calcium 9.4 mg/dL (8.4-10.2); Carbon Dioxide 27 mmol/L (22-30); Chloride 103 mmol/L (98-107); Estimated Glomerular Filt Rate > 60; Glucose 91 mg/dL (65-110); Potassium 4.2 mmol/L (3.4-5.0); Sodium 138 mmol/L (137-145)
[2023-02-06 16:39] LABS: Immunoglobulin A 118 mg/dL (70-400); Immunoglobulin G 727 mg/dL (700-1600); Immunoglobulin M 26 mg/dL (40-230)
== END 2023-02-06 14:45 | disposition home or self-care (01) ==
LOC: ANHLAB 14:47
PROVIDERS: PCP Family Medicine; Visit Provider Internal Medicine Hematology & Oncology
DX: D64.9 Anemia, unspecified (principal); D80.9 Immunodeficiency with predominantly antibody defects, unspecified
CPT/HCPCS: 36415; 80053; 82784; 85025

== ENCOUNTER 2023-04-24 15:39 | Outpatient (CLI) | payer OTHER, MEDICARE, SELFPAY ==
[2023-04-24 16:14] LABS: Basophils Absolute Auto 0.1 K/mm3 (0.0-0.1); Basophils Percent Auto 0.6 % (0.2-1.2); Eosinophils Absolute Auto 0.1 K/mm3 (0-0.3); Eosinophils Percent Auto 1.5 % (0-4.4); Hematocrit 36.8 % (37.0-47.0); Hemoglobin 11.8 g/dL (12.0-15.0); Immature Granulocyte Absolute 0.04 K/mm3 (0.00-0.031); Immature Granulocyte Percent A 0.5 % (0-0.5); Lymphocytes Absolute Auto 1.04 K/mm3 (0.9-3.2); Mean Corpuscular HGB Conc 32.1 g/dl (32-36); Mean Corpuscular Hemoglobin 30.3 pg (26-34); Mean Corpuscular Volume 94.4 fl (80-100); Mean Platelet Volume 12.2 fl (7.4-10.4); Monocytes Absolute Auto 0.9 K/mm3 (0.1-0.6); Monocytes Percent Auto 9.9 % (2.6-8.5); Neutrophils Absolute Auto 6.6 K/mm3 (1.3-6.7); Neutrophils Percent Auto 75.5 % (45.5-73.1); Platelet Count Result 207 k/mm3 (150-375); Red Cell Distribution Width 14.6 % (11.5-14.5); White Blood Count 8.7 K/mm3 (4.5-10.0)
== END 2023-04-24 15:40 | disposition home or self-care (01) ==
LOC: ANHLAB 15:43
PROVIDERS: PCP Family Medicine; Visit Provider Family Medicine
DX: L03.90 Cellulitis, unspecified (principal)
CPT/HCPCS: 36415; 85025

== ENCOUNTER 2023-08-31 08:55 | Emergency (ER) | payer OTHER, MEDICARE, SELFPAY ==
--- NOTE | ~2023-08-31 | XR_ITS ---
XR ankle LT min 3V DATE: 08/31/2023 09:51 INDICATION: Lateral left ankle pain TECHNIQUE: 4 views COMPARISON: None FINDINGS: There is a slightly laterally displaced linear oblique fracture through the lateral malleol us with moderate overlying soft tissue swelling. Minimal associated periosteal reaction consistent wi th healing is noted. The medial malleolus and posterior malleolus appear intact. Ankle mortise is preserved. Postoperative change including plates and screws of the calcaneus. Osteopenia. Osteoarthritic change at the tarsometatarsal area. IMPRESSION: Slightly laterally displaced linear oblique fracture of the lateral malleolus Reviewed, dictated and finalized at location A.
[2023-08-31 09:00] VITALS: BP 168/71; PULSE 80; RESP 16; TEMP 36.4; O2SAT 100
[2023-08-31 09:06] VITALS: BP 160/68; PULSE 79; RESP 14; TEMP 36.4; O2SAT 100
--- NOTE | 2023-08-31 10:05 | ED.GENADULT ---
[facility] - General Adult General Chief complaint: Extremity Injury, Lower Stated complaint: foot and ankle pain Time Seen by Provider: 08/31/23 09:01 Source: patient Mode of arrival: ambulatory Limitations: no limitations History of Present Illness HPI narrative: This is a 78-year-old female who presents to the ED with chief complaint acute on chronic left ankle pain. Patient reports history of internal fixation of this ankle several years ago due to an injury. She states she has not had any issues up until the last 10 days. Reports pain with standing, ambulating. She still works full-time hours at [employer] and finds that work is difficult due to pain. 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 Patient states that the pain is located all throughout the ankle joint. Denies any redness, swelling or recent infections. Denies fevers, chills, numbness, weakness, nausea, vomiting. Related Data Home Medications Medication Instructions Recorded Confirmed Centrum Silver Women 1 tablet PO DAILY 05/28/22 05/01/23 Allergies Allergy/AdvReac Type Severity Reaction Status Date / Time Sulfa (Sulfonamide Allergy Unknown Unknown Verified 08/31/23 09:05 Antibiotics) Review of Systems Review of Systems: All systems as dictated in [facility] Past Medical History Medical History Abscess of right lower leg Arthritis Arthritis of left foot Calcaneovalgus deformity of right foot Chronic anemia Hypothyroidism Left knee DJD Left knee pain Lymphedema of right lower extremity Osteoporosis Post-polio syndrome Surgical History Surgical History History of hemorrhoidectomy History of open reduction and internal fixation (ORIF) procedure History of partial hysterectomy Family History Family History Mother Hypertension Father Hypertension Other Family history of malignant neoplasm Diabetes mellitus Sibling Diabetes mellitus Family history of malignant neoplasm Social History Social History (Updated 04/26/23 @ 08:47 by Yazmin Floyd) Social History: Surrogate medical decision maker: Danilo Peres, child. Code status: Full code. Smoking status: Former smoker Second hand tobacco smoke exposure: No Alcohol intake: never Substance use: never Substance use type: does not use Lack of Transportation: No Lack of Food: Sometimes True Current Housing: I Have Housing Concerned About Future Housing: No Difficulty Paying Gas/Electric Bills: No Difficulty Paying for Meds: No Currently Unemployed: No Education: High School Diploma/GED Difficulty w/ Childcare or Family Care: No Living arrangements: with family Occupation/Education: retired Additional occupation/education comments: Continues to work 60 hours a week. Gender identity (if verbalized by the patient): Female Sexual Orientation (if Verbalized by the Patient): Straight or Heterosexual Spiritual care concerns: No Exam Narrative: GENERAL: Well-appearing, well-nourished, and in no acute distress. HEAD: Normocephalic, atraumatic. EYES: PERRLA and EOMI. ENT: Nares clear, no rhinorrhea or epistaxis. Mucous membranes moist. Oropharynx without tonsillar hypertrophy exudate or other lesions. NECK: Supple. No adenopathy or masses. CHEST: No respiratory distress. Clear to auscultation. No wheezes rales or rhonchi HEART: Regular rate and rhythm. No murmur heard. Normal peripheral pulses. ABDOMEN: Soft, nontender, nondistended, normal active bowel sounds. MSK: LLE: Mild tenderness throughout the left ankle joint. Mild left ankle joint effusion. Full passive range of motion of the ankle joint. No erythema or warmth. Neurovascularly intact distally. Compartments soft. Ambulatory with walker RLE: Ankle brace pres
[2023-08-31 10:19] VITALS: BP 127/56; PULSE 77; RESP 15; O2SAT 100
[2023-08-31] MEDS: HYDROcodone/acetaminophen (*CRX) 5-325 MG TABLET 1 TAB PO (10:24)
[2023-08-31 11:03] VITALS: BP 149/61; PULSE 75; RESP 14; TEMP 36.4; O2SAT 100
== END 2023-08-31 11:05 | disposition home or self-care (01) ==
PROVIDERS: Emergency Provider Physician Assistant; PCP Family Medicine
DX: S82.62XA Displaced fracture of lateral malleolus of left fibula, initial encounter for closed fracture (principal); D64.9 Anemia, unspecified; E03.9 Hypothyroidism, unspecified; G14 Postpolio syndrome; M19.072 Primary osteoarthritis, left ankle and foot; M17.12 Unilateral primary osteoarthritis, left knee; M81.0 Age-related osteoporosis without current pathological fracture; Z90.710 Acquired absence of both cervix and uterus; Z87.891 Personal history of nicotine dependence; X58.XXXA Exposure to other specified factors, initial encounter
CPT/HCPCS: 29125; 29515; 73610; 99284; A9270

== ENCOUNTER 2023-09-18 10:34 | Outpatient (CLI) | payer OTHER, MEDICARE, SELFPAY ==
[2023-09-18 10:58] LABS: Basophils Absolute Auto 0.1 K/mm3 (0.0-0.1); Basophils Percent Auto 1.3 % (0.2-1.2); Eosinophils Absolute Auto 0.3 K/mm3 (0-0.3); Eosinophils Percent Auto 4.1 % (0-4.4); Hematocrit 37.5 % (37.0-47.0); Hemoglobin 12.3 g/dL (12.0-15.0); Immature Granulocyte Absolute 0.02 K/mm3 (0.00-0.031); Immature Granulocyte Percent A 0.3 % (0-0.5); Lymphocytes Absolute Auto 1.23 K/mm3 (0.9-3.2); Lymphocytes Percent Auto 18.1 % (18.3-44.2); Mean Corpuscular HGB Conc 32.8 g/dl (32-36); Mean Corpuscular Volume 94.5 fl (80-100); Mean Platelet Volume 11.9 fl (7.4-10.4); Monocytes Absolute Auto 0.5 K/mm3 (0.1-0.6); Monocytes Percent Auto 7.6 % (2.6-8.5); Neutrophils Absolute Auto 4.7 K/mm3 (1.3-6.7); Neutrophils Percent Auto 68.6 % (45.5-73.1); Platelet Count Result 214 k/mm3 (150-375); Red Blood Count 3.97 M/mm3 (4.2-5.4); Red Cell Distribution Width 13.9 % (11.5-14.5); White Blood Count 6.8 K/mm3 (4.5-10.0)
[2023-09-18 13:16] LABS: Alanine Aminotransferase 16 U/L (6-35); Albumin Level 4.4 g/dL (3.5-5.1); Alkaline Phosphatase 73 U/L (38-126); Anion Gap 6 mmol/L (4-12); Aspartate Amino Transferase 26 U/L (14-36); Bilirubin,Total 0.8 mg/dL (0.2-1.3); Blood Urea Nitrogen 18 mg/dL (7-17); Carbon Dioxide 30 mmol/L (22-30); Chloride 100 mmol/L (98-107); Estimated Glomerular Filt Rate > 60; Glucose 91 mg/dL (65-110); Potassium 4.6 mmol/L (3.4-5.0); Sodium 136 mmol/L (137-145)
[2023-09-18 13:23] LABS: Immunoglobulin A 134 mg/dL (70-400); Immunoglobulin G 651 mg/dL (700-1600); Immunoglobulin M 34 mg/dL (40-230)
== END 2023-09-18 10:35 | disposition home or self-care (01) ==
LOC: ANHLAB 10:38
PROVIDERS: PCP Family Medicine; Visit Provider Internal Medicine Hematology & Oncology
DX: D64.9 Anemia, unspecified (principal); D80.9 Immunodeficiency with predominantly antibody defects, unspecified
CPT/HCPCS: 36415; 80053; 82784; 85025

== ENCOUNTER 2023-10-23 14:53 | Outpatient (CLI) | payer OTHER, MEDICARE, SELFPAY ==
[2023-10-23 19:24] LABS: Immunoglobulin A 139 mg/dL (70-400); Immunoglobulin G 631 mg/dL (700-1600); Immunoglobulin M 32 mg/dL (40-230)
== END 2023-10-23 14:54 | disposition home or self-care (01) ==
LOC: ANHLAB 14:56
PROVIDERS: PCP Family Medicine; Visit Provider Internal Medicine Hematology & Oncology
DX: D80.9 Immunodeficiency with predominantly antibody defects, unspecified (principal)
CPT/HCPCS: 36415; 82784

== ENCOUNTER 2024-06-17 14:57 | Outpatient (CLI) | payer OTHER, MEDICARE, SELFPAY ==
[2024-06-17 15:15] LABS: Basophils Absolute Auto 0.1 K/mm3 (0.0-0.1); Eosinophils Absolute Auto 0.4 K/mm3 (0-0.3); Eosinophils Percent Auto 4.8 % (0-4.4); Hematocrit 38.6 % (37.0-47.0); Hemoglobin 12.7 g/dL (12.0-15.0); Immature Granulocyte Absolute 0.02 K/mm3 (0.00-0.031); Immature Granulocyte Percent A 0.2 % (0-0.5); Lymphocytes Absolute Auto 1.43 K/mm3 (0.9-3.2); Lymphocytes Percent Auto 17.4 % (18.3-44.2); Mean Corpuscular HGB Conc 32.9 g/dl (32-36); Mean Corpuscular Hemoglobin 30.8 pg (26-34); Mean Corpuscular Volume 93.5 fl (80-100); Mean Platelet Volume 11.7 fl (7.4-10.4); Monocytes Absolute Auto 0.6 K/mm3 (0.1-0.6); Monocytes Percent Auto 7.6 % (2.6-8.5); Neutrophils Absolute Auto 5.7 K/mm3 (1.3-6.7); Platelet Count Result 241 k/mm3 (150-375); Red Blood Count 4.13 M/mm3 (4.2-5.4); Red Cell Distribution Width 14.1 % (11.5-14.5); White Blood Count 8.2 K/mm3 (4.5-10.0)
[2024-06-17 16:45] LABS: Iron 77 ug/dL (37-170)
[2024-06-17 16:54] LABS: Alanine Aminotransferase 19 U/L (6-35); Albumin Level 4.6 g/dL (3.5-5.1); Alkaline Phosphatase 70 U/L (38-126); Anion Gap 11 mmol/L (4-12); Aspartate Amino Transferase 37 U/L (14-36); Bilirubin,Total 0.7 mg/dL (0.2-1.3); Blood Urea Nitrogen 20 mg/dL (7-17); Calcium 9.9 mg/dL (8.4-10.2); Carbon Dioxide 28 mmol/L (22-30); Chloride 99 mmol/L (98-107); Estimated Glomerular Filt Rate > 60; Glucose 97 mg/dL (65-110); Potassium 4.3 mmol/L (3.4-5.0); Sodium 138 mmol/L (137-145)
[2024-06-17 16:55] LABS: Percent Iron Saturation 24 % (20-50)
[2024-06-17 17:09] LABS: Immunoglobulin A 116 mg/dL (70-400); Immunoglobulin G 743 mg/dL (700-1600); Immunoglobulin M 34 mg/dL (40-230)
--- OUTSIDE RECORDS SUMMARY | 2024-06-19 02:41 | XMS_ITS | Continuity of Care Document ---
Author Organization [facility] Address [id number] [place] [address] [place] [address] Phone Care Team Providers Care Resident Care Technician Name Role Phone Lamine Zhao DO Unavailable Unavailable Advance Directives Directive Yes / No Effective Date File Name No Information Encounters Encounter Description Practice Location Reason(s) For Visit Diagnoses Date Provider Providers Copied on Encounter [facility], [address], [place], [place], [id number], tel:[phone] [facility] No Information Pavel Hamm. [address] [place], [address], [place]. tel: [phone] Family History Family Member Type Diagnosis Age At Onset No Information Payers Payer name Insurance type Covered republican ID Authoriza tion(s) No Information Social History Type Description Quantity Date Captured Comments Sex Female Smoking Status No Information Chief Complaint And Reason For Visit No Information Reason For Referral Reason For Referral No Information History Of Present Illness Encounter Date Complaint History Of Prese nt Illness No Information Functional Status Date Functional Assessmen t No Information Instructions Date Instruction Additional Infor mation No Information Assessments Type Assessment Date No Information Patient Care Teams Name Effective Dates (start - stop) Status Members No Information
== END 2024-06-17 14:58 | disposition home or self-care (01) ==
PROVIDERS: PCP Family Medicine; Visit Provider Internal Medicine Hematology & Oncology
DX: D64.9 Anemia, unspecified (principal); D80.9 Immunodeficiency with predominantly antibody defects, unspecified
CPT/HCPCS: 36415; 80053; 82728; 82784; 83540; 83550; 85025

== ENCOUNTER 2024-10-21 11:57 | Outpatient (CLI) | payer OTHER, MEDICARE, SELFPAY ==
--- NOTE | ~2024-10-21 | XR_ITS ---
XR sacroiliac joints min 3V 10/21/2024 12:17 Indication: Sciatica Procedure: 3 view sacroiliac joints Comparison: 05/09/2014 Findings: The sacroiliac joints are symmetric without significant degenerative change or erosion. No evidence for ankylosis. There is severe lower lumbar spondylosis with dextroscoliosis. Osteopenia. No acute fracture or traumatic malalignment. Impression: 1: No significant abnormality of the sacroiliac joints. 2: Severe lower lumbar spondylosis with dextroscoliosis Reviewed, dictated and finalized at location A. Impression: 1: No significant abnormality of the sacroiliac joints. 2: Severe lower lumbar spondylosis with dextroscoliosis
== END 2024-10-21 11:58 | disposition home or self-care (01) ==
PROVIDERS: PCP Family Medicine; Visit Provider Physician Assistant Medical
DX: M47.816 Spondylosis without myelopathy or radiculopathy, lumbar region (principal); M41.86 Other forms of scoliosis, lumbar region; M54.31 Sciatica, right side
CPT/HCPCS: 72202

== ENCOUNTER 2024-11-19 14:58 | Outpatient (CLI) | payer OTHER, MEDICARE, SELFPAY ==
--- NOTE | ~2024-11-19 | MM_ITS ---
EXAMINATION: MM screening letitia BI w khadijah HISTORY: Screening mammogram TECHNIQUE: Craniocaudal and mediolateral oblique 3-D tomosynthesis images were obtained and synthetic 2-D images were generated. CAD analysis was submitted and interpreted. COMPARISON: 01/09/2023, 12/14/2020 BREAST PARENCHYMAL COMPOSITION:Dense: The breasts are heterogeneously dense, which may obscure small masses. FINDINGS: No suspicious mass, calcification, or architectural distortion are identified in either ferdinand ast to suggest malignancy. There has been no suspicious interval change. IMPRESSION: No mammographic evidence of malignancy. Recommend routine screening mammography in one year. BI-RADS Category 1: Negative Reviewed, dictated and finalized at location .
== END 2024-11-19 14:59 | disposition home or self-care (01) ==
LOC: ANHIMG 15:00
PROVIDERS: PCP Family Medicine; Visit Provider Family Medicine
DX: Z12.31 Encounter for screening mammogram for malignant neoplasm of breast (principal)
CPT/HCPCS: 77063; 77067

== ENCOUNTER 2024-11-21 00:22 | Emergency (ER) | payer OTHER, MEDICARE, SELFPAY ==
[2024-11-21] VITALS (29 sets, daily range): BP systolic 118–156; BP diastolic 54–75; PULSE 59–69; RESP 14–18; TEMP 36.4–36.5; O2SAT 94–100
--- NOTE | ~2024-11-21 | CT_ITS ---
EXAMINATION: CT chest abdomen pelvis wo con DATE: 11/21/2024 01:10 INDICATION: Left flank pain TECHNIQUE: Computed tomography (CT) of the chest, abdomen, and pelvis was performed without intraveno us contrast. Automated exposure control and iterative reconstruction technique were employed. The dos e-length product was 370.17 mGy-cm. COMPARISON: None FINDINGS: CHEST CT: Mild biapical pleural-parenchymal scarring and mild bibasilar atelectasis. No pneumonia, pulmonary ed mehul or pleural effusion. Couple calcified nodules in the left upper and right lower lobes along with calcified right hilar and mediastinal lymph nodes consistent with old granulomatous disease. Heart si ze is normal. Atherosclerotic coronary artery calcific location. No pericardial effusion. Thoracic ao rta is normal in caliber. No pathologically enlarged thoracic lymphadenopathy. Mild S-shaped curvatur e of the thoracic spine with severe spondylosis. Minimally displaced fracture of the posterior left 1 0th and 11th ribs. ABDOMEN/PELVIS CT: There are also a few scattered small splenic and hepatic calcifications consistent with old granuloma tous disease. Gallbladder, pancreas, bilateral adrenal glands and kidneys are normal. Bladder is norm al. The uterus is not identified and has likely been surgically resected. There is moderate coloni c diverticulosis with a sigmoid predominance and without adjacent inflammatory change to suggest dive rticulitis. No bowel obstruction. Normal appendix. No free intraperitoneal gas or fluid. No pathologi kindra enlarged abdominal or pelvic lymphadenopathy. There are minimally displaced fractures of the tr ansverse processes the left at L4 and bilaterally at L5. Additional sacral insufficiency fractures ex tending transversely across the S2 with mild apex posterior angulation and extending sagittally at th e bilateral sacral ala. Lumbar levoscoliosis with severe spondylosis and 4 mm anterolisthesis L4 on L 5. IMPRESSION: 1. Recent-appearing fractures of the posterior left 10th and 11th ribs, the transverse processes bila terally at L5 and on the left at L4 and typical H shaped configuration of sacral insufficiency fractu res. 2. No cardiopulmonary disease or acute intra-abdominal/pelvic process. 3. Diverticulosis. Reviewed, dictated and finalized at location A. IMPRESSION: 1. Recent-appearing fractures of the posterior left 10th and 11th ribs, the tra nsverse processes bilaterally at L5 and on the left at L4 and typical H shaped configuration of sacral insufficiency fractures. 2. No cardiopulmonary disease or acute intra-abdominal/pelvic process. 3. Diverticulosis.
--- NOTE | 2024-11-21 00:35 | ED_ITS ---
HPI - General Adult General Chief complaint: Back Pain/Injury Stated complaint: flank/back pain Time Seen by Provider: 11/21/24 00:26 History of Present Illness HPI narrative: 79-year-old female presented emergency department for evaluation for onset of left flank pain. Patient denies any recent falls coughs colds or fevers. Patient states that she started having some left flank pain and the pain has continued to worsen. Patient denies any associated chest pain or shortness of breath. Patient denies any prior history of kidney stones denies any pain with urination. Related Data Home Medications ?Medication ?Instructions ?Recorded ?Confirmed ?Last Taken ?Type Centrum Silver Women 1 tablet PO DAILY 05/28/22 11/21/24 05/28/22 History Allergies Allergy/AdvReac Type Severity Reaction Status Date / Time Sulfa (Sulfonamide Allergy Unknown Unknown Verified 11/21/24 00:28 Antibiotics) Review of Systems 2 Review of Systems: All systems reviewed & are unremarkable except as noted in HPI and below PMFSH Past Medical History Medical History Arthritis of left foot Left knee DJD Left knee pain Abscess of right lower leg Hypothyroidism Chronic anemia Lymphedema of right lower extremity Osteoporosis 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 Code status: Full code. Smoking status: Former smoker Second hand tobacco smoke exposure: No Alcohol intake: never Substance use: never Substance use type: does not use Lack of Transportation: No Lack of Food: Sometimes True Current Housing: I Have Housing Concerned About Future Housing: No Difficulty Paying Gas/Electric Bills: No Difficulty Paying for Meds: No Currently Unemployed: No Education: High School Diploma/GED Difficulty w/ Childcare or Family Care: No Living arrangements: with family Occupation/Education: retired Additional occupation/education comments: Continues to work 60 hours a week. Gender identity (if verbalized by the patient): Female Sexual Orientation (if Verbalized by the Patient): Straight or Heterosexual Spiritual care concerns: No Exam 2 Narrative: APPEARANCE: Well appearing, no pain, no distress, well-nourished. HEAD: normocephalic, atraumatic. EYES: PERRLA/EOMI, conjunctivae clear. NOSE: Normal no drainage EARS:TMS clear with good light reflex. THROAT: Pharynx clear, no exudate. NECK: Supple. No adenopathy, no masses. RESPIRATORY: Airway patent, respirations nonlabored. Clear to auscultation bilaterally, no rales, rhonchi, wheezing. CARDIOVASCULAR: Regular rate and rhythm without murmurs rubs or gallops. ABDOMINAL: Soft, nontender, nondistended, normal bowel sounds MUSCULOSKELETAL: Focal left-sided rib tenderness to palpation NEURO: Alert. Cranial nerves II through XII intact. Good gait. Good coordination SKIN: Warm, dry. Normal Color Course Vital Signs Vital signs: Vital Signs Temperature 97.7 F 11/21/24 00:23 Pulse Rate 69 11/21/24 00:23 Respiratory Rate 14 11/21/24 00:23 Blood Pressure 145/75 H 11/21/24 00:23 Pulse Oximetry 100 11/21/24 00:23 Oxygen Delivery Room Air 11/21/24 00:23 Temperature 97.6 F 11/21/24 04:01 Pulse Rate 59 L 11/21/24 04:01 Respiratory Rate 18 11/21/24 04:01 Blood Pressure 136/59 L 11/21/24 04:01 Pulse Oximetry 98 11/21/24 04:01 Oxygen Delivery Room Air 11/21/24 00:23 Medical Decision Making [facility] Narrative Medical decision making narrative: 79-year-old female presents emergency department for evaluation for left-sided rib pain. Patient is currently afebrile with a leukocytosis of 10.5 and hemoglobin of 12.5. Patient has no significant acute abnormalities on her CMP. UA was negative for infection. CT does show evidence of nondisplaced fractures of the left posterior 10th and 11th ribs, nondisplaced fractures of L4 transverse process bilateral L5 transverse processes with a old fracture of the sacral ala. patient denies any recent falls but does have a history of a significant previous fall during which she did fracture her left ankle and did injure her hip. Patient may have injured her left ribs with something simple as sneezing or coughing because patient denies having any recent falls or injuries. Patient was provided incentive spirometer medications for pain control. Patient was encouraged of close follow-up with primary care physician and was educated on reasons to return to the emergency department Differential Diagnosis Differential Diagnosis: Pneumonia, pneumothorax, rib fracture, rib contusion, pulmonary contusion, splenic injury, pneumonia Vital Signs Vital Signs: Vital Signs Temperature 97.7 F 11/21/24 00:23 Pulse Rate 69 11/21/24 00:23 Respiratory Rate 14 11/21/24 00:23 Blood Pressure 145/75 H 11/21/24 00:23 Pulse Oximetry 100 11/21/24 00:23 Oxygen Delivery Room Air 11/21/24 00:23 Temperature 97.6 F 11/21/24 04:01 Pulse Rate 59 L 11/21/24 04:01 Respiratory Rate 18 11/21/24 04:01 Blood Pressure 136/59 L 11/21/24 04:01 Pulse Oximetry 98 11/21/24 04:01 Oxygen Delivery Room Air 11/21/24 00:23 Lab Data Lab results reviewed: Yes I reviewed the patient's lab results. 11/21/24 01:54 11/21/24 01:54 Labs: Lab Results 11/21/24 Range/Units 01:54 WBC 10.5 H (4.5-10.0) K/mm3 RBC 4.15 L (4.2-5.4) M/mm3 Hgb 12.5 (12.0-15.0) g/dL Hct 38.9 (37.0-47.0) % MCV 93.7 (80-100) fl MCH 30.1 (26-34) pg MCHC 32.1 (32-36) g/dl RDW 14.8 H (11.5-14.5) % Plt Count 221 (150-375) k/mm3 MPV 11.9 H (7.4-10.4) fl Immature Gran % (Auto) 0.5 (0-0.5) % Neut % (Auto) 75.9 H (45.5-73.1) % Lymph % (Auto) 12.9 L (18.3-44.2) % [place] % (Auto) 8.1 (2.6-8.5) % Eos % (Auto) 2.0 (0-4.4) % Baso % (Auto) 0.6 (0.2-1.2) % Lymph # (Auto) 1.36 (0.9-3.2) K/mm3 [place] # (Auto) 0.9 H (0.1-0.6) K/mm3 Eos # (Auto) 0.2 (0-0.3) K/mm3 Baso # (Auto) 0.1 (0.0-0.1) K/mm3 Abs Immat Gran (auto) 0.05 H (0.00-0.031) K/mm3 Absolute Neuts (auto) 8.0 H (1.3-6.7) K/mm3 Absolute Nucleated RBC 0.000 (0.0-0.012) K/mm3 Nucleated RBC % 0.0 (0.0-0.2) % Sodium 134 L (137-145) mmol/L Potassium 4.2 (3.4-5.0) mmol/L Chloride 99 (98-107) mmol/L Carbon Dioxide 24 (22-30) mmol/L Anion Gap 11 (4-12) mmol/L BUN 25 H (7-17) mg/dL Creatinine 0.79 (0.7-1.0) mg/dL Estim Creat Clear Calc 42 ml/min Estimated GFR > 60 (59 - ) Glucose 94 (65-110) mg/dL Calcium 9.5 (8.4-10.2) mg/dL Total Bilirubin 0.6 (0.2-1.3) mg/dL AST 31 (14-36) U/L ALT 16 (6-35) U/L Alkaline Phosphatase 161 H (38-126) U/L Total Protein 7.6 (6.3-8.2) g/dL Albumin 4.7 (3.5-5.1) g/dL Urine Color Yellow (Yellow) Urine Appearance Cloudy H (Clear) Urine pH 8.0 (5.0-9.0) Ur Specific [place] 1.019 (1.001-1.035) Urine Protein Negative (Negative) mg/dL Urine Glucose (UA) Negative (Negative) mg/dL Urine Ketones Trace H (Negative) mg/dL Ur Blood (Man) Negative (Negative) Urine Nitrate Negative (Negative) Urine Bilirubin Negative (Negative) Urine Urobilinogen 1.0 (<2.0) mg/dL Leukocyte Esterase Rfl Negative (Negative) CATHERINE/UL Urine RBC 0-2 (0-2) /hpf Urine WBC 0-5 (0-3) /hpf Ur Squamous Epith Cells None seen (Few) /hpf Urine Bacteria None seen /hpf Urine Casts 0-2 Imaging Data Radiologist's impression: Overnight read CT chest without contrast impression nondisplaced fractures of a left posterior lateral 10th and 11th ribs. CT abdomen pelvis without contrast impression: Nondisplaced fractures of the left L4 transverse process of bilateral L5 transverse processes. Fractures of the bilateral sacral ala appear subacute but component of acute fracture is not excluded. Discharge Plan Discharge Clinical Impression: Closed rib fracture, Closed fracture of spinous process of lumbar vertebra Patient Disposition: Home Condition: Stable Instructions: Antibiotic Form, How to Use an Incentive Spirometer (ED), Rib Fracture (ED), Spinous Process Fracture (ED) Additional Instructions: Tylenol for pain control. If Tylenol does not control your pain then replace with [place]. Do not take Tylenol and [place] at the same time as both do contain acetaminophen. Have close follow-up with her primary care physician. If you have any worsening symptoms then please call or return to the emergency department. Patient Language: Pashto Prescriptions: New hydrocodone-acetaminophen 5-325 mg tablet 1 tablet PO Q12H PRN (Reason: pain) Qty: 14 0RF No Action clobetasol 0.05 % cream 1 applic topical DAILY Qty: 45 1RF Centrum Silver Women tablet 1 tablet PO DAILY levothyroxine 112 mcg tablet 112 mcg PO DAILY Qty: 90 2RF tramadol 50 mg tablet 50 mg PO Q6H Qty: 28 0RF tizanidine 4 mg tablet 4 mg PO BID PRN (Reason: muscle spasticity) Qty: 20 1RF Follow-up/Referrals: Royal Jung MD [Primary Care Provider] -
[2024-11-21] MEDS: HYDROcodone/acetaminophen (*CRX) 5-325 MG TABLET 1 TAB PO (01:12)
[2024-11-21] MEDS: CYCLOBENZAPRINE HCL 10 MG TABLET PO (01:13)
--- NOTE | 2024-11-21 01:58 | PC.NURSE ---
labs and ua sent to lab.
[2024-11-21 02:07] LABS: Basophils Absolute Auto 0.1 K/mm3 (0.0-0.1); Basophils Percent Auto 0.6 % (0.2-1.2); Eosinophils Absolute Auto 0.2 K/mm3 (0-0.3); Hematocrit 38.9 % (37.0-47.0); Hemoglobin 12.5 g/dL (12.0-15.0); Immature Granulocyte Absolute 0.05 K/mm3 (0.00-0.031); Immature Granulocyte Percent A 0.5 % (0-0.5); Lymphocytes Absolute Auto 1.36 K/mm3 (0.9-3.2); Lymphocytes Percent Auto 12.9 % (18.3-44.2); Mean Corpuscular HGB Conc 32.1 g/dl (32-36); Mean Corpuscular Hemoglobin 30.1 pg (26-34); Mean Corpuscular Volume 93.7 fl (80-100); Mean Platelet Volume 11.9 fl (7.4-10.4); Monocytes Absolute Auto 0.9 K/mm3 (0.1-0.6); Monocytes Percent Auto 8.1 % (2.6-8.5); Neutrophils Percent Auto 75.9 % (45.5-73.1); Platelet Count Result 221 k/mm3 (150-375); Red Blood Count 4.15 M/mm3 (4.2-5.4); Red Cell Distribution Width 14.8 % (11.5-14.5); White Blood Count 10.5 K/mm3 (4.5-10.0)
[2024-11-21 02:14] LABS: Add Urine Microscopic? YES; Appearance Urine Cloudy (Clear); Bacteria Urine None Seen /hpf; Bilirubin Urine Negative (Negative); Blood Urine Negative (Negative); Color Urine Yellow (Yellow); Glucose Urine UA Negative (Negative); Ketones Urine Trace mg/dL (Negative); Leukocyte Esterase Ur Negative LEU/UL (Negative); Nitrate Urine Negative (Negative); Non Pathogenic Casts 0-2; Protein Urine Negative (Negative); RBC Urine 0-2 /hpf (0-2); Specific Grav Ur 1.019 (1.001-1.035); Squamous Epithelial Cell Urine None Seen /hpf (Few); WBC Urine 0-5 /hpf (0-3)
[2024-11-21 02:17] LABS: Alanine Aminotransferase 16 U/L (6-35); Albumin Level 4.7 g/dL (3.5-5.1); Alkaline Phosphatase 161 U/L (38-126); Anion Gap 11 mmol/L (4-12); Aspartate Amino Transferase 31 U/L (14-36); Bilirubin,Total 0.6 mg/dL (0.2-1.3); Blood Urea Nitrogen 25 mg/dL (7-17); Calcium 9.5 mg/dL (8.4-10.2); Carbon Dioxide 24 mmol/L (22-30); Chloride 99 mmol/L (98-107); Estimated CRCL calculation 42 ml/min; Estimated Glomerular Filt Rate > 60; Glucose 94 mg/dL (65-110); Potassium 4.2 mmol/L (3.4-5.0); Sodium 134 mmol/L (137-145); Total Protein 7.6 g/dL (6.3-8.2)
== END 2024-11-21 04:03 | disposition home or self-care (01) ==
PROVIDERS: Emergency Provider Emergency Medicine; PCP Family Medicine
DX: S22.42XA Multiple fractures of ribs, left side, initial encounter for closed fracture (principal); S32.048A Other fracture of fourth lumbar vertebra, initial encounter for closed fracture; S32.058A Other fracture of fifth lumbar vertebra, initial encounter for closed fracture; M19.072 Primary osteoarthritis, left ankle and foot; M17.12 Unilateral primary osteoarthritis, left knee; E03.9 Hypothyroidism, unspecified; D64.9 Anemia, unspecified; M81.0 Age-related osteoporosis without current pathological fracture; K57.90 Diverticulosis of intestine, part unspecified, without perforation or abscess without bleeding; X58.XXXA Exposure to other specified factors, initial encounter
CPT/HCPCS: 36415; 71250; 74176; 80053; 81001; 85025; 99284; A9270

== ENCOUNTER 2025-01-11 11:07 | Outpatient (CLI) | payer MEDICARE, OTHER, SELFPAY ==
--- NOTE | ~2025-01-11 | DEXA_ITS ---
Bone Density Report Name: EMIGDIO GAVIRIA Age: 79 Sex: Female Ethnicity: White Date of : 1945 Indication: postmenopausal osteoporosis; height loss; prior fracture; cancer; hysterectomy; secondary osteoporosis; Referring Provider: LUIS GARCIA Study: Bone densitometry was performed. Exam Date: January 11, 2025 Accession number: [id number] Bone Density: Region BMD T-score Z-score Classification AP Spine(L3, L4) 0.846 -2.3 0.5 Osteopenia Femoral Neck (Left) 0.545 -2.7 -0.4 Osteoporosis Total Hip (Left) 0.644 -2.4 -0.4 Osteopenia Femoral Neck (Right) 0.489 -3.2 -1.0 Osteoporosis Total Hip (Right) 0.560 -3.1 -1.1 Osteoporosis Total Hip Mean 0.602 -2.8 -0.8 Osteoporosis World Health Organization criteria for BMD impression classify patients as: Normal (T-score at or above -1.0), Osteopenia (T-score between -1.0 and -2.5), or Osteoporosis (T-score at or below -2.5). 10-year Fracture Risk: FRAX not reported because: Some T-score for Spine Total or Hip Total or Femoral Neck at or below -2.5 Previous Exams: Region Exam Age BMD T-score BMD Change BMD Change Date g/cm2 vs Baseline vs Previous AP Spine (L3-L4) 01/11/2025 79 0.846 -2.3 -0.073 (-7.9%) -0.063 (-6.9%) 12/14/2020 75 0.909 -1.7 -0.010 (-1.1%) -0.010 (-1.1%) 03/06/2018 72 0.918 -1.7 Total Hip(Left) 01/11/2025 79 0.644 -2.4 0.021 (3.3%) 0.057 (9.8%)* 12/14/2020 75 0.586 -2.9 -0.037 (-5.9%) -0.037 (-5.9%) 03/06/2018 72 0.623 -2.6 Total Hip(Right) 01/11/2025 79 0.560 -3.1 0.024 (4.4%) -0.008 (-1.5%) 12/14/2020 75 0.569 -3.1 0.032 (6.0%)* 0.032 (6.0%)* 03/06/2018 72 0.537 -3.3 *Denotes significance at 95% confidence level, LSC for AP Spine = 0.022 g/cm2, LSC for Total Hip = 0.027 g/cm2 Clinical Information Provided by Patient: Has had a low trauma fracture Has secondary osteoporosis Has used the following medications: Actonel (i.e. risedronate), Vitamin D, Calcium Has the following medical conditions: Cancer, Hysterectomy Patient maximum height was 63.0 Menopause Age: 40 No regular weight bearing exercise Does not regularly consume dairy products Drinks caffeinated beverages Onset of menses at age 13 Number of children 2 Impression: The patient has established osteoporosis, based on the Right Femoral Neck T-score and the existence of a prior fracture. The patient has risk factors, including: previous fracture. The BMD for the AP Spine (L3-L4) decreased, changing by -6.9% since the last DXA exam. Discussion: HIGH RISK OF FRACTURE. BONE DENSITY IS UNDESIRABLY LOW AT ONE OR MORE SKELETAL SITES, CONSISTENT WITH POSTMENOPAUSAL OSTEOPOROSIS. This patient's lowest T-score, in a patient who has previously fractured, meets the World Health Organization's (WHO) criteria for severe osteoporosis. In untreated patients, the risk of osteoporotic fracture increases approximately two-fold for each 1.0 SD decrease in T-score. Low bone density is not the only risk factor for fracture; also consider factors such as patient's age, frailty or poor health, risk of falling, risk of injury, previous osteoporotic fracture, family history of osteoporosis, cigarette smoking, low body weight, etc. Not everyone with low bone mineral density has osteoporosis; osteomalacia and other metabolic bone disorders should also be considered. Patients who have osteoporosis should be evaluated for specific diseases and conditions (secondary causes) that may cause or contribute to bone loss. The [place] Association [employer] Clinical Endocrinologists (AACE) and National Osteoporosis Foundation (NOF) recommend pharmacologic intervention for all postmenopausal women whose T-score is in this range. The patient should follow a healthful lifestyle (good nutrition with adequate calcium and vitamin D, and appropriate weight-bearing exercise). Follow-Up: Consider a repeat BMD and Vertebral Fracture Assessment (VFA) exam in 2 years or sooner if medically necessary, to reassess this patient's status. Reported by: ALMAZ on 01/11/2025 11:49:00 AM. Reviewed, dictated and finalized at location A.
--- OUTSIDE RECORDS SUMMARY | 2025-01-11 12:29 | XMS_ITS | Clinical Summary ---
Author Organization [facility]. [facility] Address [address] [address] Care Team Providers Care Human Resources Supervisor Name Role Phone Unavailable Primary Care Provider Unavailabl e Allergies Active Allergy Reactions Criticality Noted Date Comments Sulfa (Sulfonamide Antibiotics) Hives High 08/26 Reaction: HIVES, , Medications levothyroxine 88 mcg tablet Take 88 mcg by mouth daily. 06/22/2022 Active naproxen (NAPROSYN) 500 mg tablet TAKE 1 TABLET BY MOUTH TWICE A DAY NEEDED FOR PAIN. TAKE WITH FOOD. 05/11/2022 Active Active Problems Problem Noted Date Diagnosed Date Hypothyroidism 01/22/2022 Encounters Date Type Department Care Team Description 12/30/2024 External Device Data [facility] ABSTRACTION Provider, Abstract 12/09/2024 External Device Data [facility] ABSTRACTION Provider, Abstract 12/09/2024 External Device Data [facility] ABSTRACTION Provider, Abstract 12/08/2024 External Device Data [facility] ABSTRACTION Provider, Abstract 11/11/2024 External Device Data [facility] ABSTRACTION Provider, Abstract 11/10/2024 External Device Data [facility] ABSTRACTION Provider, Abstract 10/20/2024 External Device Data [facility] ABSTRACTION Provider, Abstract 10/14/2024 External Device Data [facility] ABSTRACTION Provider, Abstract 10/13/2024 External Device Data [facility] ABSTRACTION Provider, Abstract from Last 3 Months Social History Tobacco Use Types Packs/Day Years Used Date Smoking Tobacco: Never Smokeless Tobacco: Never Tobacco Cessation:Counseling Given: Not Answered Alcohol Use Standard Drinks/Week Comments Never 0 (1 standard drink = 0.6 oz pur e alcohol) Comments Unknown Sex and Gender Information Value Date Recorded Sex Assigned at Not on file Legal Sex Female 11:29 AM CDT Gender Identity Not on file Sexual Orientation Not on file Last Filed Vital Signs Vital Sign Reading Time Taken Comments Blood Pressure 135/72 06/24/2024 2:52 PM UNDERCOVER COP Pulse 78 06/24/2024 2:52 PM UNDERCOVER [facility] Temperature 36.3 C (97.4 F) 06/24/2024 2:52 PM UNDERCOVER COP Respiratory Rate 15 06/24/2024 2:52 PM UNDERC[facility] Oxygen Saturation 94% 06/24/2024 2:52 PM UND[facility] COP Inhaled Oxygen Concentration - - Weight 63.9 kg (140 lb 12.8 oz) 06/24/2024 2:52 PM UNDERCOVER [facility] Height 157.5 cm (5' 2) 01/22/2022 3:06 PM CDT Body Mass Index 25.75 01/22/2022 3:06 PM CDT Plan of Treatment Upcoming Encounters Date Type Department Care Team (Late st Contact Info) Description 06/30/2025 3:30 PM UNDERCOVER COP Office Visit [facility] Oncology and Hematology [facility] [address] [facility] [address] [place] [address] Luca Thapa MD [address] [place] [address] Health Maintenance Due Date Last Done Comments DTAP/TDAP/TD VACCINES (1 - Tdap) 1964 PNEUMOCOCCAL VACCINE 50+ YEARS (1 of 2 - PCV) 03/07/19 64 ZOSTER VACCINE (1 of 2) 1964 OSTEOPOROSIS SCREENING 2010 RSV VACCINE (60+ or ) (1 - 1-dose 75+ series) 2020 INFLUENZA VACCINE (#1) 2024 Insurance MEDICARE PART A AND B [employer] CHOICE POS II
== END 2025-01-11 11:08 | disposition home or self-care (01) ==
LOC: ANHIMG 11:09
PROVIDERS: PCP Family Medicine; Visit Provider Family Medicine
DX: Z78.0 Asymptomatic menopausal state (principal); M85.88 Other specified disorders of bone density and structure, other site; M81.0 Age-related osteoporosis without current pathological fracture; M85.852 Other specified disorders of bone density and structure, left thigh; M85.851 Other specified disorders of bone density and structure, right thigh
CPT/HCPCS: 77080